=== PATIENT | female | born 1935 | race Caucasian/White ===

== ENCOUNTER 2016-08-07 13:47 | Inpatient (IN) | payer OTHER ==
[2016-08-07] MEDS ORDERED: ALBUTEROL SO4 2.5/IPRATROPIUM 0.5 INH SOL 3 ML VIAL.NEB. NEB ONE ×4 (14:02→14:58)
[2016-08-07] MEDS ORDERED: ACETAMINOPHEN 1000 MG/100 ML VIAL (NON FORMULARY) IVPB ONE (14:24)
[2016-08-07 14:32] LABS: BASOPHIL 0.3 % (0-2.0); EOSINOPHIL 0.6 % (0-4.5); MCH 33.5 pg (25.7-33.7); MCHC 34.1 g/dl (32.0-36.0); MEAN CELL VOLUME 98.3 fl (80-96); MEAN PLT VOLUME 8.3 fl (7.5-11.1); NEUTROPHILS 90.5 % (42.8-82.8); PLATELET COUNT 251 K/MM3 (134-434); RDW 16.5 % (11.6-15.6); WHITE BLOOD COUNT 10.8 K/mm3 (4.0-10.0)
[2016-08-07] MEDS: ALBUTEROL SO4 2.5/IPRATROPIUM 0.5 INH SOL 3 ML VIAL.NEB. NEB SCH ×4 (14:40→15:16)
[2016-08-07 14:41] LABS: VENOUS BLOOD GAS HCO3 25.9 meq/L (19-25); VENOUS PH 7.45 (7.32-7.42)
[2016-08-07 14:44] LABS: INR 1.06 (0.82-1.09); PROTHROMBIN TIME (PATIENT) 11.7 SEC (9.98-11.88)
[2016-08-07] MEDS ORDERED: methylPREDNISolone NA SUCC 125 MG/2 ML VIAL IVPB ONE (14:45)
[2016-08-07] MEDS ORDERED: SODIUM CHLORIDE 500 ML IV STA (14:46)
[2016-08-07 14:52] LABS: URINE APPEARANCE SLCLOUDY; URINE BILIRUBIN NEGATIVE (NEGATIVE); URINE BLOOD NEGATIVE (NEGATIVE); URINE COLOR LTYELLOW; URINE GLUCOSE (UA) NEGATIVE (NEGATIVE); URINE KETONE NEGATIVE (NEGATIVE); URINE LEUK ESTERASE NEGATIVE (NEGATIVE); URINE NITRITE NEGATIVE (NEGATIVE); URINE UROBILINOGEN NEGATIVE E.U./dl (0.2-1.0)
[2016-08-07 14:54] LABS: URINE PROTEIN 1+ (NEGATIVE)
[2016-08-07 14:57] LABS: URINE HYALINE CAST 7 /lpf; URINE MUCUS RARE; URINE RBC 8 /hpf (0-3); URINE WBC 8 /hpf (3-5); YEAST MANY
[2016-08-07 14:58] LABS: ALBUMIN 2.4 g/dl (3.4-5.0); ANION GAP 11 (8-16); BILIRUBIN,TOTAL 0.8 mg/dL (0.2-1.0); CO2 25 mmol/L (21-32); GLUCOSE,RANDOM 113 mg/dL (74-106); SGPT/ALT 19 U/L (12-78); TOT PROT 6.1 g/dl (6.4-8.2)
[2016-08-07] MEDS ORDERED: ACETAMINOPHEN INJECTION 100 ML IVPB ONE (14:58)
[2016-08-07] MEDS ORDERED: methylPREDNISolone NA SUCC 125 MG/2 ML VIAL ONE (14:58)
[2016-08-07 15:01] LABS: ALK PHOS 78 U/L (45-117); MAGNESIUM 2.2 mg/dL (1.8-2.4); SGOT/AST 47 U/L (15-37); TROPONIN I 0.26 ng/ml (0.00-0.05)
--- NOTE | 2016-08-07 15:05 | PDOC ---
History of Present Illness - General Chief Complaint: Respiratory Distress Stated Complaint: ASPIRATION PNEUMONIA Time Seen by Provider: 08/07/16 13:58 History Source: Assisted Records Exam Limitations: No Limitations - History of Present Illness Initial Comments: 08/07/16 14:05 81-year-old female sent over from longterm for evaluation of respiratory distress and questionable aspiration pneumonia which was seen on x-ray today. Patient with history of CHF, aspiration pneumonia secondary to PEG tube, failure to thrive, and anemia. Patient is currently on no antibiotics and was sent here for further evaluation. Patient unable to answer questions since she is having difficulty breathing upon arrival. Timing/Duration: reports: getting worse Severity: reports: moderate Possible Cause: Yes: occasional episodes Associated Symptoms: reports: cough, shortness of breath Past History - Past Medical History Allergies/Adverse Reactions: Allergies Allergy/AdvReac Type Severity Reaction Status Date / Time No Known Allergies Allergy Verified 07/28/16 18:15 Home Medications: Ambulatory Orders Acetaminophen [Tylenol] 320 mg GT Q6H 08/07/16 Albuterol 2.5/Ipratropium 0.5 [Duoneb -] 1 amp NEB Q6H 08/07/16 Amlodipine Besylate [Norvasc -] 2.5 mg GT DAILY 08/07/16 Amoxicillin/Potassium Clav [Amox-Clav 875-125 mg Tablet] 1 each PO BID 08/07/16 Atorvastatin Ca [Lipitor] 40 mg GT HS 08/07/16 Bacitracin - [Bacitracin Topical Ointment -] 1 applic TP DAILY 08/07/16 Dextrose 5%-0.45% Saline [Dextrose 5%-1/2NS] 50 ml IV 08/07/16 Insulin Aspart [Novolog] 0 unit SQ TID 08/07/16 Levetiracetam 500 mg GT BID 08/07/16 Levothyroxine [Synthroid -] 100 mcg GT DAILY 08/07/16 Menthol/Zinc Oxide [Calmoseptine Ointment] 71 gm TP DAILY 08/07/16 Omeprazole Magnesium [Prilosec] 20 mg GT DAILY 08/07/16 Piperacillin Sodium/Tazobactam [Zosyn 3.375 Gram Vial] 3.375 gm IV Q8H 08/07/16 Anemia: Yes Cardiac Disorders: Yes (cardiomegaly) CVA: Yes (ICH) COPD: Yes CHF: No Dementia: Yes Diabetes: Yes (IDDM) Disorders: Yes (Acute Kidney failure) HTN: Yes Hypercholesterolemia: Yes Thyroid Disease: Yes (hypo) - Immunization History Immunization Up to Date: Yes - Psycho/Social/Smoking Cessation Hx Anxiety: No Suicidal Ideation: No Smoking Status: No Smoking History: Unknown if ever smoked Have you smoked in the past 12 months: No Number of Cigarettes Smoked Daily: 0 Information on smoking cessation initiated: No Hx Alcohol Use: No Drug/Substance Use Hx: No Substance Use Type: None Hx Substance Use Treatment: No Patient Lives Alone: No Lives with/in: longterm Review of Systems - Review of Systems Able to Perform ROS?: Yes Constitutional: No: Fever Respiratory: Yes: Shortness of Breath Cardiac (ROS): No: Edema ABD/GI: No: Vomiting : No: Discharge Integumentary: No: Rash Neurological: No: Symptoms reported Hematologic/Lymphatic: Yes: Anemia *Physical Exam - Vital Signs Last Vital Signs Temp Pulse Resp BP Pulse Ox 98.3 F 79 27 H 175/58 85 L 08/07/16 14:44 08/07/16 14:05 08/07/16 14:05 08/07/16 14:05 08/07/16 14:44 - Physical Exam General Appearance: Yes: Appropriately Dressed. No: Mild Distress HEENT: positive: EOMI, ISAMAR, TMs Normal, Pharynx Normal (dry). negative: Pale Conjunctivae Neck: positive: Supple Respiratory/Chest: positive: Respiratory Distress, Accessory Muscle Use, Rapid RR, Crackles (mild inspiratory to rll). negative: Decreased Breath Sounds, Rhonchi, Stridor, Wheezing Gastrointestinal/Abdominal: positive: Soft, Other (pEG tube in place to left upper quadrant). negative: Tenderness Extremity: positive: Normal Capillary Refill. negative: Pedal Edema Integumentary: positive: Normal Color, Dry, Warm Neurologic: positive: Motor Strength 5/5 Heart Score/ECG Review - ECG Intrepretation Rhythm: Regular Rhythm (rate 81 normal sinus rhythm with no ST ELEVATION OR DEPRESSION) ED Treatment Course - LABORATORY CBC & Chemistry Diagram: 08/11/16 05:35 08/11/16 05:35 - ADDITIONAL ORDERS Additional order review: Laboratory Results 08/07/16 08/07/16 08/07/16 14:40 14:24 14:24 WBC RBC Hgb Hct MCV MCHC RDW Plt Count MPV Neutrophils % Lymphocytes % Monocytes % Eosinophils % Basophils % INR 1.06 VBG pH 7.45 H POC VBG pCO2 37.8 L POC VBG pO2 26.1 L Mixed VBG HCO3 25.9 H Urine Color Ltyellow Urine Appearance Slcloudy Urine pH 7.0 D Urine Protein 1+ H Urine Glucose (UA) Negative Urine Ketones Negative Urine Blood Negative Urine Nitrite Negative Urine Bilirubin Negative Urine Urobilinogen Negative Ur Leukocyte Esterase Negative 08/07/16 14:24 WBC 10.8 H D RBC 3.19 L Hgb 10.7 D Hct 31.3 L D MCV 98.3 H MCHC 34.1 RDW 16.5 H Plt Count 251 D MPV 8.3 Neutrophils % 90.5 H Lymphocytes % 5.0 L D Monocytes % 3.6 L Eosinophils % 0.6 Basophils % 0.3 INR VBG pH POC VBG pCO2 POC VBG pO2 Mixed VBG HCO3 Urine Color Urine Appearance Urine pH Urine Protein Urine Glucose (UA) Urine Ketones Urine Blood Urine Nitrite Urine Bilirubin Urine Urobilinogen Ur Leukocyte Esterase 08/07/16 14:24 RBC 3.19 L MCV 98.3 H MCHC 34.1 RDW 16.5 H MPV 8.3 Neutrophils % 90.5 H Lymphocytes % 5.0 L D Monocytes % 3.6 L Eosinophils % 0.6 Basophils % 0.3 - RADIOLOGY Radiology Studies Ordered: Category Date Time Status CHEST X-RAY PORTABLE* [RAD] Stat Radiology 08/07/16 14:23 Ordered - Medications Given in the ED: ED Medications Discontinued Medications Generic Name Dose Route Start Last Admin Trade Name Freq PRN Reason Stop Dose Admin Albuterol/Ipratropium 1 amp 08/07/16 14:24 08/07/16 14:25 Duoneb - NEB 08/07/16 14:25 1 amp ONCE ONE Administration Albuterol/Ipratropium 1 amp 08/07/16 14:25 08/07/16 14:35 Duoneb - NEB 08/07/16 14:26 1 amp ONCE ONE Administration Medical Decision Making - Medical Decision Making 08/07/16 14:58 Patient sent in from longterm for evaluation of possible aspiration pneumonia. Patient upon arrival was tachypneic with O2 sat of high 70s on room air. Patient with right lower lobe crackles. Patient ordered for rectal temp which was noted to be 99.4. Patient warm to touch and appears dry. Patient concerning for electrolyte imbalance versus pneumonia versus sepsis versus anemia. 08/07/16 16:28 Selected Entries 08/07/16 15:56 Pulse Rate [ 112 H Apical] Respiratory 27 H Rate O2 Sat by Pulse 94 L Oximetry (%) Laboratory Tests 08/07/16 16:15 ABG pH 7.49 H ABG pCO2 at Pt Temp 28.8 L ABG pO2 at Pt Temp 58.2 L ABG HCO3 21.8 L ABG O2 Content 12.9 L 08/07/16 16:29 Laboratory Tests 07/28/16 07/30/16 08/07/16 18:20 06:00 14:24 WBC 10.8 H D RBC 3.19 L Hgb 10.7 D Plt Count 251 D Neutrophils % 90.5 H Sodium Potassium Chloride Carbon Dioxide Anion Gap BUN Creatinine Random Glucose Calcium Creatine Kinase Troponin I 0.14 H 0.15 H Urine Nitrite Ur Leukocyte Esterase Urine WBC 08/07/16 08/07/16 14:24 14:24 WBC RBC Hgb Plt Count Neutrophils % Sodium 141 Potassium 4.2 Chloride 105 Carbon Dioxide 25 Anion Gap 11 BUN 16 D Creatinine 1.0 Random Glucose 113 H Calcium 8.0 L Creatine Kinase 204 H D Troponin I 0.26 H Urine Nitrite Negative Ur Leukocyte Esterase Negative Urine WBC 8 X-ray showed no acute findings. Patient concerning for PE. Patient ordered for CT of the chest. 08/07/16 18:17 Selected Entries 08/07/16 17:43 Pulse Rate [ 95 H Apical] Respiratory 24 Rate Blood Pressure 135/52 [Left Arm] O2 Sat by Pulse 97 Oximetry (%) Oxygen Flow 15 Rate 08/07/16 19:03 CTA resent to [facility] on-call. Dr. Gregory aware we are waiting results and will consult once CTAs reviewed and resulted. *DC/Admit/Observation/Transfer Diagnosis at time of Disposition: Respiratory failure with hypoxia, Pneumonia - Referrals
[2016-08-07 16:18] LABS: ARTERIAL BLOOD GAS BASE EXCESS -0.5 meq/l (-2-2); ARTERIAL BLOOD GAS HCO3 21.8 meq/L (22-26); ARTERIAL BLOOD GAS PO2 58.2 mmHg (68-100); ARTERIAL BLOOD GAS pH 7.49 (7.35-7.45)
[2016-08-07 16:19] LABS: ALLENS TEST POSITIVE; ART PUNCT SITE RIGHT RADIAL; LPM/O2% 100%; METHEMOGLOBIN 0.6 % (0.4-1.5); PT. ON O2? YES; TYPE OF O2 NONREBREATHER
--- NOTE | 2016-08-07 20:32 | PDOC ---
*Physical Exam - Vital Signs Last Vital Signs Temp Pulse Resp BP Pulse Ox 98.3 F 81 17 123/47 100 08/07/16 14:44 08/07/16 20:08 08/07/16 20:08 08/07/16 20:08 08/07/16 20:08 ED Treatment Course - LABORATORY CBC & Chemistry Diagram: 08/07/16 14:24 08/07/16 14:24 - ADDITIONAL ORDERS Additional order review: Laboratory Results 08/07/16 08/07/16 08/07/16 16:15 14:40 14:24 INR Puncture Site Right radial ABG pH 7.49 H ABG pCO2 at Pt Temp 28.8 L ABG pO2 at Pt Temp 58.2 L ABG HCO3 21.8 L ABG O2 Sat (Measured) 90.0 ABG O2 Content 12.9 L ABG Base Excess -0.5 Abelardo Test Positive VBG pH 7.45 H POC VBG pCO2 37.8 L POC VBG pO2 26.1 L Mixed VBG HCO3 25.9 H Carboxyhemoglobin 2.0 Methemoglobin 0.6 O2 Delivery Device Nonrebreather Oxygen Flow Rate 100% PEEP 0.0 Sodium Potassium Chloride Carbon Dioxide Anion Gap BUN Creatinine Creat Clearance w eGFR Random Glucose Lactic Acid 1.8 Calcium Magnesium Total Bilirubin AST ALT Alkaline Phosphatase Creatine Kinase CK-MB (CK-2) Troponin I Total Protein Albumin Urine Color Urine Appearance Urine pH Urine Protein Urine Glucose (UA) Urine Ketones Urine Blood Urine Nitrite Urine Bilirubin Urine Urobilinogen Ur Leukocyte Esterase Urine RBC Urine WBC Hyaline Casts Urine Mucus Urine Yeast 08/07/16 08/07/16 08/07/16 14:24 14:24 14:24 INR 1.06 Puncture Site ABG pH ABG pCO2 at Pt Temp ABG pO2 at Pt Temp ABG HCO3 ABG O2 Sat (Measured) ABG O2 Content ABG Base Excess Abelardo Test VBG pH POC VBG pCO2 POC VBG pO2 Mixed VBG HCO3 Carboxyhemoglobin Methemoglobin O2 Delivery Device Oxygen Flow Rate PEEP Sodium 141 Potassium 4.2 Chloride 105 Carbon Dioxide 25 Anion Gap 11 BUN 16 D Creatinine 1.0 Creat Clearance w eGFR 53.21 Random Glucose 113 H Lactic Acid Calcium 8.0 L Magnesium 2.2 Total Bilirubin 0.8 D AST 47 H D ALT 19 Alkaline Phosphatase 78 Creatine Kinase 204 H D CK-MB (CK-2) 5.568 H Troponin I 0.26 H Total Protein 6.1 L Albumin 2.4 L Urine Color Ltyellow Urine Appearance Slcloudy Urine pH 7.0 D Urine Protein 1+ H Urine Glucose (UA) Negative Urine Ketones Negative Urine Blood Negative Urine Nitrite Negative Urine Bilirubin Negative Urine Urobilinogen Negative Ur Leukocyte Esterase Negative Urine RBC 8 Urine WBC 8 Hyaline Casts 7 Urine Mucus Rare Urine Yeast Many 08/07/16 14:24 RBC 3.19 L MCV 98.3 H MCHC 34.1 RDW 16.5 H MPV 8.3 Neutrophils % 90.5 H Lymphocytes % 5.0 L D Monocytes % 3.6 L Eosinophils % 0.6 Basophils % 0.3 - Medications Given in the ED: ED Medications Discontinued Medications Generic Name Dose Route Start Last Admin Trade Name Freq PRN Reason Stop Dose Admin Acetaminophen 1,000 mg 08/07/16 14:24 08/07/16 15:05 Ofirmev Injection - IVPB 08/07/16 14:25 1,000 mg ONCE ONE Administration Albuterol/Ipratropium 1 amp 08/07/16 14:24 08/07/16 14:25 Duoneb - NEB 08/07/16 14:25 1 amp ONCE ONE Administration Albuterol/Ipratropium 1 amp 08/07/16 14:30 08/07/16 15:16 Duoneb - NEB 08/07/16 15:16 1 amp Q15M BONI Administration Albuterol/Ipratropium 1 amp 08/07/16 14:25 08/07/16 14:35 Duoneb - NEB 08/07/16 14:26 1 amp ONCE ONE Administration Sodium Chloride 500 mls @ 250 mls/hr 08/07/16 14:46 08/07/16 14:56 Normal Saline - IV 08/07/16 16:45 250 mls/hr ASDIR STA Administration Methylprednisolone Sodium Succinate 125 mg 08/07/16 14:45 08/07/16 15:00 Solu-Medrol - IVPB 08/07/16 14:46 125 mg ONCE ONE Administration Medical Decision Making - Medical Decision Making 08/07/16 20:30 Patient was endorsed to me by JAG River to follow the CTA and discuss with pmd for admission 0831 CT scan still not read. patient seen and evaluated vs stable O2 sat 100% on NRB 08/07/16 21:54 Patient Name: Raquel Guerin THIS IS A PRELIMINARY REPORT FROM [facility] DATE OF SERVICE: 2016-08-07 16:47:59.0 IMAGES: [id number] EXAM: CTA CHEST WITH IV CONTRAST. PULMONARY EMBOLUS PROTOCOL. REASON FOR EXAM: Chest pain Shortness of breath COMPARISON: None FINDINGS: No evidence of pulmonary embolus or aortic dissection Right lower lobe consolidation with small right pleural effusion. Significantly smaller left pleural effusion with atelectasis. There is no pneumothorax. Heart size is normal and without pericardial effusion. No endobronchial lesions are seen. No pathologic mediastinal adenopathy. Bony thoracic cage and spine are intact with mild degenerative changes and exaggerated kyphosis. Tiny 5 mm right hepatic lesion too small to characterize. Proximal celiac artery stenosis. IMPRESSION No CT evidence of pulmonary embolus or aortic dissection. Moderate size right pleural effusion with right lower lobe consolidation with significant smaller left effusion with left atelectasis THIS DOCUMENT HAS BEEN ELECTRONICALLY SIGNED Heather Cintron D.O. 08/07/2016 21:09 CLAUDIA Santamaria Please call [facility] Work[facility] [phone] ([phone]) with questions. ct noted as above will put the patient on BiPap since not doing well on NC. Will given the patient Zosyn 3.375g and Vancomycin 1 gm IV for the right lower low consolidation Dr. Gregory contacted for admission 08/07/16 22:13 D/W Dr. Gregory will admit to Dr. Drew service *DC/Admit/Observation/Transfer Diagnosis at time of Disposition: Respiratory failure with hypoxia Qualifiers: Chronicity: acute Qualified Code(s): J96.01 - Acute respiratory failure with hypoxia Pneumonia Qualifiers: Pneumonia type: due to unspecified organism Laterality: right Lung location: lower lobe of lung Qualified Code(s): J18.1 - Lobar pneumonia, unspecified organism - Discharge Dispostion Admit: Yes - Referrals Referrals: Alexander Lovell MD [Primary Care Provider] - - Patient Instructions - Post Discharge Activity
[2016-08-07] MEDS ORDERED: VANCOMYCIN 1,000 MG in DEXTROSE 5%-WATER - 250 ML IVPB ONE (21:46)
[2016-08-07] MEDS ORDERED: VANCOMYCIN 1 GRAM (PRE-DOCKED) 250 ML IVPB ONE (22:30)
[2016-08-08 02:05] VITALS: BMI 15.9
--- NOTE | 2016-08-08 09:57 | CON.CARD ---
Consult Consult Specialty:: cardio Referred by:: kristen Reason for Consultation:: elevated troponin - History of Present Illness Chief Complaint: resp distress History of Present Illness: 81 yo female here with resp distress. recently was hospitalized for > 1 week with: ICH, followed by Neurology/Neurosurgery here, no intervention planned. ULISES FTT/malnutrition--s/p PEG UTI--treated by ID stable COPD, followed by pulm here currently sent from [place] for acute sob. CT chest in ER showed RLL consolidation, LLL atx, bilat effusions (no evidence of pulmonary embolus or aortic dissection). Given abx for PNA pt currently resting in bed comfortably, eyes closed. keeps eyes closed and answers briefly to questions--no meaningful history. 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 Cardio/Vascular: Yes: HTN, Hyperlipdemia Pulmonary: Yes: COPD Renal/: Yes: Renal Inusuff ...: No Endocrine: Yes: Diabetes Mellitus, Hypothyroidism - Alcohol/Substance Use Hx Alcohol Use: No - Smoking History Smoking history: Unknown if ever smoked Have you smoked in the past 12 months: No Aproximately how many cigarettes per day: 0 Home Medications - Allergies Allergies/Adverse Reactions: Allergies Allergy/AdvReac Type Severity Reaction Status Date / Time No Known Allergies Allergy Verified 07/28/16 18:15 - Home Medications Home Medications: Ambulatory Orders Acetaminophen [Tylenol] 320 mg GT Q6H 08/07/16 Albuterol 2.5/Ipratropium 0.5 [Duoneb -] 1 amp NEB Q6H 08/07/16 Amlodipine Besylate [Norvasc -] 2.5 mg GT DAILY 08/07/16 Amoxicillin/Potassium Clav [Amox-Clav 875-125 mg Tablet] 1 each PO BID 08/07/16 Atorvastatin Ca [Lipitor] 40 mg GT HS 08/07/16 Bacitracin - [Bacitracin Topical Ointment -] 1 applic TP DAILY 08/07/16 Dextrose 5%-0.45% Saline [Dextrose 5%-1/2NS] 50 ml IV 08/07/16 Insulin Aspart [Novolog] 0 unit SQ TID 08/07/16 Levetiracetam 500 mg GT BID 08/07/16 Levothyroxine [Synthroid -] 100 mcg GT DAILY 08/07/16 Menthol/Zinc Oxide [Calmoseptine Ointment] 71 gm TP DAILY 08/07/16 Omeprazole Magnesium [Prilosec] 20 mg GT DAILY 08/07/16 Piperacillin Sodium/Tazobactam [Zosyn 3.375 Gram Vial] 3.375 gm IV Q8H 08/07/16 Family Disease History - Family Disease History Family History: Unable to Obtain Review of Systems Unable to obtain ROS, reason: dementia Vital Signs: Vital Signs Temperature 97.8 F 08/08/16 06:00 Pulse Rate 68 08/08/16 06:00 Respiratory Rate 20 08/08/16 06:00 Blood Pressure 137/63 08/08/16 06:00 O2 Sat by Pulse Oximetry (%) 95 08/08/16 02:05 Constitutional: Yes: Well Nourished, No Distress Eyes: No: Sclera Icterus HENT: No: Nasal Congestion Neck: No: Decreased ROM Respiratory: Yes: CTA Bilaterally, Diminished (bases). No: Accessory Muscle Use , Rales, Wheezes Gastrointestinal: Yes: Normal Bowel Sounds. No: Distention, Hepatomegaly, Palpable Mass, Tenderness Cardiovascular: Yes: Regular Rate and Rhythm JVD: No Carotid Bruit: No PMI: Non-Displaced Heart Sounds: Yes: S1, S2. No: Gallop Murmur: Yes: Systolic Murmur (2/6 early NAS lusb). No: Diastolic Murmur Musculoskeletal: Yes: Other (No kyphosis) Extremities: No: Cold, Cyanosis Edema: No Peripheral Pulses: 2+ Left Carotid, 2+ Right Carotid, 2+ Left Doralis Pedis, 2+ Right Dorsalis Pedis Integumentary: No: Jaundice Neurological: Yes: Lethargy. No: Seizure Psychiatric: No: Agitated - Other Data Labs, Other Data: INR, PTT INR 1.06 (0.82-1.09) 08/07/16 14:24 Laboratory Tests 08/07/16 08/07/16 08/07/16 14:24 14:24 16:15 WBC 10.8 H D Hgb 10.7 D Plt Count 251 D ABG pH 7.49 H ABG pCO2 at Pt Temp 28.8 L ABG pO2 at Pt Temp 58.2 L Oxygen Flow Rate 100% Sodium 141 Potassium 4.2 Carbon Dioxide 25 BUN 16 D Creatinine 1.0 AST 47 H D ALT 19 Troponin I 0.26 H Assessment/Plan ECG 08/07: NSR, WNL--no change vs 07/23 CTA chest: no PE; RLL consolidation, LLL atx, bilat effusions acute hypoxic resp failure: -PNA suggested on CT scan, WBCs 10, normal temp curve -pulm consult pending--abx? -? chf component --CT reviewed: moderate effusion R (? parapneumonic), small L, fluid in fissures bilaterally but no pulm edema/ground glass appreciated. -BNP 18K -check echo (murmur noted as well--r/o ) -dry mucous membranes on exam, no jvd appreciated (somewhat tds exam due to pt contracted position and poor compliance with exam) -will give test dose lasix 20mg IVP today--observe BP response and lytes/bun and creat in am--further lasix recs to follow based on above -supplemental O2 as doing elevated trop: -trop 0.2 x2 (baseline 0.1 about one week ago)--trend not c/w ACS, ecg non- ischemic -no further ischemia w/u indicated HTN: -bp controlled -cont amlodipine DM: -per pmd recent ICH: -seen by neuro/neurosurgery, no intervention was planned chronic malnutrition: -s/p PEG, gets tube feeds -albumin 2.4 -per pmd copd: -per pulm
--- NOTE | 2016-08-08 11:01 | HP ---
Admitting History and Physical - Primary Care Physician PCP: Alexander Lovell - Admission Chief Complaint: shortness of breath, fever History of Present Illness: 81 y/o female with PMHX of HTN HLD DM2 hypothyroidism, recent ICH, transferred from [facility] with c/o shortness of breath, congestion, low grade fever, low O2 sats. She was recently discharged from [facility] after insertion of PEG for failure to thrive. Patient was noted to be short of breath, congested on Monday night. PEG feedings were put on hold since then and chest x ray ordered. She continued to be short of breath with low grade fever Monday morning. Chest x ray results showed right lower lobe consolidation and possible right middle lobe as well. She was transferred here for the same. Given the timeline, it looks like more of aspiration pneumonia. Patient seen and examined. Much more awake, alert as compared to prior admission. Responding to verbal commands. 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 Cardiovascular: Yes: HTN, Hyperlipdemia Pulmonary: Yes: COPD Renal/: Yes: Renal Inusuff ...: No Heme/Onc: Yes: Anemia Endocrine: Yes: Diabetes Mellitus, Hypothyroidism - Smoking History Smoking history: Unknown if ever smoked Have you smoked in the past 12 months: No Aproximately how many cigarettes per day: 0 - Alcohol/Substance Use Hx Alcohol Use: No Home Medications - Allergies Allergies/Adverse Reactions: Allergies Allergy/AdvReac Type Severity Reaction Status Date / Time No Known Allergies Allergy Verified 07/28/16 18:15 - Home Medications Home Medications: Ambulatory Orders Acetaminophen [Tylenol] 320 mg GT Q6H 08/07/16 Albuterol 2.5/Ipratropium 0.5 [Duoneb -] 1 amp NEB Q6H 08/07/16 Amlodipine Besylate [Norvasc -] 2.5 mg GT DAILY 08/07/16 Amoxicillin/Potassium Clav [Amox-Clav 875-125 mg Tablet] 1 each PO BID 08/07/16 Atorvastatin Ca [Lipitor] 40 mg GT HS 08/07/16 Bacitracin - [Bacitracin Topical Ointment -] 1 applic TP DAILY 08/07/16 Dextrose 5%-0.45% Saline [Dextrose 5%-1/2NS] 50 ml IV 08/07/16 Insulin Aspart [Novolog] 0 unit SQ TID 08/07/16 Levetiracetam 500 mg GT BID 08/07/16 Levothyroxine [Synthroid -] 100 mcg GT DAILY 08/07/16 Menthol/Zinc Oxide [Calmoseptine Ointment] 71 gm TP DAILY 08/07/16 Omeprazole Magnesium [Prilosec] 20 mg GT DAILY 08/07/16 Piperacillin Sodium/Tazobactam [Zosyn 3.375 Gram Vial] 3.375 gm IV Q8H 08/07/16 Review of Systems Unable to obtain ROS, reason: due to ams Physical Examination Vital Signs: Vital Signs Temperature 97.8 F 08/08/16 06:00 Pulse Rate 68 08/08/16 06:00 Respiratory Rate 20 08/08/16 06:00 Blood Pressure 137/63 08/08/16 06:00 O2 Sat by Pulse Oximetry (%) 95 08/08/16 02:05 Constitutional: Yes: Mild Distress, Thin Eyes: Yes: Conjunctiva Clear, EOM Intact, PERRL HENT: Yes: Atraumatic, Normocephalic Neck: Yes: Supple, Trachea Midline Cardiovascular: Yes: Regular Rate and Rhythm Respiratory: Yes: Diminished (right lung base) Gastrointestinal: Yes: Soft Problem List - Problems (1) Aspiration pneumonia Assessment/Plan: PEG feeds on hold for the time being. Continue zosyn. Pulmonary/ID cosult appreciated. Aspiration precautions. Code(s): J69.0 - PNEUMONITIS DUE TO INHALATION OF FOOD AND VOMIT Qualifiers: Aspiration pneumonia type: due to regurgitated food Laterality: bilateral Lung location: lower lobe of lung Qualified Code(s): J69.0 - Pneumonitis due to inhalation of food and vomit (2) Respiratory failure with hypoxia Assessment/Plan: Not in respiratory distress but desats without oxygen support. Continue O2 NC. Monitor sats. Inhaled bronchodilators. Pulmonary follow up. Code(s): J96.91 - RESPIRATORY FAILURE, UNSPECIFIED WITH HYPOXIA Qualifiers: Chronicity: acute Qualified Code(s): J96.01 - Acute respiratory failure with hypoxia (3) Failure to thrive Code(s): [id number] - (4) Hypertension Assessment/Plan: High. Meds resumed. may need to increase the dose if needed. Code(s): I10 - ESSENTIAL (PRIMARY) HYPERTENSION (5) Hypothyroid Assessment/Plan: Continue current dose of levothyroxine. Code(s): E03.9 - HYPOTHYROIDISM, UNSPECIFIED (6) Intracerebral hemorrhage Assessment/Plan: Stable. Extensive work up with neurosurgery/neurology prior admit (Last week) Code(s): I61.9 - NONTRAUMATIC INTRACEREBRAL HEMORRHAGE, UNSPECIFIED Qualifiers : Cerebral hemorrhage location: cerebral hemisphere, cortical portion (7) Congestive heart failure (CHF) Assessment/Plan: BNP very high. B/L pleural effusions. Cardiology consult appreciated. Trial of lasix 20 IV today. Code(s): I50.9 - HEART FAILURE, UNSPECIFIED (8) Diabetes Assessment/Plan: Monitor BGMs/ISS Code(s): E11.9 - TYPE 2 DIABETES MELLITUS WITHOUT COMPLICATIONS Qualifiers: Diabetes mellitus type: type 2 Diabetes mellitus complication status: with unspecified complications Assessment/Plan Patient is NPO for the time being. PEG feeds on hold. Clinimix to be started but on hold for today. Discussed with cardiology - to hold IV fluids for today. Swallow evaluation pending and to discuss with family regarding goals of care.
[2016-08-08 11:14] LABS: TROPONIN I 0.22 ng/ml (0.00-0.05)
[2016-08-08] MEDS: ALBUTEROL SO4 2.5/IPRATROPIUM 0.5 INH SOL 3 ML VIAL.NEB. NEB SCH ×3 (11:29→23:11)
[2016-08-08] MEDS ORDERED: FUROSEMIDE 40 MG/4 ML INJECTABLE VIAL IVPUSH ONE (12:15)
--- NOTE | 2016-08-08 12:47 | PN ---
Progress Note (short form) - Note Progress Note: PULMONARY CONSULTATION DICTATED 08/08/16 IMP ACUTE HYPOXEMIC RESPIRATORY FAILURE RLL CONSOLIDATION LIKELY ASPIRATION PNEUMONIA BILATERAL PLEURAL EFFUSIONS ? CHF H/O ICH S/P CVA S/P PEG DM HTN HYPOTHYROID PLAN IV ANTIBIOTICS SUPPLEMENTAL O2 ASPIRATION PRECAUTIONS LASIX PER CARDIOLOGY INHALED BRONCHODILATORS ECHO F/U CHEST X-RAY DR MCCULLOUGH Problem List - Problems (1) Aspiration pneumonia Code(s): J69.0 - PNEUMONITIS DUE TO INHALATION OF FOOD AND VOMIT (2) Respiratory failure with hypoxia Code(s): J96.91 - RESPIRATORY FAILURE, UNSPECIFIED WITH HYPOXIA Qualifiers: Chronicity: acute Qualified Code(s): J96.01 - Acute respiratory failure with hypoxia (3) Diabetes Code(s): E11.9 - TYPE 2 DIABETES MELLITUS WITHOUT COMPLICATIONS Qualifiers: Diabetes mellitus type: type 2 Diabetes mellitus complication status: with unspecified complications (4) Hypertension Code(s): I10 - ESSENTIAL (PRIMARY) HYPERTENSION (5) Hypothyroid Code(s): E03.9 - HYPOTHYROIDISM, UNSPECIFIED (6) Intracerebral hemorrhage Code(s): I61.9 - NONTRAUMATIC INTRACEREBRAL HEMORRHAGE, UNSPECIFIED Qualifiers : Cerebral hemorrhage location: cerebral hemisphere, cortical portion
[2016-08-08] MEDS ORDERED: ALBUTEROL SO4 2.5/IPRATROPIUM 0.5 INH SOL 3 ML VIAL.NEB. NEB PRN (12:51)
[2016-08-08] MEDS: PIPERACILLIN/TAZOB 3.375 GM 50 ML IVPB SCH ×2 (13:33→17:18)
[2016-08-08] MEDS: ACETAMINOPHEN 325 MG TABLET (FP) PO SCH ×3 (13:34→22:28)
--- NOTE | 2016-08-08 14:21 | CONSULT ---
Consult Consult Specialty:: infectious diseases Referred by:: Reason for Consultation:: pneumonia - History of Present Illness History of Present Illness: 81 y/o female with PMHX of HTN HLD DM2 hypothyroidism, This patient is well nown to e from the last admission she was a failure to thrive patient and according to the family most of the bad things happened after she suffered the stroke patient was in the hospital and had a feeding tube placed and then was transferred to group home patient became congested sob and patient was transferred back to the hospital patients family in the room and patient is much more awake and alert than ever before and she does understand everything patient tube feeds are on hold and she does have cough which indicates that patient probably has pna and probably due to aspiration - History Source History Provided By: Patient, Family Member Limitations to Obtaining History: Clinical Condition - 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 Cardio/Vascular: Yes: HTN, Hyperlipdemia Pulmonary: Yes: COPD Renal/: Yes: Renal Inusuff ...: No Endocrine: Yes: Diabetes Mellitus, Hypothyroidism - Alcohol/Substance Use Hx Alcohol Use: No - Smoking History Smoking history: Unknown if ever smoked Have you smoked in the past 12 months: No Aproximately how many cigarettes per day: 0 Home Medications - Allergies Allergies/Adverse Reactions: Allergies Allergy/AdvReac Type Severity Reaction Status Date / Time No Known Allergies Allergy Verified 07/28/16 18:15 - Home Medications Home Medications: Ambulatory Orders Acetaminophen [Tylenol] 320 mg GT Q6H 08/07/16 Albuterol 2.5/Ipratropium 0.5 [Duoneb -] 1 amp NEB Q6H 08/07/16 Amlodipine Besylate [Norvasc -] 2.5 mg GT DAILY 08/07/16 Amoxicillin/Potassium Clav [Amox-Clav 875-125 mg Tablet] 1 each PO BID 08/07/16 Atorvastatin Ca [Lipitor] 40 mg GT HS 08/07/16 Bacitracin - [Bacitracin Topical Ointment -] 1 applic TP DAILY 08/07/16 Dextrose 5%-0.45% Saline [Dextrose 5%-1/2NS] 50 ml IV 08/07/16 Insulin Aspart [Novolog] 0 unit SQ TID 08/07/16 Levetiracetam 500 mg GT BID 08/07/16 Levothyroxine [Synthroid -] 100 mcg GT DAILY 08/07/16 Menthol/Zinc Oxide [Calmoseptine Ointment] 71 gm TP DAILY 08/07/16 Omeprazole Magnesium [Prilosec] 20 mg GT DAILY 08/07/16 Piperacillin Sodium/Tazobactam [Zosyn 3.375 Gram Vial] 3.375 gm IV Q8H 08/07/16 Review of Systems - Review of Systems Constitutional: reports: Lethargy Eyes: reports: No Symptoms HENT: reports: No Symptoms Neck: reports: No Symptoms Cardiovascular: reports: No Symptoms Respiratory: reports: Cough, SOB, Other Gastrointestinal: reports: No Symptoms Genitourinary: reports: No Symptoms Musculoskeletal: reports: No Symptoms Integumentary: reports: No Symptoms Neurological: reports: No Symptoms Endocrine: reports: No Symptoms Hematology/Lymphatic: reports: No Symptoms Psychiatric: reports: No Symptoms Physical Exam Vital Signs: Vital Signs Temperature 97.8 F 08/08/16 06:00 Pulse Rate 68 08/08/16 06:00 Respiratory Rate 20 08/08/16 06:00 Blood Pressure 137/63 08/08/16 06:00 O2 Sat by Pulse Oximetry (%) 95 08/08/16 02:05 Constitutional: Yes: Calm, Thin, Other (failure to thrive) Eyes: Yes: Conjunctiva Clear Neck: Yes: Supple, Trachea Midline Cardiovascular: Yes: S1, S2 Respiratory: Yes: Cough, On Nasal O2, Poor Air Entry, Rhonchi Gastrointestinal: Yes: Normal Bowel Sounds, Soft, Other (peg in place) Musculoskeletal: Yes: Other Extremities: Yes: WNL Neurological: Yes: Alert, Oriented Psychiatric: Yes: Alert Imaging - Results Chest X-ray: Report Reviewed, Image Reviewed Cat Scan: Report Reviewed, Image Reviewed Assessment/Plan roblem List - Problems (1) Aspiration pneumonia Code(s): J69.0 - PNEUMONITIS DUE TO INHALATION OF FOOD AND VOMIT Qualifiers: Aspiration pneumonia type: due to regurgitated food Laterality: bilateral Lung location: lower lobe of lung Qualified Code(s): J69.0 - Pneumonitis due to inhalation of food and vomit (2) Respiratory failure with hypoxia Code(s): J96.91 - RESPIRATORY FAILURE, UNSPECIFIED WITH HYPOXIA Qualifiers: Chronicity: acute Qualified Code(s): J96.01 - Acute respiratory failure with hypoxia (3) Failure to thrive Code(s): [id number] - (4) Hypertension Code(s): I10 - ESSENTIAL (PRIMARY) HYPERTENSION (5) Hypothyroid Code(s): E03.9 - HYPOTHYROIDISM, UNSPECIFIED (6) Intracerebral hemorrhage Code(s): I61.9 - NONTRAUMATIC INTRACEREBRAL HEMORRHAGE, UNSPECIFIED Qualifiers : Cerebral hemorrhage location: cerebral hemisphere, cortical portion (7) Congestive heart failure (CHF) Code(s): I50.9 - HEART FAILURE, UNSPECIFIED (8) Diabetes Code(s): E11.9 - TYPE 2 DIABETES MELLITUS WITHOUT COMPLICATIONS Qualifiers: Diabetes mellitus type: type 2 Diabetes mellitus complication status: with unspecified complications i think patient has aspiration pneumonia patients status ahs improved plan agree with holding tube feeds started on abx continue monitor await for cx reports incentive latha if possible
--- NOTE | 2016-08-08 20:38 | CONS ---
DATE OF CONSULTATION: 08/08/2016 PULMONARY CONSULTATION REFERRING PHYSICIAN: Alexander Lovell M.D. HISTORY OF PRESENT ILLNESS: History is obtained from the chart. The patient is poorly responsive. The patient is an 81-year-old white female with a past medical history of hypertension, hyperlipidemia, type 2 diabetes, hypothyroidism, recent intracerebral hemorrhage. Patient recently was hospitalized at [facility] post PEG insertion secondary to failure to thrive, residential resident transferred to [facility] secondary to shortness of breath, hypoxemia, low grade fever, therefore she was recently discharged to [facility] after insertion of PEG. Apparently, at the residential, patient noted to be short of breath and congested on Monday evening prior to this admission. The patient apparently PEG feedings were put on hold, and then patient had chest x-ray. Chest x-ray apparently showed a right lower lobe consolidation at which time she was transferred to [facility] ER. In the emergency room, she was noted to be hypoxemic with O2 saturations in the 70s. She underwent a chest CTA which revealed right lower lobe consolidation with base atelectasis and bilateral pleural effusion. She was admitted to the floor, started on supplemental O2 as well as broad spectrum antibiotics for likely aspiration pneumonia. No further history is available at this time. PAST MEDICAL HISTORY: Includes hypertension status post intracerebral hemorrhage, diabetes type 2, hypothyroidism, hyperlipidemia, and chronic kidney disease, hypothyroidism. SOCIAL HISTORY: Unable to obtain at this time. CURRENT MEDICATIONS: Include Tylenol, heparin, Keppra, Synthroid, Lipitor, Norvasc, DuoNeb, heparin, Tylenol. REVIEW OF SYSTEMS: Unable to obtain. PHYSICAL EXAMINATION: General: The patient is a thin white female, contracted lower extremities, poorly responsive, in no acute respiratory distress. Vital signs: She is currently afebrile. Blood pressure is 137/63, respiratory rate 20, O2 saturation is 95% on room air. HEENT: Head is normocephalic, atraumatic. Neck: Supple. Heart: Regular. S1, S2. Chest: Crackles are noted at the right base. Abdomen: Soft. Bowel sounds positive. Extremities: Bilateral extremity contractures. No edema noted. LABORATORY: WBC is 10.8, hemoglobin 10.7, hematocrit 31.3, platelet count 251,000, INR 1.06. Blood gas: pH 7.49, pCO2 of 28, pO2 of 58, a bicarbonate of 21, a saturation of 90, that was 100% nonrebreather. Troponin is 0.26. BNP is 18,160. BUN 16, creatinine 1.0. Chest CT as noted earlier. IMPRESSION: 1. Acute hypoxemic respiratory failure most likely secondary to right lower lobe consolidation, might be aspiration pneumonia. 2. Bilateral pleural effusions, etiology undetermined, possibly secondary to mild congestive heart failure as noted by elevated . 3. Elevated troponins. 4. Status post intracerebral hemorrhage. 5. Status post cerebrovascular accident. 6. Diabetes. 7. Chronic malnutrition status post percutaneous endoscopic gastrostomy tube. PLAN: Antibiotic therapy, supplemental O2, obtain followup chest x-rays, IV Lasix as per cardiology, check echocardiogram. ' JACK MCCULLOUGH M.D. MURALI/[id number]
[2016-08-08] MEDS ORDERED: PT OWN MED DRAWER 7, Y5N ONE (21:21)
[2016-08-08] MEDS: levETIRAcetam 500 MG/5 ML ORAL SOLUTION (UNIT-DOSE CUPS) GT SCH (22:28)
[2016-08-08] MEDS: ATORVASTATIN CA 40 MG TABLET (FP) GT SCH (22:28)
[2016-08-08] MEDS: HEPARIN NA (PORCINE) 5,000 UNITS/ML 1ML VIAL SQ SCH (22:29)
[2016-08-09] MEDS: PIPERACILLIN/TAZOB 3.375 GM 50 ML IVPB SCH ×3 (01:08→17:11)
[2016-08-09] MEDS: ACETAMINOPHEN 325 MG TABLET (FP) PO SCH ×4 (05:42→23:23)
--- NOTE | 2016-08-09 07:21 | PN ---
Progress Note (short form) - Note Progress Note: PATIENT ADMITTED FROM SNF WITH SOB . DX WITH ASPIRATION PNEUMONIA RLL / POSSIBLY CHF GIVEN TRIAL DOSE OF IV LASIX. SLIGHT ELEVATION TROPONIN LEVELS EVALUATED BY DR LOUISE CARDIOLOGY. PULMONARY & ID FOLLOWUP APPRECIATED. ON O2 RX / IV AB. AWAKE / SOMEWHAT RESPONSIVE / KNOWS NAME BUT LETHARGIC / NO OBVIOUS DISTRESS. Selected Entries 08/09/16 06:22 Temperature 98.1 F Pulse Rate 73 Respiratory 20 Rate Blood Pressure 138/64 Laboratory Tests 08/07/16 08/07/16 08/07/16 14:24 14:24 14:24 WBC 10.8 H D RBC 3.19 L Hgb 10.7 D Hct 31.3 L D Plt Count 251 D Sodium 141 Potassium 4.2 Chloride 105 Carbon Dioxide 25 Anion Gap 11 BUN 16 D Creatinine 1.0 Creat Clearance w eGFR 53.21 Random Glucose 113 H Lactic Acid 1.8 Calcium 8.0 L Magnesium 2.2 Creatine Kinase CK-MB (CK-2) Troponin I B-Natriuretic Peptide 08/08/16 10:25 WBC RBC Hgb Hct Plt Count Sodium Potassium Chloride Carbon Dioxide Anion Gap BUN Creatinine Creat Clearance w eGFR Random Glucose Lactic Acid Calcium Magnesium Creatine Kinase 162 D CK-MB (CK-2) 3.652 H Troponin I 0.22 H B-Natriuretic Peptide 85551.30 H P/E <> AWAKE / MILD RESPIRATORY DISTRESS. HEENT <> NO CAROTID BRUIT. COR <> S 1 S 2 HS DISTANT CHEST <> DECREASED BS AT RT BASE. ABD <> SOFT / PEG TUBE IN PLACE / NO REBOUND / NO GUARDING. EXT <> OA CHANGES / MULTIPLE ECCHYMOSES UPPER & LOWER EXT. IMP : ASP PNEUMONIA CHF RESP FAILURE ELEVATED TROPONIN HTN HYPOTHYROID DM ANEMIA PLAN : SUPPORTIVE CARE O2 RX IV AB NEBULIZER RX. PULMONARY FOLLOWUP CARDIOLOGY FOLLOWUP FOLLOW [facility]'S HEMATOLOGY CONSULT FOR ANEMIA.
[2016-08-09 07:24] LABS: BASOPHIL 0.2 % (0-2.0); EOSINOPHIL 2.5 % (0-4.5); MCH 33.6 pg (25.7-33.7); MCHC 34.4 g/dl (32.0-36.0); MEAN CELL VOLUME 97.9 fl (80-96); MEAN PLT VOLUME 7.8 fl (7.5-11.1); NEUTROPHILS 85.4 % (42.8-82.8); PLATELET COUNT 244 K/MM3 (134-434); RDW 16.3 % (11.6-15.6); WHITE BLOOD COUNT 9.1 K/mm3 (4.0-10.0)
[2016-08-09 07:49] LABS: ALBUMIN 2.4 g/dl (3.4-5.0); ALK PHOS 67 U/L (45-117); ANION GAP 11 (8-16); BILIRUBIN,TOTAL 0.6 mg/dL (0.2-1.0); CALCIUM 8.3 mg/dL (8.5-10.1); CO2 27 mmol/L (21-32); CREATININE 1.1 mg/dL (0.55-1.02); GLUCOSE,RANDOM 95 mg/dL (74-106); SGOT/AST 32 U/L (15-37); SGPT/ALT 18 U/L (12-78); TOT PROT 5.5 g/dl (6.4-8.2)
--- NOTE | 2016-08-09 08:38 | PN ---
Progress Note, Physician Chief Complaint: resp distress History of Present Illness: denies sob. no cp, palpit, leg swelling - Current Medication List Current Medications: Active Medications Acetaminophen (Tylenol -) 325 mg PO Q6H [facility] Last Admin: 08/09/16 05:42 Dose: 325 mg Albuterol/Ipratropium (Duoneb -) 1 amp NEB QIDR [facility] Last Admin: 08/08/16 23:11 Dose: 1 amp Albuterol/Ipratropium (Duoneb -) 1 amp NEB Q4H PRN PRN Reason: SHORTNESS OF BREATH Amlodipine Besylate (Norvasc -) 2.5 mg GT DAILY [facility] Atorvastatin Calcium (Lipitor -) 40 mg GT HS [facility] Last Admin: 08/08/16 22:28 Dose: 40 mg Heparin Sodium (Porcine) (Heparin -) 5,000 unit SQ BID [facility] Last Admin: 08/08/16 22:29 Dose: 5,000 unit Piperacillin Sod/Tazobactam Sod (Zosyn 3.375gm Ivpb (Pre-Docked)) 50 mls @ 100 mls/hr IVPB Q8H-IV [facility] PRN Reason: Protocol Last Admin: 08/09/16 01:08 Dose: 100 mls/hr Levetiracetam (Keppra Oral Solution -) 500 mg GT BID [facility] Last Admin: 08/08/16 22:28 Dose: 500 mg Levothyroxine Sodium (Synthroid -) 100 mcg GT DAILY [facility] - Objective Vital Signs: Vital Signs Temperature 98.1 F 08/09/16 06:22 Pulse Rate 73 08/09/16 06:22 Respiratory Rate 20 08/09/16 06:22 Blood Pressure 138/64 08/09/16 06:22 O2 Sat by Pulse Oximetry (%) 95 08/08/16 20:34 Constitutional: Yes: Well Nourished, No Distress, Calm, Other (dry lips) Cardiovascular: Yes: Regular Rate and Rhythm, S1, S2. No: Gallop, Murmur Respiratory: Yes: Regular, Diminished (R base). No: Accessory Muscle Use, Rales , Wheezes Extremities: No: Cold Edema: No Neurological: Yes: Alert. No: Seizure Psychiatric: No: Agitated Labs: CBC, BMP 08/09/16 06:05 08/09/16 06:05 INR, PTT INR 1.06 (0.82-1.09) 08/07/16 14:24 Assessment/Plan ECG 08/07: NSR, WNL--no change vs 07/23 CTA chest: no PE; RLL consolidation, LLL atx, bilat effusions Echo 08/22 (here): nl LV/EF; RV tds; mod AI/MR, no peric eff (no RVSP) acute hypoxic resp failure: -PNA suggested on CT scan, WBCs 10, normal temp curve -pulm treating for likely aspiration PNA -? chf component --CT reviewed: moderate effusion R (? parapneumonic), small L, fluid in fissures bilaterally but no pulm edema/ground glass appreciated. -BNP 18K -echo with normal LV fxn and no severe valvular dysfunction -dry mucous membranes on exam, no jvd appreciated (somewhat tds exam due to pt contracted position and poor compliance with exam) -08/09: bun/creat both up slightly s/p low dose lasix trial yest--she is likely intravasc depleted. would not continue lasix for asymptomatic pleural effusions (monitor resp status clinically). ok for gentle maintenance IVF if not receiving adequate PO or tube feed nutrition -supplemental O2 as doing elevated trop: -trop 0.2 x2 (baseline 0.1 about one week ago)--trend not c/w ACS, ecg non- ischemic -no further ischemia w/u indicated HTN: -bp controlled -cont amlodipine DM: -per pmd recent ICH: -seen by neuro/neurosurgery, no intervention was planned chronic malnutrition: -s/p PEG, gets tube feeds -albumin 2.4 -per pmd copd: -per pulm
[2016-08-09] MEDS ORDERED: KCL 10 MEQ IVPB 100 ML IVPB SCH (09:30)
--- NOTE | 2016-08-09 09:32 | CONSULT ---
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 Cardiovascular: Yes: HTN, Hyperlipdemia Pulmonary: Yes: COPD Renal/: Yes: Renal Inusuff ...: No Heme/Onc: Yes: Anemia Endocrine: Yes: Diabetes Mellitus, Hypothyroidism - Smoking History Smoking history: Unknown if ever smoked Have you smoked in the past 12 months: No Aproximately how many cigarettes per day: 0 - Alcohol/Substance Use Hx Alcohol Use: No History - Admission Reason For Visit: RESPIRATORY FAILURE WITH HYPOXIA, PNEUMONI - Hearing Hearing: Normal Hearing Aide: No Speech Evaluation - Communication Primary Language: TURKISH Communication: Yes: Simple Responses (able to respond to social greetings "hello " "I'm fine" "goodbye" "yes/no") - Speech Production Apraxia: No Able to Make Needs Known: Yes: Moderately Impaired Intelligibility: Yes: WNL (for simple responses) - Speech Characteristics Voice Loudness: Normal Voice Pitch: Yes: Normal Voice Phonatory-based Quality: Yes: Normal Speech Pattern: Normal Nasal Resonance: Normal Articulation: Yes: Precise Rate of Speech: Intact Voice, Other Observations: Yes: Mouth Breathing - Language/Auditory Comprehension Observation: Able to respond to yes/no queries: Yes, Yes/No Confusion: Yes, Comprehends Conversational Speech: Yes, Benefits from Slow Speech: Yes, Benefits from Repetiton: Yes, Benefits from Increased Volume of Speech: Yes - Language/Verbal Expression Able to Respond to Simple Queries: Yes: Mildly Impaired Able to Communicate Wants and Needs: Yes: Moderately Impaired Functional Communication Status: Yes: Moderately Impaired Aware of Errors: No Attempts to Correct Errors: No Written Expression: not examined. Oral Expression: limited speech sample Reading Comprehension: not examined. Calculations: not examined. Attention: Yes: Moderate Impairment - Memory/Perception alf Memory: Yes: Moderately Impaired Short Term Memory: Yes: Moderately Impaired - Swallow Evaluation/Bedside Assessment Current Nutritional Intake: NPO, G Tube Oral Secretions: Yes: Halitosis, Dryness Tracheostomy Present: No Patient on Ventilator: No Dentition: Yes: Missing Teeth Facial Comment: AMS lethargic unable to evaluation. Jaw Position: Open at Rest Against Resistance Opening: Weak Against Resistance Closing: Weak Lips, Comment: AMS lethargic unable to evaluation. Lingual Speed of Movement: Reduced Lingual Movement Strgth Against Opposition: Reduced Lingual Comment: AMS lethargic unable to evaluation. Laryngeal Elevation: Impaired Laryngeal Movement: Unable to Palpate Other Findings/Remarks: 81 yo female at bedside for speech and swallow eval to r/o dysphagia. Pt is minimally verbal (simple responses) A&Ox1, lethargic with eyes closed to auditory stimuli and gentle tactile prompts. Pt admitted to [facility] for SOB, fever and possible aspiration PNA. Pt is currently NPO with PEG. PMHX includes HTN HLD DM2 COPD and sheri insufficiency. PO trials are not advisable at this time secondary to respiratory distress. Recommendations - Speech Evaluation, Impression/Plan Impression: Pt is considered at risk for aspiration with po trials secondary to AMS, lethargic state and respiratory distress. - Dysphagia Impressions/Plan Swallowing Skills: Impaired Dysphagia Impressions: Profound Impairment, Risk of Aspiration, Refused PO Trials, Suspect Aspiration *Silent aspiration: cannot be R/O at bedside Dysphagia Evaluation Summary: Continue NPO status at this time. Observed standard aspiration precaution when PEG feeding resume. Provide medication, hydration and nutrition needs when sarah. Results given to wire charger and to pcp via chart. - Recommendations Diet Consistency: NPO Liquids: NPO, IV Hydration
[2016-08-09] MEDS ORDERED: LEVOTHYROXINE NA 100 MCG TABLET (FP) GT SCH (10:00)
[2016-08-09] MEDS ORDERED: PT OWN MED DRAWER 7, Y5N ONE ×2 (10:17→21:49)
[2016-08-09] MEDS: HEPARIN NA (PORCINE) 5,000 UNITS/ML 1ML VIAL SQ SCH ×2 (10:20→21:54)
[2016-08-09] MEDS: levETIRAcetam 500 MG/5 ML ORAL SOLUTION (UNIT-DOSE CUPS) GT SCH ×2 (10:20→21:58)
[2016-08-09] MEDS: amLODIPine BESYLATE 2.5 MG TABLET (FP) GT SCH (10:20)
--- NOTE | 2016-08-09 10:36 | PN ---
Progress Note (short form) - Note Progress Note: PULMONARY CHRONICALLY ILL IN APPEARANCE NO OVERALL CHANGE IN EXAM MEDS/LABS/NOTES/IMAGING REVIEWED IMP ACUTE HYPOXEMIC RESPIRATORY FAILURE RLL CONSOLIDATION LIKELY ASPIRATION PNEUMONIA BILATERAL PLEURAL EFFUSIONS ? CHF H/O ICH S/P CVA S/P PEG DM HTN HYPOTHYROID PLAN IV ANTIBIOTICS SUPPLEMENTAL O2 ASPIRATION PRECAUTIONS LASIX PER CARDIOLOGY INHALED BRONCHODILATORS ECHO NOTED F/U CHEST X-RAY Sasha POLANCO MD
[2016-08-09] MEDS: ALBUTEROL SO4 2.5/IPRATROPIUM 0.5 INH SOL 3 ML VIAL.NEB. NEB SCH ×3 (11:10→23:02)
--- NOTE | 2016-08-09 11:17 | CONSULT ---
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 Cardio/Vascular: Yes: HTN, Hyperlipdemia Pulmonary: Yes: COPD Renal/: Yes: Renal Inusuff ...: No Endocrine: Yes: Diabetes Mellitus, Hypothyroidism - Alcohol/Substance Use Hx Alcohol Use: No - Smoking History Smoking history: Unknown if ever smoked Have you smoked in the past 12 months: No Aproximately how many cigarettes per day: 0 Home Medications - Allergies Allergies/Adverse Reactions: Allergies Allergy/AdvReac Type Severity Reaction Status Date / Time No Known Allergies Allergy Verified 07/28/16 18:15 - Home Medications Home Medications: Ambulatory Orders Acetaminophen [Tylenol] 320 mg GT Q6H 08/07/16 Albuterol 2.5/Ipratropium 0.5 [Duoneb -] 1 amp NEB Q6H 08/07/16 Amlodipine Besylate [Norvasc -] 2.5 mg GT DAILY 08/07/16 Amoxicillin/Potassium Clav [Amox-Clav 875-125 mg Tablet] 1 each PO BID 08/07/16 Atorvastatin Ca [Lipitor] 40 mg GT HS 08/07/16 Bacitracin - [Bacitracin Topical Ointment -] 1 applic TP DAILY 08/07/16 Dextrose 5%-0.45% Saline [Dextrose 5%-1/2NS] 50 ml IV 08/07/16 Insulin Aspart [Novolog] 0 unit SQ TID 08/07/16 Levetiracetam 500 mg GT BID 08/07/16 Levothyroxine [Synthroid -] 100 mcg GT DAILY 08/07/16 Menthol/Zinc Oxide [Calmoseptine Ointment] 71 gm TP DAILY 08/07/16 Omeprazole Magnesium [Prilosec] 20 mg GT DAILY 08/07/16 Piperacillin Sodium/Tazobactam [Zosyn 3.375 Gram Vial] 3.375 gm IV Q8H 08/07/16 Physical Exam Vital Signs: Vital Signs Temperature 97.6 F 08/09/16 09:02 Pulse Rate 72 08/09/16 09:02 Respiratory Rate 20 08/09/16 09:02 Blood Pressure 139/78 08/09/16 09:02 O2 Sat by Pulse Oximetry (%) 95 08/08/16 20:34 Labs: CBC, BMP 08/09/16 06:05 08/09/16 06:05
--- NOTE | 2016-08-09 12:03 | PN ---
Progress Note, Physician History of Present Illness: patient mental status stable wbc has normalized patient calm - Current Medication List Current Medications: Active Medications Acetaminophen (Tylenol -) 325 mg PO Q6H [facility] Last Admin: 08/09/16 10:19 Dose: 325 mg Albuterol/Ipratropium (Duoneb -) 1 amp NEB QIDR [facility] Last Admin: 08/09/16 11:10 Dose: 1 amp Albuterol/Ipratropium (Duoneb -) 1 amp NEB Q4H PRN PRN Reason: SHORTNESS OF BREATH Amlodipine Besylate (Norvasc -) 2.5 mg GT DAILY [facility] Last Admin: 08/09/16 10:20 Dose: 2.5 mg Atorvastatin Calcium (Lipitor -) 40 mg GT HS [facility] Last Admin: 08/08/16 22:28 Dose: 40 mg Heparin Sodium (Porcine) (Heparin -) 5,000 unit SQ BID [facility] Last Admin: 08/09/16 10:20 Dose: 5,000 unit Piperacillin Sod/Tazobactam Sod (Zosyn 3.375gm Ivpb (Pre-Docked)) 50 mls @ 100 mls/hr IVPB Q8H-IV [facility] PRN Reason: Protocol Last Admin: 08/09/16 10:21 Dose: 100 mls/hr Amino Acids (Clinimix -) 1,000 mls @ 42 mls/hr IV Q23H [facility] Levetiracetam (Keppra Oral Solution -) 500 mg GT BID [facility] Last Admin: 08/09/16 10:20 Dose: 500 mg Levothyroxine Sodium (Synthroid -) 100 mcg GT DAILY [facility] Last Admin: 08/09/16 10:20 Dose: 100 mcg - Objective Vital Signs: Vital Signs Temperature 97.6 F 08/09/16 09:02 Pulse Rate 72 08/09/16 09:02 Respiratory Rate 20 08/09/16 10:00 Blood Pressure 139/78 08/09/16 09:02 O2 Sat by Pulse Oximetry (%) 95 08/09/16 10:00 Constitutional: Yes: Calm, Thin, Other (failure to thrive) Cardiovascular: Yes: Regular Rate and Rhythm, S1, S2 Respiratory: Yes: Cough, On Nasal O2, Rhonchi Gastrointestinal: Yes: Normal Bowel Sounds, Soft, Other (peg tube in place) Musculoskeletal: Yes: WNL Extremities: Yes: WNL Neurological: Yes: Alert Psychiatric: Yes: Alert Labs: CBC, BMP 08/09/16 06:05 08/09/16 06:05 INR, PTT INR 1.06 (0.82-1.09) 08/07/16 14:24 Assessment/Plan roblem List - Problems (1) Aspiration pneumonia Code(s): J69.0 - PNEUMONITIS DUE TO INHALATION OF FOOD AND VOMIT Qualifiers: Aspiration pneumonia type: due to regurgitated food Laterality: bilateral Lung location: lower lobe of lung Qualified Code(s): J69.0 - Pneumonitis due to inhalation of food and vomit (2) Respiratory failure with hypoxia Code(s): J96.91 - RESPIRATORY FAILURE, UNSPECIFIED WITH HYPOXIA Qualifiers: Chronicity: acute Qualified Code(s): J96.01 - Acute respiratory failure with hypoxia (3) Failure to thrive Code(s): [id number] - (4) Hypertension Code(s): I10 - ESSENTIAL (PRIMARY) HYPERTENSION (5) Hypothyroid Code(s): E03.9 - HYPOTHYROIDISM, UNSPECIFIED (6) Intracerebral hemorrhage Code(s): I61.9 - NONTRAUMATIC INTRACEREBRAL HEMORRHAGE, UNSPECIFIED Qualifiers : Cerebral hemorrhage location: cerebral hemisphere, cortical portion (7) Congestive heart failure (CHF) Code(s): I50.9 - HEART FAILURE, UNSPECIFIED (8) Diabetes Code(s): E11.9 - TYPE 2 DIABETES MELLITUS WITHOUT COMPLICATIONS Qualifiers: Diabetes mellitus type: type 2 Diabetes mellitus complication status: with unspecified complications i think patient has aspiration pneumonia patients status ahs improved plan continue holding tube feed continue monitoring incentive latha rest as per primary continue abx
[2016-08-09] MEDS: AMINO ACIDS 4.25%/D5W 1,000 ML IV SCH (12:41)
--- NOTE | 2016-08-09 13:13 | CONSULT ---
Consult Consult Specialty:: Hematology-Oncology Referred by:: Dr. Ayoub Reason for Consultation:: Anemia - History of Present Illness Chief Complaint: Presents from [place] with anemia with hydration fall in Hb from- 10.7g to 8.4 g. 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: Yes: CVA Cardio/Vascular: Yes: HTN, Hyperlipdemia Pulmonary: Yes: COPD Renal/: Yes: Renal Inusuff ...: No Endocrine: Yes: Diabetes Mellitus, Hypothyroidism - Alcohol/Substance Use Hx Alcohol Use: No - Smoking History Smoking history: Unknown if ever smoked Have you smoked in the past 12 months: No Aproximately how many cigarettes per day: 0 Home Medications - Allergies Allergies/Adverse Reactions: Allergies Allergy/AdvReac Type Severity Reaction Status Date / Time No Known Allergies Allergy Verified 07/28/16 18:15 - Home Medications Home Medications: Ambulatory Orders Acetaminophen [Tylenol] 320 mg GT Q6H 08/07/16 Albuterol 2.5/Ipratropium 0.5 [Duoneb -] 1 amp NEB Q6H 08/07/16 Amlodipine Besylate [Norvasc -] 2.5 mg GT DAILY 08/07/16 Amoxicillin/Potassium Clav [Amox-Clav 875-125 mg Tablet] 1 each PO BID 08/07/16 Atorvastatin Ca [Lipitor] 40 mg GT HS 08/07/16 Bacitracin - [Bacitracin Topical Ointment -] 1 applic TP DAILY 08/07/16 Dextrose 5%-0.45% Saline [Dextrose 5%-1/2NS] 50 ml IV 08/07/16 Insulin Aspart [Novolog] 0 unit SQ TID 08/07/16 Levetiracetam 500 mg GT BID 08/07/16 Levothyroxine [Synthroid -] 100 mcg GT DAILY 08/07/16 Menthol/Zinc Oxide [Calmoseptine Ointment] 71 gm TP DAILY 08/07/16 Omeprazole Magnesium [Prilosec] 20 mg GT DAILY 08/07/16 Piperacillin Sodium/Tazobactam [Zosyn 3.375 Gram Vial] 3.375 gm IV Q8H 08/07/16 Family Disease History - Family Disease History Other Family History: No known family history of cancer or hematologic disorders Physical Exam Vital Signs: Vital Signs Temperature 97.6 F 08/09/16 09:02 Pulse Rate 72 08/09/16 09:02 Respiratory Rate 20 08/09/16 10:00 Blood Pressure 139/78 08/09/16 09:02 O2 Sat by Pulse Oximetry (%) 95 08/09/16 10:00 Constitutional: Yes: Moderate Distress Eyes: Yes: PERRL. No: Ptosis, Sclera Icterus HENT: No: Atraumatic, Thrush Cardiovascular: Yes: Pulse Irregular, Other (tachycardia) Respiratory: Yes: Regular Gastrointestinal: Yes: Soft, Other (PEG) Renal/: No: Carpenter Present Breast(s): Yes: WNL, Left, Right Musculoskeletal: Yes: Other (contracted) Extremities: Yes: Other (contracted) Edema: No Wound/Incision: Yes: Other (multiple skin tags ?? BCE right forehead) Neurological: Yes: Other (answers simple questions with monosyllabic responses) Psychiatric: Yes: WNL Labs: CBC, BMP 08/09/16 06:05 08/09/16 06:05 Problem List - Problems (1) Anemia Assessment/Plan: Unspecified anemia. Suspect component of chronic disease, Reverse A/G ratio - to check proteins. Conservative management and work up in view of patients general clinical status. Screening tests including -hemoccult, Fe++ studies, LDH, retic, B-12, folate etc. Code(s): D64.9 - ANEMIA, UNSPECIFIED (2) Aspiration pneumonia Assessment/Plan: Currently on zosyn per I.D. for aspiration Code(s): J69.0 - PNEUMONITIS DUE TO INHALATION OF FOOD AND VOMIT Qualifiers: Aspiration pneumonia type: due to regurgitated food Laterality: bilateral Lung location: lower lobe of lung Qualified Code(s): J69.0 - Pneumonitis due to inhalation of food and vomit (3) Congestive heart failure (CHF) Assessment/Plan: Elevated BNP, Atrial fib with rapid ventricular response - Followed by cardiology. Code(s): I50.9 - HEART FAILURE, UNSPECIFIED (4) Acute renal failure (ARF) Assessment/Plan: Elevation of creatiine from prior admission . For gentle hydration. Code(s): N17.9 - ACUTE KIDNEY FAILURE, UNSPECIFIED (5) Failure to thrive Assessment/Plan: For IV Clinimix. Consider nutritional assessment for tube feedings. Code(s): [id number] - (6) Hypothyroid Assessment/Plan: Check Free T4 and TSH. Code(s): E03.9 - HYPOTHYROIDISM, UNSPECIFIED
[2016-08-09] MEDS: ATORVASTATIN CA 40 MG TABLET (FP) GT SCH (21:54)
[2016-08-10] MEDS: PIPERACILLIN/TAZOB 3.375 GM 50 ML IVPB SCH ×3 (01:38→17:22)
[2016-08-10] MEDS: ACETAMINOPHEN 325 MG TABLET (FP) PO SCH ×3 (06:22→17:23)
[2016-08-10] MEDS: ALBUTEROL SO4 2.5/IPRATROPIUM 0.5 INH SOL 3 ML VIAL.NEB. NEB SCH ×3 (06:42→19:16)
[2016-08-10 08:09] LABS: ALBUMIN 2.4 g/dl (3.4-5.0); ANION GAP 7 (8-16); BILIRUBIN,TOTAL 0.5 mg/dL (0.2-1.0); CALCIUM 7.8 mg/dL (8.5-10.1); CO2 28 mmol/L (21-32); CREATININE 1.2 mg/dL (0.55-1.02); GLUCOSE,RANDOM 109 mg/dL (74-106); LDH 378 U/L (84-246); SGOT/AST 43 U/L (15-37); SGPT/ALT 18 U/L (12-78); TOT PROT 5.5 g/dl (6.4-8.2)
[2016-08-10 08:10] LABS: ALK PHOS 67 U/L (45-117)
[2016-08-10 08:22] LABS: BASOPHIL 0.6 % (0-2.0); EOSINOPHIL 1.2 % (0-4.5); MCH 33.7 pg (25.7-33.7); MCHC 34.7 g/dl (32.0-36.0); MEAN CELL VOLUME 97.1 fl (80-96); MEAN PLT VOLUME 7.7 fl (7.5-11.1); NEUTROPHILS 82.7 % (42.8-82.8); PLATELET COUNT 226 K/MM3 (134-434); RDW 16.5 % (11.6-15.6); WHITE BLOOD COUNT 6.3 K/mm3 (4.0-10.0)
[2016-08-10 08:30] LABS: FREE T4 0.99 ng/dl (0.76-1.46)
[2016-08-10 08:36] LABS: FERRITIN 425.548 ng/ml (6.9-282.5); THYROID STIMULATING HORMONE 93.4 uIU/ml (0.358-3.74)
--- NOTE | 2016-08-10 09:39 | PN ---
Progress Note (short form) - Note Progress Note: No acute event overnight. Laying comfortably in bed. In no acute respiratory distress. Saturating well on O2 4L NC. Responds minimally to verbal commands. Afebrile. 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: Yes: CVA Cardiovascular: Yes: HTN, Hyperlipdemia Pulmonary: Yes: COPD Renal/: Yes: Renal Inusuff ...: No Heme/Onc: Yes: Anemia Endocrine: Yes: Diabetes Mellitus, Hypothyroidism - Smoking History Smoking history: Unknown if ever smoked Have you smoked in the past 12 months: No Aproximately how many cigarettes per day: 0 - Alcohol/Substance Use Hx Alcohol Use: No Home Medications - Allergies Allergies/Adverse Reactions: Allergies Allergy/AdvReac Type Severity Reaction Status Date / Time No Known Allergies Allergy Verified 07/28/16 18:15 - Home Medications Home Medications: Ambulatory Orders Acetaminophen [Tylenol] 320 mg GT Q6H 08/07/16 Albuterol 2.5/Ipratropium 0.5 [Duoneb -] 1 amp NEB Q6H 08/07/16 Amlodipine Besylate [Norvasc -] 2.5 mg GT DAILY 08/07/16 Amoxicillin/Potassium Clav [Amox-Clav 875-125 mg Tablet] 1 each PO BID 08/07/16 Atorvastatin Ca [Lipitor] 40 mg GT HS 08/07/16 Bacitracin - [Bacitracin Topical Ointment -] 1 applic TP DAILY 08/07/16 Dextrose 5%-0.45% Saline [Dextrose 5%-1/2NS] 50 ml IV 08/07/16 Insulin Aspart [Novolog] 0 unit SQ TID 08/07/16 Levetiracetam 500 mg GT BID 08/07/16 Levothyroxine [Synthroid -] 100 mcg GT DAILY 08/07/16 Menthol/Zinc Oxide [Calmoseptine Ointment] 71 gm TP DAILY 08/07/16 Omeprazole Magnesium [Prilosec] 20 mg GT DAILY 08/07/16 Piperacillin Sodium/Tazobactam [Zosyn 3.375 Gram Vial] 3.375 gm IV Q8H 08/07/16 Review of Systems Unable to obtain ROS, reason: due to ams Physical Examination Vital Signs: Vital Signs Period Temp Pulse Resp BP Sys/Stephenson Pulse Ox Last 24 Hr 98.1 F-99.5 F 60-118 20-20 120-134/46-66 95-96 Constitutional: Yes: Mild Distress, Thin Eyes: Yes: Conjunctiva Clear, EOM Intact, PERRL HENT: Yes: Atraumatic, Normocephalic Neck: Yes: Supple, Trachea Midline Cardiovascular: Yes: Regular Rate and Rhythm Respiratory: Yes: Diminished (right lung base) Gastrointestinal: Yes: Soft Problem List - Problems (1) Aspiration pneumonia Assessment/Plan: PEG feeds on hold for the time being. Continue zosyn. Pulmonary/ID follow up appreciated. Aspiration precautions. Code(s): J69.0 - PNEUMONITIS DUE TO INHALATION OF FOOD AND VOMIT Qualifiers: Aspiration pneumonia type: due to regurgitated food Laterality: bilateral Lung location: lower lobe of lung Qualified Code(s): J69.0 - Pneumonitis due to inhalation of food and vomit (2) Respiratory failure with hypoxia Assessment/Plan: Improving. Continue O2 NC. Monitor sats. Inhaled bronchodilators. Pulmonary follow up appreciated. Code(s): J96.91 - RESPIRATORY FAILURE, UNSPECIFIED WITH HYPOXIA Qualifiers: Chronicity: acute Qualified Code(s): J96.01 - Acute respiratory failure with hypoxia (3) Failure to thrive Code(s): [id number] - Started on PEG feeds. On hold now for because of ? aspiration. Discussed with Livier Corrales For MBS today and decide maybe restarting PEG feeds at lower rate with some PO intake after checking MBS. (4) Hypertension Assessment/Plan: Reasonable control. Continue current meds. Code(s): I10 - ESSENTIAL (PRIMARY) HYPERTENSION (5) Hypothyroid Assessment/Plan: TSH very high Increased levothyroxine to 125 mcg daily. Endo consulted. Code(s): E03.9 - HYPOTHYROIDISM, UNSPECIFIED (6) Intracerebral hemorrhage Assessment/Plan: Stable. Extensive work up with neurosurgery/neurology prior admit (Last week) Code(s): I61.9 - NONTRAUMATIC INTRACEREBRAL HEMORRHAGE, UNSPECIFIED Qualifiers : Cerebral hemorrhage location: cerebral hemisphere, cortical portion (7) Congestive heart failure (CHF) Assessment/Plan: BNP very high. B/L pleural effusions. Cardiology follow up appreciated. Echo report noted. Code(s): I50.9 - HEART FAILURE, UNSPECIFIED (8) Diabetes Assessment/Plan: Monitor BGMs/ISS Code(s): E11.9 - TYPE 2 DIABETES MELLITUS WITHOUT COMPLICATIONS Qualifiers: Diabetes mellitus type: type 2 Diabetes mellitus complication status: with unspecified complications Repeat Chest x ray. MBS today. Discussed with Aviva Corrales. ?? to resume PEG feed at lower rate after MBS. Problem List - Problems (1) Aspiration pneumonia Code(s): J69.0 - PNEUMONITIS DUE TO INHALATION OF FOOD AND VOMIT Qualifiers: Aspiration pneumonia type: due to regurgitated food Laterality: bilateral Lung location: lower lobe of lung Qualified Code(s): J69.0 - Pneumonitis due to inhalation of food and vomit (2) Respiratory failure with hypoxia Code(s): J96.91 - RESPIRATORY FAILURE, UNSPECIFIED WITH HYPOXIA Qualifiers: Chronicity: acute Qualified Code(s): J96.01 - Acute respiratory failure with hypoxia (3) Failure to thrive Code(s): [id number] - (4) Hypertension Code(s): I10 - ESSENTIAL (PRIMARY) HYPERTENSION (5) Hypothyroid Code(s): E03.9 - HYPOTHYROIDISM, UNSPECIFIED (6) Intracerebral hemorrhage Code(s): I61.9 - NONTRAUMATIC INTRACEREBRAL HEMORRHAGE, UNSPECIFIED Qualifiers : Cerebral hemorrhage location: cerebral hemisphere, cortical portion (7) Congestive heart failure (CHF) Code(s): I50.9 - HEART FAILURE, UNSPECIFIED (8) Diabetes Code(s): E11.9 - TYPE 2 DIABETES MELLITUS WITHOUT COMPLICATIONS Qualifiers: Diabetes mellitus type: type 2 Diabetes mellitus complication status: with unspecified complications
[2016-08-10] MEDS: POTASSIUM CHLORIDE ORAL LIQUID 20 MEQ/15 ML GT SCH (09:56)
[2016-08-10] MEDS: amLODIPine BESYLATE 2.5 MG TABLET (FP) GT SCH (09:56)
[2016-08-10] MEDS: LEVOTHYROXINE NA 125 MCG TABLET (FP) GT SCH (09:56)
[2016-08-10] MEDS: levETIRAcetam 500 MG/5 ML ORAL SOLUTION (UNIT-DOSE CUPS) GT SCH ×2 (09:56→21:45)
[2016-08-10] MEDS: HEPARIN NA (PORCINE) 5,000 UNITS/ML 1ML VIAL SQ SCH ×2 (10:20→21:44)
[2016-08-10] MEDS: AMINO ACIDS 4.25%/D5W 1,000 ML IV SCH (10:20)
--- NOTE | 2016-08-10 11:38 | PN ---
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 Verbal apraxia with impaired speech initiation. Speech is intelligible. Produces phrases, joked (?) about her "I used to be to him", knows her husbands name and 2 children. Able to name/repeat. Pt's reports onset of CVA "3 weeks ago"? but both legs fully contracted? Brisk swallow with nectar thick liquid. Delayed throat clearing. R/o silent aspiration vs functional swallow. Consider MBS. Reviewed case with Dr. Lovell.
--- NOTE | 2016-08-10 12:10 | PN ---
Progress Note (short form) - Note Progress Note: PULMONARY CHRONICALLY ILL IN APPEARANCE TEMPORAL WASTING CONTRACTED B/L LOWER EXT VSS/AFEBRILE PALE/ANICTERIC DIMINISHED BREATH SOUNDS RIGHT BASE S1S2 RSR BS+ CONTRACTED/NO EDEMA MEDS/LABS/NOTES/IMAGING/MICRO/ECHO REVIEWED IMP ACUTE HYPOXEMIC RESPIRATORY FAILURE RLL CONSOLIDATION LIKELY ASPIRATION PNEUMONIA BILATERAL PLEURAL EFFUSIONS RIGHT GREATER THAN LEFT W COMPRESSIVE ATELECTASIS ? CHF H/O ICH S/P CVA S/P PEG DM HTN HYPOTHYROID PLAN IV ANTIBIOTICS SUPPLEMENTAL O2 ASPIRATION PRECAUTIONS LASIX PER CARDIOLOGY INHALED BRONCHODILATORS ECHO NOTED F/U CHEST X-RAY Sasha POLANCO MD
--- NOTE | 2016-08-10 13:22 | CONSULT ---
Consult Consult Specialty:: Endocrinology Referred by:: Dr Lovell Reason for Consultation:: Hypothyroidism - History of Present Illness Chief Complaint: SOB History of Present Illness: This is an 81 y/o female with h/o HTN HLD, T2DM hypothyroidism, recent ICH, transferred from [facility] with c/o shortness of breath, congestion, low grade fever, low O2 sats. She was recently discharged from [facility] after insertion of PEG for failure to thrive. Pt diagnosed with Aspiration Pneumonia and treated with IV Abx. Pt found to have TSH of 93 and referred for evaluation. 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: CVA Cardio/Vascular: Yes: HTN, Hyperlipdemia Pulmonary: Yes: COPD Renal/: Yes: Renal Inusuff ...: No Endocrine: Yes: Diabetes Mellitus, Hypothyroidism - Alcohol/Substance Use Hx Alcohol Use: No - Smoking History Smoking history: Unknown if ever smoked Have you smoked in the past 12 months: No Aproximately how many cigarettes per day: 0 Home Medications - Allergies Allergies/Adverse Reactions: Allergies Allergy/AdvReac Type Severity Reaction Status Date / Time No Known Allergies Allergy Verified 07/28/16 18:15 - Home Medications Home Medications: Ambulatory Orders Acetaminophen [Tylenol] 320 mg GT Q6H 08/07/16 Albuterol 2.5/Ipratropium 0.5 [Duoneb -] 1 amp NEB Q6H 08/07/16 Amlodipine Besylate [Norvasc -] 2.5 mg GT DAILY 08/07/16 Amoxicillin/Potassium Clav [Amox-Clav 875-125 mg Tablet] 1 each PO BID 08/07/16 Atorvastatin Ca [Lipitor] 40 mg GT HS 08/07/16 Bacitracin - [Bacitracin Topical Ointment -] 1 applic TP DAILY 08/07/16 Dextrose 5%-0.45% Saline [Dextrose 5%-1/2NS] 50 ml IV 08/07/16 Insulin Aspart [Novolog] 0 unit SQ TID 08/07/16 Levetiracetam 500 mg GT BID 08/07/16 Levothyroxine [Synthroid -] 100 mcg GT DAILY 08/07/16 Menthol/Zinc Oxide [Calmoseptine Ointment] 71 gm TP DAILY 08/07/16 Omeprazole Magnesium [Prilosec] 20 mg GT DAILY 08/07/16 Piperacillin Sodium/Tazobactam [Zosyn 3.375 Gram Vial] 3.375 gm IV Q8H 08/07/16 Family Disease History - Family Disease History Other Family History: No known family history of cancer or hematologic disorders Review of Systems Unable to obtain ROS, reason: pt unable to give history Physical Exam Vital Signs: Vital Signs Temperature 98.1 F 08/10/16 05:55 Pulse Rate 73 08/10/16 05:55 Respiratory Rate 20 08/10/16 08:46 Blood Pressure 120/66 08/10/16 05:55 O2 Sat by Pulse Oximetry (%) 96 08/10/16 08:46 Constitutional: Yes: No Distress, Calm Eyes: Yes: Conjunctiva Clear HENT: Yes: Atraumatic, Normocephalic Neck: Yes: Supple, Trachea Midline Cardiovascular: Yes: Regular Rate and Rhythm Respiratory: Yes: Regular, CTA Bilaterally Gastrointestinal: Yes: Normal Bowel Sounds, Soft Extremities: Yes: Other (contracted limbs) Neurological: Yes: Alert Labs: CBC, BMP 08/10/16 06:10 08/10/16 06:10 Assessment/Plan AP: Hypothyroidism: Pt was on LT4 75 in admission in 2012 and then was on 88, 100 and 125 in different admissions Couldn't find corresponding TFT's in the system Very high TSH at this point likely secondary to malabsorption of LT4 while on tube feeding Continue LT4 125mcg daily for now Repeat TSH in a week and increase dose if no improvement in TSH level When PEG feeding is restarted, it would be best to give LT4 2 hours after stopping the feeding if pt is on intermittent feeding. If she is continued on 24 hr feeding, will have to keep on increasing the dose untill the TSH normalizes. HTN T2DM Anemia Respiratory Failure
--- NOTE | 2016-08-10 16:08 | PN ---
Progress Note, Physician History of Present Illness: calm no new issues patient still has cough more drowsy today - Current Medication List Current Medications: Active Medications Acetaminophen (Tylenol -) 325 mg PO Q6H [facility] Last Admin: 08/10/16 06:22 Dose: 325 mg Albuterol/Ipratropium (Duoneb -) 1 amp NEB QIDR [facility] Last Admin: 08/10/16 06:42 Dose: 1 amp Albuterol/Ipratropium (Duoneb -) 1 amp NEB Q4H PRN PRN Reason: SHORTNESS OF BREATH Amlodipine Besylate (Norvasc -) 2.5 mg GT DAILY [facility] Last Admin: 08/10/16 09:56 Dose: 2.5 mg Atorvastatin Calcium (Lipitor -) 40 mg GT HS [facility] Last Admin: 08/09/16 21:54 Dose: 40 mg Heparin Sodium (Porcine) (Heparin -) 5,000 unit SQ BID [facility] Last Admin: 08/10/16 10:20 Dose: 5,000 unit Piperacillin Sod/Tazobactam Sod (Zosyn 3.375gm Ivpb (Pre-Docked)) 50 mls @ 100 mls/hr IVPB Q8H-IV [facility] PRN Reason: Protocol Last Admin: 08/10/16 09:56 Dose: 100 mls/hr Amino Acids (Clinimix -) 1,000 mls @ 42 mls/hr IV Q23H [facility] Last Admin: 08/10/16 10:20 Dose: Not Given Levetiracetam (Keppra Oral Solution -) 500 mg GT BID [facility] Last Admin: 08/10/16 09:56 Dose: 500 mg Levothyroxine Sodium (Synthroid -) 125 mcg GT DAILY [facility] Last Admin: 08/10/16 09:56 Dose: 125 mcg Potassium Chloride (Potassium Chloride Oral Liquid) 20 meq GT DAILY [facility] Last Admin: 08/10/16 09:56 Dose: 20 meq - Objective Vital Signs: Vital Signs Temperature 98.0 F 08/10/16 14:13 Pulse Rate 75 08/10/16 14:13 Respiratory Rate 20 08/10/16 08:46 Blood Pressure 130/70 08/10/16 14:13 O2 Sat by Pulse Oximetry (%) 96 08/10/16 08:46 Constitutional: Yes: Calm, Mild Distress Cardiovascular: Yes: S1, S2 Respiratory: Yes: Regular, Rhonchi Gastrointestinal: Yes: Normal Bowel Sounds, Soft Musculoskeletal: Yes: Other Extremities: Yes: Other Neurological: Yes: Alert, Other Labs: CBC, BMP 08/10/16 06:10 08/10/16 06:10 INR, PTT INR 1.06 (0.82-1.09) 08/07/16 14:24 Assessment/Plan roblem List - Problems (1) Aspiration pneumonia Code(s): J69.0 - PNEUMONITIS DUE TO INHALATION OF FOOD AND VOMIT Qualifiers: Aspiration pneumonia type: due to regurgitated food Laterality: bilateral Lung location: lower lobe of lung Qualified Code(s): J69.0 - Pneumonitis due to inhalation of food and vomit (2) Respiratory failure with hypoxia Code(s): J96.91 - RESPIRATORY FAILURE, UNSPECIFIED WITH HYPOXIA Qualifiers: Chronicity: acute Qualified Code(s): J96.01 - Acute respiratory failure with hypoxia (3) Failure to thrive Code(s): [id number] - (4) Hypertension Code(s): I10 - ESSENTIAL (PRIMARY) HYPERTENSION (5) Hypothyroid Code(s): E03.9 - HYPOTHYROIDISM, UNSPECIFIED (6) Intracerebral hemorrhage Code(s): I61.9 - NONTRAUMATIC INTRACEREBRAL HEMORRHAGE, UNSPECIFIED Qualifiers : Cerebral hemorrhage location: cerebral hemisphere, cortical portion (7) Congestive heart failure (CHF) Code(s): I50.9 - HEART FAILURE, UNSPECIFIED (8) Diabetes Code(s): E11.9 - TYPE 2 DIABETES MELLITUS WITHOUT COMPLICATIONS Qualifiers: Diabetes mellitus type: type 2 Diabetes mellitus complication status: with unspecified complications plan i think we should start her on intermittent tube feeds after we see the modified ba swallow results she is going to need nutrition also we will continue abx for few more days as she is still having finding in the lungs
[2016-08-10] MEDS ORDERED: PT OWN MED DRAWER 7, Y5N ONE (21:38)
[2016-08-10] MEDS: ATORVASTATIN CA 40 MG TABLET (FP) GT SCH (21:44)
[2016-08-11] MEDS: ALBUTEROL SO4 2.5/IPRATROPIUM 0.5 INH SOL 3 ML VIAL.NEB. NEB SCH ×5 (00:50→23:55)
[2016-08-11] MEDS: ACETAMINOPHEN 325 MG TABLET (FP) PO SCH ×5 (01:15→23:27)
[2016-08-11] MEDS: PIPERACILLIN/TAZOB 3.375 GM 50 ML IVPB SCH ×2 (02:42→09:51)
[2016-08-11 06:06] LABS: HAPTOGLOBIN 80 mg/dL (34-200); SERUM IRON 74 ug/dL (27-139); TOTAL IRON BINDING CAPACITY 190 ug/dL (250-450); UIBC 116 ug/dL (118-369)
[2016-08-11 07:25] LABS: BASOPHIL 0.5 % (0-2.0); EOSINOPHIL 2.5 % (0-4.5); MCH 33.4 pg (25.7-33.7); MCHC 34.5 g/dl (32.0-36.0); MEAN CELL VOLUME 96.7 fl (80-96); MEAN PLT VOLUME 7.6 fl (7.5-11.1); PLATELET COUNT 236 K/MM3 (134-434); RDW 16.1 % (11.6-15.6); WHITE BLOOD COUNT 5.9 K/mm3 (4.0-10.0)
[2016-08-11 08:11] LABS: ALBUMIN 2.3 g/dl (3.4-5.0); ANION GAP 9 (8-16); CALCIUM 7.9 mg/dL (8.5-10.1); CO2 26 mmol/L (21-32); CREATININE 1.1 mg/dL (0.55-1.02); GLUCOSE,RANDOM 118 mg/dL (74-106); SGOT/AST 41 U/L (15-37); SGPT/ALT 18 U/L (12-78)
[2016-08-11 08:15] LABS: ALK PHOS 69 U/L (45-117); BILIRUBIN,TOTAL 0.4 mg/dL (0.2-1.0); TOT PROT 5.6 g/dl (6.4-8.2)
--- NOTE | 2016-08-11 09:13 | PN ---
Progress Note (short form) - Note Progress Note: Condition unchanged Vital Signs Period Temp Pulse Resp BP Sys/Stephenson Pulse Ox Last 24 Hr 97.4 F-98.1 F 70-76 20-22 128-135/56-72 96 Neck: Supple, No JVD Lungs: CTA CVS: S1S2 Abd: benign EXt: no edema CMP Sodium 139 mmol/L (136-145) 08/11/16 05:35 Potassium 3.5 mmol/L (3.5-5.1) 08/11/16 05:35 Chloride 104 mmol/L (98-107) 08/11/16 05:35 Carbon Dioxide 26 mmol/L (21-32) 08/11/16 05:35 Anion Gap 9 (8-16) 08/11/16 05:35 BUN 22 mg/dL (7-18) H 08/11/16 05:35 Creatinine 1.1 mg/dL (0.55-1.02) H 08/11/16 05:35 Creat Clearance w eGFR 47.67 (>60) 08/11/16 05:35 POC Glucometer 180 UNITS (()) 08/10/16 22:47 Random Glucose 118 mg/dL (74-106) H 08/11/16 05:35 Lactic Acid 1.8 mmol/L (0.4-2.0) 08/07/16 14:24 Calcium 7.9 mg/dL (8.5-10.1) L 08/11/16 05:35 Magnesium 2.2 mg/dL (1.8-2.4) 08/07/16 14:24 Iron 74 ug/dL (27-139) 08/10/16 06:10 TIBC 190 ug/dL (250-450) L 08/10/16 06:10 Iron Saturation 39 % (15-55) 08/10/16 06:10 Ferritin 425.548 ng/ml (6.9-282.5) H 08/10/16 06:10 Total Bilirubin 0.4 mg/dL (0.2-1.0) 08/11/16 05:35 AST 41 U/L (15-37) H 08/11/16 05:35 ALT 18 U/L (12-78) 08/11/16 05:35 Alkaline Phosphatase 69 U/L (45-117) 08/11/16 05:35 LD Total 378 U/L (84-246) H 08/10/16 06:10 Creatine Kinase 162 IU/L (26-192) D 08/08/16 10:25 CK-MB (CK-2) 3.652 ng/ml (0.5-3.6) H 08/08/16 10:25 Troponin I 0.22 ng/ml (0.00-0.05) H 08/08/16 10:25 B-Natriuretic Peptide 63508.30 pg/ml (5-450) H 08/08/16 10:25 Total Protein 5.6 g/dl (6.4-8.2) L 08/11/16 05:35 Albumin 2.3 g/dl (3.4-5.0) L 08/11/16 05:35 Globulin Cancelled 08/10/16 06:10 Albumin/Globulin Ratio Cancelled 08/10/16 06:10 TSH 93.40 uIU/ml (0.358-3.74) H 08/10/16 06:10 Free T4 0.99 ng/dl (0.76-1.46) 08/10/16 06:10 Current Medications Generic Name Dose Route Start Last Admin Trade Name Freq PRN Reason Stop Dose Admin Acetaminophen 325 mg 08/08/16 11:15 08/11/16 06:24 Tylenol - PO 325 mg Q6H [facility] Administration Albuterol/Ipratropium 1 amp 08/08/16 12:00 08/11/16 06:16 Duoneb - NEB 1 amp QIDR [facility] Administration Albuterol/Ipratropium 1 amp 08/08/16 12:51 Duoneb - NEB Q4H PRN SHORTNESS OF BREATH Amlodipine Besylate 2.5 mg 08/09/16 10:00 08/10/16 09:56 Norvasc - GT 2.5 mg DAILY [facility] Administration Atorvastatin Calcium 40 mg 08/08/16 22:00 08/10/16 21:44 Lipitor - GT 40 mg HS [facility] Administration Heparin Sodium (Porcine) 5,000 unit 08/08/16 22:00 08/10/16 21:44 Heparin - SQ 5,000 unit BID [facility] Administration Piperacillin Sod/Tazobactam Sod 50 mls @ 100 mls/hr 08/08/16 13:00 08/11/16 02: 42 Zosyn 3.375gm Ivpb (Pre-Docked) IVPB 100 mls/hr Q8H-IV [facility] Administration Protocol Amino Acids 1,000 mls @ 42 mls/hr 08/09/16 10:30 08/10/16 10:20 Clinimix - IV Not Given Q23H [facility] Levetiracetam 500 mg 08/08/16 22:00 08/10/16 21:45 Keppra Oral Solution - GT 500 mg BID [facility] Administration Levothyroxine Sodium 125 mcg 08/10/16 09:21 08/10/16 09:56 Synthroid - GT 125 mcg DAILY [facility] Administration Potassium Chloride 20 meq 08/10/16 10:00 08/10/16 09:56 Potassium Chloride Oral Liquid GT 20 meq DAILY [facility] Administration AP: Hypothyroidism: Pt was on LT4 75 in admission in 2012 and then was on 88, 100 and 125 in different admissions Couldn't find corresponding TFT's in the system Was on LT4 100mcg daily in ID Very high TSH at this point likely secondary to malabsorption of LT4 while on tube feeding Continue LT4 125mcg daily for now Repeat TSH in a week and increase dose if no improvement in TSH level When PEG feeding is restarted, it would be best to give LT4 2 hours after stopping the feeding if pt is on intermittent feeding. If she is continued on 24 hr feeding, will have to keep on increasing the dose untill the TSH normalizes. HTN T2DM Anemia Respiratory Failure
[2016-08-11] MEDS: POTASSIUM CHLORIDE ORAL LIQUID 20 MEQ/15 ML GT SCH (09:41)
[2016-08-11] MEDS: amLODIPine BESYLATE 2.5 MG TABLET (FP) GT SCH (09:41)
[2016-08-11] MEDS: LEVOTHYROXINE NA 125 MCG TABLET (FP) GT SCH (09:41)
[2016-08-11] MEDS: levETIRAcetam 500 MG/5 ML ORAL SOLUTION (UNIT-DOSE CUPS) GT SCH ×2 (09:43→21:34)
[2016-08-11] MEDS: HEPARIN NA (PORCINE) 5,000 UNITS/ML 1ML VIAL SQ SCH ×2 (09:43→21:34)
--- NOTE | 2016-08-11 11:16 | PN ---
Progress Note (short form) - Note Progress Note: PULMONARY Denies shortness of breath or chest pain. Denies cough. No fevers recorded. Last Vital Signs Temp Pulse Resp BP Pulse Ox 98.1 F 76 20 128/72 96 08/11/16 06:24 08/11/16 06:24 08/11/16 06:24 08/11/16 06:24 08/10/16 21:00 Gen: NAD at rest Heart: RRR Lung: decreased breath sounds at the bases Abd: soft, nontender Ext: no edema, contracted CBC, BMP 08/11/16 05:35 08/11/16 05:35 Active Medications Acetaminophen (Tylenol -) 325 mg PO Q6H [facility] Last Admin: 08/11/16 06:24 Dose: 325 mg Albuterol/Ipratropium (Duoneb -) 1 amp NEB QIDR [facility] Last Admin: 08/11/16 11:05 Dose: 1 amp Albuterol/Ipratropium (Duoneb -) 1 amp NEB Q4H PRN PRN Reason: SHORTNESS OF BREATH Amlodipine Besylate (Norvasc -) 2.5 mg GT DAILY [facility] Last Admin: 08/11/16 09:41 Dose: 2.5 mg Atorvastatin Calcium (Lipitor -) 40 mg GT HS [facility] Last Admin: 08/10/16 21:44 Dose: 40 mg Heparin Sodium (Porcine) (Heparin -) 5,000 unit SQ BID [facility] Last Admin: 08/11/16 09:43 Dose: 5,000 unit Piperacillin Sod/Tazobactam Sod (Zosyn 3.375gm Ivpb (Pre-Docked)) 50 mls @ 100 mls/hr IVPB Q8H-IV [facility] PRN Reason: Protocol Last Admin: 08/11/16 09:51 Dose: 100 mls/hr Amino Acids (Clinimix -) 1,000 mls @ 42 mls/hr IV Q23H [facility] Last Admin: 08/10/16 10:20 Dose: Not Given Levetiracetam (Keppra Oral Solution -) 500 mg GT BID [facility] Last Admin: 08/11/16 09:43 Dose: 500 mg Levothyroxine Sodium (Synthroid -) 125 mcg GT DAILY [facility] Last Admin: 08/11/16 09:41 Dose: 125 mcg Potassium Chloride (Potassium Chloride Oral Liquid) 20 meq GT DAILY [facility] Last Admin: 08/11/16 09:41 Dose: 20 meq A/P Pneumonia likely Aspiration Pleural Effusions h/o Intracranial Hemorrhage s/p PEG HTN DM - continue antibiotics - aspiration precautions - O2 to keep SpO2 >90% - inhaled bronchodilators - DVT prophylaxis
--- NOTE | 2016-08-11 11:20 | PN ---
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 MBS reviewed with staff. Oral/verbal apraxia. Educated RN,RD,MACHINE PACKER on intiating meal with nectar thick liquid, specifically Ensure Compact with is more nutritionally dense. Pt accepting it well via medicine cup, and then straw, with no overt symptoms of aspiration. Pt was rarely verbal today but accepted entire ensure compact within 10 minutes. Plan is for puree mixed with liquid at least initially, to drink nutrition. Once she begins and accepts/swallows well, she can likely then accept on tsp as well.Maintain HOB elevated during and after meals. Nocturnal supplemental TF as indicated.
[2016-08-11] MEDS: AMINO ACIDS 4.25%/D5W 1,000 ML IV SCH (11:50)
--- NOTE | 2016-08-11 16:39 | PN ---
Progress Note, Physician History of Present Illness: patient stable looks better more sleepy - Current Medication List Current Medications: Active Medications Acetaminophen (Tylenol -) 325 mg PO Q6H [facility] Last Admin: 08/11/16 11:50 Dose: 325 mg Albuterol/Ipratropium (Duoneb -) 1 amp NEB QIDR [facility] Last Admin: 08/11/16 11:05 Dose: 1 amp Albuterol/Ipratropium (Duoneb -) 1 amp NEB Q4H PRN PRN Reason: SHORTNESS OF BREATH Amlodipine Besylate (Norvasc -) 2.5 mg GT DAILY [facility] Last Admin: 08/11/16 09:41 Dose: 2.5 mg Atorvastatin Calcium (Lipitor -) 40 mg GT HS [facility] Last Admin: 08/10/16 21:44 Dose: 40 mg Heparin Sodium (Porcine) (Heparin -) 5,000 unit SQ BID [facility] Last Admin: 08/11/16 09:43 Dose: 5,000 unit Piperacillin Sod/Tazobactam Sod (Zosyn 3.375gm Ivpb (Pre-Docked)) 50 mls @ 100 mls/hr IVPB Q8H-IV [facility] PRN Reason: Protocol Last Admin: 08/11/16 09:51 Dose: 100 mls/hr Amino Acids (Clinimix -) 1,000 mls @ 42 mls/hr IV Q23H [facility] Last Admin: 08/11/16 11:50 Dose: 42 mls/hr Levetiracetam (Keppra Oral Solution -) 500 mg GT BID [facility] Last Admin: 08/11/16 09:43 Dose: 500 mg Levothyroxine Sodium (Synthroid -) 125 mcg GT DAILY [facility] Last Admin: 08/11/16 09:41 Dose: 125 mcg Potassium Chloride (Potassium Chloride Oral Liquid) 20 meq GT DAILY [facility] Last Admin: 08/11/16 09:41 Dose: 20 meq - Objective Vital Signs: Vital Signs Temperature 97.6 F 08/11/16 13:39 Pulse Rate 78 08/11/16 13:39 Respiratory Rate 20 08/11/16 10:00 Blood Pressure 154/56 08/11/16 13:39 O2 Sat by Pulse Oximetry (%) 96 08/10/16 21:00 Constitutional: Yes: No Distress, Calm, Thin, Other (failure to thrive) Cardiovascular: Yes: S1, S2 Respiratory: Yes: Regular, On Nasal O2, Poor Air Entry Gastrointestinal: Yes: Normal Bowel Sounds, Soft, Other (peg in place) Musculoskeletal: Yes: Other Extremities: Yes: Other Neurological: Yes: Alert, Other Labs: CBC, BMP 08/11/16 05:35 08/11/16 05:35 INR, PTT INR 1.06 (0.82-1.09) 08/07/16 14:24 Assessment/Plan roblem List - Problems (1) Aspiration pneumonia Code(s): J69.0 - PNEUMONITIS DUE TO INHALATION OF FOOD AND VOMIT Qualifiers: Aspiration pneumonia type: due to regurgitated food Laterality: bilateral Lung location: lower lobe of lung Qualified Code(s): J69.0 - Pneumonitis due to inhalation of food and vomit (2) Respiratory failure with hypoxia Code(s): J96.91 - RESPIRATORY FAILURE, UNSPECIFIED WITH HYPOXIA Qualifiers: Chronicity: acute Qualified Code(s): J96.01 - Acute respiratory failure with hypoxia (3) Failure to thrive Code(s): [id number] - (4) Hypertension Code(s): I10 - ESSENTIAL (PRIMARY) HYPERTENSION (5) Hypothyroid Code(s): E03.9 - HYPOTHYROIDISM, UNSPECIFIED (6) Intracerebral hemorrhage Code(s): I61.9 - NONTRAUMATIC INTRACEREBRAL HEMORRHAGE, UNSPECIFIED Qualifiers : Cerebral hemorrhage location: cerebral hemisphere, cortical portion (7) Congestive heart failure (CHF) Code(s): I50.9 - HEART FAILURE, UNSPECIFIED (8) Diabetes Code(s): E11.9 - TYPE 2 DIABETES MELLITUS WITHOUT COMPLICATIONS Qualifiers: Diabetes mellitus type: type 2 Diabetes mellitus complication status: with unspecified complications plan all notes noted patient stable will switch to oral augmentin 500 mg vial peg tube for another 5 days will see how patient is tomorrow off of iv abx
[2016-08-11] MEDS: AMOX TR/POT CLAV 500MG/125MG TABLETS (FP) PO SCH (17:31)
--- NOTE | 2016-08-11 18:50 | PN ---
Progress Note (short form) - Note Progress Note: No acute event overnight. Responds minimally to verbal commands. Afebrile. 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: Yes: CVA Cardiovascular: Yes: HTN, Hyperlipdemia Pulmonary: Yes: COPD Renal/: Yes: Renal Inusuff ...: No Heme/Onc: Yes: Anemia Endocrine: Yes: Diabetes Mellitus, Hypothyroidism - Smoking History Smoking history: Unknown if ever smoked Have you smoked in the past 12 months: No Aproximately how many cigarettes per day: 0 - Alcohol/Substance Use Hx Alcohol Use: No Home Medications - Allergies Allergies/Adverse Reactions: Allergies Allergy/AdvReac Type Severity Reaction Status Date / Time No Known Allergies Allergy Verified 07/28/16 18:15 - Home Medications Home Medications: Ambulatory Orders Acetaminophen [Tylenol] 320 mg GT Q6H 08/07/16 Albuterol 2.5/Ipratropium 0.5 [Duoneb -] 1 amp NEB Q6H 08/07/16 Amlodipine Besylate [Norvasc -] 2.5 mg GT DAILY 08/07/16 Amoxicillin/Potassium Clav [Amox-Clav 875-125 mg Tablet] 1 each PO BID 08/07/16 Atorvastatin Ca [Lipitor] 40 mg GT HS 08/07/16 Bacitracin - [Bacitracin Topical Ointment -] 1 applic TP DAILY 08/07/16 Dextrose 5%-0.45% Saline [Dextrose 5%-1/2NS] 50 ml IV 08/07/16 Insulin Aspart [Novolog] 0 unit SQ TID 08/07/16 Levetiracetam 500 mg GT BID 08/07/16 Levothyroxine [Synthroid -] 100 mcg GT DAILY 08/07/16 Menthol/Zinc Oxide [Calmoseptine Ointment] 71 gm TP DAILY 08/07/16 Omeprazole Magnesium [Prilosec] 20 mg GT DAILY 08/07/16 Piperacillin Sodium/Tazobactam [Zosyn 3.375 Gram Vial] 3.375 gm IV Q8H 08/07/16 Review of Systems Unable to obtain ROS, reason: due to ams Physical Examination Vital Signs: Vital Signs Period Temp Pulse Resp BP Sys/Stephenson Pulse Ox Last 24 Hr 97.4 F-98.1 F 64-78 20-22 128-154/56-72 96 Constitutional: Yes: Mild Distress, Thin Eyes: Yes: Conjunctiva Clear, EOM Intact, PERRL HENT: Yes: Atraumatic, Normocephalic Neck: Yes: Supple, Trachea Midline Cardiovascular: Yes: Regular Rate and Rhythm Respiratory: Yes: Diminished (right lung base) Gastrointestinal: Yes: Soft CBC, BMP 08/11/16 05:35 08/11/16 05:35 Problem List - Problems (1) Aspiration pneumonia Assessment/Plan: ID follow up noted. On augmentin PO x 5 days. Monitor. If stable by tomorrow then will dc back to [facility]. Aspiration precautions. Code(s): J69.0 - PNEUMONITIS DUE TO INHALATION OF FOOD AND VOMIT Qualifiers: Aspiration pneumonia type: due to regurgitated food Laterality: bilateral Lung location: lower lobe of lung Qualified Code(s): J69.0 - Pneumonitis due to inhalation of food and vomit (2) Respiratory failure with hypoxia Assessment/Plan: Improving. Continue O2 NC. Monitor sats. Inhaled bronchodilators. Pulmonary follow up appreciated. Code(s): J96.91 - RESPIRATORY FAILURE, UNSPECIFIED WITH HYPOXIA Qualifiers: Chronicity: acute Qualified Code(s): J96.01 - Acute respiratory failure with hypoxia (3) Failure to thrive Code(s): [id number] - Discussed with Aviva Corrales. Dysphagia diet plus PEG feeds to resume starting 7 PM to 7 AM at lower rate. Will monitor. If she odes well then plan for dc am. (4) Hypertension Assessment/Plan: Reasonable control. Continue current meds. Code(s): I10 - ESSENTIAL (PRIMARY) HYPERTENSION (5) Hypothyroid Assessment/Plan: TSH very high Increased levothyroxine to 125 mcg daily. Endo consulted. Code(s): E03.9 - HYPOTHYROIDISM, UNSPECIFIED (6) Intracerebral hemorrhage Assessment/Plan: Stable. Extensive work up with neurosurgery/neurology prior admit (Last week) Code(s): I61.9 - NONTRAUMATIC INTRACEREBRAL HEMORRHAGE, UNSPECIFIED Qualifiers : Cerebral hemorrhage location: cerebral hemisphere, cortical portion (7) Congestive heart failure (CHF) Assessment/Plan: BNP very high. B/L pleural effusions. Cardiology follow up appreciated. Echo report noted. Code(s): I50.9 - HEART FAILURE, UNSPECIFIED (8) Diabetes Assessment/Plan: Monitor BGMs/ISS Code(s): E11.9 - TYPE 2 DIABETES MELLITUS WITHOUT COMPLICATIONS Qualifiers: Diabetes mellitus type: type 2 Diabetes mellitus complication status: with unspecified complications ON PO abx now. Dysphagia diet plus PEG feeds resumed today. if she tolerates well overnight then will dc to sprain tomorrow. Problem List - Problems (1) Aspiration pneumonia Code(s): J69.0 - PNEUMONITIS DUE TO INHALATION OF FOOD AND VOMIT Qualifiers: Aspiration pneumonia type: due to regurgitated food Laterality: bilateral Lung location: lower lobe of lung Qualified Code(s): J69.0 - Pneumonitis due to inhalation of food and vomit (2) Respiratory failure with hypoxia Code(s): J96.91 - RESPIRATORY FAILURE, UNSPECIFIED WITH HYPOXIA Qualifiers: Chronicity: acute Qualified Code(s): J96.01 - Acute respiratory failure with hypoxia (3) Failure to thrive Code(s): [id number] - (4) Hypertension Code(s): I10 - ESSENTIAL (PRIMARY) HYPERTENSION (5) Hypothyroid Code(s): E03.9 - HYPOTHYROIDISM, UNSPECIFIED (6) Intracerebral hemorrhage Code(s): I61.9 - NONTRAUMATIC INTRACEREBRAL HEMORRHAGE, UNSPECIFIED Qualifiers : Cerebral hemorrhage location: cerebral hemisphere, cortical portion (7) Congestive heart failure (CHF) Code(s): I50.9 - HEART FAILURE, UNSPECIFIED (8) Diabetes Code(s): E11.9 - TYPE 2 DIABETES MELLITUS WITHOUT COMPLICATIONS Qualifiers: Diabetes mellitus type: type 2 Diabetes mellitus complication status: with unspecified complications
--- NOTE | 2016-08-11 19:13 | PN ---
Progress Note (short form) - Note Progress Note: PAtient seen and examined no complaints Last Vital Signs Temp Pulse Resp BP Pulse Ox 97.6 F 78 20 154/56 96 08/11/16 13:39 08/11/16 13:39 08/11/16 10:00 08/11/16 13:39 08/10/16 21:00 skin cancer over forehead Cor: RSR, No murmurs, No gallops Lungs: Clear to P&A Abd: Soft, Normal bowel sounds, No organomegaly Ext:No significant edema Abnormal Lab Results 08/10/16 08/11/16 08/11/16 06:10 05:35 05:35 RBC 2.54 L Hgb 8.5 L Hct 24.5 L MCV 96.7 H RDW 16.1 H BUN 22 H Creatinine 1.1 H Random Glucose 118 H Calcium 7.9 L TIBC 190 L AST 41 H Total Protein 5.6 L Albumin 2.3 L Home Medication List Medication Instructions Recorded Confirmed Type Acetaminophen [Tylenol] 320 mg GT Q6H 08/07/16 08/07/16 History Albuterol 2.5/Ipratropium 0.5 1 amp NEB Q6H 08/07/16 08/07/16 History [Duoneb -] Amlodipine Besylate [Norvasc -] 2.5 mg GT DAILY 08/07/16 08/07/16 History Amoxicillin/Potassium Clav 1 each PO BID 08/07/16 08/07/16 History [Amox-Clav 875-125 mg Tablet] Atorvastatin Ca [Lipitor] 40 mg GT HS 08/07/16 08/07/16 History Bacitracin - [Bacitracin Topical 1 applic TP DAILY 08/07/16 08/07/16 History Ointment -] Dextrose 5%-0.45% Saline [Dextrose 50 ml IV 08/07/16 History 5%-1/2NS] Insulin Aspart [Novolog] 0 unit SQ TID 08/07/16 08/07/16 History Levetiracetam 500 mg GT BID 08/07/16 08/07/16 History Levothyroxine [Synthroid -] 100 mcg GT DAILY 08/07/16 08/07/16 History Menthol/Zinc Oxide [Calmoseptine 71 gm TP DAILY 08/07/16 08/07/16 History Ointment] Omeprazole Magnesium [Prilosec] 20 mg GT DAILY 08/07/16 08/07/16 History Piperacillin Sodium/Tazobactam 3.375 gm IV Q8H 08/07/16 08/07/16 History [Zosyn 3.375 Gram Vial] Active Medications Generic Name Dose Route Start Last Admin Trade Name Freq PRN Reason Stop Dose Admin Acetaminophen 325 mg 08/08/16 11:15 08/11/16 17:31 Tylenol - PO 325 mg Q6H [facility]ONI Administration Albuterol/Ipratropium 1 amp 08/08/16 12:00 08/11/16 17:58 Duoneb - NEB 1 amp QIDR [facility]I Administration Albuterol/Ipratropium 1 amp 08/08/16 12:51 Duoneb - NEB Q4H PRN SHORTNESS OF BREATH Amlodipine Besylate 2.5 mg 08/09/16 10:00 08/11/16 09:41 Norvasc - GT 2.5 mg DAILY [facility] Administration Amoxicillin/Clavulanate Potassium 1 tab 08/11/16 17:30 08/11/16 17:31 Augmentin - 500mg Tablet PO 1 tab BID@0800,1730 [facility] Administration Atorvastatin Calcium 40 mg 08/08/16 22:00 08/10/16 21:44 Lipitor - GT 40 mg HS [facility] Administration Heparin Sodium (Porcine) 5,000 unit 08/08/16 22:00 08/11/16 09:43 Heparin - SQ 5,000 unit BID [facility] Administration Amino Acids 1,000 mls @ 42 mls/hr 08/09/16 10:30 08/11/16 11:50 Clinimix - IV 42 mls/hr Q23H [facility] Administration Levetiracetam 500 mg 08/08/16 22:00 08/11/16 09:43 Keppra Oral Solution - GT 500 mg BID [facility] Administration Levothyroxine Sodium 125 mcg 08/10/16 09:21 08/11/16 09:41 Synthroid - GT 125 mcg DAILY [facility] Administration Potassium Chloride 20 meq 08/10/16 10:00 08/11/16 09:41 Potassium Chloride Oral Liquid GT 20 meq DAILY [facility] Administration A/P (1) Anemia Assessment/Plan: Unspecified anemia. Suspect component of chronic disease, Reverse A/G ratio - to check proteins. Conservative management and work up in view of patients general clinical status. Screening tests including -hemoccult, Fe++ studies, LDH, retic, B-12, folate etc. Code(s): D64.9 - ANEMIA, UNSPECIFIED (2) Aspiration pneumonia Assessment/Plan: Currently on zosyn per I.D. for aspiration Code(s): J69.0 - PNEUMONITIS DUE TO INHALATION OF FOOD AND VOMIT Qualifiers: Aspiration pneumonia type: due to regurgitated food Laterality: bilateral Lung location: lower lobe of lung Qualified Code(s): J69.0 - Pneumonitis due to inhalation of food and vomit (3) Congestive heart failure (CHF) Assessment/Plan: Elevated BNP, Atrial fib with rapid ventricular response - Followed by cardiology. Code(s): I50.9 - HEART FAILURE, UNSPECIFIED (4) Acute renal failure (ARF) Assessment/Plan: Elevation of creatiine from prior admission . For gentle hydration. Code(s): N17.9 - ACUTE KIDNEY FAILURE, UNSPECIFIED (5) Failure to thrive Assessment/Plan: For IV Clinimix. Consider nutritional assessment for tube feedings. Code(s): [id number] - (6) Hypothyroid Assessment/Plan: uncontrolled per primary team 7) ? basal cell carcinoma--fore head derm consult
[2016-08-11] MEDS ORDERED: PT OWN MED DRAWER 7, Y5N ONE (21:31)
[2016-08-11] MEDS: ATORVASTATIN CA 40 MG TABLET (FP) GT SCH (21:34)
[2016-08-12 00:19] LABS: A/G RATIO 1.1 (0.7-1.7); ALBUMIN 2.8 g/dL (2.9-4.4); ALPHA-1-GLOBULIN 0.3 g/dL (0.0-0.4); BETA GLOBULIN 0.8 g/dL (0.7-1.3); GLOBULIN, TOTAL 2.7 g/dL (2.2-3.9); M-SPIKE Not Observed g/dL (Not Observed); TOTAL PROTEIN 5.5 g/dL (6.0-8.5)
[2016-08-12] MEDS: ACETAMINOPHEN 325 MG TABLET (FP) PO SCH ×4 (06:01→22:39)
[2016-08-12] MEDS: ALBUTEROL SO4 2.5/IPRATROPIUM 0.5 INH SOL 3 ML VIAL.NEB. NEB SCH ×4 (06:35→23:15)
[2016-08-12 07:32] LABS: MCH 33.6 pg (25.7-33.7); MCHC 34.3 g/dl (32.0-36.0); MEAN CELL VOLUME 98.1 fl (80-96); MEAN PLT VOLUME 8.3 fl (7.5-11.1); PLATELET COUNT 256 K/MM3 (134-434); RDW 16.2 % (11.6-15.6)
[2016-08-12 08:07] LABS: ALBUMIN 2.4 g/dl (3.4-5.0); ANION GAP 10 (8-16); CALCIUM 8.3 mg/dL (8.5-10.1); CO2 27 mmol/L (21-32); CREATININE 1.1 mg/dL (0.55-1.02); GLUCOSE,RANDOM 132 mg/dL (74-106); SGOT/AST 40 U/L (15-37); SGPT/ALT 22 U/L (12-78)
[2016-08-12 08:09] LABS: ALK PHOS 82 U/L (45-117); BILIRUBIN,TOTAL 0.4 mg/dL (0.2-1.0); TOT PROT 5.9 g/dl (6.4-8.2)
[2016-08-12] MEDS: AMINO ACIDS 4.25%/D5W 1,000 ML IV SCH ×2 (09:15→20:28)
[2016-08-12] MEDS: LEVOTHYROXINE NA 125 MCG TABLET (FP) GT SCH (09:29)
[2016-08-12] MEDS: POTASSIUM CHLORIDE ORAL LIQUID 20 MEQ/15 ML GT SCH (10:39)
[2016-08-12] MEDS: AMOX TR/POT CLAV 500MG/125MG TABLETS (FP) PO SCH ×2 (10:40→17:08)
[2016-08-12] MEDS: amLODIPine BESYLATE 2.5 MG TABLET (FP) GT SCH (10:40)
[2016-08-12] MEDS: HEPARIN NA (PORCINE) 5,000 UNITS/ML 1ML VIAL SQ SCH ×2 (10:40→21:41)
[2016-08-12] MEDS: levETIRAcetam 500 MG/5 ML ORAL SOLUTION (UNIT-DOSE CUPS) GT SCH ×2 (10:41→21:41)
[2016-08-12] MEDS ORDERED: PT OWN MED DRAWER 7, Y5N ONE ×2 (10:41→21:33)
[2016-08-12 11:05] LABS: PLATELET ESTIMATE ADEQUATE (NORMAL)
--- NOTE | 2016-08-12 11:30 | PN ---
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 MBS reviewed with staff. Oral/verbal apraxia. Educated new staff on initiating meal with nectar thick liquid, specifically Ensure Compact with is more nutritionally dense. Pt accepting it well via medicine cup, and then straw, with no overt symptoms of aspiration. Again accepted entire ensure compact within 10 minutes. Plan is for puree mixed with liquid at least initially, to drink nutrition. Once she begins and accepts/swallows well, she can likely then accept on tsp as well.Maintain HOB elevated during and after meals. Monitor for sufficient po acceptance, using compensatory strategies. Nocturnal supplemental Glucerna TF initiated.
--- NOTE | 2016-08-12 11:34 | PN ---
Progress Note (short form) - Note Progress Note: No acute event overnight. Off abx since yesterday. Doing well. No fever. On dysphagia diet. Tolerating well but intake remains poor. PEG feeds resumed at a lower rate since yesterday. Tolerated well. No cough, congestion, shortness of breath noted. Clinimix discontinued yesterday. No fever with chills, shortness of breath noted. 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 Cardiovascular: Yes: HTN, Hyperlipdemia Pulmonary: Yes: COPD Renal/: Yes: Renal Insuff ...: No Heme/Onc: Yes: Anemia Endocrine: Yes: Diabetes Mellitus, Hypothyroidism - Smoking History Smoking history: Unknown if ever smoked Have you smoked in the past 12 months: No Aproximately how many cigarettes per day: 0 - Alcohol/Substance Use Hx Alcohol Use: No Home Medications - Allergies Allergies/Adverse Reactions: Allergies Allergy/AdvReac Type Severity Reaction Status Date / Time No Known Allergies Allergy Verified 07/28/16 18:15 - Home Medications Home Medications: Ambulatory Orders Acetaminophen [Tylenol] 320 mg GT Q6H 08/07/16 Albuterol 2.5/Ipratropium 0.5 [Duoneb -] 1 amp NEB Q6H 08/07/16 Amlodipine Besylate [Norvasc -] 2.5 mg GT DAILY 08/07/16 Amoxicillin/Potassium Clav [Amox-Clav 875-125 mg Tablet] 1 each PO BID 08/07/16 Atorvastatin Ca [Lipitor] 40 mg GT HS 08/07/16 Bacitracin - [Bacitracin Topical Ointment -] 1 applic TP DAILY 08/07/16 Dextrose 5%-0.45% Saline [Dextrose 5%-1/2NS] 50 ml IV 08/07/16 Insulin Aspart [Novolog] 0 unit SQ TID 08/07/16 Levetiracetam 500 mg GT BID 08/07/16 Levothyroxine [Synthroid -] 100 mcg GT DAILY 08/07/16 Menthol/Zinc Oxide [Calmoseptine Ointment] 71 gm TP DAILY 08/07/16 Omeprazole Magnesium [Prilosec] 20 mg GT DAILY 08/07/16 Piperacillin Sodium/Tazobactam [Zosyn 3.375 Gram Vial] 3.375 gm IV Q8H 08/07/16 Review of Systems Unable to obtain ROS, reason: due to ams Physical Examination Vital Signs: Vital Signs Period Temp Pulse Resp BP Sys/Stephenson Pulse Ox Last 24 Hr 97.6 F-98.0 F 52-81 18-22 133-154/53-65 98-99 Constitutional: Yes: Mild Distress, Thin Eyes: Yes: Conjunctiva Clear, EOM Intact, PERRL HENT: Yes: Atraumatic, Normocephalic Neck: Yes: Supple, Trachea Midline Cardiovascular: Yes: Regular Rate and Rhythm Respiratory: Yes: Diminished (right lung base) Gastrointestinal: Yes: Soft CBC, BMP 08/12/16 05:33 08/12/16 05:33 Problem List - Problems (1) Aspiration pneumonia Assessment/Plan: ID follow up noted. Continue augmentin PO x 5 days. Monitor. Aspiration precautions. Code(s): J69.0 - PNEUMONITIS DUE TO INHALATION OF FOOD AND VOMIT Qualifiers: Aspiration pneumonia type: due to regurgitated food Laterality: bilateral Lung location: lower lobe of lung Qualified Code(s): J69.0 - Pneumonitis due to inhalation of food and vomit (2) Respiratory failure with hypoxia Assessment/Plan: Improving. Continue O2 NC. Monitor sats. Inhaled bronchodilators. Pulmonary follow up appreciated. Code(s): J96.91 - RESPIRATORY FAILURE, UNSPECIFIED WITH HYPOXIA Qualifiers: Chronicity: acute Qualified Code(s): J96.01 - Acute respiratory failure with hypoxia (3) Failure to thrive Code(s): [id number] - Discussed with Aviva Corrales. Airplane Navigator follow up appreciated. Dysphagia diet plus PEG feeds resumed yesterday. Glucerna 30 ml/hr from 7 PM to 7 AM. She tolerated well. Will monitor over the weekend. If no complications then will DC back to [facility] on Monday. (4) Hypertension Assessment/Plan: Reasonable control. Continue current meds. Code(s): I10 - ESSENTIAL (PRIMARY) HYPERTENSION (5) Hypothyroid Assessment/Plan: TSH very high Levothyroxine increased to 125 mcg daily. Endo follow up noted. Code(s): E03.9 - HYPOTHYROIDISM, UNSPECIFIED (6) Intracerebral hemorrhage Assessment/Plan: Stable. Extensive work up with neurosurgery/neurology prior admit (Last week) Code(s): I61.9 - NONTRAUMATIC INTRACEREBRAL HEMORRHAGE, UNSPECIFIED Qualifiers : Cerebral hemorrhage location: cerebral hemisphere, cortical portion (7) Congestive heart failure (CHF) Assessment/Plan: BNP very high. B/L pleural effusions. Cardiology follow up appreciated. Echo report noted. Code(s): I50.9 - HEART FAILURE, UNSPECIFIED (8) Diabetes Assessment/Plan: Monitor BGMs/ISS Code(s): E11.9 - TYPE 2 DIABETES MELLITUS WITHOUT COMPLICATIONS Qualifiers: Diabetes mellitus type: type 2 Diabetes mellitus complication status: with unspecified complications 9) Anemia H/H improving. Business Objects Analyst follow up appreciated. 10)Stool for occult blood positive - GI consulted. PEG feeds resumed yesterday. Tolerating well. If no complications/aspiration then will discharge her back to [facility]. Problem List - Problems (1) Aspiration pneumonia Code(s): J69.0 - PNEUMONITIS DUE TO INHALATION OF FOOD AND VOMIT Qualifiers: Aspiration pneumonia type: due to regurgitated food Laterality: bilateral Lung location: lower lobe of lung Qualified Code(s): J69.0 - Pneumonitis due to inhalation of food and vomit (2) Respiratory failure with hypoxia Code(s): J96.91 - RESPIRATORY FAILURE, UNSPECIFIED WITH HYPOXIA Qualifiers: Chronicity: acute Qualified Code(s): J96.01 - Acute respiratory failure with hypoxia (3) Failure to thrive Code(s): [id number] - (4) Hypertension Code(s): I10 - ESSENTIAL (PRIMARY) HYPERTENSION (5) Hypothyroid Code(s): E03.9 - HYPOTHYROIDISM, UNSPECIFIED (6) Intracerebral hemorrhage Code(s): I61.9 - NONTRAUMATIC INTRACEREBRAL HEMORRHAGE, UNSPECIFIED Qualifiers : Cerebral hemorrhage location: cerebral hemisphere, cortical portion (7) Congestive heart failure (CHF) Code(s): I50.9 - HEART FAILURE, UNSPECIFIED (8) Diabetes Code(s): E11.9 - TYPE 2 DIABETES MELLITUS WITHOUT COMPLICATIONS Qualifiers: Diabetes mellitus type: type 2 Diabetes mellitus complication status: with unspecified complications
--- NOTE | 2016-08-12 12:08 | PN ---
Progress Note (short form) - Note Progress Note: called to evaluate patient. PEG just recently placed by Dr. Quiroz 08/04/16. Spoke wth Dr. Lovell. He will change consult to Dr. Quiroz
--- NOTE | 2016-08-12 12:46 | PN ---
Progress Note (short form) - Note Progress Note: PULMONARY CHRONICALLY ILL IN APPEARANCE TEMPORAL WASTING CONTRACTED B/L LOWER EXT VSS/AFEBRILE PALE/ANICTERIC DIMINISHED BREATH SOUNDS RIGHT BASE S1S2 RSR BS+ CONTRACTED/NO EDEMA MEDS/LABS/NOTES/IMAGING/MICRO/ECHO REVIEWED IMP ACUTE HYPOXEMIC RESPIRATORY FAILURE RLL CONSOLIDATION LIKELY ASPIRATION PNEUMONIA BILATERAL PLEURAL EFFUSIONS RIGHT GREATER THAN LEFT W COMPRESSIVE ATELECTASIS H/O ICH S/P CVA S/P PEG DM HTN HYPOTHYROID PLAN IV ANTIBIOTICS SUPPLEMENTAL O2 ASPIRATION PRECAUTIONS LASIX PER CARDIOLOGY INHALED BRONCHODILATORS ECHO NOTED GOALS OF CARE Sasha POLANCO MD
--- NOTE | 2016-08-12 14:54 | PN ---
Progress Note, Physician History of Present Illness: patient stable more drowsy - Current Medication List Current Medications: Active Medications Acetaminophen (Tylenol -) 325 mg PO Q6H [facility] Last Admin: 08/12/16 10:46 Dose: 325 mg Albuterol/Ipratropium (Duoneb -) 1 amp NEB QIDR [facility] Last Admin: 08/12/16 10:50 Dose: 1 amp Albuterol/Ipratropium (Duoneb -) 1 amp NEB Q4H PRN PRN Reason: SHORTNESS OF BREATH Amlodipine Besylate (Norvasc -) 2.5 mg GT DAILY [facility] Last Admin: 08/12/16 10:40 Dose: 2.5 mg Amoxicillin/Clavulanate Potassium (Augmentin - 500mg Tablet) 1 tab PO BID@0800, 1730 [facility] Last Admin: 08/12/16 10:40 Dose: 1 tab Atorvastatin Calcium (Lipitor -) 40 mg GT HS [facility] Last Admin: 08/11/16 21:34 Dose: 40 mg Heparin Sodium (Porcine) (Heparin -) 5,000 unit SQ BID [facility] Last Admin: 08/12/16 10:40 Dose: 5,000 unit Levetiracetam (Keppra Oral Solution -) 500 mg GT BID [facility] Last Admin: 08/12/16 10:41 Dose: 500 mg Levothyroxine Sodium (Synthroid -) 125 mcg GT DAILY [facility] Last Admin: 08/12/16 09:29 Dose: 125 mcg Potassium Chloride (Potassium Chloride Oral Liquid) 20 meq GT DAILY [facility] Last Admin: 08/12/16 10:39 Dose: 20 meq - Objective Vital Signs: Vital Signs Temperature 97.9 F 08/12/16 08:51 Pulse Rate 81 08/12/16 10:12 Respiratory Rate 18 08/12/16 08:51 Blood Pressure 151/61 08/12/16 08:51 O2 Sat by Pulse Oximetry (%) 99 08/12/16 10:12 Constitutional: Yes: Other Cardiovascular: Yes: Regular Rate and Rhythm Respiratory: Yes: Regular, Rhonchi Gastrointestinal: Yes: Normal Bowel Sounds, Soft, Other (peg in place) Musculoskeletal: Yes: Other Extremities: Yes: Other Neurological: Yes: Other Labs: CBC, BMP 08/12/16 05:33 08/12/16 05:33 INR, PTT INR 1.06 (0.82-1.09) 08/07/16 14:24 Assessment/Plan roblem List - Problems (1) Aspiration pneumonia Code(s): J69.0 - PNEUMONITIS DUE TO INHALATION OF FOOD AND VOMIT Qualifiers: Aspiration pneumonia type: due to regurgitated food Laterality: bilateral Lung location: lower lobe of lung Qualified Code(s): J69.0 - Pneumonitis due to inhalation of food and vomit (2) Respiratory failure with hypoxia Code(s): J96.91 - RESPIRATORY FAILURE, UNSPECIFIED WITH HYPOXIA Qualifiers: Chronicity: acute Qualified Code(s): J96.01 - Acute respiratory failure with hypoxia (3) Failure to thrive Code(s): [id number] - (4) Hypertension Code(s): I10 - ESSENTIAL (PRIMARY) HYPERTENSION (5) Hypothyroid Code(s): E03.9 - HYPOTHYROIDISM, UNSPECIFIED (6) Intracerebral hemorrhage Code(s): I61.9 - NONTRAUMATIC INTRACEREBRAL HEMORRHAGE, UNSPECIFIED Qualifiers : Cerebral hemorrhage location: cerebral hemisphere, cortical portion (7) Congestive heart failure (CHF) Code(s): I50.9 - HEART FAILURE, UNSPECIFIED (8) Diabetes Code(s): E11.9 - TYPE 2 DIABETES MELLITUS WITHOUT COMPLICATIONS Qualifiers: Diabetes mellitus type: type 2 Diabetes mellitus complication status: with unspecified complications plan all notes noted patient stable continue current mgmt rest as per primary
--- NOTE | 2016-08-12 17:22 | PN ---
Chief Complaint: follow-up for anemia. History of Present Illness: Patient seen and examined, Unchanged status appears a bit sleepy than before. ROS unobtainable - Medications/Allergies Allergies/Adverse Reactions: Allergies Allergy/AdvReac Type Severity Reaction Status Date / Time No Known Allergies Allergy Verified 07/28/16 18:15 Medications: Current Medications Acetaminophen (Tylenol -) 325 mg PO Q6H [facility] Last Admin: 08/12/16 17:07 Dose: 325 mg Albuterol/Ipratropium (Duoneb -) 1 amp NEB QIDR [facility] Last Admin: 08/12/16 10:50 Dose: 1 amp Albuterol/Ipratropium (Duoneb -) 1 amp NEB Q4H PRN PRN Reason: SHORTNESS OF BREATH Amlodipine Besylate (Norvasc -) 2.5 mg GT DAILY [facility] Last Admin: 08/12/16 10:40 Dose: 2.5 mg Amoxicillin/Clavulanate Potassium (Augmentin - 500mg Tablet) 1 tab PO BID@0800, 1730 [facility] Last Admin: 08/12/16 17:08 Dose: 1 tab Atorvastatin Calcium (Lipitor -) 40 mg GT HS [facility] Last Admin: 08/11/16 21:34 Dose: 40 mg Heparin Sodium (Porcine) (Heparin -) 5,000 unit SQ BID [facility] Last Admin: 08/12/16 10:40 Dose: 5,000 unit Levetiracetam (Keppra Oral Solution -) 500 mg GT BID [facility] Last Admin: 08/12/16 10:41 Dose: 500 mg Levothyroxine Sodium (Synthroid -) 125 mcg GT DAILY [facility] Last Admin: 08/12/16 09:29 Dose: 125 mcg Potassium Chloride (Potassium Chloride Oral Liquid) 20 meq GT DAILY [facility] Last Admin: 08/12/16 10:39 Dose: 20 meq - Objective Vital Signs: Vital Signs Temperature 97.9 F 08/12/16 08:51 Pulse Rate 81 08/12/16 10:12 Respiratory Rate 18 08/12/16 08:51 Blood Pressure 151/61 08/12/16 08:51 O2 Sat by Pulse Oximetry (%) 99 08/12/16 10:12 Eyes: Yes: Sclera Icterus (Thin cachectic woman in no distress) HENT: Yes: Other (?BCC present) Cardiovascular: Yes: WNL Respiratory: Yes: CTA Bilaterally Extremities: Yes: Other (contracted extremities.) Labs: CBC, BMP 08/12/16 05:33 08/12/16 05:33 Problem List - Problems (1) Anemia Assessment/Plan: Unspecified anemia. Now improving Suspect component of chronic disease, TSH was very high, may likely be contributing to the anemia JASMEET pending Conservative management and work up in view of patients general clinical status. Code(s): D64.9 - ANEMIA, UNSPECIFIED (2) Aspiration pneumonia Assessment/Plan: Now on Augmentin per I.D. for aspiration Code(s): J69.0 - PNEUMONITIS DUE TO INHALATION OF FOOD AND VOMIT Qualifiers: Aspiration pneumonia type: due to regurgitated food Laterality: bilateral Lung location: lower lobe of lung Qualified Code(s): J69.0 - Pneumonitis due to inhalation of food and vomit (3) Congestive heart failure (CHF) Code(s): I50.9 - HEART FAILURE, UNSPECIFIED (4) Acute renal failure (ARF) Assessment/Plan: Normalized now, 1.1 today Code(s): N17.9 - ACUTE KIDNEY FAILURE, UNSPECIFIED (5) Failure to thrive Code(s): [id number] - (6) Hypothyroid Assessment/Plan: High TSH,levothyroixine dose adjusted Code(s): E03.9 - HYPOTHYROIDISM, UNSPECIFIED
[2016-08-12] MEDS ORDERED: AMINO ACIDS 4.25%/D5W 1,000 ML IV SCH (20:15)
[2016-08-12] MEDS: ATORVASTATIN CA 40 MG TABLET (FP) GT SCH (21:41)
[2016-08-13] MEDS: ACETAMINOPHEN 325 MG TABLET (FP) PO SCH ×4 (05:14→23:45)
[2016-08-13] MEDS: ALBUTEROL SO4 2.5/IPRATROPIUM 0.5 INH SOL 3 ML VIAL.NEB. NEB SCH ×3 (05:45→17:08)
--- NOTE | 2016-08-13 07:40 | PN ---
Progress Note (short form) - Note Progress Note: PATIENT NONVERBAL TODAY . DIFFICULT TO EXAMINE / CONTRACTED & RESISTANT TO POSITIONING TO ALLOW FOR P/E. ADMITTED WITH ASPIRATION PNEUMONIA RLL. NOW ON ORAL ANTIBIOTICS. PATIENT NONCOMPLIANT WITH ORAL FEEDINGS PER NURSING STAFF . FEEDINGS WERE HELD YESTERDAY BECAUSE NURSING STAFF FELT SHE WAS CONGESTED & CONCERN FOR ASPIRATION. Selected Entries Laboratory Tests Selected Entries 08/13/16 07:04 Temperature 98.8 F Pulse Rate 71 Respiratory 20 Rate Blood Pressure 139/64 Laboratory Tests 08/12/16 08/12/16 08/13/16 05:33 05:33 05:41 WBC 7.0 RBC 2.78 L Hgb 9.3 L Hct 27.3 L Plt Count 256 Sodium 139 Potassium 4.2 Chloride 102 Carbon Dioxide 27 Anion Gap 10 BUN 27 H D Creatinine 1.1 H POC Glucometer 129 Calcium 8.3 L P/E <> AWAKE / BUT NON VERBAL HEENT <> NO CAROTID BRUIT. COR <> S 1 S 2 HS DISTANT CHEST <> DECREASED BS AT BOTH LUNG BASES. ABD <> SOFT / NO REBOUND / NO GUARDING. EXT <> GENERALIZED OA CHANGES / SKIN ECCHYMOSES UPPER & LOWER EXT. LEFT LEG DRESSING IN PLACE. IMP : ASP PNEUMONIA RESP FAILURE ELEVATED TROPONIN HTN HYPOTHYROID DM ANEMIA PLAN :CONTINUE WITH SUPPORTIVE CARE IV CLINIMIX RESUMED. RECONSULT EMILIE CHOUDHURY FOR ASPIRATION. CONTINUE AB SPOKE WITH NURSING STAFF / MEDS THROUGH PEG TUBE . HOLD PO FEEDINGS UNTIL EVALUATED BY EMILIE CHOUDHURY. MONITOR CBC WITH ANEMIA.
[2016-08-13 07:53] LABS: MCHC 34.4 g/dl (32.0-36.0); MEAN CELL VOLUME 98.8 fl (80-96); MEAN PLT VOLUME 8.4 fl (7.5-11.1); PLATELET COUNT 273 K/MM3 (134-434); RDW 16.7 % (11.6-15.6); WHITE BLOOD COUNT 6.8 K/mm3 (4.0-10.0)
[2016-08-13 08:30] LABS: ALBUMIN 2.5 g/dl (3.4-5.0); ANION GAP 10 (8-16); CALCIUM 8.4 mg/dL (8.5-10.1); CO2 27 mmol/L (21-32); GLUCOSE,RANDOM 113 mg/dL (74-106); SGOT/AST 43 U/L (15-37); SGPT/ALT 23 U/L (12-78)
[2016-08-13 08:33] LABS: ALK PHOS 78 U/L (45-117); BILIRUBIN,TOTAL 0.4 mg/dL (0.2-1.0); CREATININE 0.9 mg/dL (0.55-1.02); TOT PROT 6.2 g/dl (6.4-8.2)
[2016-08-13] MEDS ORDERED: PT OWN MED DRAWER 7, Y5N ONE ×2 (09:24→21:00)
[2016-08-13] MEDS: HEPARIN NA (PORCINE) 5,000 UNITS/ML 1ML VIAL SQ SCH ×2 (09:34→21:01)
[2016-08-13] MEDS: AMOX TR/POT CLAV 500MG/125MG TABLETS (FP) PO SCH (09:34)
[2016-08-13] MEDS: POTASSIUM CHLORIDE ORAL LIQUID 20 MEQ/15 ML GT SCH (09:34)
[2016-08-13] MEDS: LEVOTHYROXINE NA 125 MCG TABLET (FP) GT SCH (09:34)
[2016-08-13] MEDS: amLODIPine BESYLATE 2.5 MG TABLET (FP) GT SCH (09:34)
[2016-08-13] MEDS: levETIRAcetam 500 MG/5 ML ORAL SOLUTION (UNIT-DOSE CUPS) GT SCH ×2 (09:34→21:01)
--- NOTE | 2016-08-13 11:32 | PN ---
Progress Note (short form) - Note Progress Note: PULMONARY Pt not answering questions today. No fevers recorded. Last Vital Signs Temp Pulse Resp BP Pulse Ox 98.3 F 108 H 20 148/86 95 08/13/16 08:47 08/13/16 08:47 08/13/16 08:47 08/13/16 08:47 08/13/16 09:00 Gen: NAD at rest Heart: RRR Lung: decreased breath sounds at the bases Abd: soft, nontender Ext: no edema, contracted CBC, BMP 08/13/16 05:40 08/13/16 05:40 Active Medications Acetaminophen (Tylenol -) 325 mg PO Q6H [facility] Last Admin: 08/13/16 05:14 Dose: 325 mg Albuterol/Ipratropium (Duoneb -) 1 amp NEB QIDR [facility] Last Admin: 08/13/16 11:24 Dose: 1 amp Amlodipine Besylate (Norvasc -) 2.5 mg GT DAILY [facility] Last Admin: 08/13/16 09:34 Dose: 2.5 mg Amoxicillin/Clavulanate Potassium (Augmentin - 500mg Tablet) 1 tab PO BID@0800, 1730 [facility] Last Admin: 08/13/16 09:34 Dose: 1 tab Atorvastatin Calcium (Lipitor -) 40 mg GT HS [facility] Last Admin: 08/12/16 21:41 Dose: 40 mg Heparin Sodium (Porcine) (Heparin -) 5,000 unit SQ BID [facility] Last Admin: 08/13/16 09:34 Dose: 5,000 unit Amino Acids (Clinimix -) 1,000 mls @ 42 mls/hr IV Q24H [facility] Last Admin: 08/12/16 20:28 Dose: 42 mls/hr Levetiracetam (Keppra Oral Solution -) 500 mg GT BID [facility] Last Admin: 08/13/16 09:34 Dose: 500 mg Levothyroxine Sodium (Synthroid -) 125 mcg GT DAILY [facility] Last Admin: 08/13/16 09:34 Dose: 125 mcg Potassium Chloride (Potassium Chloride Oral Liquid) 20 meq GT DAILY [facility] Last Admin: 08/13/16 09:34 Dose: 20 meq A/P Pneumonia likely Aspiration Pleural Effusions h/o Intracranial Hemorrhage s/p PEG HTN DM - continue antibiotics - aspiration precautions - O2 to keep SpO2 >90% - inhaled bronchodilators - DVT prophylaxis
--- NOTE | 2016-08-13 12:26 | PN ---
Progress Note, Physician History of Present Illness: patient more awake today family in room feeding on hold coughing - Current Medication List Current Medications: Active Medications Acetaminophen (Tylenol -) 325 mg PO Q6H [facility] Last Admin: 08/13/16 11:38 Dose: Not Given Albuterol/Ipratropium (Duoneb -) 1 amp NEB QIDR [facility] Last Admin: 08/13/16 11:24 Dose: 1 amp Amlodipine Besylate (Norvasc -) 2.5 mg GT DAILY [facility] Last Admin: 08/13/16 09:34 Dose: 2.5 mg Amoxicillin/Clavulanate Potassium (Augmentin 250 Mg/5 Ml Oral Suspension -) 500 mg GT BID@0800,1730 [facility] Atorvastatin Calcium (Lipitor -) 40 mg GT HS [facility] Last Admin: 08/12/16 21:41 Dose: 40 mg Heparin Sodium (Porcine) (Heparin -) 5,000 unit SQ BID [facility] Last Admin: 08/13/16 09:34 Dose: 5,000 unit Amino Acids (Clinimix -) 1,000 mls @ 42 mls/hr IV Q24H [facility] Last Admin: 08/12/16 20:28 Dose: 42 mls/hr Levetiracetam (Keppra Oral Solution -) 500 mg GT BID [facility] Last Admin: 08/13/16 09:34 Dose: 500 mg Levothyroxine Sodium (Synthroid -) 125 mcg GT DAILY [facility] Last Admin: 08/13/16 09:34 Dose: 125 mcg Potassium Chloride (Potassium Chloride Oral Liquid) 20 meq GT DAILY [facility] Last Admin: 08/13/16 09:34 Dose: 20 meq - Objective Vital Signs: Vital Signs Temperature 98.3 F 08/13/16 08:47 Pulse Rate 108 H 08/13/16 08:47 Respiratory Rate 20 08/13/16 08:47 Blood Pressure 148/86 08/13/16 08:47 O2 Sat by Pulse Oximetry (%) 95 08/13/16 09:00 Constitutional: Yes: No Distress, Calm Cardiovascular: Yes: S1, S2 Respiratory: Yes: On Nasal O2, Poor Air Entry, Rhonchi Gastrointestinal: Yes: Normal Bowel Sounds, Soft, Other (peg in place) Musculoskeletal: Yes: WNL Extremities: Yes: Other Neurological: Yes: Alert Psychiatric: Yes: Alert Labs: CBC, BMP 08/13/16 05:40 08/13/16 05:40 INR, PTT INR 1.06 (0.82-1.09) 08/07/16 14:24 Assessment/Plan shahram Romo - Problems (1) Aspiration pneumonia Code(s): J69.0 - PNEUMONITIS DUE TO INHALATION OF FOOD AND VOMIT Qualifiers: Aspiration pneumonia type: due to regurgitated food Laterality: bilateral Lung location: lower lobe of lung Qualified Code(s): J69.0 - Pneumonitis due to inhalation of food and vomit (2) Respiratory failure with hypoxia Code(s): J96.91 - RESPIRATORY FAILURE, UNSPECIFIED WITH HYPOXIA Qualifiers: Chronicity: acute Qualified Code(s): J96.01 - Acute respiratory failure with hypoxia (3) Failure to thrive Code(s): [id number] - (4) Hypertension Code(s): I10 - ESSENTIAL (PRIMARY) HYPERTENSION (5) Hypothyroid Code(s): E03.9 - HYPOTHYROIDISM, UNSPECIFIED (6) Intracerebral hemorrhage Code(s): I61.9 - NONTRAUMATIC INTRACEREBRAL HEMORRHAGE, UNSPECIFIED Qualifiers : Cerebral hemorrhage location: cerebral hemisphere, cortical portion (7) Congestive heart failure (CHF) Code(s): I50.9 - HEART FAILURE, UNSPECIFIED (8) Diabetes Code(s): E11.9 - TYPE 2 DIABETES MELLITUS WITHOUT COMPLICATIONS Qualifiers: Diabetes mellitus type: type 2 Diabetes mellitus complication status: with unspecified complications plan all notes noted patient stable continue current mgmt rest as per primary now on clinimax feeding on hold
[2016-08-13 13:25] LABS: METAMYELOCYTE 1 % (0-2); PLATELET ESTIMATE ADEQUATE (NORMAL)
[2016-08-13] MEDS: AMOX TR/POTASSIUM CLAVULANATE 250 MG/5 ML BOTTLE GT SCH (17:09)
--- NOTE | 2016-08-13 18:25 | CON.GI ---
Consult Consult Specialty:: gastroenterology Referred by:: Dr Lovell Reason for Consultation:: anemia, guaiac postive stool - History of Present Illness History of Present Illness: 81 y/o female s/p PEG for failure to thrive, cachectic, contracted was asked to be seen because of guaiac positive stool. PEG tube feeds on hold because of chest congestion and aspiration - Past Medical History [employer] WORKER: Yes: CVA Cardio/Vascular: Yes: HTN, Hyperlipdemia Pulmonary: Yes: COPD Renal/: Yes: Renal Inusuff ...: No Endocrine: Yes: Diabetes Mellitus, Hypothyroidism - Alcohol/Substance Use Hx Alcohol Use: No - Smoking History Smoking history: Unknown if ever smoked Have you smoked in the past 12 months: No Aproximately how many cigarettes per day: 0 Home Medications - Allergies Allergies/Adverse Reactions: Allergies Allergy/AdvReac Type Severity Reaction Status Date / Time No Known Allergies Allergy Verified 07/28/16 18:15 - Home Medications Home Medications: Ambulatory Orders Acetaminophen [Tylenol] 320 mg GT Q6H 08/07/16 Albuterol 2.5/Ipratropium 0.5 [Duoneb -] 1 amp NEB Q6H 08/07/16 Amlodipine Besylate [Norvasc -] 2.5 mg GT DAILY 08/07/16 Amoxicillin/Potassium Clav [Amox-Clav 875-125 mg Tablet] 1 each PO BID 08/07/16 Atorvastatin Ca [Lipitor] 40 mg GT HS 08/07/16 Bacitracin - [Bacitracin Topical Ointment -] 1 applic TP DAILY 08/07/16 Dextrose 5%-0.45% Saline [Dextrose 5%-1/2NS] 50 ml IV 08/07/16 Insulin Aspart [Novolog] 0 unit SQ TID 08/07/16 Levetiracetam 500 mg GT BID 08/07/16 Levothyroxine [Synthroid -] 100 mcg GT DAILY 08/07/16 Menthol/Zinc Oxide [Calmoseptine Ointment] 71 gm TP DAILY 08/07/16 Omeprazole Magnesium [Prilosec] 20 mg GT DAILY 08/07/16 Piperacillin Sodium/Tazobactam [Zosyn 3.375 Gram Vial] 3.375 gm IV Q8H 08/07/16 Family Disease History - Family Disease History Other Family History: No known family history of cancer or hematologic disorders Physical Exam-GI Vital Signs: Vital Signs Temperature 97.5 F L 08/13/16 14:02 Pulse Rate 70 08/13/16 14:02 Respiratory Rate 20 08/13/16 08:47 Blood Pressure 144/55 08/13/16 14:02 O2 Sat by Pulse Oximetry (%) 95 08/13/16 09:00 Constitutional: Yes: Cachectic, Other (--unresponsive) Eyes: Yes: Conjunctiva Clear HENT: Yes: Atraumatic Neck: Yes: Supple Cardiovascular: Yes: Regular Rate and Rhythm Respiratory: Yes: CTA Bilaterally ...Palpate: Yes: Soft. No: Firm/Rigid, Guarding, Hepatomegaly, Mass, Pulsatile Mass, Splenomegaly, Tenderness Labs: CBC, BMP 08/13/16 05:40 08/13/16 05:40 INR, PTT INR 1.06 (0.82-1.09) 08/07/16 14:24 Problem List - Problems (1) Occult GI bleeding Assessment/Plan: continue supportive care. The patient is not a good candidate for any GI procedures Code(s): R19.5 - OTHER FECAL ABNORMALITIES (2) Aspiration into airway Assessment/Plan: R> check residuals every 4hours if greater than 60cc hold tube feeds Reglan 10mg every 8 hours for 6 doses then 5mg via -tube tid for 4 weeks only consider to restart feeding in am Code(s): T17.908A - UNSP FB IN RESP TRACT, PART UNSP CAUSING OTH INJURY, INIT
[2016-08-13] MEDS: AMINO ACIDS 4.25%/D5W 1,000 ML IV SCH (20:56)
[2016-08-13] MEDS: ATORVASTATIN CA 40 MG TABLET (FP) GT SCH (21:01)
[2016-08-14] MEDS: ACETAMINOPHEN 325 MG TABLET (FP) PO SCH ×5 (05:53→22:15)
[2016-08-14] MEDS: ALBUTEROL SO4 2.5/IPRATROPIUM 0.5 INH SOL 3 ML VIAL.NEB. NEB SCH ×5 (05:56→23:00)
--- NOTE | 2016-08-14 07:55 | PN ---
Progress Note (short form) - Note Progress Note: PATIENT REMAINS NONVERBAL. IN BED IN POSITION / SEVERLY CONTRACTED / DIFFICULT TO PERFORM PHYSICAL EXAM. ADMITTED WITH RLL ASPIRATION PNEUMONIA. ORAL FEEDINGS ON HOLD WITH CONCERN OVER ASPIRATION. REMAINS ON I.V. CLINIMIX. Selected Entries Laboratory Tests Selected Entries Laboratory Tests Selected Entries 08/14/16 06:23 Temperature 98.1 F Pulse Rate 69 Respiratory 20 Rate Blood Pressure 140/61 Laboratory Tests 08/13/16 08/13/16 05:40 05:40 WBC 6.8 RBC 2.93 L Hgb 10.0 L Hct 29.0 L Plt Count 273 Sodium 142 Potassium 4.4 Chloride 105 Carbon Dioxide 27 Anion Gap 10 BUN 25 H Creatinine 0.9 Creat Clearance w eGFR > 60 Random Glucose 113 H Calcium 8.4 L Total Bilirubin 0.4 AST 43 H ALT 23 Alkaline Phosphatase 78 P/E <> AROUSABLE / NON VERBAL HEENT <>NECK NONSUPPLE RELATED TO PROBABLE CERVICAL ARTHRITIS COR <> S 1 S 2 NO M NO G. CHEST <> DECREASED BS AT BOTH LUNG BASES / FEW SCATTERED RHONCHI ABD <> SOFT / NO REBOUND / NO GUARDING. EXT <> OA CHANGES WITH CONTRACTURES / ECCHYMOSES UPPER & LOWER EXT. B/L LEG DRESSING IN PLACE. IMP : ASP PNEUMONIA RESP FAILURE ELEVATED TROPONIN HTN HYPOTHYROID DM ANEMIA PLAN : MAINTAIN NPO UNTIL REEVALUATED BY SWALLOW THERAPY. CONTINUE IV CLINIMIX. ALL MEDS THROUGH PEG TUBE . CONTINUE ANTIBIOTICS. LABS REVIEWED / STABLE.
[2016-08-14] MEDS: AMOX TR/POTASSIUM CLAVULANATE 250 MG/5 ML BOTTLE GT SCH ×2 (08:10→18:27)
[2016-08-14] MEDS: HEPARIN NA (PORCINE) 5,000 UNITS/ML 1ML VIAL SQ SCH ×2 (10:09→22:14)
[2016-08-14] MEDS: POTASSIUM CHLORIDE ORAL LIQUID 20 MEQ/15 ML GT SCH (10:09)
[2016-08-14] MEDS: LEVOTHYROXINE NA 125 MCG TABLET (FP) GT SCH (10:09)
[2016-08-14] MEDS: amLODIPine BESYLATE 2.5 MG TABLET (FP) GT SCH (10:09)
[2016-08-14] MEDS: levETIRAcetam 500 MG/5 ML ORAL SOLUTION (UNIT-DOSE CUPS) GT SCH ×2 (10:10→22:15)
--- NOTE | 2016-08-14 10:46 | PN ---
Progress Note (short form) - Note Progress Note: PULMONARY More awake and alert today. Denies shortness of breath or coughing. No fevers recorded. Last Vital Signs Temp Pulse Resp BP Pulse Ox 98.0 F 72 20 145/52 95 08/14/16 09:24 08/14/16 09:24 08/14/16 09:24 08/14/16 09:24 08/13/16 09:00 Gen: mildly tachypneic at rest Heart: RRR Lung: decreased breath sounds at the bases Abd: soft, nontender Ext: no edema, contracted CBC, BMP 08/13/16 05:40 08/13/16 05:40 Active Medications Acetaminophen (Tylenol -) 325 mg PO Q6H [facility] Last Admin: 08/14/16 05:53 Dose: 325 mg Albuterol/Ipratropium (Duoneb -) 1 amp NEB QIDR [facility] Last Admin: 08/14/16 05:56 Dose: 1 amp Amlodipine Besylate (Norvasc -) 2.5 mg GT DAILY [facility] Last Admin: 08/14/16 10:09 Dose: 2.5 mg Amoxicillin/Clavulanate Potassium (Augmentin 250 Mg/5 Ml Oral Suspension -) 500 mg GT BID@0800,1730 [facility] Last Admin: 08/14/16 08:10 Dose: 500 mg Atorvastatin Calcium (Lipitor -) 40 mg GT HS [facility] Last Admin: 08/13/16 21:01 Dose: 40 mg Heparin Sodium (Porcine) (Heparin -) 5,000 unit SQ BID [facility] Last Admin: 08/14/16 10:09 Dose: 5,000 unit Amino Acids (Clinimix -) 1,000 mls @ 42 mls/hr IV Q24H [facility] Last Admin: 08/13/16 20:56 Dose: 42 mls/hr Levetiracetam (Keppra Oral Solution -) 500 mg GT BID [facility] Last Admin: 08/14/16 10:10 Dose: 500 mg Levothyroxine Sodium (Synthroid -) 125 mcg GT DAILY [facility] Last Admin: 08/14/16 10:09 Dose: 125 mcg Potassium Chloride (Potassium Chloride Oral Liquid) 20 meq GT DAILY [facility] Last Admin: 08/14/16 10:09 Dose: 20 meq A/P Pneumonia likely Aspiration Pleural Effusions h/o Intracranial Hemorrhage s/p PEG HTN DM - complete antibiotics - aspiration precautions - O2 to keep SpO2 >90% - inhaled bronchodilators - DVT prophylaxis
--- NOTE | 2016-08-14 12:04 | PN ---
GI Progress Note Subjective: peg tube site dry, congestion resolved, patient family present during visit and explained dietary plan - Objective Vital Signs: Vital Signs Temperature 98.0 F 08/14/16 09:24 Pulse Rate 72 08/14/16 09:24 Respiratory Rate 20 08/14/16 09:24 Blood Pressure 145/52 08/14/16 09:24 O2 Sat by Pulse Oximetry (%) 95 08/13/16 09:00 Constitutional: Well Nourished Eyes: Yes: Conjunctiva Clear HENT: Yes: Atraumatic Neck: Yes: Supple Cardiovascular: Yes: Regular Rate and Rhythm Respiratory: Yes: CTA Bilaterally Gastrointestinal Inspection: Yes: Other (peg site dry) ...Palpate: Yes: Soft. No: Firm/Rigid, Guarding, Hepatomegaly, Mass, Pulsatile Mass, Splenomegaly, Tenderness Labs: CBC, BMP 08/13/16 05:40 08/13/16 05:40 INR, PTT INR 1.06 (0.82-1.09) 08/07/16 14:24 Problem List - Problems (1) Occult GI bleeding Assessment/Plan: stable Code(s): R19.5 - OTHER FECAL ABNORMALITIES (2) Aspiration into airway Assessment/Plan: --restart tube fees patietn most likely has silent aspiration' keep NPO for now Reglan for 9 doses then switch to reglan 5mg tid for 4 weeks only Code(s): T17.908A - UNSP FB IN RESP TRACT, PART UNSP CAUSING OTH INJURY, INIT
[2016-08-14] MEDS: METOCLOPRAMIDE HCL INJECTION 10 MG/2 ML VIAL IVPB SCH ×2 (12:34→17:46)
--- NOTE | 2016-08-14 13:38 | PN ---
Progress Note, Physician History of Present Illness: family in room patient more drowsy - Current Medication List Current Medications: Active Medications Acetaminophen (Tylenol -) 325 mg PO Q6H [facility] Last Admin: 08/14/16 12:37 Dose: 325 mg Albuterol/Ipratropium (Duoneb -) 1 amp NEB QIDR [facility] Last Admin: 08/14/16 11:12 Dose: 1 amp Amlodipine Besylate (Norvasc -) 2.5 mg GT DAILY [facility] Last Admin: 08/14/16 10:09 Dose: 2.5 mg Amoxicillin/Clavulanate Potassium (Augmentin 250 Mg/5 Ml Oral Suspension -) 500 mg GT BID@0800,1730 [facility] Last Admin: 08/14/16 08:10 Dose: 500 mg Atorvastatin Calcium (Lipitor -) 40 mg GT HS [facility] Last Admin: 08/13/16 21:01 Dose: 40 mg Heparin Sodium (Porcine) (Heparin -) 5,000 unit SQ BID [facility] Last Admin: 08/14/16 10:09 Dose: 5,000 unit Amino Acids (Clinimix -) 1,000 mls @ 42 mls/hr IV Q24H [facility] Last Admin: 08/13/16 20:56 Dose: 42 mls/hr Levetiracetam (Keppra Oral Solution -) 500 mg GT BID [facility] Last Admin: 08/14/16 10:10 Dose: 500 mg Levothyroxine Sodium (Synthroid -) 125 mcg GT DAILY [facility] Last Admin: 08/14/16 10:09 Dose: 125 mcg Metoclopramide HCl (Reglan Injection -) 10 mg IVPB Q8H-IV [facility] Last Admin: 08/14/16 12:34 Dose: 10 mg Potassium Chloride (Potassium Chloride Oral Liquid) 20 meq GT DAILY [facility] Last Admin: 08/14/16 10:09 Dose: 20 meq - Objective Vital Signs: Vital Signs Temperature 98.0 F 08/14/16 09:24 Pulse Rate 72 08/14/16 09:24 Respiratory Rate 20 08/14/16 09:24 Blood Pressure 145/52 08/14/16 09:24 O2 Sat by Pulse Oximetry (%) 95 08/13/16 09:00 Constitutional: Yes: No Distress, Calm Cardiovascular: Yes: S1, S2 Respiratory: Yes: Regular, Rhonchi Gastrointestinal: Yes: Normal Bowel Sounds, Soft, Other (peg in place) Musculoskeletal: Yes: Other Extremities: Yes: Other Neurological: Yes: Alert, Other Psychiatric: Yes: Alert Labs: CBC, BMP 08/13/16 05:40 08/13/16 05:40 INR, PTT INR 1.06 (0.82-1.09) 08/07/16 14:24 Assessment/Plan roblem List - Problems (1) Aspiration pneumonia Code(s): J69.0 - PNEUMONITIS DUE TO INHALATION OF FOOD AND VOMIT Qualifiers: Aspiration pneumonia type: due to regurgitated food Laterality: bilateral Lung location: lower lobe of lung Qualified Code(s): J69.0 - Pneumonitis due to inhalation of food and vomit (2) Respiratory failure with hypoxia Code(s): J96.91 - RESPIRATORY FAILURE, UNSPECIFIED WITH HYPOXIA Qualifiers: Chronicity: acute Qualified Code(s): J96.01 - Acute respiratory failure with hypoxia (3) Failure to thrive Code(s): [id number] - (4) Hypertension Code(s): I10 - ESSENTIAL (PRIMARY) HYPERTENSION (5) Hypothyroid Code(s): E03.9 - HYPOTHYROIDISM, UNSPECIFIED (6) Intracerebral hemorrhage Code(s): I61.9 - NONTRAUMATIC INTRACEREBRAL HEMORRHAGE, UNSPECIFIED Qualifiers : Cerebral hemorrhage location: cerebral hemisphere, cortical portion (7) Congestive heart failure (CHF) Code(s): I50.9 - HEART FAILURE, UNSPECIFIED (8) Diabetes Code(s): E11.9 - TYPE 2 DIABETES MELLITUS WITHOUT COMPLICATIONS Qualifiers: Diabetes mellitus type: type 2 Diabetes mellitus complication status: with unspecified complications plan patient started on tube feeds continue to monitor upright position while tube feeds rest as per primary
[2016-08-14] MEDS ORDERED: PT OWN MED DRAWER 7, Y5N ONE ×2 (17:36→22:10)
[2016-08-14] MEDS: AMINO ACIDS 4.25%/D5W 1,000 ML IV SCH (22:14)
[2016-08-14] MEDS: ATORVASTATIN CA 40 MG TABLET (FP) GT SCH (22:15)
[2016-08-15] MEDS: METOCLOPRAMIDE HCL INJECTION 10 MG/2 ML VIAL IVPB SCH ×3 (01:32→17:30)
[2016-08-15] MEDS: ACETAMINOPHEN 325 MG TABLET (FP) PO SCH ×4 (05:45→23:17)
[2016-08-15] MEDS: ALBUTEROL SO4 2.5/IPRATROPIUM 0.5 INH SOL 3 ML VIAL.NEB. NEB SCH ×4 (06:30→23:46)
[2016-08-15] MEDS ORDERED: PT OWN MED DRAWER 7, Y5N ONE ×3 (08:26→21:34)
[2016-08-15] MEDS: AMOX TR/POTASSIUM CLAVULANATE 250 MG/5 ML BOTTLE GT SCH ×2 (08:31→18:03)
[2016-08-15 10:08] LABS: BASOPHIL 0.4 % (0-2.0); EOSINOPHIL 1.8 % (0-4.5); MCH 33.7 pg (25.7-33.7); MCHC 34.2 g/dl (32.0-36.0); MEAN CELL VOLUME 98.5 fl (80-96); MEAN PLT VOLUME 7.6 fl (7.5-11.1); NEUTROPHILS 86.9 % (42.8-82.8); PLATELET COUNT 287 K/MM3 (134-434); RDW 16.6 % (11.6-15.6); WHITE BLOOD COUNT 9.5 K/mm3 (4.0-10.0)
--- NOTE | 2016-08-15 10:35 | PN ---
Progress Note (short form) - Note Progress Note: Events over the weekend noted. PO feeds held on Monday because of increased coughing, congestion - aspiration. Continues to receive PEG feeds at 20 ml/hr without complications. GI follow up appreciated. Afebrile. Awake but minimal response to verbal commands. 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: Yes: CVA Cardiovascular: Yes: HTN, Hyperlipdemia Pulmonary: Yes: COPD Renal/: Yes: Renal Insuff ...: No Heme/Onc: Yes: Anemia Endocrine: Yes: Diabetes Mellitus, Hypothyroidism - Smoking History Smoking history: Unknown if ever smoked Have you smoked in the past 12 months: No Aproximately how many cigarettes per day: 0 - Alcohol/Substance Use Hx Alcohol Use: No Home Medications - Allergies Allergies/Adverse Reactions: Allergies Allergy/AdvReac Type Severity Reaction Status Date / Time No Known Allergies Allergy Verified 07/28/16 18:15 - Home Medications Home Medications: Ambulatory Orders Acetaminophen [Tylenol] 320 mg GT Q6H 08/07/16 Albuterol 2.5/Ipratropium 0.5 [Duoneb -] 1 amp NEB Q6H 08/07/16 Amlodipine Besylate [Norvasc -] 2.5 mg GT DAILY 08/07/16 Amoxicillin/Potassium Clav [Amox-Clav 875-125 mg Tablet] 1 each PO BID 08/07/16 Atorvastatin Ca [Lipitor] 40 mg GT HS 08/07/16 Bacitracin - [Bacitracin Topical Ointment -] 1 applic TP DAILY 08/07/16 Dextrose 5%-0.45% Saline [Dextrose 5%-1/2NS] 50 ml IV 08/07/16 Insulin Aspart [Novolog] 0 unit SQ TID 08/07/16 Levetiracetam 500 mg GT BID 08/07/16 Levothyroxine [Synthroid -] 100 mcg GT DAILY 08/07/16 Menthol/Zinc Oxide [Calmoseptine Ointment] 71 gm TP DAILY 08/07/16 Omeprazole Magnesium [Prilosec] 20 mg GT DAILY 08/07/16 Piperacillin Sodium/Tazobactam [Zosyn 3.375 Gram Vial] 3.375 gm IV Q8H 08/07/16 Review of Systems Unable to obtain ROS, reason: due to ams Physical Examination Vital Signs: Vital Signs Period Temp Pulse Resp BP Sys/Stephenson Pulse Ox Last 24 Hr 97.2 F-97.8 F 64-75 20-20 128-143/57-70 93-94 Constitutional: Yes: Mild Distress, Thin Eyes: Yes: Conjunctiva Clear, EOM Intact, PERRL HENT: Yes: Atraumatic, Normocephalic Neck: Yes: Supple, Trachea Midline Cardiovascular: Yes: Regular Rate and Rhythm Respiratory: Yes: Diminished (right lung base) Gastrointestinal: Yes: Soft CBC, BMP 08/15/16 09:45 BMP pending Problem List - Problems (1) Aspiration pneumonia Assessment/Plan: ID follow up noted. Continue Augmentin PO BID for a total of 5 days. Monitor. Aspiration precautions. Code(s): J69.0 - PNEUMONITIS DUE TO INHALATION OF FOOD AND VOMIT Qualifiers: Aspiration pneumonia type: due to regurgitated food Laterality: bilateral Lung location: lower lobe of lung Qualified Code(s): J69.0 - Pneumonitis due to inhalation of food and vomit (2) Respiratory failure with hypoxia Assessment/Plan: Improving. Continue O2 NC. Monitor sats. Inhaled bronchodilators. Pulmonary follow up appreciated. Code(s): J96.91 - RESPIRATORY FAILURE, UNSPECIFIED WITH HYPOXIA Qualifiers: Chronicity: acute Qualified Code(s): J96.01 - Acute respiratory failure with hypoxia (3) Failure to thrive Code(s): [id number] - PO feeds held because of aspiration. Continues to receive PEG feeds at 20 ml/hr. Will advance to 30 ml/hr and monitor. Livier Corrales to see the patient. (4) Hypertension Assessment/Plan: Reasonable control. Continue current meds. Code(s): I10 - ESSENTIAL (PRIMARY) HYPERTENSION (5) Hypothyroid Assessment/Plan: TSH very high Levothyroxine increased to 125 mcg daily. Endo follow up noted. Code(s): E03.9 - HYPOTHYROIDISM, UNSPECIFIED (6) Intracerebral hemorrhage Assessment/Plan: Stable. Extensive work up with neurosurgery/neurology prior admit (Last week) Code(s): I61.9 - NONTRAUMATIC INTRACEREBRAL HEMORRHAGE, UNSPECIFIED Qualifiers : Cerebral hemorrhage location: cerebral hemisphere, cortical portion (7) Congestive heart failure (CHF) Assessment/Plan: BNP very high. B/L pleural effusions. Cardiology follow up appreciated. Echo report noted. Code(s): I50.9 - HEART FAILURE, UNSPECIFIED (8) Diabetes Assessment/Plan: Monitor BGMs/ISS Code(s): E11.9 - TYPE 2 DIABETES MELLITUS WITHOUT COMPLICATIONS Qualifiers: Diabetes mellitus type: type 2 Diabetes mellitus complication status: with unspecified complications 9) Anemia H/H improving. Microbiology Lab Assistant follow up appreciated. 10)Stool for occult blood positive - GI consulted. No intervention as this time. H/H improving. No bleeding per ectum reported. Increase PEG feeds to 30 ml/hr and monitor. Livier Corrales to see the patient. Problem List - Problems (1) Aspiration pneumonia Code(s): J69.0 - PNEUMONITIS DUE TO INHALATION OF FOOD AND VOMIT Qualifiers: Aspiration pneumonia type: due to regurgitated food Laterality: bilateral Lung location: lower lobe of lung Qualified Code(s): J69.0 - Pneumonitis due to inhalation of food and vomit (2) Respiratory failure with hypoxia Code(s): J96.91 - RESPIRATORY FAILURE, UNSPECIFIED WITH HYPOXIA Qualifiers: Chronicity: acute Qualified Code(s): J96.01 - Acute respiratory failure with hypoxia (3) Failure to thrive Code(s): [id number] - (4) Hypertension Code(s): I10 - ESSENTIAL (PRIMARY) HYPERTENSION (5) Hypothyroid Code(s): E03.9 - HYPOTHYROIDISM, UNSPECIFIED (6) Intracerebral hemorrhage Code(s): I61.9 - NONTRAUMATIC INTRACEREBRAL HEMORRHAGE, UNSPECIFIED Qualifiers : Cerebral hemorrhage location: cerebral hemisphere, cortical portion (7) Congestive heart failure (CHF) Code(s): I50.9 - HEART FAILURE, UNSPECIFIED (8) Diabetes Code(s): E11.9 - TYPE 2 DIABETES MELLITUS WITHOUT COMPLICATIONS Qualifiers: Diabetes mellitus type: type 2 Diabetes mellitus complication status: with unspecified complications
[2016-08-15 10:47] LABS: ALBUMIN 2.6 g/dl (3.4-5.0); ANION GAP 6 (8-16); BILIRUBIN,TOTAL 0.3 mg/dL (0.2-1.0); CALCIUM 8.6 mg/dL (8.5-10.1); CO2 27 mmol/L (21-32); GLUCOSE,RANDOM 121 mg/dL (74-106); SGOT/AST 40 U/L (15-37); SGPT/ALT 26 U/L (12-78); TOT PROT 6.4 g/dl (6.4-8.2)
[2016-08-15 10:48] LABS: ALK PHOS 92 U/L (45-117)
--- NOTE | 2016-08-15 11:20 | PN ---
Progress Note, REPORTER - Note Progress Note: Pt made NPO over the weekend with reported increase cough/congestion. Selected Entries 08/11/16 08/11/16 08/11/16 00:05 06:24 13:39 Breakfast Lunch 25% Supper Temperature 97.4 F L 98.1 F 97.6 F 08/11/16 08/12/16 08/12/16 21:56 06:00 08:51 Breakfast Lunch Supper 25% Temperature 98.0 F 98.0 F 97.9 F 08/12/16 08/12/16 08/12/16 10:35 14:10 17:35 Breakfast 0 25% Lunch 0 Supper Temperature 97.8 F 08/12/16 08/13/16 08/13/16 18:00 07:04 08:47 Breakfast Lunch Supper 0 Temperature 98.8 F 98.3 F 08/13/16 08/13/16 08/14/16 14:02 22:23 06:23 Breakfast Lunch Supper Temperature 97.5 F L 98.0 F 98.1 F 08/14/16 08/14/16 08/14/16 09:24 13:47 19:57 Breakfast Lunch Supper NPO Temperature 98.0 F 97.8 F 97.2 F L 08/15/16 06:00 Breakfast Lunch Supper Temperature 97.7 F Laboratory Tests 08/13/16 08/15/16 05:40 09:45 WBC 6.8 9.5 D No fever spikes reported. MBS was (-) for any aspiration. However, pt may be at risk if not sufficiently alert, cooperative, or with continuous drinking,etc. Attempted to reassess pt today, but insufficiently arousable for PO trials. IMP: (-) aspiration on MBS, however, risk of aspiration with impaired HARPREET,etc. Increase PEG feedings, carefully, per RD/GI recommendations. Maintain HOB at all times. Do not recline for patient care, as possible. Mouth care. If pleasure feedings are given,feed only when alert. HOB elevated, chin in neutral, not extended position. Mix puree with liquid to drink nutrition. Cold Ensure compact.Only one small sip at a time. No continuous drinking. Monitor for swallow reflex before next trial provided.Monitor for congestion, fever,WBC.
[2016-08-15] MEDS: amLODIPine BESYLATE 2.5 MG TABLET (FP) GT SCH (11:29)
[2016-08-15] MEDS: HEPARIN NA (PORCINE) 5,000 UNITS/ML 1ML VIAL SQ SCH ×2 (11:30→21:41)
[2016-08-15] MEDS: levETIRAcetam 500 MG/5 ML ORAL SOLUTION (UNIT-DOSE CUPS) GT SCH ×2 (11:30→21:41)
[2016-08-15] MEDS: LEVOTHYROXINE NA 125 MCG TABLET (FP) GT SCH (11:30)
--- NOTE | 2016-08-15 12:01 | PN ---
Progress Note, Physician Chief Complaint: resp distress History of Present Illness: less communicative than last evaluation--not responding meaningfully to questioning. + alert - Current Medication List Current Medications: Active Medications Acetaminophen (Tylenol -) 325 mg PO Q6H [facility] Last Admin: 08/15/16 11:30 Dose: 325 mg Albuterol/Ipratropium (Duoneb -) 1 amp NEB QIDR [facility] Last Admin: 08/15/16 11:06 Dose: 1 amp Amlodipine Besylate (Norvasc -) 2.5 mg GT DAILY [facility] Last Admin: 08/15/16 11:29 Dose: 2.5 mg Amoxicillin/Clavulanate Potassium (Augmentin 250 Mg/5 Ml Oral Suspension -) 500 mg GT BID@0800,1730 [facility] Last Admin: 08/15/16 08:31 Dose: 500 mg Atorvastatin Calcium (Lipitor -) 40 mg GT HS [facility] Last Admin: 08/14/16 22:15 Dose: 40 mg Heparin Sodium (Porcine) (Heparin -) 5,000 unit SQ BID [facility] Last Admin: 08/15/16 11:30 Dose: 5,000 unit Amino Acids (Clinimix -) 1,000 mls @ 42 mls/hr IV Q24H [facility] Last Admin: 08/14/16 22:14 Dose: 42 mls/hr Levetiracetam (Keppra Oral Solution -) 500 mg GT BID [facility] Last Admin: 08/15/16 11:30 Dose: 500 mg Levothyroxine Sodium (Synthroid -) 125 mcg GT DAILY [facility] Last Admin: 08/15/16 11:30 Dose: 125 mcg Metoclopramide HCl (Reglan Injection -) 10 mg IVPB Q8H-IV [facility] Last Admin: 08/15/16 11:30 Dose: 10 mg Potassium Chloride (Potassium Chloride Oral Liquid) 20 meq GT DAILY [facility] Last Admin: 08/14/16 10:09 Dose: 20 meq - Objective Vital Signs: Vital Signs Temperature 97.7 F 08/15/16 06:00 Pulse Rate 69 08/15/16 10:20 Respiratory Rate 20 08/15/16 06:00 Blood Pressure 143/57 08/15/16 06:00 O2 Sat by Pulse Oximetry (%) 93 L 08/15/16 10:20 Constitutional: Yes: No Distress, Calm Cardiovascular: Yes: Regular Rate and Rhythm, S1, S2. No: Gallop, Murmur Respiratory: Yes: Regular, Diminished (bases). No: CTA Bilaterally, Accessory Muscle Use Extremities: No: Cold Edema: No Neurological: Yes: Alert. No: Seizure Psychiatric: No: Agitated Labs: CBC, BMP 08/15/16 09:45 08/15/16 09:45 INR, PTT INR 1.06 (0.82-1.09) 08/07/16 14:24 Assessment/Plan ECG 08/07: NSR, WNL--no change vs 07/23 CTA chest: no PE; RLL consolidation, LLL atx, bilat effusions Echo 08/22 (here): nl LV/EF; RV tds; mod AI/MR, no peric eff (no RVSP) acute hypoxic resp failure, PNA: -pulm and ID treating for likely aspiration PNA -? chf component --CT reviewed: moderate effusion R (? parapneumonic), small L, fluid in fissures bilaterally but no pulm edema/ground glass appreciated. -BNP 18K -echo with normal LV fxn and no severe valvular dysfunction -likely no volume overload with intravasc depletion with prior lasix trial-- exam stable, no diuresis elevated trop: -trop 0.2 x2 (baseline 0.1 about one week ago)--trend not c/w ACS, ecg non- ischemic -no further ischemia w/u indicated HTN: -bp controlled -cont amlodipine DM: -per pmd recent ICH: -seen by neuro/neurosurgery, no intervention was planned chronic malnutrition: -s/p PEG, gets tube feeds -albumin 2.4 -per pmd copd: -per pulm
[2016-08-15] MEDS: POTASSIUM CHLORIDE ORAL LIQUID 20 MEQ/15 ML GT SCH (12:32)
--- NOTE | 2016-08-15 13:43 | PN ---
Progress Note, Physician History of Present Illness: pulmonary no change ,awake,non -verbal,+ cough,nad - Current Medication List Current Medications: Active Medications Acetaminophen (Tylenol -) 325 mg PO Q6H [facility] Last Admin: 08/15/16 11:30 Dose: 325 mg Albuterol/Ipratropium (Duoneb -) 1 amp NEB QIDR [facility] Last Admin: 08/15/16 11:06 Dose: 1 amp Amlodipine Besylate (Norvasc -) 2.5 mg GT DAILY [facility] Last Admin: 08/15/16 11:29 Dose: 2.5 mg Amoxicillin/Clavulanate Potassium (Augmentin 250 Mg/5 Ml Oral Suspension -) 500 mg GT BID@0800,1730 [facility] Last Admin: 08/15/16 08:31 Dose: 500 mg Atorvastatin Calcium (Lipitor -) 40 mg GT HS [facility] Last Admin: 08/14/16 22:15 Dose: 40 mg Heparin Sodium (Porcine) (Heparin -) 5,000 unit SQ BID [facility] Last Admin: 08/15/16 11:30 Dose: 5,000 unit Amino Acids (Clinimix -) 1,000 mls @ 42 mls/hr IV Q24H [facility] Last Admin: 08/14/16 22:14 Dose: 42 mls/hr Levetiracetam (Keppra Oral Solution -) 500 mg GT BID [facility] Last Admin: 08/15/16 11:30 Dose: 500 mg Levothyroxine Sodium (Synthroid -) 125 mcg GT DAILY [facility] Last Admin: 08/15/16 11:30 Dose: 125 mcg Metoclopramide HCl (Reglan Injection -) 10 mg IVPB Q8H-IV [facility] Last Admin: 08/15/16 11:30 Dose: 10 mg Potassium Chloride (Potassium Chloride Oral Liquid) 20 meq GT DAILY [facility] Last Admin: 08/15/16 12:32 Dose: 20 meq - Objective Vital Signs: Vital Signs Temperature 98.7 F 08/15/16 13:34 Pulse Rate 73 08/15/16 13:34 Respiratory Rate 18 08/15/16 13:34 Blood Pressure 134/57 08/15/16 13:34 O2 Sat by Pulse Oximetry (%) 93 L 08/15/16 10:20 Constitutional: Yes: Calm, Thin Eyes: Yes: WNL HENT: Yes: WNL Neck: Yes: WNL Cardiovascular: Yes: Regular Rate and Rhythm, S1, S2 Respiratory: Yes: Rhonchi (scattered rhonchi) Gastrointestinal: Yes: Normal Bowel Sounds, Soft Extremities: Yes: Other (contracted) Labs: CBC, BMP 08/15/16 09:45 08/15/16 09:45 INR, PTT INR 1.06 (0.82-1.09) 08/07/16 14:24 Problem List - Problems (1) Aspiration pneumonia Code(s): J69.0 - PNEUMONITIS DUE TO INHALATION OF FOOD AND VOMIT Qualifiers: Aspiration pneumonia type: due to regurgitated food Laterality: bilateral Lung location: lower lobe of lung Qualified Code(s): J69.0 - Pneumonitis due to inhalation of food and vomit (2) Respiratory failure with hypoxia Code(s): J96.91 - RESPIRATORY FAILURE, UNSPECIFIED WITH HYPOXIA Qualifiers: Chronicity: acute Qualified Code(s): J96.01 - Acute respiratory failure with hypoxia (3) Diabetes Code(s): E11.9 - TYPE 2 DIABETES MELLITUS WITHOUT COMPLICATIONS Qualifiers: Diabetes mellitus type: type 2 Diabetes mellitus complication status: with unspecified complications (4) Hypertension Code(s): I10 - ESSENTIAL (PRIMARY) HYPERTENSION (5) Hypothyroid Code(s): E03.9 - HYPOTHYROIDISM, UNSPECIFIED (6) Intracerebral hemorrhage Code(s): I61.9 - NONTRAUMATIC INTRACEREBRAL HEMORRHAGE, UNSPECIFIED Qualifiers : Cerebral hemorrhage location: cerebral hemisphere, cortical portion Assessment/Plan A/P Pneumonia likely Aspiration Pleural Effusions h/o Intracranial Hemorrhage s/p PEG HTN DM - complete antibiotics - aspiration precautions - O2 to keep SpO2 >90% - inhaled bronchodilators - chest x-ray - DVT prophylaxis DR MCCULLOUGH
--- NOTE | 2016-08-15 18:09 | PN ---
Progress Note, Physician History of Present Illness: patient more sleepy tube feeds started small liquids given orally patient not responding otherwise no changes stable - Current Medication List Current Medications: Active Medications Acetaminophen (Tylenol -) 325 mg PO Q6H [facility] Last Admin: 08/15/16 17:21 Dose: Not Given Albuterol/Ipratropium (Duoneb -) 1 amp NEB QIDR [facility] Last Admin: 08/15/16 17:10 Dose: 1 amp Amlodipine Besylate (Norvasc -) 2.5 mg GT DAILY [facility] Last Admin: 08/15/16 11:29 Dose: 2.5 mg Amoxicillin/Clavulanate Potassium (Augmentin 250 Mg/5 Ml Oral Suspension -) 500 mg GT BID@0800,1730 [facility] Last Admin: 08/15/16 18:03 Dose: 500 mg Atorvastatin Calcium (Lipitor -) 40 mg GT HS [facility] Last Admin: 08/14/16 22:15 Dose: 40 mg Heparin Sodium (Porcine) (Heparin -) 5,000 unit SQ BID [facility] Last Admin: 08/15/16 11:30 Dose: 5,000 unit Amino Acids (Clinimix -) 1,000 mls @ 42 mls/hr IV Q24H [facility] Last Admin: 08/14/16 22:14 Dose: 42 mls/hr Levetiracetam (Keppra Oral Solution -) 500 mg GT BID [facility] Last Admin: 08/15/16 11:30 Dose: 500 mg Levothyroxine Sodium (Synthroid -) 125 mcg GT DAILY [facility] Last Admin: 08/15/16 11:30 Dose: 125 mcg Metoclopramide HCl (Reglan Injection -) 10 mg IVPB Q8H-IV [facility] Last Admin: 08/15/16 17:30 Dose: 10 mg Potassium Chloride (Potassium Chloride Oral Liquid) 20 meq GT DAILY [facility] Last Admin: 08/15/16 12:32 Dose: 20 meq - Objective Vital Signs: Vital Signs Temperature 99.1 F 08/15/16 17:41 Pulse Rate 77 08/15/16 17:41 Respiratory Rate 21 08/15/16 17:41 Blood Pressure 129/61 08/15/16 17:41 O2 Sat by Pulse Oximetry (%) 93 L 08/15/16 10:20 Constitutional: Yes: No Distress, Calm Cardiovascular: Yes: Regular Rate and Rhythm Respiratory: Yes: Poor Air Entry, Rhonchi Gastrointestinal: Yes: Normal Bowel Sounds, Soft, Other (peg in place) Musculoskeletal: Yes: Other Extremities: Yes: Other Neurological: Yes: Other (drowsy) Labs: CBC, BMP 08/15/16 09:45 08/15/16 09:45 INR, PTT INR 1.06 (0.82-1.09) 08/07/16 14:24 Assessment/Plan roblem List - Problems (1) Aspiration pneumonia Code(s): J69.0 - PNEUMONITIS DUE TO INHALATION OF FOOD AND VOMIT Qualifiers: Aspiration pneumonia type: due to regurgitated food Laterality: bilateral Lung location: lower lobe of lung Qualified Code(s): J69.0 - Pneumonitis due to inhalation of food and vomit (2) Respiratory failure with hypoxia Code(s): J96.91 - RESPIRATORY FAILURE, UNSPECIFIED WITH HYPOXIA Qualifiers: Chronicity: acute Qualified Code(s): J96.01 - Acute respiratory failure with hypoxia (3) Failure to thrive Code(s): [id number] - (4) Hypertension Code(s): I10 - ESSENTIAL (PRIMARY) HYPERTENSION (5) Hypothyroid Code(s): E03.9 - HYPOTHYROIDISM, UNSPECIFIED (6) Intracerebral hemorrhage Code(s): I61.9 - NONTRAUMATIC INTRACEREBRAL HEMORRHAGE, UNSPECIFIED Qualifiers : Cerebral hemorrhage location: cerebral hemisphere, cortical portion (7) Congestive heart failure (CHF) Code(s): I50.9 - HEART FAILURE, UNSPECIFIED (8) Diabetes Code(s): E11.9 - TYPE 2 DIABETES MELLITUS WITHOUT COMPLICATIONS Qualifiers: Diabetes mellitus type: type 2 Diabetes mellitus complication status: with unspecified complications plan patient started on tube feeds continue to monitor upright position while tube feeds rest as per primary once the course of abx is done we will stop and see
[2016-08-15] MEDS: ATORVASTATIN CA 40 MG TABLET (FP) GT SCH (21:41)
[2016-08-15] MEDS: AMINO ACIDS 4.25%/D5W 1,000 ML IV SCH (23:17)
[2016-08-16] MEDS: METOCLOPRAMIDE HCL INJECTION 10 MG/2 ML VIAL IVPB SCH ×3 (02:07→17:50)
[2016-08-16] MEDS: ACETAMINOPHEN 325 MG TABLET (FP) PO SCH ×4 (06:29→23:35)
[2016-08-16] MEDS: ALBUTEROL SO4 2.5/IPRATROPIUM 0.5 INH SOL 3 ML VIAL.NEB. NEB SCH ×3 (06:40→18:38)
[2016-08-16 08:03] LABS: MCH 33.7 pg (25.7-33.7); MCHC 34.1 g/dl (32.0-36.0); MEAN CELL VOLUME 98.9 fl (80-96); MEAN PLT VOLUME 8.1 fl (7.5-11.1); PLATELET COUNT 216 K/MM3 (134-434); RDW 16.7 % (11.6-15.6); WHITE BLOOD COUNT 9.7 K/mm3 (4.0-10.0)
[2016-08-16 08:26] LABS: ALBUMIN 2.2 g/dl (3.4-5.0); ANION GAP 9 (8-16); CALCIUM 8.3 mg/dL (8.5-10.1); CO2 24 mmol/L (21-32); GLUCOSE,RANDOM 132 mg/dL (74-106); SGPT/ALT 20 U/L (12-78); TOT PROT 5.4 g/dl (6.4-8.2)
[2016-08-16 08:34] LABS: ALK PHOS 85 U/L (45-117); BILIRUBIN,TOTAL 0.3 mg/dL (0.2-1.0); SGOT/AST 31 U/L (15-37)
[2016-08-16] MEDS ORDERED: PT OWN MED DRAWER 7, Y5N ONE ×3 (09:34→23:04)
[2016-08-16] MEDS: amLODIPine BESYLATE 2.5 MG TABLET (FP) GT SCH (09:45)
[2016-08-16] MEDS: levETIRAcetam 500 MG/5 ML ORAL SOLUTION (UNIT-DOSE CUPS) GT SCH ×2 (09:45→22:35)
[2016-08-16] MEDS: POTASSIUM CHLORIDE ORAL LIQUID 20 MEQ/15 ML GT SCH (09:45)
[2016-08-16] MEDS: AMOX TR/POTASSIUM CLAVULANATE 250 MG/5 ML BOTTLE GT SCH ×2 (09:45→17:50)
[2016-08-16] MEDS: LEVOTHYROXINE NA 125 MCG TABLET (FP) GT SCH (09:45)
--- NOTE | 2016-08-16 12:18 | PN ---
Progress Note (short form) - Note Progress Note: Patient seen and examined. Non responsive lethargic. Tube feed increased to 30 ml/hr yesterday. Tolerated well. Patient is nil by mouth. No SOB. No cough, congestion. Afebrile. present by the bedside. 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: Yes: CVA Cardiovascular: Yes: HTN, Hyperlipdemia Pulmonary: Yes: COPD Renal/: Yes: Renal Insuff ...: No Heme/Onc: Yes: Anemia Endocrine: Yes: Diabetes Mellitus, Hypothyroidism - Smoking History Smoking history: Unknown if ever smoked Have you smoked in the past 12 months: No Aproximately how many cigarettes per day: 0 - Alcohol/Substance Use Hx Alcohol Use: No Home Medications - Allergies Allergies/Adverse Reactions: Allergies Allergy/AdvReac Type Severity Reaction Status Date / Time No Known Allergies Allergy Verified 07/28/16 18:15 - Home Medications Home Medications: Ambulatory Orders Acetaminophen [Tylenol] 320 mg GT Q6H 08/07/16 Albuterol 2.5/Ipratropium 0.5 [Duoneb -] 1 amp NEB Q6H 08/07/16 Amlodipine Besylate [Norvasc -] 2.5 mg GT DAILY 08/07/16 Amoxicillin/Potassium Clav [Amox-Clav 875-125 mg Tablet] 1 each PO BID 08/07/16 Atorvastatin Ca [Lipitor] 40 mg GT HS 08/07/16 Bacitracin - [Bacitracin Topical Ointment -] 1 applic TP DAILY 08/07/16 Dextrose 5%-0.45% Saline [Dextrose 5%-1/2NS] 50 ml IV 08/07/16 Insulin Aspart [Novolog] 0 unit SQ TID 08/07/16 Levetiracetam 500 mg GT BID 08/07/16 Levothyroxine [Synthroid -] 100 mcg GT DAILY 08/07/16 Menthol/Zinc Oxide [Calmoseptine Ointment] 71 gm TP DAILY 08/07/16 Omeprazole Magnesium [Prilosec] 20 mg GT DAILY 08/07/16 Piperacillin Sodium/Tazobactam [Zosyn 3.375 Gram Vial] 3.375 gm IV Q8H 08/07/16 Review of Systems Unable to obtain ROS, reason: due to ams Physical Examination Vital Signs: Vital Signs Period Temp Pulse Resp BP Sys/Stephenson Pulse Ox Last 24 Hr 97.7 F-99.1 F 61-77 18-21 129-151/56-67 94-98 Constitutional: Yes: Mild Distress, Thin Eyes: Yes: Conjunctiva Clear, EOM Intact, PERRL HENT: Yes: Atraumatic, Normocephalic Neck: Yes: Supple, Trachea Midline Cardiovascular: Yes: Regular Rate and Rhythm Respiratory: Yes: Diminished (right lung base) Gastrointestinal: Yes: Soft CBC, BMP 08/16/16 07:20 08/16/16 07:20 BMP pending Problem List - Problems (1) Aspiration pneumonia Assessment/Plan: Continue Augmentin PO BID for a total of 5 days. Monitor. Aspiration precautions. Code(s): J69.0 - PNEUMONITIS DUE TO INHALATION OF FOOD AND VOMIT Qualifiers: Aspiration pneumonia type: due to regurgitated food Laterality: bilateral Lung location: lower lobe of lung Qualified Code(s): J69.0 - Pneumonitis due to inhalation of food and vomit (2) Respiratory failure with hypoxia Assessment/Plan: Improving. Continue O2 NC. Monitor sats. Inhaled bronchodilators. Pulmonary follow up appreciated. Code(s): J96.91 - RESPIRATORY FAILURE, UNSPECIFIED WITH HYPOXIA Qualifiers: Chronicity: acute Qualified Code(s): J96.01 - Acute respiratory failure with hypoxia (3) Failure to thrive Code(s): [id number] - Nil by mouth because patient is aspirating. Tolerated 30 ml/hr since yesterday. Increase to 40 ml/hr as of now and if no complications then to increase 50 ml/ hr after 6 hrs. Aspiration precautions. Livier Corrales to see the patient. (4) Hypertension Assessment/Plan: Reasonable control. Continue current meds. Code(s): I10 - ESSENTIAL (PRIMARY) HYPERTENSION (5) Hypothyroid Assessment/Plan: TSH very high Levothyroxine increased to 125 mcg daily. Endo follow up noted. Code(s): E03.9 - HYPOTHYROIDISM, UNSPECIFIED (6) Intracerebral hemorrhage Assessment/Plan: Stable. Extensive work up with neurosurgery/neurology prior admit (Last week) Code(s): I61.9 - NONTRAUMATIC INTRACEREBRAL HEMORRHAGE, UNSPECIFIED Qualifiers : Cerebral hemorrhage location: cerebral hemisphere, cortical portion (7) Congestive heart failure (CHF) Assessment/Plan: BNP very high. B/L pleural effusions. Cardiology follow up appreciated. Echo report noted. Code(s): I50.9 - HEART FAILURE, UNSPECIFIED (8) Diabetes Assessment/Plan: Monitor BGMs/ISS Code(s): E11.9 - TYPE 2 DIABETES MELLITUS WITHOUT COMPLICATIONS Qualifiers: Diabetes mellitus type: type 2 Diabetes mellitus complication status: with unspecified complications 9) Anemia H/H improving. It Architect follow up appreciated. 10)Stool for occult blood positive - GI consulted. No intervention as this time. H/H improving. No bleeding per ectum reported. Increase PEG feeds to 40 ml/hr and if tolerates well then increase to 50 ml/hr after 6 hrs. Discussed in detail with the . She will be nil by mouth because of aspiration. Hope she tolerated tube feeds without aspiration. verbalizes understanding of the situation. Problem List - Problems (1) Aspiration pneumonia Code(s): J69.0 - PNEUMONITIS DUE TO INHALATION OF FOOD AND VOMIT Qualifiers: Aspiration pneumonia type: due to regurgitated food Laterality: bilateral Lung location: lower lobe of lung Qualified Code(s): J69.0 - Pneumonitis due to inhalation of food and vomit (2) Respiratory failure with hypoxia Code(s): J96.91 - RESPIRATORY FAILURE, UNSPECIFIED WITH HYPOXIA Qualifiers: Chronicity: acute Qualified Code(s): J96.01 - Acute respiratory failure with hypoxia (3) Failure to thrive Code(s): [id number] - (4) Hypertension Code(s): I10 - ESSENTIAL (PRIMARY) HYPERTENSION (5) Hypothyroid Code(s): E03.9 - HYPOTHYROIDISM, UNSPECIFIED (6) Intracerebral hemorrhage Code(s): I61.9 - NONTRAUMATIC INTRACEREBRAL HEMORRHAGE, UNSPECIFIED Qualifiers : Cerebral hemorrhage location: cerebral hemisphere, cortical portion (7) Congestive heart failure (CHF) Code(s): I50.9 - HEART FAILURE, UNSPECIFIED (8) Diabetes Code(s): E11.9 - TYPE 2 DIABETES MELLITUS WITHOUT COMPLICATIONS Qualifiers: Diabetes mellitus type: type 2 Diabetes mellitus complication status: with unspecified complications
[2016-08-16 13:05] LABS: METAMYELOCYTE 1 % (0-2)
[2016-08-16 13:06] LABS: PLATELET ESTIMATE ADEQUATE (NORMAL)
--- NOTE | 2016-08-16 13:11 | PN ---
Progress Note, BEHAVIORAL PEDIATRICIAN - Note Progress Note: Selected Entries 08/15/16 08/15/16 08/15/16 06:00 13:34 17:41 Supper Temperature 97.7 F 98.7 F 99.1 F 08/15/16 08/16/16 08/16/16 21:07 06:05 09:48 Supper NPO Temperature 98.8 F 97.7 F Laboratory Tests 08/15/16 08/16/16 09:45 07:20 WBC 9.5 D 9.7 TF increasing in rate. Not arousable sufficiently for PO intake. Monitor tolerance
--- NOTE | 2016-08-16 14:17 | PN ---
Progress Note (short form) - Note Progress Note: Condition unchanged No arousable On tube feeding 24 hrs Vital Signs Period Temp Pulse Resp BP Sys/Stephenson Pulse Ox Last 24 Hr 97.7 F-99.4 F 61-77 18-21 129-151/56-67 94-98 Neck: Supple, No JVD Lungs: CTA CVS: S1S2 Abd: benign EXt: no edema CMP Sodium 139 mmol/L (136-145) 08/16/16 07:20 Potassium 4.3 mmol/L (3.5-5.1) 08/16/16 07:20 Chloride 106 mmol/L (98-107) 08/16/16 07:20 Carbon Dioxide 24 mmol/L (21-32) 08/16/16 07:20 Anion Gap 9 (8-16) 08/16/16 07:20 BUN 31 mg/dL (7-18) H 08/16/16 07:20 Creatinine 1.0 mg/dL (0.55-1.02) 08/16/16 07:20 Creat Clearance w eGFR 53.21 (>60) 08/16/16 07:20 POC Glucometer 155 UNITS (()) 08/16/16 05:51 Random Glucose 132 mg/dL (74-106) H 08/16/16 07:20 Lactic Acid 1.8 mmol/L (0.4-2.0) 08/07/16 14:24 Calcium 8.3 mg/dL (8.5-10.1) L 08/16/16 07:20 Magnesium 2.2 mg/dL (1.8-2.4) 08/07/16 14:24 Iron 74 ug/dL (27-139) 08/10/16 06:10 TIBC 190 ug/dL (250-450) L 08/10/16 06:10 Iron Saturation 39 % (15-55) 08/10/16 06:10 Ferritin 425.548 ng/ml (6.9-282.5) H 08/10/16 06:10 Total Bilirubin 0.3 mg/dL (0.2-1.0) 08/16/16 07:20 AST 31 U/L (15-37) D 08/16/16 07:20 ALT 20 U/L (12-78) D 08/16/16 07:20 Alkaline Phosphatase 85 U/L (45-117) 08/16/16 07:20 LD Total 378 U/L (84-246) H 08/10/16 06:10 Creatine Kinase 162 IU/L (26-192) D 08/08/16 10:25 CK-MB (CK-2) 3.652 ng/ml (0.5-3.6) H 08/08/16 10:25 Troponin I 0.22 ng/ml (0.00-0.05) H 08/08/16 10:25 B-Natriuretic Peptide 09643.30 pg/ml (5-450) H 08/08/16 10:25 Serum Total Protein 5.5 g/dL (6.0-8.5) L 08/10/16 06:10 Total Protein 5.4 g/dl (6.4-8.2) L 08/16/16 07:20 Albumin 2.2 g/dl (3.4-5.0) L 08/16/16 07:20 Globulin 2.7 g/dL (2.2-3.9) 08/10/16 06:10 Albumin/Globulin Ratio 1.1 (0.7-1.7) 08/10/16 06:10 Xadtq-4-Qcrigdcnj 0.3 g/dL (0.0-0.4) 08/10/16 06:10 Xpvey-2-Inhevafmc 0.7 g/dL (0.4-1.0) 08/10/16 06:10 Beta Globulins 0.8 g/dL (0.7-1.3) 08/10/16 06:10 Gamma Globulins 1.0 g/dL (0.4-1.8) 08/10/16 06:10 TSH 93.40 uIU/ml (0.358-3.74) H 08/10/16 06:10 Free T4 0.99 ng/dl (0.76-1.46) 08/10/16 06:10 Current Medications Generic Name Dose Route Start Last Admin Trade Name Liuq PRN Reason Stop Dose Admin Acetaminophen 325 mg 08/08/16 11:15 08/16/16 11:59 Tylenol - PO 325 mg Q6H BONI Administration Albuterol/Ipratropium 1 amp 08/08/16 12:00 08/16/16 11:23 Duoneb - NEB 1 amp QIDR BONI Administration Amlodipine Besylate 2.5 mg 08/09/16 10:00 08/16/16 09:45 Norvasc - GT 2.5 mg DAILY BONI Administration Amoxicillin/Clavulanate Potassium 500 mg 08/13/16 17:30 08/16/16 09:45 Augmentin 250 Mg/5 Ml Oral Suspension - GT 500 mg BID@0800,1730 BONI Administration Atorvastatin Calcium 40 mg 08/08/16 22:00 08/15/16 21:41 Lipitor - GT 40 mg HS BONI Administration Amino Acids 1,000 mls @ 42 mls/hr 08/12/16 20:15 08/15/16 23:17 Clinimix - IV 42 mls/hr Q24H BONI Administration Levetiracetam 500 mg 08/08/16 22:00 08/16/16 09:45 Keppra Oral Solution - GT 500 mg BID BONI Administration Levothyroxine Sodium 125 mcg 08/10/16 09:21 08/16/16 09:45 Synthroid - GT 125 mcg DAILY BONI Administration Metoclopramide HCl 10 mg 08/14/16 12:00 08/16/16 09:45 Reglan Injection - IVPB 10 mg Q8H-IV BONI Administration Potassium Chloride 20 meq 08/10/16 10:00 08/16/16 09:45 Potassium Chloride Oral Liquid GT 20 meq DAILY BONI Administration AP: Hypothyroidism: Pt was on LT4 75 in admission in 2012 and then was on 88, 100 and 125 in different admissions Couldn't find corresponding TFT's in the system Was on LT4 100mcg daily in [place] Very high TSH at this point likely secondary to malabsorption of LT4 while on tube feeding Continue LT4 125mcg daily for now Repeat TSH now and increase dose if no improvement in TSH level and may need to hold tube feeding for about 2 hours and give LT4 an hour after holding the feeding HTN T2DM Anemia Respiratory Failure
--- NOTE | 2016-08-16 15:05 | PN ---
Progress Note, Physician History of Present Illness: patient continues to be drowsy on tube feeds now - Current Medication List Current Medications: Active Medications Acetaminophen (Tylenol -) 325 mg PO Q6H [facility] Last Admin: 08/16/16 11:59 Dose: 325 mg Albuterol/Ipratropium (Duoneb -) 1 amp NEB QIDR [facility] Last Admin: 08/16/16 11:23 Dose: 1 amp Amlodipine Besylate (Norvasc -) 2.5 mg GT DAILY [facility] Last Admin: 08/16/16 09:45 Dose: 2.5 mg Amoxicillin/Clavulanate Potassium (Augmentin 250 Mg/5 Ml Oral Suspension -) 500 mg GT BID@0800,1730 [facility] Last Admin: 08/16/16 09:45 Dose: 500 mg Atorvastatin Calcium (Lipitor -) 40 mg GT HS [facility] Last Admin: 08/15/16 21:41 Dose: 40 mg Amino Acids (Clinimix -) 1,000 mls @ 42 mls/hr IV Q24H BONI Last Admin: 08/15/16 23:17 Dose: 42 mls/hr Levetiracetam (Keppra Oral Solution -) 500 mg GT BID [facility] Last Admin: 08/16/16 09:45 Dose: 500 mg Levothyroxine Sodium (Synthroid -) 125 mcg GT DAILY [facility] Last Admin: 08/16/16 09:45 Dose: 125 mcg Metoclopramide HCl (Reglan Injection -) 10 mg IVPB Q8H-IV [facility]ONI Last Admin: 08/16/16 09:45 Dose: 10 mg Potassium Chloride (Potassium Chloride Oral Liquid) 20 meq GT DAILY [facility] Last Admin: 08/16/16 09:45 Dose: 20 meq - Objective Vital Signs: Vital Signs Temperature 99.4 F 08/16/16 13:48 Pulse Rate 75 08/16/16 13:48 Respiratory Rate 20 08/16/16 13:48 Blood Pressure 151/56 08/16/16 09:48 O2 Sat by Pulse Oximetry (%) 98 08/16/16 09:55 Constitutional: Yes: Other Cardiovascular: Yes: S1, S2 Respiratory: Yes: Regular, CTA Bilaterally Gastrointestinal: Yes: Normal Bowel Sounds, Soft Musculoskeletal: Yes: Other Extremities: Yes: Other Neurological: Yes: Other Psychiatric: Yes: Other Labs: CBC, BMP 08/16/16 07:20 08/16/16 07:20 INR, PTT INR 1.06 (0.82-1.09) 08/07/16 14:24 Assessment/Plan roblem List - Problems (1) Aspiration pneumonia Code(s): J69.0 - PNEUMONITIS DUE TO INHALATION OF FOOD AND VOMIT Qualifiers: Aspiration pneumonia type: due to regurgitated food Laterality: bilateral Lung location: lower lobe of lung Qualified Code(s): J69.0 - Pneumonitis due to inhalation of food and vomit (2) Respiratory failure with hypoxia Code(s): J96.91 - RESPIRATORY FAILURE, UNSPECIFIED WITH HYPOXIA Qualifiers: Chronicity: acute Qualified Code(s): J96.01 - Acute respiratory failure with hypoxia (3) Failure to thrive Code(s): [id number] - (4) Hypertension Code(s): I10 - ESSENTIAL (PRIMARY) HYPERTENSION (5) Hypothyroid Code(s): E03.9 - HYPOTHYROIDISM, UNSPECIFIED (6) Intracerebral hemorrhage Code(s): I61.9 - NONTRAUMATIC INTRACEREBRAL HEMORRHAGE, UNSPECIFIED Qualifiers : Cerebral hemorrhage location: cerebral hemisphere, cortical portion (7) Congestive heart failure (CHF) Code(s): I50.9 - HEART FAILURE, UNSPECIFIED (8) Diabetes Code(s): E11.9 - TYPE 2 DIABETES MELLITUS WITHOUT COMPLICATIONS Qualifiers: Diabetes mellitus type: type 2 Diabetes mellitus complication status: with unspecified complications plan continue tube feeds continue nutrition continue to monitor finish abx course
--- NOTE | 2016-08-16 16:08 | PN ---
Progress Note (short form) - Note Progress Note: No significant change in overall condition. Non-verbal. Afebrile. CXR : No significant change in RLL infiltrates Constitutional: Yes: NAD, Thin Eyes: Yes: WNL HENT: Yes: WNL Neck: Yes: WNL Cardiovascular: Yes: Regular Rate and Rhythm, S1, S2 Respiratory: Yes: few basilar Rhonchi Gastrointestinal: Yes: Normal Bowel Sounds, Soft Extremities: Yes: Other (contracted) Labs: Laboratory Results - last 24 hr 08/15/16 08/15/16 08/16/16 16:30 21:10 05:51 WBC RBC Hgb Hct MCV MCH MCHC RDW Plt Count MPV Neutrophils % Lymphocytes % Monocytes % Eosinophils % Basophils % Band Neutrophils Metamyelocytes Myelocytes Differential Comment Platelet Estimate Sodium Potassium Chloride Carbon Dioxide Anion Gap BUN Creatinine Creat Clearance w eGFR POC Glucometer 157 171 155 Random Glucose Calcium Total Bilirubin AST ALT Alkaline Phosphatase Total Protein Albumin 08/16/16 08/16/16 08/16/16 07:20 07:20 12:02 WBC 9.7 RBC 2.75 L Hgb 9.3 L Hct 27.2 L MCV 98.9 H MCH 33.7 MCHC 34.1 RDW 16.7 H Plt Count 216 D MPV 8.1 Neutrophils % 84.0 H Lymphocytes % 6.0 L Monocytes % 6.0 Eosinophils % 2.0 Basophils % 0.0 Band Neutrophils 0.0 Metamyelocytes 1 Myelocytes 1 Differential Comment Manual diff done Platelet Estimate Adequate Sodium 139 Potassium 4.3 Chloride 106 Carbon Dioxide 24 Anion Gap 9 BUN 31 H Creatinine 1.0 Creat Clearance w eGFR 53.21 POC Glucometer 140 Random Glucose 132 H Calcium 8.3 L Total Bilirubin 0.3 AST 31 D ALT 20 D Alkaline Phosphatase 85 Total Protein 5.4 L Albumin 2.2 L Problem List - Problems (1) Aspiration pneumonia Code(s): J69.0 - PNEUMONITIS DUE TO INHALATION OF FOOD AND VOMIT Qualifiers: Aspiration pneumonia type: due to regurgitated food Laterality: bilateral Lung location: lower lobe of lung Qualified Code(s): J69.0 - Pneumonitis due to inhalation of food and vomit (2) Respiratory failure with hypoxia Code(s): J96.91 - RESPIRATORY FAILURE, UNSPECIFIED WITH HYPOXIA Qualifiers: Chronicity: acute Qualified Code(s): J96.01 - Acute respiratory failure with hypoxia (3) Diabetes Code(s): E11.9 - TYPE 2 DIABETES MELLITUS WITHOUT COMPLICATIONS Qualifiers: Diabetes mellitus type: type 2 Diabetes mellitus complication status: with unspecified complications (4) Hypertension Code(s): I10 - ESSENTIAL (PRIMARY) HYPERTENSION (5) Hypothyroid Code(s): E03.9 - HYPOTHYROIDISM, UNSPECIFIED (6) Intracerebral hemorrhage Code(s): I61.9 - NONTRAUMATIC INTRACEREBRAL HEMORRHAGE, UNSPECIFIED Qualifiers : Cerebral hemorrhage location: cerebral hemisphere, cortical portion Assessment/Plan A/P Pneumonia likely Aspiration Pleural Effusions h/o Intracranial Hemorrhage s/p PEG HTN DM - Augmentin - aspiration precautions - O2 to keep SpO2 >90% - inhaled bronchodilators - DVT prophylaxis - D/C planning Dr Jarvis
[2016-08-16] MEDS: ATORVASTATIN CA 40 MG TABLET (FP) GT SCH (22:35)
[2016-08-16] MEDS: AMINO ACIDS 4.25%/D5W 1,000 ML IV SCH (23:34)
[2016-08-17] MEDS: ALBUTEROL SO4 2.5/IPRATROPIUM 0.5 INH SOL 3 ML VIAL.NEB. NEB SCH ×4 (00:07→18:40)
[2016-08-17] MEDS: METOCLOPRAMIDE HCL INJECTION 10 MG/2 ML VIAL IVPB SCH (01:37)
[2016-08-17] MEDS: ACETAMINOPHEN 325 MG TABLET (FP) PO SCH ×4 (05:19→22:16)
[2016-08-17] MEDS ORDERED: PT OWN MED DRAWER 7, Y5N ONE ×3 (07:55→22:15)
[2016-08-17] MEDS: AMOX TR/POTASSIUM CLAVULANATE 250 MG/5 ML BOTTLE GT SCH ×2 (08:25→16:47)
--- NOTE | 2016-08-17 08:46 | PN ---
Progress Note (short form) - Note Progress Note: Condition unchanged Not arousable On tube feeding, on hold to give LT4 Vital Signs Period Temp Pulse Resp BP Sys/Stephenson Pulse Ox Last 24 Hr 97.7 F-99.5 F 61-76 18-21 119-151/45-61 97-98 Neck: Supple, No JVD Lungs: CTA CVS: S1S2 Abd: benign EXt: no edema CMP Sodium 139 mmol/L (136-145) 08/16/16 07:20 Potassium 4.3 mmol/L (3.5-5.1) 08/16/16 07:20 Chloride 106 mmol/L (98-107) 08/16/16 07:20 Carbon Dioxide 24 mmol/L (21-32) 08/16/16 07:20 Anion Gap 9 (8-16) 08/16/16 07:20 BUN 31 mg/dL (7-18) H 08/16/16 07:20 Creatinine 1.0 mg/dL (0.55-1.02) 08/16/16 07:20 Creat Clearance w eGFR 53.21 (>60) 08/16/16 07:20 POC Glucometer 140 UNITS (()) 08/16/16 12:02 Random Glucose 132 mg/dL (74-106) H 08/16/16 07:20 Lactic Acid 1.8 mmol/L (0.4-2.0) 08/07/16 14:24 Calcium 8.3 mg/dL (8.5-10.1) L 08/16/16 07:20 Magnesium 2.2 mg/dL (1.8-2.4) 08/07/16 14:24 Iron 74 ug/dL (27-139) 08/10/16 06:10 TIBC 190 ug/dL (250-450) L 08/10/16 06:10 Iron Saturation 39 % (15-55) 08/10/16 06:10 Ferritin 425.548 ng/ml (6.9-282.5) H 08/10/16 06:10 Total Bilirubin 0.3 mg/dL (0.2-1.0) 08/16/16 07:20 AST 31 U/L (15-37) D 08/16/16 07:20 ALT 20 U/L (12-78) D 08/16/16 07:20 Alkaline Phosphatase 85 U/L (45-117) 08/16/16 07:20 LD Total 378 U/L (84-246) H 08/10/16 06:10 Creatine Kinase 162 IU/L (26-192) D 08/08/16 10:25 CK-MB (CK-2) 3.652 ng/ml (0.5-3.6) H 08/08/16 10:25 Troponin I 0.22 ng/ml (0.00-0.05) H 08/08/16 10:25 B-Natriuretic Peptide 26553.30 pg/ml (5-450) H 08/08/16 10:25 Serum Total Protein 5.5 g/dL (6.0-8.5) L 08/10/16 06:10 Total Protein 5.4 g/dl (6.4-8.2) L 08/16/16 07:20 Albumin 2.2 g/dl (3.4-5.0) L 08/16/16 07:20 Globulin 2.7 g/dL (2.2-3.9) 08/10/16 06:10 Albumin/Globulin Ratio 1.1 (0.7-1.7) 08/10/16 06:10 Gujsy-4-Ayqtqksbp 0.3 g/dL (0.0-0.4) 08/10/16 06:10 Itbao-8-Sourrpush 0.7 g/dL (0.4-1.0) 08/10/16 06:10 Beta Globulins 0.8 g/dL (0.7-1.3) 08/10/16 06:10 Gamma Globulins 1.0 g/dL (0.4-1.8) 08/10/16 06:10 TSH 93.40 uIU/ml (0.358-3.74) H 08/10/16 06:10 Free T4 0.99 ng/dl (0.76-1.46) 08/10/16 06:10 Current Medications Generic Name Dose Route Start Last Admin Trade Name Freq PRN Reason Stop Dose Admin Acetaminophen 325 mg 08/08/16 11:15 08/17/16 05:19 Tylenol - PO 325 mg Q6H BONI Administration Albuterol/Ipratropium 1 amp 08/08/16 12:00 08/17/16 06:08 Duoneb - NEB 1 amp QIDR BONI Administration Amlodipine Besylate 2.5 mg 08/09/16 10:00 08/16/16 09:45 Norvasc - GT 2.5 mg DAILY BONI Administration Amoxicillin/Clavulanate Potassium 500 mg 08/13/16 17:30 08/17/16 08:25 Augmentin 250 Mg/5 Ml Oral Suspension - GT 500 mg BID@0800,1730 BONI Administration Atorvastatin Calcium 40 mg 08/08/16 22:00 08/16/16 22:35 Lipitor - GT 40 mg HS BONI Administration Levetiracetam 500 mg 08/08/16 22:00 08/16/16 22:35 Keppra Oral Solution - GT 500 mg BID BONI Administration Levothyroxine Sodium 125 mcg 08/10/16 09:21 08/16/16 09:45 Synthroid - GT 125 mcg DAILY BONI Administration Metoclopramide HCl 10 mg 08/14/16 12:00 08/17/16 01:37 Reglan Injection - IVPB 10 mg Q8H-IV BONI Administration Potassium Chloride 20 meq 08/10/16 10:00 08/16/16 09:45 Potassium Chloride Oral Liquid GT 20 meq DAILY BONI Administration AP: Hypothyroidism: Pt was on LT4 75 in admission in 2012 and then was on 88, 100 and 125 in different admissions Couldn't find corresponding TFT's in the system Was on LT4 100mcg daily in [place] Very high TSH at this point likely secondary to malabsorption of LT4 while on tube feeding Continue LT4 125mcg daily for now Repeat TSH Pending. Will increase dose if no improvement in TSH level. Tube feeding on hold to give LT4 HTN T2DM Anemia Respiratory Failure
[2016-08-17 08:55] LABS: BASOPHIL 0.7 % (0-2.0); EOSINOPHIL 1.2 % (0-4.5); MCH 33.2 pg (25.7-33.7); MCHC 33.3 g/dl (32.0-36.0); MEAN CELL VOLUME 99.6 fl (80-96); MEAN PLT VOLUME 8.3 fl (7.5-11.1); NEUTROPHILS 87.4 % (42.8-82.8); PLATELET COUNT 210 K/MM3 (134-434); RDW 16.7 % (11.6-15.6); WHITE BLOOD COUNT 10.8 K/mm3 (4.0-10.0)
--- NOTE | 2016-08-17 09:01 | PN ---
Progress Note (short form) - Note Progress Note: Patient seen and examined. Non responsive. Tube feed increased to 50 ml/hr yesterday. Tolerated well. Patient is nil by mouth. No SOB. No cough, congestion. Afebrile. 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: Yes: CVA Cardiovascular: Yes: HTN, Hyperlipdemia Pulmonary: Yes: COPD Renal/: Yes: Renal Insuff ...: No Heme/Onc: Yes: Anemia Endocrine: Yes: Diabetes Mellitus, Hypothyroidism - Smoking History Smoking history: Unknown if ever smoked Have you smoked in the past 12 months: No Aproximately how many cigarettes per day: 0 - Alcohol/Substance Use Hx Alcohol Use: No Home Medications - Allergies Allergies/Adverse Reactions: Allergies Allergy/AdvReac Type Severity Reaction Status Date / Time No Known Allergies Allergy Verified 07/28/16 18:15 - Home Medications Home Medications: Ambulatory Orders Acetaminophen [Tylenol] 320 mg GT Q6H 08/07/16 Albuterol 2.5/Ipratropium 0.5 [Duoneb -] 1 amp NEB Q6H 08/07/16 Amlodipine Besylate [Norvasc -] 2.5 mg GT DAILY 08/07/16 Amoxicillin/Potassium Clav [Amox-Clav 875-125 mg Tablet] 1 each PO BID 08/07/16 Atorvastatin Ca [Lipitor] 40 mg GT HS 08/07/16 Bacitracin - [Bacitracin Topical Ointment -] 1 applic TP DAILY 08/07/16 Dextrose 5%-0.45% Saline [Dextrose 5%-1/2NS] 50 ml IV 08/07/16 Insulin Aspart [Novolog] 0 unit SQ TID 08/07/16 Levetiracetam 500 mg GT BID 08/07/16 Levothyroxine [Synthroid -] 100 mcg GT DAILY 08/07/16 Menthol/Zinc Oxide [Calmoseptine Ointment] 71 gm TP DAILY 08/07/16 Omeprazole Magnesium [Prilosec] 20 mg GT DAILY 08/07/16 Piperacillin Sodium/Tazobactam [Zosyn 3.375 Gram Vial] 3.375 gm IV Q8H 08/07/16 Review of Systems Unable to obtain ROS, reason: due to ams Physical Examination Vital Signs: Vital Signs Period Temp Pulse Resp BP Sys/Stephenson Pulse Ox Last 24 Hr 97.9 F-99.5 F 68-85 17-21 119-142/45-61 97-98 Constitutional: Yes: Mild Distress, Thin Eyes: Yes: Conjunctiva Clear, EOM Intact, PERRL HENT: Yes: Atraumatic, Normocephalic Neck: Yes: Supple, Trachea Midline Cardiovascular: Yes: Regular Rate and Rhythm Respiratory: Yes: Diminished (right lung base) Gastrointestinal: Yes: Soft CBC, BMP 08/17/16 08:15 08/17/16 08:15 BMP pending Problem List - Problems (1) Aspiration pneumonia Assessment/Plan: Continue Augmentin PO BID for a total of 5 days. Monitor. Aspiration precautions. Code(s): J69.0 - PNEUMONITIS DUE TO INHALATION OF FOOD AND VOMIT Qualifiers: Aspiration pneumonia type: due to regurgitated food Laterality: bilateral Lung location: lower lobe of lung Qualified Code(s): J69.0 - Pneumonitis due to inhalation of food and vomit (2) Respiratory failure with hypoxia Assessment/Plan: Improving. Continue O2 NC. Monitor sats. Inhaled bronchodilators. Pulmonary follow up appreciated. Code(s): J96.91 - RESPIRATORY FAILURE, UNSPECIFIED WITH HYPOXIA Qualifiers: Chronicity: acute Qualified Code(s): J96.01 - Acute respiratory failure with hypoxia (3) Failure to thrive Code(s): [id number] - Nil by mouth because patient is aspirating. Tolerated 50 ml/hr since yesterday. No cough, no congestion. Aspiration precautions. (4) Hypertension Assessment/Plan: Reasonable control. Continue current meds. Code(s): I10 - ESSENTIAL (PRIMARY) HYPERTENSION (5) Hypothyroid Assessment/Plan: TSH improved. Consumed Levothyroxine 125 mcg daily. Endo follow up noted. Code(s): E03.9 - HYPOTHYROIDISM, UNSPECIFIED (6) Intracerebral hemorrhage Assessment/Plan: Stable. Extensive work up with neurosurgery/neurology prior admit (Last week) Code(s): I61.9 - NONTRAUMATIC INTRACEREBRAL HEMORRHAGE, UNSPECIFIED Qualifiers : Cerebral hemorrhage location: cerebral hemisphere, cortical portion (7) Congestive heart failure (CHF) Assessment/Plan: BNP very high. B/L pleural effusions. Cardiology follow up appreciated. Echo report noted. Code(s): I50.9 - HEART FAILURE, UNSPECIFIED (8) Diabetes Assessment/Plan: Monitor BGMs/ISS Code(s): E11.9 - TYPE 2 DIABETES MELLITUS WITHOUT COMPLICATIONS Qualifiers: Diabetes mellitus type: type 2 Diabetes mellitus complication status: with unspecified complications 9) Anemia H/H improving. 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 10)Stool for occult blood positive - GI consulted. No intervention as this time. H/H improving. No bleeding per ectum reported. Tolerated feeds at 50 ml/hr. No Cough, congestion. Patient is ready to be transferred back to [place]. Problem List - Problems (1) Aspiration pneumonia Code(s): J69.0 - PNEUMONITIS DUE TO INHALATION OF FOOD AND VOMIT Qualifiers: Aspiration pneumonia type: due to regurgitated food Laterality: bilateral Lung location: lower lobe of lung Qualified Code(s): J69.0 - Pneumonitis due to inhalation of food and vomit (2) Respiratory failure with hypoxia Code(s): J96.91 - RESPIRATORY FAILURE, UNSPECIFIED WITH HYPOXIA Qualifiers: Chronicity: acute Qualified Code(s): J96.01 - Acute respiratory failure with hypoxia (3) Failure to thrive Code(s): [id number] - (4) Hypertension Code(s): I10 - ESSENTIAL (PRIMARY) HYPERTENSION (5) Hypothyroid Code(s): E03.9 - HYPOTHYROIDISM, UNSPECIFIED (6) Intracerebral hemorrhage Code(s): I61.9 - NONTRAUMATIC INTRACEREBRAL HEMORRHAGE, UNSPECIFIED Qualifiers : Cerebral hemorrhage location: cerebral hemisphere, cortical portion (7) Congestive heart failure (CHF) Code(s): I50.9 - HEART FAILURE, UNSPECIFIED (8) Diabetes Code(s): E11.9 - TYPE 2 DIABETES MELLITUS WITHOUT COMPLICATIONS Qualifiers: Diabetes mellitus type: type 2 Diabetes mellitus complication status: with unspecified complications
--- NOTE | 2016-08-17 09:02 | DS ---
Physical Examination Vital Signs: Vital Signs Temperature 99.5 F 08/17/16 06:14 Pulse Rate 74 08/17/16 06:14 Respiratory Rate 19 08/17/16 06:14 Blood Pressure 140/61 08/17/16 06:14 O2 Sat by Pulse Oximetry (%) 97 08/16/16 21:00 Constitutional: Yes: Cachectic Eyes: Yes: Conjunctiva Clear, EOM Intact Neck: Yes: Supple, Trachea Midline Respiratory: Yes: Regular Gastrointestinal: Yes: Normal Bowel Sounds, Soft Labs: CBC, BMP 08/17/16 08:15 Discharge Summary Reason For Visit: RESPIRATORY FAILURE WITH HYPOXIA, PNEUMONI Current Active Problems Anemia (Acute) Aspiration into airway (Acute) Aspiration pneumonia (Acute) Congestive heart failure (CHF) (Acute) Occult GI bleeding (Acute) Pneumonia (Acute) Respiratory failure with hypoxia (Acute) Hospital Course: (1) Aspiration pneumonia Assessment/Plan: Continue Augmentin PO BID for a total of 5 days. Monitor. Aspiration precautions. Code(s): J69.0 - PNEUMONITIS DUE TO INHALATION OF FOOD AND VOMIT Qualifiers: Aspiration pneumonia type: due to regurgitated food Laterality: bilateral Lung location: lower lobe of lung Qualified Code(s): J69.0 - Pneumonitis due to inhalation of food and vomit (2) Respiratory failure with hypoxia Assessment/Plan: Improving. Continue O2 NC. Monitor sats. Inhaled bronchodilators. Pulmonary follow up appreciated. Code(s): J96.91 - RESPIRATORY FAILURE, UNSPECIFIED WITH HYPOXIA Qualifiers: Chronicity: acute Qualified Code(s): J96.01 - Acute respiratory failure with hypoxia (3) Failure to thrive Code(s): [id number] - Nil by mouth because patient is aspirating. Tolerated 50 ml/hr since yesterday. No cough, no congestion. Aspiration precautions. (4) Hypertension Assessment/Plan: Reasonable control. Continue current meds. Code(s): I10 - ESSENTIAL (PRIMARY) HYPERTENSION (5) Hypothyroid Assessment/Plan: TSH improved. Consumed Levothyroxine 125 mcg daily. Endo follow up noted. Code(s): E03.9 - HYPOTHYROIDISM, UNSPECIFIED (6) Intracerebral hemorrhage Assessment/Plan: Stable. Extensive work up with neurosurgery/neurology prior admit (Last week) Code(s): I61.9 - NONTRAUMATIC INTRACEREBRAL HEMORRHAGE, UNSPECIFIED Qualifiers : Cerebral hemorrhage location: cerebral hemisphere, cortical portion (7) Congestive heart failure (CHF) Assessment/Plan: BNP very high. B/L pleural effusions. Cardiology follow up appreciated. Echo report noted. Code(s): I50.9 - HEART FAILURE, UNSPECIFIED (8) Diabetes Assessment/Plan: Monitor BGMs/ISS Code(s): E11.9 - TYPE 2 DIABETES MELLITUS WITHOUT COMPLICATIONS Qualifiers: Diabetes mellitus type: type 2 Diabetes mellitus complication status: with unspecified complications 9) Anemia H/H improving. 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 10)Stool for occult blood positive - GI consulted. No intervention as this time. H/H improving. No bleeding per ectum reported. Tolerated feeds at 50 ml/hr. No Cough, congestion. Patient is ready to be transferred back to [place]. Condition: Guarded - Instructions Referrals: Alexander Lovell MD [Primary Care Provider] - - Home Medications Comprehensive Discharge Medication List: Ambulatory Orders Acetaminophen [Tylenol] 320 mg GT Q6H 08/07/16 Albuterol 2.5/Ipratropium 0.5 [Duoneb -] 1 amp NEB Q6H 08/07/16 Amlodipine Besylate [Norvasc -] 2.5 mg GT DAILY 08/07/16 Amoxicillin/Potassium Clav [Amox-Clav 875-125 mg Tablet] 1 each PO BID 08/07/16 Atorvastatin Ca [Lipitor] 40 mg GT HS 08/07/16 Bacitracin - [Bacitracin Topical Ointment -] 1 applic TP DAILY 08/07/16 Dextrose 5%-0.45% Saline [Dextrose 5%-1/2NS] 50 ml IV 08/07/16 Insulin Aspart [Novolog] 0 unit SQ TID 08/07/16 Levetiracetam 500 mg GT BID 08/07/16 Levothyroxine [Synthroid -] 100 mcg GT DAILY 08/07/16 Menthol/Zinc Oxide [Calmoseptine Ointment] 71 gm TP DAILY 08/07/16 Omeprazole Magnesium [Prilosec] 20 mg GT DAILY 08/07/16 Piperacillin Sodium/Tazobactam [Zosyn 3.375 Gram Vial] 3.375 gm IV Q8H 08/07/16
[2016-08-17 09:26] LABS: ALBUMIN 2.1 g/dl (3.4-5.0); ALK PHOS 87 U/L (45-117); ANION GAP 9 (8-16); BILIRUBIN,TOTAL 0.3 mg/dL (0.2-1.0); CALCIUM 8.2 mg/dL (8.5-10.1); CO2 25 mmol/L (21-32); CREATININE 0.8 mg/dL (0.55-1.02); GLUCOSE,RANDOM 103 mg/dL (74-106); SGOT/AST 41 U/L (15-37); SGPT/ALT 27 U/L (12-78); TOT PROT 5.5 g/dl (6.4-8.2)
[2016-08-17] MEDS: POTASSIUM CHLORIDE ORAL LIQUID 20 MEQ/15 ML GT SCH (09:28)
[2016-08-17] MEDS: LEVOTHYROXINE NA 125 MCG TABLET (FP) GT SCH (09:28)
[2016-08-17] MEDS: levETIRAcetam 500 MG/5 ML ORAL SOLUTION (UNIT-DOSE CUPS) GT SCH ×2 (09:29→22:16)
[2016-08-17] MEDS: amLODIPine BESYLATE 2.5 MG TABLET (FP) GT SCH (09:29)
[2016-08-17] MEDS: METOCLOPRAMIDE HCL 10 MG TABLET (FP) PO SCH ×2 (11:39→16:46)
--- NOTE | 2016-08-17 13:03 | PN ---
Progress Note, Physician History of Present Illness: condition unchanged on tf does not respond - Current Medication List Current Medications: Active Medications Acetaminophen (Tylenol -) 325 mg PO Q6H [facility] Last Admin: 08/17/16 11:39 Dose: 325 mg Albuterol/Ipratropium (Duoneb -) 1 amp NEB QIDR [facility] Last Admin: 08/17/16 11:25 Dose: 1 amp Amlodipine Besylate (Norvasc -) 2.5 mg GT DAILY [facility] Last Admin: 08/17/16 09:29 Dose: 2.5 mg Amoxicillin/Clavulanate Potassium (Augmentin 250 Mg/5 Ml Oral Suspension -) 500 mg GT BID@0800,1730 [facility] Last Admin: 08/17/16 08:25 Dose: 500 mg Atorvastatin Calcium (Lipitor -) 40 mg GT HS [facility] Last Admin: 08/16/16 22:35 Dose: 40 mg Levetiracetam (Keppra Oral Solution -) 500 mg GT BID [facility] Last Admin: 08/17/16 09:29 Dose: 500 mg Levothyroxine Sodium (Synthroid -) 125 mcg GT DAILY [facility] Last Admin: 08/17/16 09:28 Dose: 125 mcg Metoclopramide HCl (Reglan -) 5 mg PO TIDAC [facility] Last Admin: 08/17/16 11:39 Dose: 5 mg Potassium Chloride (Potassium Chloride Oral Liquid) 20 meq GT DAILY [facility] Last Admin: 08/17/16 09:28 Dose: 20 meq - Objective Vital Signs: Vital Signs Temperature 99.1 F 08/17/16 09:32 Pulse Rate 72 08/17/16 09:32 Respiratory Rate 20 08/17/16 09:32 Blood Pressure 142/58 08/17/16 09:32 O2 Sat by Pulse Oximetry (%) 98 08/17/16 09:30 Constitutional: Yes: Thin, Other (failure to thrive) Cardiovascular: Yes: S1, S2 Respiratory: Yes: On Nasal O2, Poor Air Entry Gastrointestinal: Yes: Normal Bowel Sounds, Soft, Other (peg in place) Extremities: Yes: Other Neurological: Yes: Other Psychiatric: Yes: Other Labs: CBC, BMP 08/17/16 08:15 08/17/16 08:15 INR, PTT INR 1.06 (0.82-1.09) 08/07/16 14:24 Assessment/Plan roblem List - Problems (1) Aspiration pneumonia Code(s): J69.0 - PNEUMONITIS DUE TO INHALATION OF FOOD AND VOMIT Qualifiers: Aspiration pneumonia type: due to regurgitated food Laterality: bilateral Lung location: lower lobe of lung Qualified Code(s): J69.0 - Pneumonitis due to inhalation of food and vomit (2) Respiratory failure with hypoxia Code(s): J96.91 - RESPIRATORY FAILURE, UNSPECIFIED WITH HYPOXIA Qualifiers: Chronicity: acute Qualified Code(s): J96.01 - Acute respiratory failure with hypoxia (3) Failure to thrive Code(s): [id number] - (4) Hypertension Code(s): I10 - ESSENTIAL (PRIMARY) HYPERTENSION (5) Hypothyroid Code(s): E03.9 - HYPOTHYROIDISM, UNSPECIFIED (6) Intracerebral hemorrhage Code(s): I61.9 - NONTRAUMATIC INTRACEREBRAL HEMORRHAGE, UNSPECIFIED Qualifiers : Cerebral hemorrhage location: cerebral hemisphere, cortical portion (7) Congestive heart failure (CHF) Code(s): I50.9 - HEART FAILURE, UNSPECIFIED (8) Diabetes Code(s): E11.9 - TYPE 2 DIABETES MELLITUS WITHOUT COMPLICATIONS Qualifiers: Diabetes mellitus type: type 2 Diabetes mellitus complication status: with unspecified complications plan continue tube feeds continue nutrition rest as per primary team
--- NOTE | 2016-08-17 13:16 | PN ---
Progress Note, Physician History of Present Illness: pulmonary no distress - Current Medication List Current Medications: Active Medications Acetaminophen (Tylenol -) 325 mg PO Q6H [facility] Last Admin: 08/17/16 11:39 Dose: 325 mg Albuterol/Ipratropium (Duoneb -) 1 amp NEB QIDR [facility] Last Admin: 08/17/16 11:25 Dose: 1 amp Amlodipine Besylate (Norvasc -) 2.5 mg GT DAILY [facility] Last Admin: 08/17/16 09:29 Dose: 2.5 mg Amoxicillin/Clavulanate Potassium (Augmentin 250 Mg/5 Ml Oral Suspension -) 500 mg GT BID@0800,1730 [facility] Last Admin: 08/17/16 08:25 Dose: 500 mg Atorvastatin Calcium (Lipitor -) 40 mg GT HS [facility] Last Admin: 08/16/16 22:35 Dose: 40 mg Levetiracetam (Keppra Oral Solution -) 500 mg GT BID [facility] Last Admin: 08/17/16 09:29 Dose: 500 mg Levothyroxine Sodium (Synthroid -) 125 mcg GT DAILY [facility] Last Admin: 08/17/16 09:28 Dose: 125 mcg Metoclopramide HCl (Reglan -) 5 mg PO TIDAC [facility] Last Admin: 08/17/16 11:39 Dose: 5 mg Potassium Chloride (Potassium Chloride Oral Liquid) 20 meq GT DAILY [facility] Last Admin: 08/17/16 09:28 Dose: 20 meq - Objective Vital Signs: Vital Signs Temperature 99.1 F 08/17/16 09:32 Pulse Rate 72 08/17/16 09:32 Respiratory Rate 20 08/17/16 09:32 Blood Pressure 142/58 08/17/16 09:32 O2 Sat by Pulse Oximetry (%) 98 08/17/16 09:30 Constitutional: Yes: Calm, Thin Eyes: Yes: WNL HENT: Yes: WNL Neck: Yes: WNL Cardiovascular: Yes: Regular Rate and Rhythm, S1, S2 Respiratory: Yes: Diminished (poor inspiratory effort) Gastrointestinal: Yes: Normal Bowel Sounds, Soft Extremities: Yes: WNL Edema: No Labs: CBC, BMP 08/17/16 08:15 08/17/16 08:15 INR, PTT INR 1.06 (0.82-1.09) 08/07/16 14:24 Problem List - Problems (1) Aspiration pneumonia Code(s): J69.0 - PNEUMONITIS DUE TO INHALATION OF FOOD AND VOMIT Qualifiers: Aspiration pneumonia type: due to regurgitated food Laterality: bilateral Lung location: lower lobe of lung Qualified Code(s): J69.0 - Pneumonitis due to inhalation of food and vomit (2) Respiratory failure with hypoxia Code(s): J96.91 - RESPIRATORY FAILURE, UNSPECIFIED WITH HYPOXIA Qualifiers: Chronicity: acute Qualified Code(s): J96.01 - Acute respiratory failure with hypoxia (3) Diabetes Code(s): E11.9 - TYPE 2 DIABETES MELLITUS WITHOUT COMPLICATIONS Qualifiers: Diabetes mellitus type: type 2 Diabetes mellitus complication status: with unspecified complications (4) Hypertension Code(s): I10 - ESSENTIAL (PRIMARY) HYPERTENSION (5) Hypothyroid Code(s): E03.9 - HYPOTHYROIDISM, UNSPECIFIED (6) Intracerebral hemorrhage Code(s): I61.9 - NONTRAUMATIC INTRACEREBRAL HEMORRHAGE, UNSPECIFIED Qualifiers : Cerebral hemorrhage location: cerebral hemisphere, cortical portion Assessment/Plan A/P Pneumonia likely Aspiration improved Pleural Effusions h/o Intracranial Hemorrhage s/p PEG HTN DM - complete antibiotics as per id - aspiration precautions - O2 to keep SpO2 >90% - inhaled bronchodilators - DVT prophylaxis DR MCCULLOUGH
[2016-08-17] MEDS: ATORVASTATIN CA 40 MG TABLET (FP) GT SCH (22:16)
[2016-08-18] MEDS: ALBUTEROL SO4 2.5/IPRATROPIUM 0.5 INH SOL 3 ML VIAL.NEB. NEB SCH ×2 (00:31→06:55)
[2016-08-18] MEDS: ACETAMINOPHEN 325 MG TABLET (FP) PO SCH ×4 (06:12→23:30)
[2016-08-18] MEDS: METOCLOPRAMIDE HCL 10 MG TABLET (FP) PO SCH ×3 (06:12→17:31)
--- NOTE | 2016-08-18 08:57 | PN ---
Progress Note (short form) - Note Progress Note: Condition unchanged Not arousable On tube feeding, Improving thyroid function Vital Signs Period Temp Pulse Resp BP Sys/Stephenson Pulse Ox Last 24 Hr 97.8 F-99.5 F 68-85 17-20 127-148/48-68 98-98 Neck: Supple, No JVD Lungs: CTA CVS: S1S2 Abd: benign EXt: no edema CMP Sodium 138 mmol/L (136-145) 08/17/16 08:15 Potassium 4.6 mmol/L (3.5-5.1) 08/17/16 08:15 Chloride 104 mmol/L (98-107) 08/17/16 08:15 Carbon Dioxide 25 mmol/L (21-32) 08/17/16 08:15 Anion Gap 9 (8-16) 08/17/16 08:15 BUN 38 mg/dL (7-18) H D 08/17/16 08:15 Creatinine 0.8 mg/dL (0.55-1.02) 08/17/16 08:15 Creat Clearance w eGFR > 60 (>60) 08/17/16 08:15 POC Glucometer 189 UNITS (()) 08/18/16 06:30 Random Glucose 103 mg/dL (74-106) D 08/17/16 08:15 Lactic Acid 1.8 mmol/L (0.4-2.0) 08/07/16 14:24 Calcium 8.2 mg/dL (8.5-10.1) L 08/17/16 08:15 Magnesium 2.2 mg/dL (1.8-2.4) 08/07/16 14:24 Iron 74 ug/dL (27-139) 08/10/16 06:10 TIBC 190 ug/dL (250-450) L 08/10/16 06:10 Iron Saturation 39 % (15-55) 08/10/16 06:10 Ferritin 425.548 ng/ml (6.9-282.5) H 08/10/16 06:10 Total Bilirubin 0.3 mg/dL (0.2-1.0) 08/17/16 08:15 AST 41 U/L (15-37) H D 08/17/16 08:15 ALT 27 U/L (12-78) D 08/17/16 08:15 Alkaline Phosphatase 87 U/L (45-117) 08/17/16 08:15 LD Total 378 U/L (84-246) H 08/10/16 06:10 Creatine Kinase 162 IU/L (26-192) D 08/08/16 10:25 CK-MB (CK-2) 3.652 ng/ml (0.5-3.6) H 08/08/16 10:25 Troponin I 0.22 ng/ml (0.00-0.05) H 08/08/16 10:25 B-Natriuretic Peptide 45207.30 pg/ml (5-450) H 08/08/16 10:25 Serum Total Protein 5.5 g/dL (6.0-8.5) L 08/10/16 06:10 Total Protein 5.5 g/dl (6.4-8.2) L 08/17/16 08:15 Albumin 2.1 g/dl (3.4-5.0) L 08/17/16 08:15 Globulin 2.7 g/dL (2.2-3.9) 08/10/16 06:10 Albumin/Globulin Ratio 1.1 (0.7-1.7) 08/10/16 06:10 Hanrz-2-Xdvmkozma 0.3 g/dL (0.0-0.4) 08/10/16 06:10 Ldvlg-2-Ccbozknxo 0.7 g/dL (0.4-1.0) 08/10/16 06:10 Beta Globulins 0.8 g/dL (0.7-1.3) 08/10/16 06:10 Gamma Globulins 1.0 g/dL (0.4-1.8) 08/10/16 06:10 TSH 38.20 uIU/ml (0.358-3.74) H D 08/17/16 08:15 Free T4 0.99 ng/dl (0.76-1.46) 08/10/16 06:10 Current Medications Generic Name Dose Route Start Last Admin Trade Name Freq PRN Reason Stop Dose Admin Acetaminophen 325 mg 08/08/16 11:15 08/18/16 06:12 Tylenol - PO 325 mg Q6H [facility] Administration Albuterol/Ipratropium 1 amp 08/08/16 12:00 08/18/16 06:55 Duoneb - NEB 1 amp QIDR [facility] Administration Amlodipine Besylate 2.5 mg 08/09/16 10:00 08/17/16 09:29 Norvasc - GT 2.5 mg DAILY [facility] Administration Amoxicillin/Clavulanate Potassium 500 mg 08/13/16 17:30 08/17/16 16:47 Augmentin 250 Mg/5 Ml Oral Suspension - GT 500 mg BID@0800,1730 [facility] Administration Atorvastatin Calcium 40 mg 08/08/16 22:00 08/17/16 22:16 Lipitor - GT 40 mg HS [facility] Administration Levetiracetam 500 mg 08/08/16 22:00 08/17/16 22:16 Keppra Oral Solution - GT 500 mg BID [facility] Administration Levothyroxine Sodium 125 mcg 08/10/16 09:21 08/17/16 09:28 Synthroid - GT 125 mcg DAILY [facility] Administration Metoclopramide HCl 5 mg 08/17/16 11:00 08/18/16 06:12 Reglan - PO 5 mg TIDAC [facility] Administration Potassium Chloride 20 meq 08/10/16 10:00 08/17/16 09:28 Potassium Chloride Oral Liquid GT 20 meq DAILY [facility] Administration AP: Hypothyroidism: Pt was on LT4 75 in admission in 2012 and then was on 88, 100 and 125 in different admissions Couldn't find corresponding TFT's in the system Was on LT4 100mcg daily in CT TSH 38 now. Continue LT4 125mcg daily. Repeat TFT in 1 to 2 weeks and adjust as necessary HTN T2DM Anemia Respiratory Failure
[2016-08-18] MEDS: amLODIPine BESYLATE 2.5 MG TABLET (FP) GT SCH (09:07)
[2016-08-18] MEDS: AMOX TR/POTASSIUM CLAVULANATE 250 MG/5 ML BOTTLE GT SCH ×2 (09:07→17:32)
[2016-08-18] MEDS: POTASSIUM CHLORIDE ORAL LIQUID 20 MEQ/15 ML GT SCH (09:07)
[2016-08-18] MEDS: LEVOTHYROXINE NA 125 MCG TABLET (FP) GT SCH (09:07)
--- NOTE | 2016-08-18 10:55 | PN ---
Progress Note (short form) - Note Progress Note: No acute event overnight. No cough, congestion noted. Tolerating tube feeds well. Minimal residual. No fever. Minimally responsive. 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[employer]ATURE: Yes: CVA Cardiovascular: Yes: HTN, Hyperlipdemia Pulmonary: Yes: COPD Renal/: Yes: Renal Insuff ...: No Heme/Onc: Yes: Anemia Endocrine: Yes: Diabetes Mellitus, Hypothyroidism - Smoking History Smoking history: Unknown if ever smoked Have you smoked in the past 12 months: No Aproximately how many cigarettes per day: 0 - Alcohol/Substance Use Hx Alcohol Use: No Home Medications - Allergies Allergies/Adverse Reactions: Allergies Allergy/AdvReac Type Severity Reaction Status Date / Time No Known Allergies Allergy Verified 07/28/16 18:15 - Home Medications Home Medications: Ambulatory Orders Acetaminophen [Tylenol] 320 mg GT Q6H 08/07/16 Albuterol 2.5/Ipratropium 0.5 [Duoneb -] 1 amp NEB Q6H 08/07/16 Amlodipine Besylate [Norvasc -] 2.5 mg GT DAILY 08/07/16 Amoxicillin/Potassium Clav [Amox-Clav 875-125 mg Tablet] 1 each PO BID 08/07/16 Atorvastatin Ca [Lipitor] 40 mg GT HS 08/07/16 Bacitracin - [Bacitracin Topical Ointment -] 1 applic TP DAILY 08/07/16 Dextrose 5%-0.45% Saline [Dextrose 5%-1/2NS] 50 ml IV 08/07/16 Insulin Aspart [Novolog] 0 unit SQ TID 08/07/16 Levetiracetam 500 mg GT BID 08/07/16 Levothyroxine [Synthroid -] 100 mcg GT DAILY 08/07/16 Menthol/Zinc Oxide [Calmoseptine Ointment] 71 gm TP DAILY 08/07/16 Omeprazole Magnesium [Prilosec] 20 mg GT DAILY 08/07/16 Piperacillin Sodium/Tazobactam [Zosyn 3.375 Gram Vial] 3.375 gm IV Q8H 08/07/16 Review of Systems Unable to obtain ROS, reason: due to ams Physical Examination Vital Signs: Vital Signs Period Temp Pulse Resp BP Sys/Stephenson Pulse Ox Last 24 Hr 97.8 F-99.5 F 69-85 17-20 127-148/48-68 98 Constitutional: Yes: Mild Distress, Thin Eyes: Yes: Conjunctiva Clear, EOM Intact, PERRL HENT: Yes: Atraumatic, Normocephalic Neck: Yes: Supple, Trachea Midline Cardiovascular: Yes: Regular Rate and Rhythm Respiratory: Yes: Diminished (right lung base) Gastrointestinal: Yes: Soft CBC, BMP 08/17/16 08:15 08/17/16 08:15 BMP pending Problem List - Problems (1) Aspiration pneumonia Assessment/Plan: Continue Augmentin PO BID for a total of 5 days. Monitor. Aspiration precautions. Code(s): J69.0 - PNEUMONITIS DUE TO INHALATION OF FOOD AND VOMIT Qualifiers: Aspiration pneumonia type: due to regurgitated food Laterality: bilateral Lung location: lower lobe of lung Qualified Code(s): J69.0 - Pneumonitis due to inhalation of food and vomit (2) Respiratory failure with hypoxia Assessment/Plan: Improving. Continue O2 NC. Monitor sats. Inhaled bronchodilators. Pulmonary follow up appreciated. Code(s): J96.91 - RESPIRATORY FAILURE, UNSPECIFIED WITH HYPOXIA Qualifiers: Chronicity: acute Qualified Code(s): J96.01 - Acute respiratory failure with hypoxia (3) Failure to thrive Code(s): [id number] - Nil by mouth because patient is aspirating. Tolerated 50 ml/hr since yesterday. No cough, no congestion. Aspiration precautions. (4) Hypertension Assessment/Plan: Reasonable control. Continue current meds. Code(s): I10 - ESSENTIAL (PRIMARY) HYPERTENSION (5) Hypothyroid Assessment/Plan: TSH improved. Consumed Levothyroxine 125 mcg daily. Endo follow up noted. Code(s): E03.9 - HYPOTHYROIDISM, UNSPECIFIED (6) Intracerebral hemorrhage Assessment/Plan: Stable. Extensive work up with neurosurgery/neurology prior admit (Last week) Code(s): I61.9 - NONTRAUMATIC INTRACEREBRAL HEMORRHAGE, UNSPECIFIED Qualifiers : Cerebral hemorrhage location: cerebral hemisphere, cortical portion (7) Congestive heart failure (CHF) Assessment/Plan: BNP very high. B/L pleural effusions. Cardiology follow up appreciated. Echo report noted. Code(s): I50.9 - HEART FAILURE, UNSPECIFIED (8) Diabetes Assessment/Plan: Monitor BGMs/ISS Code(s): E11.9 - TYPE 2 DIABETES MELLITUS WITHOUT COMPLICATIONS Qualifiers: Diabetes mellitus type: type 2 Diabetes mellitus complication status: with unspecified complications 9) Anemia H/H improving. 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 10)Stool for occult blood positive - GI consulted. No intervention as this time. H/H improving. No bleeding per ectum reported. Tolerated feeds at 50 ml/hr. No Cough, congestion. Patient is ready to be transferred back to [place]. Problem List - Problems (1) Aspiration pneumonia Code(s): J69.0 - PNEUMONITIS DUE TO INHALATION OF FOOD AND VOMIT Qualifiers: Aspiration pneumonia type: due to regurgitated food Laterality: bilateral Lung location: lower lobe of lung Qualified Code(s): J69.0 - Pneumonitis due to inhalation of food and vomit (2) Respiratory failure with hypoxia Code(s): J96.91 - RESPIRATORY FAILURE, UNSPECIFIED WITH HYPOXIA Qualifiers: Chronicity: acute Qualified Code(s): J96.01 - Acute respiratory failure with hypoxia (3) Failure to thrive Code(s): [id number] - (4) Hypertension Code(s): I10 - ESSENTIAL (PRIMARY) HYPERTENSION (5) Hypothyroid Code(s): E03.9 - HYPOTHYROIDISM, UNSPECIFIED (6) Intracerebral hemorrhage Code(s): I61.9 - NONTRAUMATIC INTRACEREBRAL HEMORRHAGE, UNSPECIFIED Qualifiers : Cerebral hemorrhage location: cerebral hemisphere, cortical portion (7) Congestive heart failure (CHF) Code(s): I50.9 - HEART FAILURE, UNSPECIFIED (8) Diabetes Code(s): E11.9 - TYPE 2 DIABETES MELLITUS WITHOUT COMPLICATIONS Qualifiers: Diabetes mellitus type: type 2 Diabetes mellitus complication status: with unspecified complications
[2016-08-18] MEDS: levETIRAcetam 500 MG/5 ML ORAL SOLUTION (UNIT-DOSE CUPS) GT SCH ×2 (12:03→21:49)
--- NOTE | 2016-08-18 12:53 | PN ---
Progress Note (short form) - Note Progress Note: No significant change in overall condition. Non-verbal. Afebrile. No documented acute events overnight. Intake & Output 08/15/16 08/16/16 08/17/16 08/18/16 23:59 23:59 23:59 23:59 Intake Total 2288 1948 1890 840 Output Total 0 Balance 8 1948 1890 840 Last Vital Signs Temp Pulse Resp BP Pulse Ox 98.6 F 72 20 122/40 98 08/18/16 02:10 08/18/16 10:00 08/18/16 10:00 08/18/16 10:00 08/17/16 21:00 Active Medications Acetaminophen (Tylenol -) 325 mg PO Q6H [facility] Last Admin: 08/18/16 12:04 Dose: 325 mg Amlodipine Besylate (Norvasc -) 2.5 mg GT DAILY [facility] Last Admin: 08/18/16 09:07 Dose: 2.5 mg Amoxicillin/Clavulanate Potassium (Augmentin 250 Mg/5 Ml Oral Suspension -) 500 mg GT BID@0800,1730 [facility] Last Admin: 08/18/16 09:07 Dose: 500 mg Atorvastatin Calcium (Lipitor -) 40 mg GT HS [facility] Last Admin: 08/17/16 22:16 Dose: 40 mg Levetiracetam (Keppra Oral Solution -) 500 mg GT BID [facility] Last Admin: 08/18/16 12:03 Dose: 500 mg Levothyroxine Sodium (Synthroid -) 125 mcg GT DAILY [facility] Last Admin: 08/18/16 09:07 Dose: 125 mcg Metoclopramide HCl (Reglan -) 5 mg PO TIDAC [facility] Last Admin: 08/18/16 12:03 Dose: 5 mg Potassium Chloride (Potassium Chloride Oral Liquid) 20 meq GT DAILY [facility] Last Admin: 08/18/16 09:07 Dose: 20 meq Constitutional: Yes: NAD, Thin Eyes: Yes: WNL HENT: Yes: WNL Neck: Yes: WNL Cardiovascular: Yes: Regular Rate and Rhythm, S1, S2 Respiratory: Yes: few basilar Rhonchi Gastrointestinal: Yes: Normal Bowel Sounds, Soft Extremities: Yes: Other (contracted) Labs: Laboratory Results - last 24 hr 08/17/16 08/18/16 17:07 06:30 POC Glucometer 138 189 Problem List - Problems (1) Aspiration pneumonia Code(s): J69.0 - PNEUMONITIS DUE TO INHALATION OF FOOD AND VOMIT Qualifiers: Aspiration pneumonia type: due to regurgitated food Laterality: bilateral Lung location: lower lobe of lung Qualified Code(s): J69.0 - Pneumonitis due to inhalation of food and vomit (2) Respiratory failure with hypoxia Code(s): J96.91 - RESPIRATORY FAILURE, UNSPECIFIED WITH HYPOXIA Qualifiers: Chronicity: acute Qualified Code(s): J96.01 - Acute respiratory failure with hypoxia (3) Diabetes Code(s): E11.9 - TYPE 2 DIABETES MELLITUS WITHOUT COMPLICATIONS Qualifiers: Diabetes mellitus type: type 2 Diabetes mellitus complication status: with unspecified complications (4) Hypertension Code(s): I10 - ESSENTIAL (PRIMARY) HYPERTENSION (5) Hypothyroid Code(s): E03.9 - HYPOTHYROIDISM, UNSPECIFIED (6) Intracerebral hemorrhage Code(s): I61.9 - NONTRAUMATIC INTRACEREBRAL HEMORRHAGE, UNSPECIFIED Qualifiers : Cerebral hemorrhage location: cerebral hemisphere, cortical portion Assessment/Plan A/P Pneumonia likely Aspiration Pleural Effusions h/o Intracranial Hemorrhage s/p PEG HTN DM - Augmentin - aspiration precautions - O2 to keep SpO2 >90% - inhaled bronchodilators - DVT prophylaxis - D/C planning Dr Jarvis
--- NOTE | 2016-08-18 14:16 | PN ---
Progress Note, Physician History of Present Illness: no documented events overnight non verbal no new issues - Current Medication List Current Medications: Active Medications Acetaminophen (Tylenol -) 325 mg PO Q6H [facility] Last Admin: 08/18/16 12:04 Dose: 325 mg Amlodipine Besylate (Norvasc -) 2.5 mg GT DAILY [facility] Last Admin: 08/18/16 09:07 Dose: 2.5 mg Amoxicillin/Clavulanate Potassium (Augmentin 250 Mg/5 Ml Oral Suspension -) 500 mg GT BID@0800,1730 [facility] Last Admin: 08/18/16 09:07 Dose: 500 mg Atorvastatin Calcium (Lipitor -) 40 mg GT HS [facility] Last Admin: 08/17/16 22:16 Dose: 40 mg Levetiracetam (Keppra Oral Solution -) 500 mg GT BID [facility] Last Admin: 08/18/16 12:03 Dose: 500 mg Levothyroxine Sodium (Synthroid -) 125 mcg GT DAILY [facility] Last Admin: 08/18/16 09:07 Dose: 125 mcg Metoclopramide HCl (Reglan -) 5 mg PO TIDAC [facility] Last Admin: 08/18/16 12:03 Dose: 5 mg Potassium Chloride (Potassium Chloride Oral Liquid) 20 meq GT DAILY [facility] Last Admin: 08/18/16 09:07 Dose: 20 meq - Objective Vital Signs: Vital Signs Temperature 98.6 F 08/18/16 02:10 Pulse Rate 72 08/18/16 10:00 Respiratory Rate 20 08/18/16 10:00 Blood Pressure 122/40 08/18/16 10:00 O2 Sat by Pulse Oximetry (%) 98 08/17/16 21:00 Constitutional: Yes: Calm Cardiovascular: Yes: Regular Rate and Rhythm Respiratory: Yes: Poor Air Entry Gastrointestinal: Yes: Normal Bowel Sounds, Soft, Other (peg in place) Musculoskeletal: Yes: Other Extremities: Yes: Other Neurological: Yes: Alert Psychiatric: Yes: Alert Labs: CBC, BMP 08/17/16 08:15 08/17/16 08:15 INR, PTT INR 1.06 (0.82-1.09) 08/07/16 14:24 Assessment/Plan roblem List - Problems (1) Aspiration pneumonia Code(s): J69.0 - PNEUMONITIS DUE TO INHALATION OF FOOD AND VOMIT Qualifiers: Aspiration pneumonia type: due to regurgitated food Laterality: bilateral Lung location: lower lobe of lung Qualified Code(s): J69.0 - Pneumonitis due to inhalation of food and vomit (2) Respiratory failure with hypoxia Code(s): J96.91 - RESPIRATORY FAILURE, UNSPECIFIED WITH HYPOXIA Qualifiers: Chronicity: acute Qualified Code(s): J96.01 - Acute respiratory failure with hypoxia (3) Failure to thrive Code(s): [id number] - (4) Hypertension Code(s): I10 - ESSENTIAL (PRIMARY) HYPERTENSION (5) Hypothyroid Code(s): E03.9 - HYPOTHYROIDISM, UNSPECIFIED (6) Intracerebral hemorrhage Code(s): I61.9 - NONTRAUMATIC INTRACEREBRAL HEMORRHAGE, UNSPECIFIED Qualifiers : Cerebral hemorrhage location: cerebral hemisphere, cortical portion (7) Congestive heart failure (CHF) Code(s): I50.9 - HEART FAILURE, UNSPECIFIED (8) Diabetes Code(s): E11.9 - TYPE 2 DIABETES MELLITUS WITHOUT COMPLICATIONS Qualifiers: Diabetes mellitus type: type 2 Diabetes mellitus complication status: with unspecified complications plan continue tube feeds continue nutrition rest as per primary team
--- NOTE | 2016-08-18 15:44 | EKG ---
Test Reason : Blood Pressure : / mmHG Vent. Rate : 081 BPM Atrial Rate : 081 BPM P-R Int : 120 ms QRS Dur : 080 ms QT Int : 408 ms P-R-T Axes : 084 036 019 degrees QTc Int : 473 ms POOR DATA QUALITY, INTERPRETATION MAY BE ADVERSELY AFFECTED NORMAL SINUS RHYTHM NONSPECIFIC ST ABNORMALITY ABNORMAL ECG WHEN COMPARED WITH ECG OF 28-JUL-2016 17:54, NO SIGNIFICANT CHANGE WAS FOUND Confirmed by IRENA FLEMING, MAR ([id number]) on 08/18/2016 3:44:33 PM Referred By: Confirmed By:MAR OSBORN MD
[2016-08-18] MEDS: ATORVASTATIN CA 40 MG TABLET (FP) GT SCH (21:49)
[2016-08-19] MEDS: METOCLOPRAMIDE HCL 10 MG TABLET (FP) PO SCH ×3 (06:03→16:56)
[2016-08-19] MEDS: ACETAMINOPHEN 325 MG TABLET (FP) PO SCH ×4 (06:03→23:00)
[2016-08-19 08:00] LABS: BASOPHIL 0.5 % (0-2.0); EOSINOPHIL 1.6 % (0-4.5); MCHC 34.2 g/dl (32.0-36.0); MEAN CELL VOLUME 99.4 fl (80-96); MEAN PLT VOLUME 8.6 fl (7.5-11.1); NEUTROPHILS 85.6 % (42.8-82.8); PLATELET COUNT 211 K/MM3 (134-434); WHITE BLOOD COUNT 10.5 K/mm3 (4.0-10.0)
[2016-08-19 08:35] LABS: ALBUMIN 2.2 g/dl (3.4-5.0); ALK PHOS 96 U/L (45-117); ANION GAP 6 (8-16); BILIRUBIN,TOTAL 0.5 mg/dL (0.2-1.0); CALCIUM 8.4 mg/dL (8.5-10.1); CO2 29 mmol/L (21-32); CREATININE 0.9 mg/dL (0.55-1.02); GLUCOSE,RANDOM 119 mg/dL (74-106); SGOT/AST 97 U/L (15-37); SGPT/ALT 100 U/L (12-78); TOT PROT 5.6 g/dl (6.4-8.2)
[2016-08-19] MEDS: AMOX TR/POTASSIUM CLAVULANATE 250 MG/5 ML BOTTLE GT SCH (08:44)
[2016-08-19] MEDS: POTASSIUM CHLORIDE ORAL LIQUID 20 MEQ/15 ML GT SCH (09:19)
[2016-08-19] MEDS: amLODIPine BESYLATE 2.5 MG TABLET (FP) GT SCH (09:19)
[2016-08-19] MEDS: LEVOTHYROXINE NA 125 MCG TABLET (FP) GT SCH (09:20)
[2016-08-19] MEDS: levETIRAcetam 500 MG/5 ML ORAL SOLUTION (UNIT-DOSE CUPS) GT SCH ×2 (09:20→21:27)
--- NOTE | 2016-08-19 12:23 | PN ---
Progress Note, Physician History of Present Illness: pulmonary no change,non-verbal,-resp distress - Current Medication List Current Medications: Active Medications Acetaminophen (Tylenol -) 325 mg PO Q6H [facility] Last Admin: 08/19/16 12:08 Dose: 325 mg Amlodipine Besylate (Norvasc -) 2.5 mg GT DAILY [facility] Last Admin: 08/19/16 09:19 Dose: 2.5 mg Levetiracetam (Keppra Oral Solution -) 500 mg GT BID [facility] Last Admin: 08/19/16 09:20 Dose: 500 mg Levothyroxine Sodium (Synthroid -) 125 mcg GT DAILY [facility] Last Admin: 08/19/16 09:20 Dose: 125 mcg Metoclopramide HCl (Reglan -) 5 mg PO TIDAC [facility] Last Admin: 08/19/16 11:55 Dose: 5 mg Potassium Chloride (Potassium Chloride Oral Liquid) 20 meq GT DAILY [facility] Last Admin: 08/19/16 09:19 Dose: 20 meq - Objective Vital Signs: Vital Signs Temperature 97.8 F 08/19/16 10:00 Pulse Rate 67 08/19/16 10:00 Respiratory Rate 20 08/19/16 10:00 Blood Pressure 129/50 08/19/16 10:00 O2 Sat by Pulse Oximetry (%) 98 08/17/16 21:00 Constitutional: Yes: Calm, Thin Eyes: Yes: WNL HENT: Yes: WNL Neck: Yes: WNL Cardiovascular: Yes: Regular Rate and Rhythm, S1, S2 Respiratory: Yes: Diminished Gastrointestinal: Yes: Normal Bowel Sounds, Soft Extremities: Yes: WNL Edema: No Labs: CBC, BMP 08/19/16 06:38 08/19/16 06:38 INR, PTT INR 1.06 (0.82-1.09) 08/07/16 14:24 Problem List - Problems (1) Aspiration pneumonia Code(s): J69.0 - PNEUMONITIS DUE TO INHALATION OF FOOD AND VOMIT Qualifiers: Aspiration pneumonia type: due to regurgitated food Laterality: bilateral Lung location: lower lobe of lung Qualified Code(s): J69.0 - Pneumonitis due to inhalation of food and vomit (2) Respiratory failure with hypoxia Code(s): J96.91 - RESPIRATORY FAILURE, UNSPECIFIED WITH HYPOXIA Qualifiers: Chronicity: acute Qualified Code(s): J96.01 - Acute respiratory failure with hypoxia (3) Diabetes Code(s): E11.9 - TYPE 2 DIABETES MELLITUS WITHOUT COMPLICATIONS Qualifiers: Diabetes mellitus type: type 2 Diabetes mellitus complication status: with unspecified complications (4) Hypertension Code(s): I10 - ESSENTIAL (PRIMARY) HYPERTENSION (5) Hypothyroid Code(s): E03.9 - HYPOTHYROIDISM, UNSPECIFIED (6) Intracerebral hemorrhage Code(s): I61.9 - NONTRAUMATIC INTRACEREBRAL HEMORRHAGE, UNSPECIFIED Qualifiers : Cerebral hemorrhage location: cerebral hemisphere, cortical portion Assessment/Plan A/P Pneumonia likely Aspiration improved Pleural Effusions h/o Intracranial Hemorrhage s/p PEG HTN DM - complete antibiotics as per id - aspiration precautions - O2 to keep SpO2 >90% - inhaled bronchodilators - DVT prophylaxis DR MCCULLOUGH
--- NOTE | 2016-08-19 13:20 | PN ---
Progress Note (short form) - Note Progress Note: Patient seen and examined. No cough, congestion noted since yesterday. Tolerating tube feeds well. Minimal residual. Minimally responsive. Patient needs total care and assistance with all activities of daily living. History Source: Medical Record Limitations to Obtaining History: Clinical Condition - Past Medical History PHONE TECHNICIAN: Yes: CVA Cardiovascular: Yes: HTN, Hyperlipdemia Pulmonary: Yes: COPD Renal/: Yes: Renal Insuff ...: No Heme/Onc: Yes: Anemia Endocrine: Yes: Diabetes Mellitus, Hypothyroidism - Smoking History Smoking history: Unknown if ever smoked Have you smoked in the past 12 months: No Aproximately how many cigarettes per day: 0 - Alcohol/Substance Use Hx Alcohol Use: No Home Medications - Allergies Allergies/Adverse Reactions: Allergies Allergy/AdvReac Type Severity Reaction Status Date / Time No Known Allergies Allergy Verified 07/28/16 18:15 - Home Medications Home Medications: Ambulatory Orders Acetaminophen [Tylenol] 320 mg GT Q6H 08/07/16 Albuterol 2.5/Ipratropium 0.5 [Duoneb -] 1 amp NEB Q6H 08/07/16 Amlodipine Besylate [Norvasc -] 2.5 mg GT DAILY 08/07/16 Amoxicillin/Potassium Clav [Amox-Clav 875-125 mg Tablet] 1 each PO BID 08/07/16 Atorvastatin Ca [Lipitor] 40 mg GT HS 08/07/16 Bacitracin - [Bacitracin Topical Ointment -] 1 applic TP DAILY 08/07/16 Dextrose 5%-0.45% Saline [Dextrose 5%-1/2NS] 50 ml IV 08/07/16 Insulin Aspart [Novolog] 0 unit SQ TID 08/07/16 Levetiracetam 500 mg GT BID 08/07/16 Levothyroxine [Synthroid -] 100 mcg GT DAILY 08/07/16 Menthol/Zinc Oxide [Calmoseptine Ointment] 71 gm TP DAILY 08/07/16 Omeprazole Magnesium [Prilosec] 20 mg GT DAILY 08/07/16 Piperacillin Sodium/Tazobactam [Zosyn 3.375 Gram Vial] 3.375 gm IV Q8H 08/07/16 Review of Systems Unable to obtain ROS, reason: due to ams Physical Examination Vital Signs: Vital Signs Period Temp Pulse Resp BP Sys/Stephenson Pulse Ox Last 24 Hr 97.8 F-100.0 F 67-72 19-26 129-150/46-59 Constitutional: Yes: Mild Distress, Thin Eyes: Yes: Conjunctiva Clear, EOM Intact, PERRL HENT: Yes: Atraumatic, Normocephalic Neck: Yes: Supple, Trachea Midline Cardiovascular: Yes: Regular Rate and Rhythm Respiratory: Yes: Diminished (right lung base) Gastrointestinal: Yes: Soft CBC, BMP 08/19/16 06:38 08/19/16 06:38 Current Medications Acetaminophen (Tylenol -) 325 mg PO Q6H [facility] Last Admin: 08/19/16 12:08 Dose: 325 mg Amlodipine Besylate (Norvasc -) 2.5 mg GT DAILY [facility] Last Admin: 08/19/16 09:19 Dose: 2.5 mg Levetiracetam (Keppra Oral Solution -) 500 mg GT BID [facility] Last Admin: 08/19/16 09:20 Dose: 500 mg Levothyroxine Sodium (Synthroid -) 125 mcg GT DAILY [facility] Last Admin: 08/19/16 09:20 Dose: 125 mcg Metoclopramide HCl (Reglan -) 5 mg PO TIDAC [facility] Last Admin: 08/19/16 11:55 Dose: 5 mg Potassium Chloride (Potassium Chloride Oral Liquid) 20 meq GT DAILY [facility] Last Admin: 08/19/16 09:19 Dose: 20 meq Problem List - Problems (1) Aspiration pneumonia Assessment/Plan: Finished Augmentin PO BID for a total of 5 days. Monitor off abx. Aspiration precautions. Code(s): J69.0 - PNEUMONITIS DUE TO INHALATION OF FOOD AND VOMIT Qualifiers: Aspiration pneumonia type: due to regurgitated food Laterality: bilateral Lung location: lower lobe of lung Qualified Code(s): J69.0 - Pneumonitis due to inhalation of food and vomit (2) Respiratory failure with hypoxia Assessment/Plan: Improving. Continue O2 NC. Maintaining O2 sats. Inhaled bronchodilators. Pulmonary follow up appreciated. Code(s): J96.91 - RESPIRATORY FAILURE, UNSPECIFIED WITH HYPOXIA Qualifiers: Chronicity: acute Qualified Code(s): J96.01 - Acute respiratory failure with hypoxia (3) Failure to thrive Code(s): [id number] - Nil by mouth because patient is aspirating. Tolerated 50 ml/hr since yesterday. No cough, no congestion. Aspiration precautions. (4) Hypertension Assessment/Plan: Reasonable control. Continue current meds. Code(s): I10 - ESSENTIAL (PRIMARY) HYPERTENSION (5) Hypothyroid Assessment/Plan: TSH improved. Consumed Levothyroxine 125 mcg daily. Endo follow up noted. Code(s): E03.9 - HYPOTHYROIDISM, UNSPECIFIED (6) Intracerebral hemorrhage Assessment/Plan: Stable. Extensive work up with neurosurgery/neurology prior admit (Last week) Code(s): I61.9 - NONTRAUMATIC INTRACEREBRAL HEMORRHAGE, UNSPECIFIED Qualifiers : Cerebral hemorrhage location: cerebral hemisphere, cortical portion (7) Congestive heart failure (CHF) Assessment/Plan: BNP very high. B/L pleural effusions. Cardiology follow up appreciated. Echo report noted. Code(s): I50.9 - HEART FAILURE, UNSPECIFIED (8) Diabetes Assessment/Plan: Monitor BGMs/ISS Code(s): E11.9 - TYPE 2 DIABETES MELLITUS WITHOUT COMPLICATIONS Qualifiers: Diabetes mellitus type: type 2 Diabetes mellitus complication status: with unspecified complications 9) Anemia H/H improving. Aircraft [employer] follow up appreciated. 10) GI Bleed: Stool for occult blood positive - GI consulted. No intervention as this time. H/H improving. No bleeding per rectum reported. 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 Patient needs total care and assistance with all activities of daily living. Tolerated feeds at 50 ml/hr. No Cough, congestion. Patient is ready to be transferred back to [place]. Problem List - Problems (1) Aspiration pneumonia Code(s): J69.0 - PNEUMONITIS DUE TO INHALATION OF FOOD AND VOMIT Qualifiers: Aspiration pneumonia type: due to regurgitated food Laterality: bilateral Lung location: lower lobe of lung Qualified Code(s): J69.0 - Pneumonitis due to inhalation of food and vomit (2) Respiratory failure with hypoxia Code(s): J96.91 - RESPIRATORY FAILURE, UNSPECIFIED WITH HYPOXIA Qualifiers: Chronicity: acute Qualified Code(s): J96.01 - Acute respiratory failure with hypoxia (3) Failure to thrive Code(s): [id number] - (4) Hypertension Code(s): I10 - ESSENTIAL (PRIMARY) HYPERTENSION (5) Hypothyroid Code(s): E03.9 - HYPOTHYROIDISM, UNSPECIFIED (6) Intracerebral hemorrhage Code(s): I61.9 - NONTRAUMATIC INTRACEREBRAL HEMORRHAGE, UNSPECIFIED Qualifiers : Cerebral hemorrhage location: cerebral hemisphere, cortical portion (7) Congestive heart failure (CHF) Code(s): I50.9 - HEART FAILURE, UNSPECIFIED (8) Diabetes Code(s): E11.9 - TYPE 2 DIABETES MELLITUS WITHOUT COMPLICATIONS Qualifiers: Diabetes mellitus type: type 2 Diabetes mellitus complication status: with unspecified complications
--- NOTE | 2016-08-19 14:05 | PN ---
Progress Note, Physician History of Present Illness: no documented events overnight non verbal no new issues tolerating tube feeds - Current Medication List Current Medications: Active Medications Acetaminophen (Tylenol -) 325 mg PO Q6H [facility] Last Admin: 08/19/16 12:08 Dose: 325 mg Amlodipine Besylate (Norvasc -) 2.5 mg GT DAILY [facility] Last Admin: 08/19/16 09:19 Dose: 2.5 mg Levetiracetam (Keppra Oral Solution -) 500 mg GT BID [facility] Last Admin: 08/19/16 09:20 Dose: 500 mg Levothyroxine Sodium (Synthroid -) 125 mcg GT DAILY [facility] Last Admin: 08/19/16 09:20 Dose: 125 mcg Metoclopramide HCl (Reglan -) 5 mg PO TIDAC [facility] Last Admin: 08/19/16 11:55 Dose: 5 mg Potassium Chloride (Potassium Chloride Oral Liquid) 20 meq GT DAILY [facility] Last Admin: 08/19/16 09:19 Dose: 20 meq - Objective Vital Signs: Vital Signs Temperature 97.8 F 08/19/16 10:00 Pulse Rate 67 08/19/16 10:00 Respiratory Rate 20 08/19/16 10:00 Blood Pressure 129/50 08/19/16 10:00 O2 Sat by Pulse Oximetry (%) 98 08/17/16 21:00 Constitutional: Yes: No Distress, Calm Cardiovascular: Yes: S1, S2 Respiratory: Yes: Poor Air Entry Gastrointestinal: Yes: Normal Bowel Sounds, Soft, Other (peg in place) Musculoskeletal: Yes: Other Extremities: Yes: Other Neurological: Yes: Other Labs: CBC, BMP 08/19/16 06:38 08/19/16 06:38 INR, PTT INR 1.06 (0.82-1.09) 08/07/16 14:24 Assessment/Plan roblem List - Problems (1) Aspiration pneumonia Code(s): J69.0 - PNEUMONITIS DUE TO INHALATION OF FOOD AND VOMIT Qualifiers: Aspiration pneumonia type: due to regurgitated food Laterality: bilateral Lung location: lower lobe of lung Qualified Code(s): J69.0 - Pneumonitis due to inhalation of food and vomit (2) Respiratory failure with hypoxia Code(s): J96.91 - RESPIRATORY FAILURE, UNSPECIFIED WITH HYPOXIA Qualifiers: Chronicity: acute Qualified Code(s): J96.01 - Acute respiratory failure with hypoxia (3) Failure to thrive Code(s): [id number] - (4) Hypertension Code(s): I10 - ESSENTIAL (PRIMARY) HYPERTENSION (5) Hypothyroid Code(s): E03.9 - HYPOTHYROIDISM, UNSPECIFIED (6) Intracerebral hemorrhage Code(s): I61.9 - NONTRAUMATIC INTRACEREBRAL HEMORRHAGE, UNSPECIFIED Qualifiers : Cerebral hemorrhage location: cerebral hemisphere, cortical portion (7) Congestive heart failure (CHF) Code(s): I50.9 - HEART FAILURE, UNSPECIFIED (8) Diabetes Code(s): E11.9 - TYPE 2 DIABETES MELLITUS WITHOUT COMPLICATIONS Qualifiers: Diabetes mellitus type: type 2 Diabetes mellitus complication status: with unspecified complications plan continue tube feeds continue nutrition rest as per primary team wbc same
[2016-08-19] MEDS ORDERED: PT OWN MED DRAWER 7, Y5N ONE ×2 (21:17→21:52)
[2016-08-20] MEDS: METOCLOPRAMIDE HCL 10 MG TABLET (FP) PO SCH (06:19)
[2016-08-20] MEDS: ACETAMINOPHEN 325 MG TABLET (FP) PO SCH (06:19)
[2016-08-20 09:24] VITALS: BP 150/50; PULSE 70; TEMP 98
[2016-08-20] MEDS: POTASSIUM CHLORIDE ORAL LIQUID 20 MEQ/15 ML GT SCH (10:30)
[2016-08-20] MEDS: levETIRAcetam 500 MG/5 ML ORAL SOLUTION (UNIT-DOSE CUPS) GT SCH (10:30)
[2016-08-20] MEDS: LEVOTHYROXINE NA 125 MCG TABLET (FP) GT SCH (10:30)
[2016-08-20] MEDS: amLODIPine BESYLATE 2.5 MG TABLET (FP) GT SCH (10:31)
== END 2016-08-20 11:20 | DRG 177 ==
LOC: JER 13:47 → JERBED 22:30 → J6S 08-08 01:34
PROVIDERS: ADMIT Internal Medicine; ATTEND Internal Medicine
PROC: 3E0G76Z Introduction of Nutritional Substance into Upper GI, Via Natural or Artificial Opening (ICD-10-PCS; principal; 2016-08-11)
DX: J69.0 Pneumonitis due to inhalation of food and vomit (principal); J96.01 Acute respiratory failure with hypoxia; R53.2 Functional quadriplegia; E46 Unspecified protein-calorie malnutrition; I13.0 Hypertensive heart and chronic kidney disease with heart failure and stage 1 through stage 4 chronic kidney disease, or unspecified chronic kidney disease; N17.9 Acute kidney failure, unspecified; R64 Cachexia; Z68.1 Body mass index [BMI] 19.9 or less, adult; Z93.1 Gastrostomy status; D64.9 Anemia, unspecified; Z79.4 Long term (current) use of insulin; R62.7 Adult failure to thrive; E03.9 Hypothyroidism, unspecified; J44.9 Chronic obstructive pulmonary disease, unspecified; E78.5 Hyperlipidemia, unspecified; E11.22 Type 2 diabetes mellitus with diabetic chronic kidney disease; N18.9 Chronic kidney disease, unspecified; I50.9 Heart failure, unspecified; R19.5 Other fecal abnormalities; Z66 Do not resuscitate
CPT/HCPCS: 36415; 36600; 71010-TC; 71275-TC; 74230-TC; 80053; 81003; 81015; 82272; 82375; 82550; 82553; 82728; 82784; 82803; 83010; 83050; 83540; 83550; 83605; 83615; 83735; 83880; 84155; 84165; 84439; 84443; 84484; 85025; 85044; 85610; 85651; 86334; 87040; 87086; 92611-GN; 93005; 93010; 93306-TC; 94640; 99285-25; J1644

== ENCOUNTER 2016-08-25 16:38 | Inpatient (IN) | payer OTHER ==
[2016-08-25 16:50] VITALS: BMI 18.6
--- NOTE | 2016-08-25 16:56 | PDOC ---
Attending Attestation - Resident Resident Name: Brandt Barfield - HPI HPI: 08/25/16 17:35 Pt presents to the ED after sent in from [place] for hypoxia and altered mental status. Patient is DNR/DNI. Case discussed with , who will come to the hospital, but wants the patient to continue to be DNI. 08/25/16 17:36 - Physicial Exam PE: 08/25/16 17:36 Patient is minimally responsive to sternal rub, with diffuse rhonchi on exam. 08/25/16 17:40 - Medical Decision Making 08/25/16 17:41 Pt presents to the ED with hypoxia and altered mental status from [place]. DNI status confirmed with , who understands that she is dying. Will check labs and start broad spectrum antibiotics. Will continue o2. normogylcemic. Will check labs.
--- NOTE | 2016-08-25 16:56 | PDOC ---
History of Present Illness - History of Present Illness Initial Comments: 08/25/16 17:07 Ms. Guerin is an 81 year old female with a significant past medical history of Aspiration pneumonia, respiratory failure with hypoxia, HTN, Intracerebral hemorrhage, CHF and diabetes who presents to the emergency department with severe shortness of breath and satting in the mid 80's. The patient is unresponsive. Unable to asses chest pain, shortness of breath, headache and dizziness. No report of fever, chills, nausea, vomit, diarrhea and constipation, dysuria, frequency, urgency and hematuria. Allergies: NKDA Social history: No smoking / drinking PMD - Dr. Lovell 08/25/16 18:09 08/25/16 18:14 08/25/16 18:24 (1) Aspiration pneumonia (2) Respiratory failure with hypoxia (3) Failure to thrive (4) Hypertension (5) Hypothyroid (6) Intracerebral hemorrhage (7) Congestive heart failure (CHF) (8) Diabetes <Brandt Barfield - Last Filed: 08/25/16 18:58> <Santy Dukes - Last Filed: 08/25/16 19:40> - General Chief Complaint: Shortness of Breath Stated Complaint: DIFFICULTY BREATHING Time Seen by Provider: 08/25/16 16:42 Past History - Past Medical History Anemia: Yes Cardiac Disorders: Yes (cardiomegaly) CVA: Yes (ICH) COPD: Yes CHF: No Dementia: Yes Diabetes: Yes (IDDM) Disorders: Yes (Acute Kidney failure) HTN: Yes Hypercholesterolemia: Yes Thyroid Disease: Yes (hypo) - Immunization History Immunization Up to Date: Yes - Psycho/Social/Smoking Cessation Hx Anxiety: No Suicidal Ideation: No Smoking Status: No Smoking History: Unknown if ever smoked Have you smoked in the past 12 months: No Number of Cigarettes Smoked Daily: 0 Hx Alcohol Use: No Drug/Substance Use Hx: No Substance Use Type: None Hx Substance Use Treatment: No <Brandt Barfield - Last Filed: 08/25/16 18:58> <Santy Dukes - Last Filed: 08/25/16 19:40> - Past Medical History Allergies/Adverse Reactions: Allergies Allergy/AdvReac Type Severity Reaction Status Date / Time No Known Allergies Allergy Verified 07/28/16 18:15 Home Medications: Ambulatory Orders Acetaminophen [Tylenol] 320 mg GT Q6H 08/07/16 Albuterol 2.5/Ipratropium 0.5 [Duoneb -] 1 amp NEB Q6H 08/07/16 Amlodipine Besylate [Norvasc -] 2.5 mg GT DAILY 08/07/16 Atorvastatin Ca [Lipitor] 40 mg GT HS 08/07/16 Insulin Aspart [Novolog Flexpen] 0 unit SQ TID 08/07/16 Levetiracetam 500 mg GT BID 08/07/16 Amox-Tr/K Cl [Augmentin Suspension -] 500 mg GT BID@0800,1730 #3 ml 08/17/16 Heparin - 5,000 unit SQ BID vial 08/17/16 Levothyroxine [Synthroid -] 125 mcg GT DAILY #60 tablet 08/17/16 Metoclopramide HCl [Reglan -] 5 mg PO TIDAC #90 tablet 08/17/16 Potassium Chloride [Potassium Chloride Oral Liquid] 20 meq GT DAILY #30 ml 08/17 Review of Systems - Review of Systems Comments:: 08/25/16 17:07 Unable to assess. <Brandt Barfield - Last Filed: 08/25/16 18:58> *Physical Exam - Physical Exam Comments: 08/25/16 17:07 GENERAL: Patient not responsive, acutely SOB and satting in mid 80's on non- rebreather. HEAD: No signs of trauma, normocephalic, atraumatic EYES: PERRLA, EOMI, sclera anicteric, conjunctiva clear ENT: Auricles normal inspection, hearing grossly normal, nares patent, oropharynx clear without exudates. Moist mucosa NECK: Normal ROM, supple, no lymphadenopathy, JVD, or masses LUNGS: Lungs rough sounding - difficult to assess further. HEART: Regular rate and rhythm, normal S1 and S2, no murmurs, rubs or gallops, peripheral pulses normal and equal bilaterally. ABDOMEN: Soft, nontender, normoactive bowel sounds. No guarding, no rebound. No masses EXTREMITIES: Normal inspection, Normal range of motion, no edema. No clubbing or cyanosis. NEUROLOGICAL: Unable to assess. SKIN: Warm, Dry, normal turgor, no rashes or lesions noted. 08/25/16 18:31 08/25/16 18:46 <Brandt Barfield - Last Filed: 08/25/16 18:58> - Vital Signs Last Vital Signs Temp Pulse Resp BP Pulse Ox 102 F H 79 41 H 108/45 85 L 08/25/16 16:48 08/25/16 19:00 08/25/16 19:00 08/25/16 19:00 08/25/16 19:00 <Santy Dukes - Last Filed: 08/25/16 19:40> ED Treatment Course - LABORATORY CBC & Chemistry Diagram: 08/25/16 17:17 08/25/16 17:17 <Brandt Barfield - Last Filed: 08/25/16 18:58> - LABORATORY CBC & Chemistry Diagram: 08/25/16 17:17 08/25/16 17:17 - ADDITIONAL ORDERS Additional order review: Laboratory Results 08/25/16 08/25/16 08/25/16 17:20 17:17 17:12 Sodium 148 H Potassium 5.0 Chloride 112 H Carbon Dioxide 29 Anion Gap 7 L BUN 54 H D Creatinine 1.2 H D Creat Clearance w eGFR 43.12 POC Glucometer Random Glucose 87 D Lactic Acid 2.1 H* Calcium 9.0 Total Bilirubin 0.3 D AST 40 H D ALT 63 D Alkaline Phosphatase 100 Total Protein 6.8 D Albumin 2.3 L Urine Color Dkyellow Urine Appearance Cloudy Urine pH 7.0 Urine Protein 2+ H Urine Glucose (UA) Negative Urine Ketones Negative Urine Blood 1+ H Urine Nitrite Negative Urine Bilirubin Negative Urine Urobilinogen Negative Ur Leukocyte Esterase 2+ H 08/25/16 16:45 Sodium Potassium Chloride Carbon Dioxide Anion Gap BUN Creatinine Creat Clearance w eGFR POC Glucometer 131.01973 Random Glucose Lactic Acid Calcium Total Bilirubin AST ALT Alkaline Phosphatase Total Protein Albumin Urine Color Urine Appearance Urine pH Urine Protein Urine Glucose (UA) Urine Ketones Urine Blood Urine Nitrite Urine Bilirubin Urine Urobilinogen Ur Leukocyte Esterase 08/25/16 08/25/16 17:17 16:45 RBC 3.16 L D MCV 103.0 H MCHC 32.1 RDW 16.7 H MPV 9.2 POC Glucometer 131.13125 - Medications Given in the ED: ED Medications Discontinued Medications Generic Name Dose Route Start Last Admin Trade Name Freq PRN Reason Stop Dose Admin Acetaminophen 1,000 mg 08/25/16 16:58 08/25/16 17:31 Ofirmev Injection - IVPB 08/25/16 16:59 1,000 mg ONCE ONE Administration Vancomycin HCl 500 mg/ 250 mls @ 250 mls/hr 08/25/16 17:03 08/25/16 17:55 Dextrose IVPB 08/25/16 18:02 250 mls/hr ONCE ONE Administration Protocol Piperacillin Sod/Tazobactam 100 mls @ 200 mls/hr 08/25/16 17:05 08/25/16 17:53 Sod 4.5 gm/ Dextrose IVPB 08/25/16 17:34 200 mls/hr ONCE ONE Administration Protocol Vancomycin HCl 500 mg/ 100 mls @ 100 mls/hr 08/25/16 18:00 08/25/16 18:13 Dextrose IVPB 08/25/16 18:59 Not Given ONCE ONE Protocol Vancomycin HCl 250 mg/ 250 mls @ 250 mls/hr 08/25/16 18:12 08/25/16 18:15 Dextrose IVPB 08/25/16 19:11 250 mls/hr ONCE ONE Administration Protocol <Santy Dukes - Last Filed: 08/25/16 19:40> Medical Decision Making - Medical Decision Making 08/25/16 18:58 Ms. Guerin presented in acute respiratory distress. Was put on non-rebreather max and continues to sat in the mid 80's. Suspect aspiration pneumonia per halfway history and chart checking. Given Vanc/Zosyn. Handing off pt to Dr. Brent Slaughter for further care / admission. <Brandt Barfield - Last Filed: 08/25/16 18:58> *DC/Admit/Observation/Transfer - Attestations Physician Attestion: 08/25/16 18:48 I, Dr. Brandt Barfield, attest that this document has been prepared under my direction and personally reviewed by me in its entirety. I further attest, that it accurately reflects all work, treatment, procedures and medical decision -making performed by me. <Brandt Barfield - Last Filed: 08/25/16 18:58> <Santy Dukes - Last Filed: 08/25/16 19:40> Diagnosis at time of Disposition: Aspiration pneumonia Qualifiers: Aspiration pneumonia type: unspecified Laterality: unspecified laterality Lung location: unspecified part of lung Qualified Code(s): J69.0 - Pneumonitis due to inhalation of food and vomit - Referrals Referrals: Alexander Lovell MD [Primary Care Provider] -
[2016-08-25] MEDS ORDERED: ACETAMINOPHEN 1000 MG/100 ML VIAL (NON FORMULARY) IVPB ONE (16:58)
[2016-08-25] MEDS ORDERED: VANCOMYCIN 500 MG in DEXTROSE 5%-WATER - 250 ML IVPB ONE (17:03)
[2016-08-25] MEDS ORDERED: PIPERACILLIN/TAZOB 4.5 GM 4.5 GM in DEXTROSE 5%-WATER - 100 ML IVPB ONE (17:05)
[2016-08-25] MEDS ORDERED: ACETAMINOPHEN INJECTION 100 ML IVPB ONE (17:14)
[2016-08-25] MEDS ORDERED: PIPERACILLIN/TAZOB 4.5 GM 100 ML IVPB ONE (17:45)
[2016-08-25] MEDS ORDERED: VANCOMYCIN 1 GRAM (PRE-DOCKED) 250 ML IVPB ONE (17:54)
[2016-08-25] MEDS: VANCOMYCIN 500 MG in DEXTROSE 5%-WATER 100 ML IVPB ONE ×2 (18:09→18:13)
[2016-08-25] MEDS ORDERED: VANCOMYCIN 250 MG in DEXTROSE 5%-WATER - 250 ML IVPB ONE (18:12)
[2016-08-25 18:36] LABS: URINE APPEARANCE CLOUDY; URINE BILIRUBIN NEGATIVE (NEGATIVE); URINE BLOOD 1+ (NEGATIVE); URINE COLOR DKYELLOW; URINE GLUCOSE (UA) NEGATIVE (NEGATIVE); URINE KETONE NEGATIVE (NEGATIVE); URINE NITRITE NEGATIVE (NEGATIVE); URINE UROBILINOGEN NEGATIVE mg/dL (0.2-1.0)
[2016-08-25 18:44] LABS: MCH 33.1 pg (25.7-33.7); MCHC 32.1 g/dl (32.0-36.0); MEAN PLT VOLUME 9.2 fl (7.5-11.1); PLATELET COUNT 289 K/MM3 (134-434); RDW 16.7 % (11.6-15.6); WHITE BLOOD COUNT 15.1 K/mm3 (4.0-10.0)
[2016-08-25 19:09] LABS: URINE LEUK ESTERASE 2+ (NEGATIVE); URINE PROTEIN 2+ (NEGATIVE)
[2016-08-25 19:10] LABS: ALBUMIN 2.3 g/dl (3.4-5.0); ALK PHOS 100 U/L (45-117); ANION GAP 7 (8-16); BILIRUBIN,TOTAL 0.3 mg/dL (0.2-1.0); CO2 29 mmol/L (21-32); CREATININE 1.2 mg/dL (0.55-1.02); GLUCOSE,RANDOM 87 mg/dL (74-106); SGOT/AST 40 U/L (15-37); SGPT/ALT 63 U/L (12-78); TOT PROT 6.8 g/dl (6.4-8.2)
--- NOTE | 2016-08-25 19:25 | PDOC ---
*Physical Exam - Vital Signs Last Vital Signs Temp Pulse Resp BP Pulse Ox 102 F H 79 41 H 108/45 85 L 08/25/16 16:48 08/25/16 19:00 08/25/16 19:00 08/25/16 19:00 08/25/16 19:00 - Physical Exam General Appearance: Yes: Cachetic HEENT: positive: EOMI, ISAMAR Respiratory/Chest: positive: Lungs Clear, Respiratory Distress, Accessory Muscle Use, Other (tachypnic with prolonged expiration) Cardiovascular: positive: Regular Rhythm, Regular Rate. negative: JVD Extremity: positive: Normal Capillary Refill. negative: Coldness, Cyanosis, Pedal Edema Neurologic: positive: Other (Responsd to name). negative: Alert ED Treatment Course - LABORATORY CBC & Chemistry Diagram: 08/28/16 05:50 08/28/16 05:50 - ADDITIONAL ORDERS Additional order review: Laboratory Results 08/25/16 08/25/16 08/25/16 17:17 17:12 16:45 Sodium 148 H Potassium 5.0 Chloride 112 H Carbon Dioxide 29 Anion Gap 7 L BUN 54 H D Creatinine 1.2 H D Creat Clearance w eGFR 43.12 POC Glucometer 131.75476 Random Glucose 87 D Calcium 9.0 Total Bilirubin 0.3 D AST 40 H D ALT 63 D Alkaline Phosphatase 100 Total Protein 6.8 D Albumin 2.3 L Urine Color Dkyellow Urine Appearance Cloudy Urine pH 7.0 Urine Protein 2+ H Urine Glucose (UA) Negative Urine Ketones Negative Urine Blood 1+ H Urine Nitrite Negative Urine Bilirubin Negative Urine Urobilinogen Negative Ur Leukocyte Esterase 2+ H 08/25/16 08/25/16 17:17 16:45 RBC 3.16 L D MCV 103.0 H MCHC 32.1 RDW 16.7 H MPV 9.2 POC Glucometer 131.57100 - RADIOLOGY Chest X-Ray Result: Other (Suboptimal, Patient rotated, mildly enlarged cardiac silhouette) - Medications Given in the ED: ED Medications Discontinued Medications Generic Name Dose Route Start Last Admin Trade Name Liuq PRN Reason Stop Dose Admin Acetaminophen 1,000 mg 08/25/16 16:58 08/25/16 17:31 Ofirmev Injection - IVPB 08/25/16 16:59 1,000 mg ONCE ONE Administration Vancomycin HCl 500 mg/ 250 mls @ 250 mls/hr 08/25/16 17:03 08/25/16 17:55 Dextrose IVPB 08/25/16 18:02 250 mls/hr ONCE ONE Administration Protocol Piperacillin Sod/Tazobactam 100 mls @ 200 mls/hr 08/25/16 17:05 08/25/16 17:53 Sod 4.5 gm/ Dextrose IVPB 08/25/16 17:34 200 mls/hr ONCE ONE Administration Protocol Vancomycin HCl 500 mg/ 100 mls @ 100 mls/hr 08/25/16 18:00 08/25/16 18:13 Dextrose IVPB 08/25/16 18:59 Not Given ONCE ONE Protocol Vancomycin HCl 250 mg/ 250 mls @ 250 mls/hr 08/25/16 18:12 08/25/16 18:15 Dextrose IVPB 08/25/16 19:11 250 mls/hr ONCE ONE Administration Protocol Progress Note - Progress Note Progress Note: Patient is a unstable 81 year old female who was signed out to me by Dr. Barfield. Patient is DNR/DNI with respiratory distress 2/2 suspected aspiration, tachypnic with O2sat mid to upper 80's on 100% rebreather with max O2 flow Patient has a reported history of aspiration pneumonia (s/p hospitalized 5 days ago), respiratory failure with hypoxia, HTN, intracerebral hemorrhage, CHF and diabetes. Vanc/Zosyn given, labs pending Ddx: Aspiration, PNA, CHF, Sepsis Review labs and admit to Dr. Bee (for [facility]) Medical Decision Making - Medical Decision Making 81 year old with history of aspiration pna presenting with respiratory failure and hypoxia and minimally responsive to o2 08/25/16 19:40 T 102, P 75, BP 117/47, RR 40, O2Sat 87% on 10L rebreather WBC 15.1 BUN/CR 54/1.2 (elevated above baseline), Na 148 Lactate 2.1 Urine contains 2+LE and 139 WBC Patient has a fever, leukocytosis and a RR of 40 with evidence of a UTI in the setting of AMS, ULISES and lactic acidosis meeting the criteria for severe sepsis. Put call into Dr. Bee for admission 08/25/16 20:[address] Burns (covering for Dr. Bee) who agreed to admit. Patient does not seem grossly fluid overloaded (no jvd, no edema, mild cardiomegaly on cxr) Started patient on 75 ml NS after discussing with Dr. Dukes. Ordered repeat lactate 08/25/16 22:40 Had a long conversation with the family. They were concerned about the level of monitoring the patient will get on the floor. Discussed with them how monitoring works on the floor, the proper treatment and course of management for respiratory distress, the risks and benefits of intubation in elderly patients. RN informed the family the patient was going to be moved to [facility]. The family states they feel comfortable with the treatment plan at this time. T. 96.7, P 74, BP 119/47, RR 40, 92% on 10 L O2 08/25/16 23:36 Patient unchanged, Resting P 75, BP 124/59, RR 28, 91% on 10 L O2 08/26/16 00:00 Patient left to the floor *DC/Admit/Observation/Transfer Diagnosis at time of Disposition: Aspiration pneumonia Qualifiers: Aspiration pneumonia type: unspecified Laterality: unspecified laterality Lung location: unspecified part of lung Qualified Code(s): J69.0 - Pneumonitis due to inhalation of food and vomit - Discharge Dispostion Admit: Yes - Referrals - Patient Instructions - Post Discharge Activity - Attestations Physician Attestion: 08/25/16 20:20 I, Dr. Brent Slaughter, attest that this document has been prepared under my direction and personally reviewed by me in its entirety. I further attest, that it accurately reflects all work, treatment, procedures and medical decision -making performed by me.
--- NOTE | 2016-08-25 19:45 | PDOC ---
*Physical Exam - Vital Signs Last Vital Signs Temp Pulse Resp BP Pulse Ox 102 F H 79 41 H 108/45 85 L 08/25/16 16:48 08/25/16 19:00 08/25/16 19:00 08/25/16 19:00 08/25/16 19:00 <Santy Dukes - Last Filed: 08/25/16 19:43> - Vital Signs Last Vital Signs Temp Pulse Resp BP Pulse Ox 102 F H 79 41 H 108/45 85 L 08/25/16 16:48 08/25/16 19:00 08/25/16 19:00 08/25/16 19:00 08/25/16 19:00 <Esmer Short - Last Filed: 08/25/16 20:00> Heart Score/ECG Review #1 NSR @ 96 bpm. Normal ECG. <HanEsmer - Last Filed: 08/25/16 20:00> ED Treatment Course - LABORATORY CBC & Chemistry Diagram: 08/25/16 17:17 08/25/16 17:17 - ADDITIONAL ORDERS Additional order review: Laboratory Results 08/25/16 08/25/16 08/25/16 17:20 17:17 17:12 Sodium 148 H Potassium 5.0 Chloride 112 H Carbon Dioxide 29 Anion Gap 7 L BUN 54 H D Creatinine 1.2 H D Creat Clearance w eGFR 43.12 POC Glucometer Random Glucose 87 D Lactic Acid 2.1 H* Calcium 9.0 Total Bilirubin 0.3 D AST 40 H D ALT 63 D Alkaline Phosphatase 100 Total Protein 6.8 D Albumin 2.3 L Urine Color Dkyellow Urine Appearance Cloudy Urine pH 7.0 Urine Protein 2+ H Urine Glucose (UA) Negative Urine Ketones Negative Urine Blood 1+ H Urine Nitrite Negative Urine Bilirubin Negative Urine Urobilinogen Negative Ur Leukocyte Esterase 2+ H 08/25/16 16:45 Sodium Potassium Chloride Carbon Dioxide Anion Gap BUN Creatinine Creat Clearance w eGFR POC Glucometer 131.14004 Random Glucose Lactic Acid Calcium Total Bilirubin AST ALT Alkaline Phosphatase Total Protein Albumin Urine Color Urine Appearance Urine pH Urine Protein Urine Glucose (UA) Urine Ketones Urine Blood Urine Nitrite Urine Bilirubin Urine Urobilinogen Ur Leukocyte Esterase 08/25/16 08/25/16 17:17 16:45 RBC 3.16 L D MCV 103.0 H MCHC 32.1 RDW 16.7 H MPV 9.2 POC Glucometer 131.39376 - Medications Given in the ED: ED Medications Discontinued Medications Generic Name Dose Route Start Last Admin Trade Name Shahbaz PRN Reason Stop Dose Admin Acetaminophen 1,000 mg 08/25/16 16:58 08/25/16 17:31 Ofirmev Injection - IVPB 08/25/16 16:59 1,000 mg ONCE ONE Administration Vancomycin HCl 500 mg/ 250 mls @ 250 mls/hr 08/25/16 17:03 08/25/16 17:55 Dextrose IVPB 08/25/16 18:02 250 mls/hr ONCE ONE Administration Protocol Piperacillin Sod/Tazobactam 100 mls @ 200 mls/hr 08/25/16 17:05 08/25/16 17:53 Sod 4.5 gm/ Dextrose IVPB 08/25/16 17:34 200 mls/hr ONCE ONE Administration Protocol Vancomycin HCl 500 mg/ 100 mls @ 100 mls/hr 08/25/16 18:00 08/25/16 18:13 Dextrose IVPB 08/25/16 18:59 Not Given ONCE ONE Protocol Vancomycin HCl 250 mg/ 250 mls @ 250 mls/hr 08/25/16 18:12 08/25/16 18:15 Dextrose IVPB 08/25/16 19:11 250 mls/hr ONCE ONE Administration Protocol <Santy Dukes - Last Filed: 08/25/16 19:43> - LABORATORY CBC & Chemistry Diagram: 08/25/16 17:17 08/25/16 17:17 - ADDITIONAL ORDERS Additional order review: Laboratory Results 08/25/16 08/25/16 08/25/16 17:20 17:17 17:12 Sodium 148 H Potassium 5.0 Chloride 112 H Carbon Dioxide 29 Anion Gap 7 L BUN 54 H D Creatinine 1.2 H D Creat Clearance w eGFR 43.12 POC Glucometer Random Glucose 87 D Lactic Acid 2.1 H* Calcium 9.0 Total Bilirubin 0.3 D AST 40 H D ALT 63 D Alkaline Phosphatase 100 Total Protein 6.8 D Albumin 2.3 L Urine Color Dkyellow Urine Appearance Cloudy Urine pH 7.0 Urine Protein 2+ H Urine Glucose (UA) Negative Urine Ketones Negative Urine Blood 1+ H Urine Nitrite Negative Urine Bilirubin Negative Urine Urobilinogen Negative Ur Leukocyte Esterase 2+ H 08/25/16 16:45 Sodium Potassium Chloride Carbon Dioxide Anion Gap BUN Creatinine Creat Clearance w eGFR POC Glucometer 131.97143 Random Glucose Lactic Acid Calcium Total Bilirubin AST ALT Alkaline Phosphatase Total Protein Albumin Urine Color Urine Appearance Urine pH Urine Protein Urine Glucose (UA) Urine Ketones Urine Blood Urine Nitrite Urine Bilirubin Urine Urobilinogen Ur Leukocyte Esterase 08/25/16 08/25/16 17:17 16:45 RBC 3.16 L D MCV 103.0 H MCHC 32.1 RDW 16.7 H MPV 9.2 POC Glucometer 131.89469 - Medications Given in the ED: ED Medications Discontinued Medications Generic Name Dose Route Start Last Admin Trade Name Freq PRN Reason Stop Dose Admin Acetaminophen 1,000 mg 08/25/16 16:58 08/25/16 17:31 Ofirmev Injection - IVPB 08/25/16 16:59 1,000 mg ONCE ONE Administration Vancomycin HCl 500 mg/ 250 mls @ 250 mls/hr 08/25/16 17:03 08/25/16 17:55 Dextrose IVPB 08/25/16 18:02 250 mls/hr ONCE ONE Administration Protocol Piperacillin Sod/Tazobactam 100 mls @ 200 mls/hr 08/25/16 17:05 08/25/16 17:53 Sod 4.5 gm/ Dextrose IVPB 08/25/16 17:34 200 mls/hr ONCE ONE Administration Protocol Vancomycin HCl 500 mg/ 100 mls @ 100 mls/hr 08/25/16 18:00 08/25/16 18:13 Dextrose IVPB 08/25/16 18:59 Not Given ONCE ONE Protocol Vancomycin HCl 250 mg/ 250 mls @ 250 mls/hr 08/25/16 18:12 08/25/16 18:15 Dextrose IVPB 08/25/16 19:11 250 mls/hr ONCE ONE Administration Protocol <Esmer Short - Last Filed: 08/25/16 20:00> Medical Decision Making - Medical Decision Making 08/25/16 19:43 Dr. Shah called for ID consultation. Aware that pt will be admitted to hospital <Santy Dukes - Last Filed: 08/25/16 19:43> - Medical Decision Making Microblogged Dr. Bee @ 19:40. Awaiting call back. Paged Dr. Gregory who's covering for Dr. Bee @ 20:00. Awaiting call back. <Esmer Short - Last Filed: 08/25/16 20:00> *DC/Admit/Observation/Transfer <Santy Dukes - Last Filed: 08/25/16 19:43> <Esmer Short - Last Filed: 08/25/16 20:00> Diagnosis at time of Disposition: Aspiration pneumonia Qualifiers: Aspiration pneumonia type: unspecified Laterality: unspecified laterality Lung location: unspecified part of lung Qualified Code(s): J69.0 - Pneumonitis due to inhalation of food and vomit - Referrals Referrals: Alexander Lovell MD [Primary Care Provider] - - Patient Instructions - Post Discharge Activity
[2016-08-25] MEDS ORDERED: SODIUM CHLORIDE 1,000 ML IV SCH (21:30)
[2016-08-25 22:59] LABS: URINE HYALINE CAST 16 /lpf; URINE MUCUS RARE; URINE RBC 51 /hpf (0-3); URINE WBC 139 /hpf (3-5); YEAST MANY
[2016-08-26] MEDS ORDERED: ACETAMINOPHEN 650 MG/20.3 ML ORAL SOLUTION (CUPS) PO PRN (01:40)
[2016-08-26] MEDS: SODIUM CHLORIDE 1,000 ML IV SCH (03:07)
[2016-08-26] MEDS: PIPERACILLIN/TAZOB 3.375 GM 50 ML IVPB SCH ×3 (03:13→18:54)
[2016-08-26] MEDS: INSULIN SLIDING SCALE (NOVOLOG) 1 VIAL SQ SCH ×3 (06:22→16:50)
[2016-08-26] MEDS: LEVOTHYROXINE NA 125 MCG TABLET (FP) GT SCH (06:22)
[2016-08-26] MEDS: METOCLOPRAMIDE HCL 5 MG/5 ML UNIT DOSE CUP PEG SCH ×3 (06:23→22:17)
[2016-08-26 08:32] LABS: BASOPHIL 0.2 % (0-2.0); MCH 33.5 pg (25.7-33.7); MCHC 32.6 g/dl (32.0-36.0); MEAN CELL VOLUME 102.5 fl (80-96); MEAN PLT VOLUME 8.6 fl (7.5-11.1); NEUTROPHILS 92.8 % (42.8-82.8); PLATELET COUNT 256 K/MM3 (134-434); RDW 16.6 % (11.6-15.6); WHITE BLOOD COUNT 15.5 K/mm3 (4.0-10.0)
[2016-08-26 09:06] LABS: ALK PHOS 82 U/L (45-117); ANION GAP 9 (8-16); BILIRUBIN,TOTAL 0.9 mg/dL (0.2-1.0); CALCIUM 8.3 mg/dL (8.5-10.1); CO2 28 mmol/L (21-32); CREATININE 1.6 mg/dL (0.55-1.02); GLUCOSE,RANDOM 154 mg/dL (74-106); SGOT/AST 32 U/L (15-37); SGPT/ALT 46 U/L (12-78); TOT PROT 6.1 g/dl (6.4-8.2)
--- NOTE | 2016-08-26 09:08 | HP ---
Admitting History and Physical - Primary Care Physician PCP: Alexander Lovell - Admission Chief Complaint: Shortness of breath History of Present Illness: 81 year old female with a significant past medical history of intracranial hemorrhage, Aspiration pneumonia, respiratory failure with hypoxia, HTN, CHF and diabetes who was transferred from [facility] with c/o severe shortness of breath and satting in the mid 80's. Patient is unresponsive and hence history cannot be obtained. History Source: Medical Record, Transfer Record Limitations to Obtaining History: Clinical Condition - Past Medical History COMPLIANCE PROGRAM MANAGER: Yes: CVA Cardiovascular: Yes: HTN, Hyperlipdemia Pulmonary: Yes: COPD Renal/: Yes: Renal Inusuff Heme/Onc: Yes: Anemia Endocrine: Yes: Diabetes Mellitus, Hypothyroidism - Smoking History Smoking history: Unknown if ever smoked Have you smoked in the past 12 months: No Aproximately how many cigarettes per day: 0 - Alcohol/Substance Use Hx Alcohol Use: No Home Medications - Allergies Allergies/Adverse Reactions: Allergies Allergy/AdvReac Type Severity Reaction Status Date / Time No Known Allergies Allergy Verified 07/28/16 18:15 - Home Medications Home Medications: Ambulatory Orders Acetaminophen [Tylenol] 320 mg GT Q6H 08/07/16 Albuterol 2.5/Ipratropium 0.5 [Duoneb -] 1 amp NEB Q6H 08/07/16 Amlodipine Besylate [Norvasc -] 2.5 mg GT DAILY 08/07/16 Insulin Aspart [Novolog Flexpen] 0 unit SQ TID 08/07/16 Levetiracetam 500 mg GT BID 08/07/16 Heparin - 5,000 unit SQ BID vial 08/17/16 Levothyroxine [Synthroid -] 125 mcg GT DAILY #60 tablet 08/17/16 Metoclopramide HCl [Reglan -] 5 mg PO TIDAC #90 tablet 08/17/16 Potassium Chloride [Potassium Chloride Oral Liquid] 20 meq GT DAILY #30 ml 08/17 Atorvastatin Ca [Lipitor] 40 mg GT HS 08/25/16 Multivitamins [Tab-A-Vit -] 1 tab GT DAILY 08/25/16 Review of Systems Unable to obtain ROS, reason: Because patient is unresp Physical Examination Vital Signs: Vital Signs Temperature 98.0 F 08/26/16 01:00 Pulse Rate 74 08/26/16 01:00 Respiratory Rate 17 08/26/17 01:00 Blood Pressure 103/61 08/26/16 01:00 O2 Sat by Pulse Oximetry (%) 90 L 08/26/16 01:00 Constitutional: Yes: Cachectic, Moderate Distress Eyes: Yes: Conjunctiva Clear, EOM Intact, PERRL HENT: Yes: Atraumatic, Normocephalic Neck: Yes: Supple Cardiovascular: Yes: Regular Rate and Rhythm Respiratory: Yes: Diminished (B/L lung base) Gastrointestinal: Yes: Soft ...Rectal Exam: Yes: Deferred Peripheral Pulses WNL: Yes Neurological: Yes: Unresponsive Labs: CBC, BMP 08/26/16 08:18 08/26/16 08:18 Imaging - Results Chest X-ray: Report Reviewed Problem List - Problems (1) Aspiration pneumonitis Assessment/Plan: Most likely. Conitnue IV abx. Pulmonary and ID consulted. Code(s): J69.0 - PNEUMONITIS DUE TO INHALATION OF FOOD AND VOMIT (2) Acute renal failure (ARF) Assessment/Plan: Continue IV fluids. Renal consulted. Code(s): N17.9 - ACUTE KIDNEY FAILURE, UNSPECIFIED (3) Respiratory failure with hypoxia Assessment/Plan: Monitor O2 sats. Continue inhaled bronchodilators. Pulmonary consulted. Code(s): J96.91 - RESPIRATORY FAILURE, UNSPECIFIED WITH HYPOXIA Qualifiers: Chronicity: acute Qualified Code(s): J96.01 - Acute respiratory failure with hypoxia (4) Diabetes Assessment/Plan: ISS Code(s): E11.9 - TYPE 2 DIABETES MELLITUS WITHOUT COMPLICATIONS Qualifiers: Diabetes mellitus type: type 2 Diabetes mellitus complication status: with unspecified complications (5) Hypothyroid Assessment/Plan: Continue synthroid. Code(s): E03.9 - HYPOTHYROIDISM, UNSPECIFIED (6) Hypertension Assessment/Plan: Monitor BP. Code(s): I10 - ESSENTIAL (PRIMARY) HYPERTENSION (7) Intracerebral hemorrhage Assessment/Plan: Minimally responsive. Code(s): I61.9 - NONTRAUMATIC INTRACEREBRAL HEMORRHAGE, UNSPECIFIED Qualifiers : Cerebral hemorrhage location: cerebral hemisphere, cortical portion
--- NOTE | 2016-08-26 10:03 | CON.CARD ---
Cardiology Consult (text) - Consultation Consultation Note: Chief Complaint: resp distress History of Present Illness: hx from charts, pt with dementia, not communicating 81 yo female here with resp distress. recently was hospitalized for: ICH, followed by Neurology/Neurosurgery here, no intervention planned. 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: CVA Cardio/Vascular: Yes: HTN, Hyperlipdemia Pulmonary: Yes: COPD Renal/: Yes: Renal Inusuff ...: No Endocrine: Yes: Diabetes Mellitus, Hypothyroidism - Alcohol/Substance Use Hx Alcohol Use: No - Smoking History Smoking history: Unknown if ever smoked Have you smoked in the past 12 months: No Aproximately how many cigarettes per day: 0 Home Medications - Allergies Allergies/Adverse Reactions: Allergies Allergy/AdvReac Type Severity Reaction Status Date / Time No Known Allergies Allergy Verified 07/28/16 18:15 - Home Medications Home Medications Medication Instructions Recorded Acetaminophen [Tylenol] 320 mg GT Q6H 08/07/16 Albuterol 2.5/Ipratropium 0.5 1 amp NEB Q6H 08/07/16 [Duoneb -] Amlodipine Besylate [Norvasc -] 2.5 mg GT DAILY 08/07/16 Insulin Aspart [Novolog Flexpen] 0 unit SQ TID 08/07/16 Levetiracetam 500 mg GT BID 08/07/16 Heparin - 5,000 unit SQ BID vial 08/17/16 Levothyroxine [Synthroid -] 125 mcg GT DAILY #60 tablet 08/17/16 Metoclopramide HCl [Reglan -] 5 mg PO TIDAC #90 tablet 08/17/16 Potassium Chloride [Potassium 20 meq GT DAILY #30 ml 08/17/16 Chloride Oral Liquid] Atorvastatin Ca [Lipitor] 40 mg GT HS 08/25/16 Multivitamins [Tab-A-Vit -] 1 tab GT DAILY 08/25/16 Family Disease History Vital Signs Period Temp Pulse Resp BP Sys/Stephenson Pulse Ox Last 24 Hr 97.3 F-102 F 74-91 17-45 103-137/41-61 80-90 Constitutional: Yes: Well Nourished, No Distress Eyes: No: Sclera Icterus HENT: No: Nasal Congestion Respiratory: Yes: CTA Bilaterally, Diminished (bases). No: Accessory Muscle Use , Rales, Wheezes Gastrointestinal: Yes: Normal Bowel Sounds. No: Distention, Hepatomegaly, Palpable Mass, Tenderness Cardiovascular: Yes: Regular Rate and Rhythm JVD: No Carotid Bruit: No PMI: Non-Displaced Heart Sounds: Yes: S1, S2. No: Gallop Murmur: Yes: Systolic Murmur (2/6 early NAS lusb). No: Diastolic Murmur Extremities: No: Cold, Cyanosis Edema: No Peripheral Pulses: 2+ Left Carotid, 2+ Right Carotid, 2+ Left Doralis Pedis, 2+ Right Dorsalis Pedis Integumentary: No: Jaundice Neurological: Yes: Lethargy. No: Seizure Psychiatric: No: Agitated - Other Data Labs, Other Data: Laboratory Last Values WBC 15.5 K/mm3 (4.0-10.0) H 08/26/16 08:18 RBC 2.75 M/mm3 (3.60-5.2) L 08/26/16 08:18 Hgb 9.2 GM/dL (10.7-15.3) L D 08/26/16 08:18 Hct 28.2 % (32.4-45.2) L 08/26/16 08:18 MCV 102.5 fl (80-96) H 08/26/16 08:18 MCH 33.5 pg (25.7-33.7) 08/26/16 08:18 MCHC 32.6 g/dl (32.0-36.0) 08/26/16 08:18 RDW 16.6 % (11.6-15.6) H 08/26/16 08:18 Plt Count 256 K/MM3 (134-434) 08/26/16 08:18 MPV 8.6 fl (7.5-11.1) 08/26/16 08:18 Neutrophils % 92.8 % (42.8-82.8) H 08/26/16 08:18 Lymphocytes % 2.1 % (8-40) L D 08/26/16 08:18 Monocytes % 4.9 % (3.8-10.2) 08/26/16 08:18 Eosinophils % 0.0 % (0-4.5) D 08/26/16 08:18 Basophils % 0.2 % (0-2.0) 08/26/16 08:18 Sodium 148 mmol/L (136-145) H 08/26/16 08:18 Potassium 4.9 mmol/L (3.5-5.1) 08/26/16 08:18 Chloride 111 mmol/L (98-107) H 08/26/16 08:18 Carbon Dioxide 28 mmol/L (21-32) 08/26/16 08:18 Anion Gap 9 (8-16) 08/26/16 08:18 BUN 70 mg/dL (7-18) H D 08/26/16 08:18 Creatinine 1.6 mg/dL (0.55-1.02) H D 08/26/16 08:18 Creat Clearance w eGFR 30.94 (>60) 08/26/16 08:18 POC Glucometer 155 UNITS (()) 08/26/16 06:06 Random Glucose 154 mg/dL (74-106) H D 08/26/16 08:18 Lactic Acid 3.0 mmol/L (0.4-2.0) H* 08/25/16 23:40 Calcium 8.3 mg/dL (8.5-10.1) L 08/26/16 08:18 Total Bilirubin 0.9 mg/dL (0.2-1.0) D 08/26/16 08:18 AST 32 U/L (15-37) 08/26/16 08:18 ALT 46 U/L (12-78) D 08/26/16 08:18 Alkaline Phosphatase 82 U/L (45-117) 08/26/16 08:18 Total Protein 6.1 g/dl (6.4-8.2) L 08/26/16 08:18 Albumin 2.0 g/dl (3.4-5.0) L 08/26/16 08:18 Urine Color Dkyellow 08/25/16 17:12 Urine Appearance Cloudy 08/25/16 17:12 Urine pH 7.0 (5.0-8.0) 08/25/16 17:12 Ur Specific [place] 1.020 (1.005-1.025) 08/25/16 17:12 Urine Protein 2+ (NEGATIVE) H 08/25/16 17:12 Urine Glucose (UA) Negative (NEGATIVE) 08/25/16 17:12 Urine Ketones Negative (NEGATIVE) 08/25/16 17:12 Urine Blood 1+ (NEGATIVE) H 08/25/16 17:12 Urine Nitrite Negative (NEGATIVE) 08/25/16 17:12 Urine Bilirubin Negative (NEGATIVE) 08/25/16 17:12 Urine Urobilinogen Negative mg/dL (0.2-1.0) 08/25/16 17:12 Ur Leukocyte Esterase 2+ (NEGATIVE) H 08/25/16 17:12 Urine RBC 51 /hpf (0-3) 08/25/16 17:12 Urine WBC 139 /hpf (3-5) 08/25/16 17:12 Hyaline Casts 16 /lpf 08/25/16 17:12 Urine Mucus Rare 08/25/16 17:12 Urine Yeast Many 08/25/16 17:12 tele: sr, atrial run ECG 08/25/16: sr, nl intervals, no ischemic changes Echo 08/22 (here): nl LV/EF; RV tds; mod AI/MR, no peric eff (no RVSP) cxr: no chf, tds a/p: acute hypoxic resp failure, PNA: -abx per ID/pmd -no signs chf or acs -recet echo with normal LV fxn and no severe valvular dysfunction -likely no volume overload with intravasc depletion HTN: -bp controlled -cont amlodipine DM: -per pmd recent ICH: -seen by neuro/neurosurgery, no intervention was planned chronic malnutrition: -s/p PEG, gets tube feeds copd: -per pulm hld: -on statin
--- NOTE | 2016-08-26 10:18 | EKG ---
Test Reason : Blood Pressure : / mmHG Vent. Rate : 096 BPM Atrial Rate : 096 BPM P-R Int : 116 ms QRS Dur : 076 ms QT Int : 362 ms P-R-T Axes : 079 053 064 degrees QTc Int : 457 ms NORMAL SINUS RHYTHM NORMAL ECG WHEN COMPARED WITH ECG OF 07-AUG-2016 14:22, NO SIGNIFICANT CHANGE WAS FOUND Confirmed by MD JENNIFER, DEEDEE ([id number]) on 08/26/2016 10:18:21 AM Referred By: Confirmed By:DEEDEE RODRIGUEZ MD
--- NOTE | 2016-08-26 11:05 | CON.NEP ---
Consult Consult Specialty:: Nephrology (Dennis/Tom) Referred by:: Dr. Lovell Reason for Consultation:: ULISES - History of Present Illness Chief Complaint: SOB History of Present Illness: This is a 81 year old woman with PMhx of recent large ICU manged conservatively , recent PNA, Hypertension, CHF (diastolic dysfunction?, recent echo shows normal LV function) who presented with SOB at home and hypoxia. Pt s/p recent discharge s/p Tx for aspiration PNA. Pt is lethargic and minimally verbal and not able to provide history. CXR on presentation was poor study but did not show volume overload. + Fever on presentation and Leukocytosis. - History Source History Provided By: Medical Record Limitations to Obtaining History: Clinical Condition - Past Medical History LAYER OFF: Yes: CVA Cardio/Vascular: Yes: HTN, Hyperlipdemia Pulmonary: Yes: COPD Renal/: Yes: Renal Inusuff Endocrine: Yes: Diabetes Mellitus, Hypothyroidism - Alcohol/Substance Use Hx Alcohol Use: No - Smoking History Smoking history: Unknown if ever smoked Have you smoked in the past 12 months: No Aproximately how many cigarettes per day: 0 Home Medications - Allergies Allergies/Adverse Reactions: Allergies Allergy/AdvReac Type Severity Reaction Status Date / Time No Known Allergies Allergy Verified 07/28/16 18:15 - Home Medications Home Medications: Ambulatory Orders Acetaminophen [Tylenol] 320 mg GT Q6H 08/07/16 Albuterol 2.5/Ipratropium 0.5 [Duoneb -] 1 amp NEB Q6H 08/07/16 Amlodipine Besylate [Norvasc -] 2.5 mg GT DAILY 08/07/16 Insulin Aspart [Novolog Flexpen] 0 unit SQ TID 08/07/16 Levetiracetam 500 mg GT BID 08/07/16 Heparin - 5,000 unit SQ BID vial 08/17/16 Levothyroxine [Synthroid -] 125 mcg GT DAILY #60 tablet 08/17/16 Metoclopramide HCl [Reglan -] 5 mg PO TIDAC #90 tablet 08/17/16 Potassium Chloride [Potassium Chloride Oral Liquid] 20 meq GT DAILY #30 ml 08/17 Atorvastatin Ca [Lipitor] 40 mg GT HS 08/25/16 Multivitamins [Tab-A-Vit -] 1 tab GT DAILY 08/25/16 Family Disease History - Family Disease History Family History: Unable to Obtain Review of Systems Unable to obtain ROS, reason: because of clinical statu Nephrology Consult - Height Height: 5 ft 6 in - Weight Weight: 115 lb - BMI Body Mass Index (BMI): 18.6 - Lab Results CBC,BMP: CBC, BMP 08/26/16 08:18 08/26/16 08:18 Anion Gap: Anion Gap Anion Gap 9 (8-16) 08/26/16 08:18 - Imaging Chest X-ray: Report Reviewed - Physical Examination Vital Signs: Vital Signs Temperature 97 F L 08/26/16 10:19 Pulse Rate 76 08/26/16 10:19 Respiratory Rate 22 08/26/16 10:19 Blood Pressure 117/42 08/26/16 10:19 O2 Sat by Pulse Oximetry (%) 90 L 08/26/16 01:00 Constitutional: Yes: No Distress, Calm, Cachectic, Thin HENT: Yes: Atraumatic Neck: Yes: Supple Cardiovascular: Yes: Regular Rate and Rhythm, S1, S2. No: Murmur, Rub Respiratory: Yes: Regular, CTA Bilaterally Gastrointestinal: Yes: Normal Bowel Sounds, Soft. No: Tenderness Renal/: No: Bladder Distention, CVA Tenderness - Left, CVA Tenderness - Right Extremities: No: Cold, Cool, Cyanosis Edema: No Neurological: Yes: Lethargy Problem List - Problems (1) Acute renal failure (ARF) Code(s): N17.9 - ACUTE KIDNEY FAILURE, UNSPECIFIED (2) Dehydration Code(s): E86.0 - DEHYDRATION (3) Pneumonia Code(s): J18.9 - PNEUMONIA, UNSPECIFIED ORGANISM Qualifiers: Pneumonia type: due to unspecified organism Laterality: right Lung location: lower lobe of lung Qualified Code(s): J18.1 - Lobar pneumonia, unspecified organism (4) Hypoxia Code(s): R09.02 - HYPOXEMIA (5) Volume depletion Code(s): E86.9 - VOLUME DEPLETION, UNSPECIFIED (6) Hypernatremia Code(s): E87.0 - HYPEROSMOLALITY AND HYPERNATREMIA (7) Anemia Code(s): D64.9 - ANEMIA, UNSPECIFIED (8) Leukocytosis Code(s): D72.829 - ELEVATED WHITE BLOOD CELL COUNT, UNSPECIFIED Assessment/Plan 81 year old woman with PMhx of recent large ICU managed conservatively, recent PNA, Hypertension, CHF (diastolic dysfunction?, recent echo shows normal LV function) who presented with SOB at home and hypoxia. #Acute Renal failure likely secondary to volume depletion in setting of PNA with hypernatremia pt with high BUN/Cr ratio, and clinically appears dry Check UA, UPCR, FeNA, FeUrea Continue isotonic saline at 83cc per hour monitor respiratory status closely No indication for renal US at this time unless pt does not show clinical improvement with IVF hydration keep MAP > 65 no NSAIDs, IV Contrast at this time Trend BUN/Cr and electrolytes #PNA/Leukocytosis/Fever on Zosyn supplementary O2 UA showed + LE and multiple WBC, no cx sent #Hx of ICH supportive care Thank you Will follow Rikki Santos DO
[2016-08-26] MEDS: amLODIPine BESYLATE 2.5 MG TABLET (FP) GT SCH (11:36)
[2016-08-26] MEDS: HEPARIN NA (PORCINE) 5,000 UNITS/ML 1ML VIAL SQ SCH ×2 (11:36→22:17)
[2016-08-26] MEDS: BACITRACIN 15 GM TUBE TOPICAL OINTMENT TP SCH ×2 (11:36→22:19)
[2016-08-26] MEDS: POTASSIUM CHLORIDE ORAL LIQUID 20 MEQ/15 ML GT SCH (11:36)
--- NOTE | 2016-08-26 11:55 | PN ---
Progress Note (short form) - Note Progress Note: PULMONARY CONSULTATION DICTATED 08/26/16 IMP ACUTE HYPOXEMIC RESPIRATORY FAILURE LIKELY ASPIRATION S/P ICH ACUTE ON CHRONIC RENAL FAILURE COPD DEMENTIA S/P PEG ELEVATED LACTATE LEVEL PLAN IV ANTIBIOTICS PER ID IVF O2 TO MAINTAIN O2 SAT 90% F/U CHEST X-RAY TREND LACTATE MONITOR LYTES,RENAL FUNCTION DR MCCULLOUGH Problem List - Problems (1) Aspiration pneumonia Code(s): J69.0 - PNEUMONITIS DUE TO INHALATION OF FOOD AND VOMIT Qualifiers: Aspiration pneumonia type: unspecified Laterality: unspecified laterality Lung location: unspecified part of lung Qualified Code(s) : J69.0 - Pneumonitis due to inhalation of food and vomit (2) Hypoxia Code(s): R09.02 - HYPOXEMIA (3) Leukocytosis Code(s): D72.829 - ELEVATED WHITE BLOOD CELL COUNT, UNSPECIFIED (4) Anemia Code(s): D64.9 - ANEMIA, UNSPECIFIED (5) Aspiration into airway Code(s): T17.908A - UNSP FB IN RESP TRACT, PART UNSP CAUSING OTH INJURY, INIT (6) COPD (chronic obstructive pulmonary disease) Code(s): J44.9 - CHRONIC OBSTRUCTIVE PULMONARY DISEASE, UNSPECIFIED (7) Diabetes Code(s): E11.9 - TYPE 2 DIABETES MELLITUS WITHOUT COMPLICATIONS Qualifiers: Diabetes mellitus type: type 2 Diabetes mellitus complication status: with unspecified complications (8) Failure to thrive Code(s): VUV5169 - (9) Intracerebral hemorrhage Code(s): I61.9 - NONTRAUMATIC INTRACEREBRAL HEMORRHAGE, UNSPECIFIED Qualifiers : Cerebral hemorrhage location: cerebral hemisphere, cortical portion (10) Respiratory failure with hypoxia Code(s): J96.91 - RESPIRATORY FAILURE, UNSPECIFIED WITH HYPOXIA Qualifiers: Chronicity: acute Qualified Code(s): J96.01 - Acute respiratory failure with hypoxia (11) Lactate blood increased Code(s): R79.89 - OTHER SPECIFIED ABNORMAL FINDINGS OF BLOOD CHEMISTRY
[2016-08-26] MEDS: levETIRAcetam 500 MG/5 ML ORAL SOLUTION (UNIT-DOSE CUPS) GT SCH ×2 (16:38→22:17)
[2016-08-26] MEDS: MULTIVIT-MINERALS 236 ML ML GT SCH (16:38)
--- NOTE | 2016-08-26 16:47 | CONSULT ---
Consult Consult Specialty:: infectious diseases Referred by:: Reason for Consultation:: sepsis,hypotension,pneumonia - History of Present Illness Chief Complaint: failure to thrive History of Present Illness: 81 year old female with a significant past medical history of Aspiration pneumonia, respiratory failure with hypoxia, HTN, Intracerebral hemorrhage, CHF and diabetes who is admitted with resp failure,hypotension sepsis patient in the er was hydrated and patient started responding and patient was stabilized and was transferred to the floor patient is failure to thrive currently patient is not able to respond appropriately but the patient does respond when her name is called patient is on rebreather - History Source History Provided By: Medical Record Limitations to Obtaining History: Clinical Condition - Past Medical History 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: 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: CVA Cardio/Vascular: Yes: HTN, Hyperlipdemia Pulmonary: Yes: COPD Renal/: Yes: Renal Inusuff Endocrine: Yes: Diabetes Mellitus, Hypothyroidism - Alcohol/Substance Use Hx Alcohol Use: No - Smoking History Smoking history: Unknown if ever smoked Have you smoked in the past 12 months: No Aproximately how many cigarettes per day: 0 Home Medications - Allergies Allergies/Adverse Reactions: Allergies Allergy/AdvReac Type Severity Reaction Status Date / Time No Known Allergies Allergy Verified 07/28/16 18:15 - Home Medications Home Medications: Ambulatory Orders Acetaminophen [Tylenol] 320 mg GT Q6H 08/07/16 Albuterol 2.5/Ipratropium 0.5 [Duoneb -] 1 amp NEB Q6H 08/07/16 Amlodipine Besylate [Norvasc -] 2.5 mg GT DAILY 08/07/16 Insulin Aspart [Novolog Flexpen] 0 unit SQ TID 08/07/16 Levetiracetam 500 mg GT BID 08/07/16 Heparin - 5,000 unit SQ BID vial 08/17/16 Levothyroxine [Synthroid -] 125 mcg GT DAILY #60 tablet 08/17/16 Metoclopramide HCl [Reglan -] 5 mg PO TIDAC #90 tablet 08/17/16 Potassium Chloride [Potassium Chloride Oral Liquid] 20 meq GT DAILY #30 ml 08/17 Atorvastatin Ca [Lipitor] 40 mg GT HS 08/25/16 Multivitamins [Tab-A-Vit -] 1 tab GT DAILY 08/25/16 Review of Systems Unable to obtain ROS, reason: unable to obtain Physical Exam Vital Signs: Vital Signs Temperature 98.4 F 08/26/16 14:00 Pulse Rate 72 08/26/16 14:00 Respiratory Rate 20 08/26/16 14:00 Blood Pressure 116/47 08/26/16 14:00 O2 Sat by Pulse Oximetry (%) 97 08/26/16 09:00 Constitutional: Yes: Thin (failure to thrive), Other (non verbal) HENT: Yes: Other Neck: Yes: Supple Cardiovascular: Yes: S1, S2 Respiratory: Yes: Poor Air Entry, Rhonchi, Other (on non breather) Gastrointestinal: Yes: Normal Bowel Sounds, Soft, Other (peg in place) Musculoskeletal: Yes: Other Extremities: Yes: Other Neurological: Yes: Other (opens eyes) Labs: CBC, BMP 08/26/16 08:18 08/26/16 08:18 Imaging - Results Chest X-ray: Report Reviewed, Image Reviewed Assessment/Plan Problem List - Problems (1) Aspiration pneumonia Code(s): J69.0 - PNEUMONITIS DUE TO INHALATION OF FOOD AND VOMIT Qualifiers: Aspiration pneumonia type: unspecified Laterality: unspecified laterality Lung location: unspecified part of lung Qualified Code(s) : J69.0 - Pneumonitis due to inhalation of food and vomit (2) Hypoxia Code(s): R09.02 - HYPOXEMIA (3) Leukocytosis Code(s): D72.829 - ELEVATED WHITE BLOOD CELL COUNT, UNSPECIFIED (4) Anemia Code(s): D64.9 - ANEMIA, UNSPECIFIED (5) Aspiration into airway Code(s): T17.908A - UNSP FB IN RESP TRACT, PART UNSP CAUSING OTH INJURY, INIT (6) COPD (chronic obstructive pulmonary disease) Code(s): J44.9 - CHRONIC OBSTRUCTIVE PULMONARY DISEASE, UNSPECIFIED (7) Diabetes Code(s): E11.9 - TYPE 2 DIABETES MELLITUS WITHOUT COMPLICATIONS Qualifiers: Diabetes mellitus type: type 2 Diabetes mellitus complication status: with unspecified complications (8) Failure to thrive Code(s): [id number] - (9) Intracerebral hemorrhage Code(s): I61.9 - NONTRAUMATIC INTRACEREBRAL HEMORRHAGE, UNSPECIFIED Qualifiers : Cerebral hemorrhage location: cerebral hemisphere, cortical portion (10) Respiratory failure with hypoxia Code(s): J96.91 - RESPIRATORY FAILURE, UNSPECIFIED WITH HYPOXIA Qualifiers: Chronicity: acute Qualified Code(s): J96.01 - Acute respiratory failure with hypoxia (11) Lactate blood increased Code(s): R79.89 - OTHER SPECIFIED ABNORMAL FINDINGS OF BLOOD CHEMISTRY this patient well known to me failure to thrive admitted with sepsis and hypoxia very high chances of aspiration patient xray not impressive but could not get proper imaging because of her condition and posture plan hydration started on zosyn will continue to monitor closely resp support rest as per primary
--- NOTE | 2016-08-26 17:30 | CONS ---
PULMONARY CONSULTATION DATE OF CONSULTATION: 08/26/2016 REFERRING PHYSICIAN: Alexander Lovell MD History is obtained from chart. Patient is poorly responsive. HISTORY OF PRESENT ILLNESS: The patient is an 81-year-old white female recently discharged from [facility] secondary to aspiration pneumonia; history of intracerebral bleed, treated conservatively; congestive heart failure; diabetes; aspiration pneumonia; transferred to [facility] secondary to hypoxemia. Apparently, the patient was noted to be hypoxic at the halfway and was transferred to [facility] ER. In the ER, she was felt to have possible pneumonia. She was taken to the telemetry unit for further monitoring. She was evaluated by Dr. Franklin for cardiology consultation, as well as Dr. Santos for renal consultation. Of note, the patient was recently hospitalized for pneumonia. She underwent an echo which revealed normal LV function and no evidence of significant valvular dysfunction. No further history is available at this time. PAST MEDICAL HISTORY: As above, this includes an intracerebral bleed followed by Neurology and Neurosurgery with no intervention, acute kidney injury, malnutrition status post PEG, UTI, pneumonia; dementia, COPD, hyperlipidemia and hypertension. CURRENT MEDICATIONS: Tylenol, Zosyn, bacitracin, heparin, Keppra, DuoNeb, Norvasc, normal saline, Lipitor, Reglan and Synthroid. REVIEW OF SYSTEMS: Unable to obtain. PHYSICAL EXAMINATION: General: The patient is an elderly white female, thin, cachectic, contracted, dyspneic, mildly tachypneic on 100% rebreather, and poorly responsive. HEENT: Exam is normocephalic, atraumatic. Neck: Supple. Heart: Irregular, regular with normal S1, S2. Chest: She has a few scattered rhonchi. Abdomen: Soft. Bowel sounds are positive. Extremities: Bilateral lower extremity contractures. LABORATORY DATA: WBC is 15.5, hemoglobin 9.2, hematocrit 28.2 with a platelet count of 256,000. BUN is 70, creatinine 1.6. Lactate level is 3.0. Chest x-ray is suboptimal and no definitive infiltrates appreciated. IMPRESSION: 1. Acute hypoxemic respiratory failure, possible sepsis, pneumonia. 2. Status post intracerebral hemorrhage. 3. Dementia. 4. Chronic obstructive pulmonary disease. 5. Recurrent aspirations. PLAN: IV antibiotics, supplemental O2, inhaled bronchodilators, and also consider conservative management. JACK MCCULLOUGH M.D. MURALI/[id number]
[2016-08-26 21:31] LABS: URINE CREATININE 49.2 mg/dL (20-320)
[2016-08-26] MEDS: ATORVASTATIN CA 40 MG TABLET (FP) GT SCH (22:16)
[2016-08-27] MEDS: PIPERACILLIN/TAZOB 3.375 GM 50 ML IVPB SCH ×2 (01:37→10:23)
[2016-08-27] MEDS ORDERED: METOPROLOL TARTRATE 5 MG/5 ML VIAL ONE (04:17)
[2016-08-27] MEDS: METOPROLOL TARTRATE 5 MG/5 ML VIAL IVPUSH SCH ×2 (04:20→04:25)
[2016-08-27] MEDS: SODIUM CHLORIDE 1,000 ML IV SCH (04:23)
[2016-08-27] MEDS: LEVOTHYROXINE NA 125 MCG TABLET (FP) GT SCH (06:19)
[2016-08-27] MEDS: INSULIN SLIDING SCALE (NOVOLOG) 1 VIAL SQ SCH ×3 (06:19→18:18)
[2016-08-27] MEDS: METOCLOPRAMIDE HCL 5 MG/5 ML UNIT DOSE CUP PEG SCH ×3 (06:19→22:44)
[2016-08-27 07:39] LABS: MCH 33.3 pg (25.7-33.7); MCHC 32.3 g/dl (32.0-36.0); MEAN CELL VOLUME 102.9 fl (80-96); MEAN PLT VOLUME 9.2 fl (7.5-11.1); PLATELET COUNT 255 K/MM3 (134-434); RDW 16.3 % (11.6-15.6); WHITE BLOOD COUNT 15.6 K/mm3 (4.0-10.0)
[2016-08-27 07:56] LABS: ALBUMIN 1.7 g/dl (3.4-5.0); ALK PHOS 123 U/L (45-117); ANION GAP 8 (8-16); BILIRUBIN,TOTAL 0.3 mg/dL (0.2-1.0); CALCIUM 8.4 mg/dL (8.5-10.1); CO2 27 mmol/L (21-32); CREATININE 1.4 mg/dL (0.55-1.02); GLUCOSE,RANDOM 162 mg/dL (74-106); PHOSPHOROUS 3.3 mg/dL (2.5-4.9); SGOT/AST 46 U/L (15-37); SGPT/ALT 52 U/L (12-78); TOT PROT 5.4 g/dl (6.4-8.2)
[2016-08-27 09:24] LABS: ANISOCYTOSIS 1+
[2016-08-27 09:25] LABS: PLATELET ESTIMATE ADEQUATE (NORMAL)
[2016-08-27] MEDS ORDERED: PT OWN MED DRAWER 7, Y5N ONE ×3 (09:27→22:32)
[2016-08-27] MEDS ORDERED: METOPROLOL TARTRATE 5 MG/5 ML VIAL IVPUSH ONE (09:30)
[2016-08-27] MEDS ORDERED: METOPROLOL TARTRATE 25 MG TABLET (FP) GT ONE (09:30)
[2016-08-27] MEDS: amLODIPine BESYLATE 2.5 MG TABLET (FP) GT SCH (09:45)
[2016-08-27] MEDS: HEPARIN NA (PORCINE) 5,000 UNITS/ML 1ML VIAL SQ SCH ×2 (09:50→22:44)
[2016-08-27] MEDS: MULTIVIT-MINERALS 236 ML ML GT SCH (09:51)
[2016-08-27] MEDS: levETIRAcetam 500 MG/5 ML ORAL SOLUTION (UNIT-DOSE CUPS) GT SCH ×2 (09:51→22:44)
[2016-08-27] MEDS: POTASSIUM CHLORIDE ORAL LIQUID 20 MEQ/15 ML GT SCH (09:52)
[2016-08-27] MEDS: BACITRACIN 15 GM TUBE TOPICAL OINTMENT TP SCH ×2 (10:12→22:44)
--- NOTE | 2016-08-27 10:34 | PN ---
Progress Note, Physician History of Present Illness: EVents overnight noted Afib with RVR to 140ss. Given IV Metoprolol x 2 (+) coughing - Current Medication List Current Medications: Active Medications Acetaminophen (Tylenol Oral Solution -) 325 mg PO Q4H PRN PRN Reason: FEVER OR PAIN Albuterol/Ipratropium (Duoneb -) 1 amp NEB Q6H PRN Amlodipine Besylate (Norvasc -) 2.5 mg GT DAILY [facility] Last Admin: 08/27/16 09:45 Dose: 2.5 mg Atorvastatin Calcium (Lipitor -) 40 mg GT HS [facility] Last Admin: 08/26/16 22:16 Dose: 40 mg Bacitracin (Bacitracin -) 1 applic TP BID [facility] Last Admin: 08/27/16 10:12 Dose: 1 applic Heparin Sodium (Porcine) (Heparin -) 5,000 unit SQ BID [facility] Last Admin: 08/27/16 09:50 Dose: 5,000 unit Piperacillin Sod/Tazobactam Sod (Zosyn 3.375gm Ivpb (Pre-Docked)) 50 mls @ 100 mls/hr IVPB Q8H-IV BONI PRN Reason: Protocol Last Admin: 08/27/16 10:23 Dose: 100 mls/hr Sodium Chloride (Normal Saline -) 1,000 mls @ 75 mls/hr IV ASDIR [facility] Last Admin: 08/27/16 04:23 Dose: 75 mls/hr Insulin Aspart (Novolog Vial Sliding Scale -) 1 vial SQ TIDAC [facility] PRN Reason: Protocol Last Admin: 08/27/16 06:19 Dose: 2 units Levetiracetam (Keppra Oral Solution -) 500 mg GT BID [facility] Last Admin: 08/27/16 09:51 Dose: 500 mg Levothyroxine Sodium (Synthroid -) 125 mcg GT DAILY@0700 [facility] Last Admin: 08/27/16 06:19 Dose: 125 mcg Metoclopramide HCl (Reglan Oral Solution -) 5 mg PEG TID [facility] Last Admin: 08/27/16 06:19 Dose: 5 mg Potassium Chloride (Potassium Chloride Oral Liquid) 20 meq GT DAILY [facility] Last Admin: 08/27/16 09:52 Dose: 20 meq - Objective Vital Signs: Vital Signs Temperature 99.5 F 08/27/16 09:50 Pulse Rate 131 H 08/27/16 09:50 Respiratory Rate 16 08/27/16 09:50 Blood Pressure 107/61 08/27/16 09:50 O2 Sat by Pulse Oximetry (%) 97 08/26/16 21:00 Constitutional: Yes: Mild Distress (on FM (+) coughing), Other ( at bedside) HENT: Yes: Atraumatic, Normocephalic Neck: Yes: WNL Cardiovascular: Yes: Tachycardia, Pulse Irregular Respiratory: Yes: Other (No wheeze, coarse breath sounds) Extremities: Yes: WNL Edema: No Labs: CBC, BMP 08/27/16 05:20 08/27/16 05:20 Assessment/Plan a/p: acute hypoxic resp failure, PNA: -abx per ID/pmd -no signs chf or acs -recet echo with normal LV fxn and no severe valvular dysfunction -likely no volume overload with intravasc depletion Afib -With RVR likely related to ongoing pneumonia -Would no AC this patient with recent ICH -Asa 81mg daily -Will start metoprolol 25mg PO q8 (monitor for worsening COPD) HTN: -bp low -Hold amlodipine DM: -per pmd recent ICH: -seen by neuro/neurosurgery, no intervention was planned chronic malnutrition: -s/p PEG, gets tube feeds copd: -per pulm hld: -on statin
[2016-08-27] MEDS: ALBUTEROL SO4 2.5/IPRATROPIUM 0.5 INH SOL 3 ML VIAL.NEB. NEB PRN (11:27)
--- NOTE | 2016-08-27 11:28 | PN ---
Progress Note, Physician Chief Complaint: The patient seen in her bed. visiting. Respiratory distress and cough present. - Current Medication List Current Medications: Active Medications Acetaminophen (Tylenol Oral Solution -) 325 mg PO Q4H PRN PRN Reason: FEVER OR PAIN Albuterol/Ipratropium (Duoneb -) 1 amp NEB Q6H PRN Atorvastatin Calcium (Lipitor -) 40 mg GT HS [facility] Last Admin: 08/26/16 22:16 Dose: 40 mg Bacitracin (Bacitracin -) 1 applic TP BID [facility] Last Admin: 08/27/16 10:12 Dose: 1 applic Heparin Sodium (Porcine) (Heparin -) 5,000 unit SQ BID [facility] Last Admin: 08/27/16 09:50 Dose: 5,000 unit Piperacillin Sod/Tazobactam Sod (Zosyn 3.375gm Ivpb (Pre-Docked)) 50 mls @ 100 mls/hr IVPB Q8H-IV BONI PRN Reason: Protocol Last Admin: 08/27/16 10:23 Dose: 100 mls/hr Sodium Chloride (Normal Saline -) 1,000 mls @ 75 mls/hr IV ASDIR [facility] Last Admin: 08/27/16 04:23 Dose: 75 mls/hr Insulin Aspart (Novolog Vial Sliding Scale -) 1 vial SQ TIDAC [facility] PRN Reason: Protocol Last Admin: 08/27/16 06:19 Dose: 2 units Levetiracetam (Keppra Oral Solution -) 500 mg GT BID [facility] Last Admin: 08/27/16 09:51 Dose: 500 mg Levothyroxine Sodium (Synthroid -) 125 mcg GT DAILY@0700 [facility] Last Admin: 08/27/16 06:19 Dose: 125 mcg Metoclopramide HCl (Reglan Oral Solution -) 5 mg PEG TID [facility] Last Admin: 08/27/16 06:19 Dose: 5 mg Metoprolol Tartrate (Lopressor -) 25 mg PO BID [facility] Potassium Chloride (Potassium Chloride Oral Liquid) 20 meq GT DAILY [facility] Last Admin: 08/27/16 09:52 Dose: 20 meq - Objective Vital Signs: Vital Signs Temperature 99.5 F 08/27/16 09:50 Pulse Rate 131 H 08/27/16 09:50 Respiratory Rate 16 08/27/16 09:50 Blood Pressure 107/61 08/27/16 09:50 O2 Sat by Pulse Oximetry (%) 97 08/26/16 21:00 Constitutional: Yes: Moderate Distress, Pallor Eyes: Yes: Conjunctiva Clear HENT: Yes: Atraumatic Neck: Yes: Trachea Midline Cardiovascular: Yes: S1, S2 Respiratory: Yes: Cough, Diminished, Rales, Rhonchi Gastrointestinal: Yes: Normal Bowel Sounds, Soft Genitourinary: No: CVA Tenderness - Left, CVA Tenderness - Right Peripheral Pulses WNL: No Labs: CBC, BMP 08/27/16 05:20 08/27/16 05:20 Problem List - Problems (1) Aspiration pneumonia Code(s): J69.0 - PNEUMONITIS DUE TO INHALATION OF FOOD AND VOMIT Qualifiers: Aspiration pneumonia type: unspecified Laterality: unspecified laterality Lung location: unspecified part of lung Qualified Code(s) : J69.0 - Pneumonitis due to inhalation of food and vomit (2) Hypernatremia Code(s): E87.0 - HYPEROSMOLALITY AND HYPERNATREMIA (3) Leukocytosis Code(s): D72.829 - ELEVATED WHITE BLOOD CELL COUNT, UNSPECIFIED (4) Acute renal failure (ARF) Code(s): N17.9 - ACUTE KIDNEY FAILURE, UNSPECIFIED (5) Anemia Code(s): D64.9 - ANEMIA, UNSPECIFIED (6) Hypertension Code(s): I10 - ESSENTIAL (PRIMARY) HYPERTENSION (7) Intracerebral hemorrhage Code(s): I61.9 - NONTRAUMATIC INTRACEREBRAL HEMORRHAGE, UNSPECIFIED Qualifiers : Cerebral hemorrhage location: cerebral hemisphere, cortical portion (8) UTI (urinary tract infection) Code(s): N39.0 - URINARY TRACT INFECTION, SITE NOT SPECIFIED Qualifiers: Urinary tract infection type: site unspecified Hematuria presence: without hematuria Qualified Code(s): N39.0 - Urinary tract infection, site not specified Assessment/Plan 81 year old woman with Pneumonia , Hypertension, CHF (diastolic dysfunction?, recent echo shows normal LV function) who presented with SOB at home and hypoxia. #Acute Renal failure likely secondary to volume depletion in setting of PNA with hypernatremia Renal functions stable. Will maintain the IV fluids. #PNA/Leukocytosis/Fever on Zosyn supplementary O2 Will monitor the renal functions with you. Over all prognosis Poor
--- NOTE | 2016-08-27 12:13 | PN ---
Progress Note, Physician Chief Complaint: Congested and not able to speak today. History of Present Illness: Patient very congested with coughing without much sputum and poorly responsive. CXR shows no infiltrate but possibly Acute Exacerbation of COPD and longterm smoker. New onset A. Fib seen by Cardiology but not a candidate for anticoagulation due to old cerebral hemorrhage. DNR/DNI and I spoke to and daughter regarding her status. I may decide to stop the Tube feedings till Monday: ??silent aspiration. Renal function worse and I called pharmacy for advice Re: dose of Zosyn. - Current Medication List Current Medications: Active Medications Acetaminophen (Tylenol Oral Solution -) 325 mg PO Q4H PRN PRN Reason: FEVER OR PAIN Albuterol/Ipratropium (Duoneb -) 1 amp NEB Q6H PRN Last Admin: 08/27/16 11:27 Dose: 1 amp Atorvastatin Calcium (Lipitor -) 40 mg GT HS [facility] Last Admin: 08/26/16 22:16 Dose: 40 mg Bacitracin (Bacitracin -) 1 applic TP BID [facility] Last Admin: 08/27/16 10:12 Dose: 1 applic Heparin Sodium (Porcine) (Heparin -) 5,000 unit SQ BID [facility] Last Admin: 08/27/16 09:50 Dose: 5,000 unit Sodium Chloride (Normal Saline -) 1,000 mls @ 75 mls/hr IV ASDIR [facility] Last Admin: 08/27/16 04:23 Dose: 75 mls/hr Piperacillin Sod/Tazobactam (Sod 2.25 gm/ Dextrose) 50 mls @ 100 mls/hr IVPB Q6H-IV [facility] PRN Reason: Protocol Insulin Aspart (Novolog Vial Sliding Scale -) 1 vial SQ TIDAC [facility] PRN Reason: Protocol Last Admin: 08/27/16 06:19 Dose: 2 units Levetiracetam (Keppra Oral Solution -) 500 mg GT BID [facility] Last Admin: 08/27/16 09:51 Dose: 500 mg Levothyroxine Sodium (Synthroid -) 125 mcg GT DAILY@0700 [facility] Last Admin: 08/27/16 06:19 Dose: 125 mcg Metoclopramide HCl (Reglan Oral Solution -) 5 mg PEG TID [facility] Last Admin: 08/27/16 06:19 Dose: 5 mg Metoprolol Tartrate (Lopressor -) 25 mg PO BID [facility] Potassium Chloride (Potassium Chloride Oral Liquid) 20 meq GT DAILY [facility] Last Admin: 08/27/16 09:52 Dose: 20 meq - Objective Vital Signs: Vital Signs Temperature 99.5 F 08/27/16 09:50 Pulse Rate 131 H 08/27/16 09:50 Respiratory Rate 16 08/27/16 09:50 Blood Pressure 107/61 08/27/16 09:50 O2 Sat by Pulse Oximetry (%) 97 08/26/16 21:00 Constitutional: Yes: Mild Distress Cardiovascular: Yes: Tachycardia, Pulse Irregular Respiratory: Yes: On Venti-Mask, Rales, Rhonchi (both bases) Gastrointestinal: Yes: Soft, Other (PEG tube) Edema: No Neurological: Yes: Lethargy Labs: CBC, BMP 08/27/16 05:20 08/27/16 05:20 - ....Imaging Chest X-ray: Report Reviewed Problem List - Problems (1) Atrial fibrillation Code(s): I48.91 - UNSPECIFIED ATRIAL FIBRILLATION (2) Hypernatremia Assessment/Plan: Will change IV to D%W 1/2NS and followup lab ordered. Code(s): E87.0 - HYPEROSMOLALITY AND HYPERNATREMIA (3) Lactate blood increased Assessment/Plan: Sepsis and renal failure. Seen by renal MD On Antibiotics Code(s): R79.89 - OTHER SPECIFIED ABNORMAL FINDINGS OF BLOOD CHEMISTRY (4) Leukocytosis Assessment/Plan: Due to ongoing problems Code(s): D72.829 - ELEVATED WHITE BLOOD CELL COUNT, UNSPECIFIED (5) Acute renal failure (ARF) Assessment/Plan: Worsened especially BUN; To follow and adjust IV RX Code(s): N17.9 - ACUTE KIDNEY FAILURE, UNSPECIFIED (6) COPD (chronic obstructive pulmonary disease) with acute bronchitis Assessment/Plan: ON 100% rebreather mask On Antibiotics ? silent aspiration from tube feedings. Code(s): J44.0 - CHRONIC OBSTRUCTIVE PULMON DISEASE W ACUTE LOWER RESP INFCT
--- NOTE | 2016-08-27 12:40 | PN ---
Progress Note (short form) - Note Progress Note: Patient seen and examined in the Telemetry unit. Lethargic and tachypneic on 100% NRBM. No clinical improvement noted. Intake & Output 08/24/16 08/25/16 08/26/16 08/27/16 23:59 23:59 23:59 23:59 Intake Total 1570 1850 Balance 1570 1850 Weight 115 lb 115 lb Last Vital Signs Temp Pulse Resp BP Pulse Ox 99.5 F 131 H 16 107/61 98 08/27/16 09:50 08/27/16 09:50 08/27/16 09:50 08/27/16 09:50 08/27/16 09:50 Laboratory Results - last 24 hr 08/26/16 08/26/16 08/26/16 14:30 15:33 18:00 WBC RBC Hgb Hct MCV MCH MCHC RDW Plt Count MPV Neutrophils % Lymphocytes % Monocytes % Band Neutrophils Platelet Estimate Anisocytosis Macrocytosis Sodium Potassium Chloride Carbon Dioxide Anion Gap BUN Creatinine Creat Clearance w eGFR POC Glucometer 272 Random Glucose Lactic Acid 2.0 Calcium Phosphorus Magnesium Total Bilirubin AST ALT Alkaline Phosphatase Total Protein Albumin U Random Total Protein Ur Random Sodium 6 Ur Random Urea Nitrogn Urine Creatinine 49.2 08/26/16 08/26/16 08/27/16 18:00 18:00 05:20 WBC 15.6 H RBC 2.65 L Hgb 8.8 L Hct 27.3 L MCV 102.9 H MCH 33.3 MCHC 32.3 RDW 16.3 H Plt Count 255 MPV 9.2 Neutrophils % 96.0 H Lymphocytes % 1.0 L D Monocytes % 1.0 L Band Neutrophils 2.0 D Platelet Estimate Adequate Anisocytosis 1+ Macrocytosis 1+ Sodium Potassium Chloride Carbon Dioxide Anion Gap BUN Creatinine Creat Clearance w eGFR POC Glucometer Random Glucose Lactic Acid Calcium Phosphorus Magnesium Total Bilirubin AST ALT Alkaline Phosphatase Total Protein Albumin U Random Total Protein 129 H Ur Random Sodium Ur Random Urea Nitrogn 1168 Urine Creatinine 08/27/16 08/27/16 08/27/16 05:20 05:20 06:06 WBC RBC Hgb Hct MCV MCH MCHC RDW Plt Count MPV Neutrophils % Lymphocytes % Monocytes % Band Neutrophils Platelet Estimate Anisocytosis Macrocytosis Sodium 150 H Potassium 4.5 Chloride 115 H Carbon Dioxide 27 Anion Gap 8 BUN 76 H Creatinine 1.4 H Creat Clearance w eGFR 36.09 POC Glucometer 175 Random Glucose 162 H Lactic Acid 2.2 H* Calcium 8.4 L Phosphorus 3.3 D Magnesium 3.0 H D Total Bilirubin 0.3 D AST 46 H D ALT 52 Alkaline Phosphatase 123 H D Total Protein 5.4 L Albumin 1.7 L U Random Total Protein Ur Random Sodium Ur Random Urea Nitrogn Urine Creatinine 08/27/16 12:25 WBC RBC Hgb Hct MCV MCH MCHC RDW Plt Count MPV Neutrophils % Lymphocytes % Monocytes % Band Neutrophils Platelet Estimate Anisocytosis Macrocytosis Sodium Potassium Chloride Carbon Dioxide Anion Gap BUN Creatinine Creat Clearance w eGFR POC Glucometer 199 Random Glucose Lactic Acid Calcium Phosphorus Magnesium Total Bilirubin AST ALT Alkaline Phosphatase Total Protein Albumin U Random Total Protein Ur Random Sodium Ur Random Urea Nitrogn Urine Creatinine Constitutional: Yes: Lethargic, Tachypneic Cardiovascular: Yes: Tachycardia, Pulse Irregular Respiratory: Yes: 100% NRBM, bilateral Rales/Rhonchi Gastrointestinal: Yes: Soft, (+) PEG tube, (+) BS Edema: No Neurological: Yes: Lethargy Labs: Laboratory Results - last 24 hr 08/26/16 08/26/16 08/26/16 14:30 15:33 18:00 WBC RBC Hgb Hct MCV MCH MCHC RDW Plt Count MPV Neutrophils % Lymphocytes % Monocytes % Band Neutrophils Platelet Estimate Anisocytosis Macrocytosis Sodium Potassium Chloride Carbon Dioxide Anion Gap BUN Creatinine Creat Clearance w eGFR POC Glucometer 272 Random Glucose Lactic Acid 2.0 Calcium Phosphorus Magnesium Total Bilirubin AST ALT Alkaline Phosphatase Total Protein Albumin U Random Total Protein Ur Random Sodium 6 Ur Random Urea Nitrogn Urine Creatinine 49.2 08/26/16 08/26/16 08/27/16 18:00 18:00 05:20 WBC 15.6 H RBC 2.65 L Hgb 8.8 L Hct 27.3 L MCV 102.9 H MCH 33.3 MCHC 32.3 RDW 16.3 H Plt Count 255 MPV 9.2 Neutrophils % 96.0 H Lymphocytes % 1.0 L D Monocytes % 1.0 L Band Neutrophils 2.0 D Platelet Estimate Adequate Anisocytosis 1+ Macrocytosis 1+ Sodium Potassium Chloride Carbon Dioxide Anion Gap BUN Creatinine Creat Clearance w eGFR POC Glucometer Random Glucose Lactic Acid Calcium Phosphorus Magnesium Total Bilirubin AST ALT Alkaline Phosphatase Total Protein Albumin U Random Total Protein 129 H Ur Random Sodium Ur Random Urea Nitrogn 1168 Urine Creatinine 08/27/16 08/27/16 08/27/16 05:20 05:20 06:06 WBC RBC Hgb Hct MCV MCH MCHC RDW Plt Count MPV Neutrophils % Lymphocytes % Monocytes % Band Neutrophils Platelet Estimate Anisocytosis Macrocytosis Sodium 150 H Potassium 4.5 Chloride 115 H Carbon Dioxide 27 Anion Gap 8 BUN 76 H Creatinine 1.4 H Creat Clearance w eGFR 36.09 POC Glucometer 175 Random Glucose 162 H Lactic Acid 2.2 H* Calcium 8.4 L Phosphorus 3.3 D Magnesium 3.0 H D Total Bilirubin 0.3 D AST 46 H D ALT 52 Alkaline Phosphatase 123 H D Total Protein 5.4 L Albumin 1.7 L U Random Total Protein Ur Random Sodium Ur Random Urea Nitrogn Urine Creatinine 08/27/16 12:25 WBC RBC Hgb Hct MCV MCH MCHC RDW Plt Count MPV Neutrophils % Lymphocytes % Monocytes % Band Neutrophils Platelet Estimate Anisocytosis Macrocytosis Sodium Potassium Chloride Carbon Dioxide Anion Gap BUN Creatinine Creat Clearance w eGFR POC Glucometer 199 Random Glucose Lactic Acid Calcium Phosphorus Magnesium Total Bilirubin AST ALT Alkaline Phosphatase Total Protein Albumin U Random Total Protein Ur Random Sodium Ur Random Urea Nitrogn Urine Creatinine Problem List - Problems (1) Aspiration pneumonia Code(s): J69.0 - PNEUMONITIS DUE TO INHALATION OF FOOD AND VOMIT Qualifiers: Aspiration pneumonia type: unspecified Laterality: unspecified laterality Lung location: unspecified part of lung Qualified Code(s) : J69.0 - Pneumonitis due to inhalation of food and vomit (2) Hypoxia Code(s): R09.02 - HYPOXEMIA (3) Leukocytosis Code(s): D72.829 - ELEVATED WHITE BLOOD CELL COUNT, UNSPECIFIED (4) Anemia Code(s): D64.9 - ANEMIA, UNSPECIFIED (5) Aspiration into airway Code(s): T17.908A - UNSP FB IN RESP TRACT, PART UNSP CAUSING OTH INJURY, INIT (6) COPD (chronic obstructive pulmonary disease) Code(s): J44.9 - CHRONIC OBSTRUCTIVE PULMONARY DISEASE, UNSPECIFIED (7) Diabetes Code(s): E11.9 - TYPE 2 DIABETES MELLITUS WITHOUT COMPLICATIONS Qualifiers: Diabetes mellitus type: type 2 Diabetes mellitus complication status: with unspecified complications (8) Failure to thrive Code(s): MSX6381 - (9) Intracerebral hemorrhage Code(s): I61.9 - NONTRAUMATIC INTRACEREBRAL HEMORRHAGE, UNSPECIFIED Qualifiers : Cerebral hemorrhage location: cerebral hemisphere, cortical portion (10) Respiratory failure with hypoxia Code(s): J96.91 - RESPIRATORY FAILURE, UNSPECIFIED WITH HYPOXIA Qualifiers: Chronicity: acute Qualified Code(s): J96.01 - Acute respiratory failure with hypoxia (11) Lactate blood increased Code(s): R79.89 - OTHER SPECIFIED ABNORMAL FINDINGS OF BLOOD CHEMISTRY IMP ACUTE HYPOXEMIC RESPIRATORY FAILURE LIKELY ASPIRATION S/P ICH ACUTE ON CHRONIC RENAL FAILURE COPD DEMENTIA S/P PEG ELEVATED LACTATE LEVEL PLAN IV ANTIBIOTICS PER ID O2 TO MAINTAIN O2 SAT 90% TREND LACTATE MONITOR LYTES,RENAL FUNCTION DUE TO AMS WOULD NOT PLACE ON NIPPV THIS WILL GREATLY INCREASE HER ASPIRATION RISK DNR/DNI DR FERNANDO
[2016-08-27] MEDS: DEXTROSE 5%-0.45% SALINE 1,000 ML IV SCH (12:45)
--- NOTE | 2016-08-27 15:39 | PN ---
Progress Note, Physician History of Present Illness: Pt chart reviewed/examined Noted to have cough Currently afebrile, weak - Current Medication List Current Medications: Active Medications Acetaminophen (Tylenol Oral Solution -) 325 mg PO Q4H PRN PRN Reason: FEVER OR PAIN Albuterol/Ipratropium (Duoneb -) 1 amp NEB Q6H PRN Last Admin: 08/27/16 11:27 Dose: 1 amp Atorvastatin Calcium (Lipitor -) 40 mg GT HS [facility] Last Admin: 08/26/16 22:16 Dose: 40 mg Bacitracin (Bacitracin -) 1 applic TP BID [facility] Last Admin: 08/27/16 10:12 Dose: 1 applic Heparin Sodium (Porcine) (Heparin -) 5,000 unit SQ BID [facility] Last Admin: 08/27/16 09:50 Dose: 5,000 unit Piperacillin Sod/Tazobactam Sod (Zosyn 2.25gm Ivpb (Pre-Docked)) 50 mls @ 100 mls/hr IVPB Q6H-IV [facility] PRN Reason: Protocol Dextrose/Sodium Chloride (D5-1/2ns -) 1,000 mls @ 75 mls/hr IV ASDIR [facility] Last Admin: 08/27/16 12:45 Dose: 75 mls/hr Insulin Aspart (Novolog Vial Sliding Scale -) 1 vial SQ TIDAC [facility] PRN Reason: Protocol Last Admin: 08/27/16 12:33 Dose: 2 units Levetiracetam (Keppra Oral Solution -) 500 mg GT BID [facility] Last Admin: 08/27/16 09:51 Dose: 500 mg Levothyroxine Sodium (Synthroid -) 125 mcg GT DAILY@0700 [facility] Last Admin: 08/27/16 06:19 Dose: 125 mcg Metoclopramide HCl (Reglan Oral Solution -) 5 mg PEG TID [facility] Last Admin: 08/27/16 14:29 Dose: 5 mg Metoprolol Tartrate (Lopressor -) 25 mg PO BID [facility] Potassium Chloride (Potassium Chloride Oral Liquid) 20 meq GT DAILY [facility] Last Admin: 08/27/16 09:52 Dose: 20 meq - Objective Vital Signs: Vital Signs Temperature 97.5 F L 08/27/16 15:00 Pulse Rate 66 08/27/16 15:00 Respiratory Rate 18 08/27/16 15:00 Blood Pressure 96/52 08/27/16 15:00 O2 Sat by Pulse Oximetry (%) 98 08/27/16 09:50 Constitutional: Yes: Cachectic, Mild Distress Respiratory: Yes: Cough, Rhonchi Gastrointestinal: Yes: WNL, Soft Labs: CBC, BMP 08/27/16 05:20 08/27/16 05:20 Microbiology 08/25/16 17:12 Urine - Urine Carpenter Urine Culture - Final NO GROWTH OBTAINED 08/25/16 17:39 Blood - Peripheral Venous Blood Culture - Preliminary NO GROWTH OBTAINED AFTER 24 HOURS, INCUBATION TO CONTINUE FOR 4 DAYS. - ....Imaging Chest X-ray: Report Reviewed Problem List - Problems (1) Aspiration pneumonia Code(s): J69.0 - PNEUMONITIS DUE TO INHALATION OF FOOD AND VOMIT Qualifiers: Aspiration pneumonia type: unspecified Laterality: unspecified laterality Lung location: unspecified part of lung Qualified Code(s) : J69.0 - Pneumonitis due to inhalation of food and vomit (2) COPD (chronic obstructive pulmonary disease) with acute bronchitis Code(s): J44.0 - CHRONIC OBSTRUCTIVE PULMON DISEASE W ACUTE LOWER RESP INFCT (3) Hypoxia Code(s): R09.02 - HYPOXEMIA (4) Lactate blood increased Code(s): R79.89 - OTHER SPECIFIED ABNORMAL FINDINGS OF BLOOD CHEMISTRY (5) Leukocytosis Code(s): D72.829 - ELEVATED WHITE BLOOD CELL COUNT, UNSPECIFIED (6) Acute renal failure (ARF) Code(s): N17.9 - ACUTE KIDNEY FAILURE, UNSPECIFIED (7) Aspiration into airway Code(s): T17.908A - UNSP FB IN RESP TRACT, PART UNSP CAUSING OTH INJURY, INIT (8) Congestive heart failure (CHF) Code(s): I50.9 - HEART FAILURE, UNSPECIFIED (9) Failure to thrive Code(s): NEQ9756 - (10) Intracerebral hemorrhage Code(s): I61.9 - NONTRAUMATIC INTRACEREBRAL HEMORRHAGE, UNSPECIFIED Qualifiers : Cerebral hemorrhage location: cerebral hemisphere, cortical portion (11) Aspiration pneumonitis Code(s): J69.0 - PNEUMONITIS DUE TO INHALATION OF FOOD AND VOMIT Assessment/Plan Continue Zosyn for now repeat cbc/bmp/lactate - monitor wbc trend, temperatures continue supportive measures monitor closely
[2016-08-27] MEDS: PIPERACILLIN/TAZOB 2.25 GM 50 ML IVPB SCH ×2 (16:04→22:44)
[2016-08-27] MEDS: METOPROLOL TARTRATE 25 MG TABLET (FP) PO SCH (22:44)
[2016-08-27] MEDS: ATORVASTATIN CA 40 MG TABLET (FP) GT SCH (22:44)
[2016-08-28] MEDS: PIPERACILLIN/TAZOB 2.25 GM 50 ML IVPB SCH ×4 (03:27→22:44)
[2016-08-28] MEDS ORDERED: PT OWN MED DRAWER 7, Y5N ONE ×2 (05:09→22:04)
[2016-08-28] MEDS: METOCLOPRAMIDE HCL 5 MG/5 ML UNIT DOSE CUP PEG SCH ×3 (05:25→22:46)
[2016-08-28] MEDS: LEVOTHYROXINE NA 125 MCG TABLET (FP) GT SCH (06:10)
[2016-08-28] MEDS: INSULIN SLIDING SCALE (NOVOLOG) 1 VIAL SQ SCH ×3 (06:10→17:18)
[2016-08-28 08:08] LABS: MCHC 32.3 g/dl (32.0-36.0); MEAN CELL VOLUME 102.1 fl (80-96); MEAN PLT VOLUME 9.2 fl (7.5-11.1); PLATELET COUNT 247 K/MM3 (134-434); RDW 16.4 % (11.6-15.6); WHITE BLOOD COUNT 13.5 K/mm3 (4.0-10.0)
[2016-08-28 08:37] LABS: ALBUMIN 1.6 g/dl (3.4-5.0); ANION GAP 5 (8-16); CALCIUM 8.6 mg/dL (8.5-10.1); CO2 29 mmol/L (21-32); GLUCOSE,RANDOM 126 mg/dL (74-106)
[2016-08-28 08:41] LABS: ALK PHOS 89 U/L (45-117); BILIRUBIN,TOTAL 0.3 mg/dL (0.2-1.0); CREATININE 1.2 mg/dL (0.55-1.02); SGOT/AST 51 U/L (15-37); SGPT/ALT 56 U/L (12-78); TOT PROT 5.2 g/dl (6.4-8.2)
[2016-08-28] MEDS: METOPROLOL TARTRATE 25 MG TABLET (FP) PO SCH (09:13)
[2016-08-28] MEDS: levETIRAcetam 500 MG/5 ML ORAL SOLUTION (UNIT-DOSE CUPS) GT SCH ×2 (09:14→22:45)
[2016-08-28] MEDS: MULTIVIT-MINERALS 236 ML ML GT SCH (09:14)
[2016-08-28] MEDS: HEPARIN NA (PORCINE) 5,000 UNITS/ML 1ML VIAL SQ SCH ×2 (09:15→22:45)
[2016-08-28] MEDS: BACITRACIN 15 GM TUBE TOPICAL OINTMENT TP SCH ×2 (09:15→22:45)
[2016-08-28 10:22] LABS: PLATELET ESTIMATE ADEQUATE (NORMAL)
--- NOTE | 2016-08-28 11:47 | PN ---
Progress Note, Physician History of Present Illness: Family at bedside, reviewed CV status Tele reviewed: spontaneously converted to NSR at 2PM 08/27 Remains in NSR now - Current Medication List Current Medications: Active Medications Acetaminophen (Tylenol Oral Solution -) 325 mg PO Q4H PRN PRN Reason: FEVER OR PAIN Albuterol/Ipratropium (Duoneb -) 1 amp NEB Q6H PRN Last Admin: 08/27/16 11:27 Dose: 1 amp Atorvastatin Calcium (Lipitor -) 40 mg GT HS [facility] Last Admin: 08/27/16 22:44 Dose: 40 mg Bacitracin (Bacitracin -) 1 applic TP BID [facility] Last Admin: 08/28/16 09:15 Dose: 1 applic Heparin Sodium (Porcine) (Heparin -) 5,000 unit SQ BID [facility] Last Admin: 08/28/16 09:15 Dose: 5,000 unit Piperacillin Sod/Tazobactam Sod (Zosyn 2.25gm Ivpb (Pre-Docked)) 50 mls @ 100 mls/hr IVPB Q6H-IV [facility] PRN Reason: Protocol Last Admin: 08/28/16 09:14 Dose: 100 mls/hr Dextrose/Sodium Chloride (D5-1/2ns -) 1,000 mls @ 75 mls/hr IV ASDIR [facility] Last Admin: 08/27/16 12:45 Dose: 75 mls/hr Insulin Aspart (Novolog Vial Sliding Scale -) 1 vial SQ TIDAC [facility] PRN Reason: Protocol Last Admin: 08/28/16 06:10 Dose: Not Given Levetiracetam (Keppra Oral Solution -) 500 mg GT BID [facility] Last Admin: 08/28/16 09:14 Dose: 500 mg Levothyroxine Sodium (Synthroid -) 125 mcg GT DAILY@0700 [facility] Last Admin: 08/28/16 06:10 Dose: 125 mcg Metoclopramide HCl (Reglan Oral Solution -) 5 mg PEG TID [facility] Last Admin: 08/28/16 05:25 Dose: 5 mg Metoprolol Tartrate (Lopressor -) 25 mg PO BID [facility] Last Admin: 08/28/16 09:13 Dose: 25 mg Potassium Chloride (Potassium Chloride Oral Liquid) 20 meq GT DAILY [facility] Last Admin: 08/27/16 09:52 Dose: 20 meq - Objective Vital Signs: Vital Signs Temperature 98 F 07/23/17 07:52 Pulse Rate 66 08/28/16 07:52 Respiratory Rate 16 08/28/16 08:00 Blood Pressure 105/55 08/28/16 07:52 O2 Sat by Pulse Oximetry (%) 100 08/28/16 08:00 Constitutional: Yes: Cachectic, Mild Distress HENT: Yes: WNL, Atraumatic Neck: Yes: WNL Cardiovascular: Yes: Regular Rate and Rhythm, Murmur Respiratory: Yes: On Venti-Mask, Poor Air Entry Gastrointestinal: Yes: Normal Bowel Sounds Extremities: Yes: WNL Edema: No Labs: CBC, BMP 08/28/16 05:50 08/28/16 05:50 Assessment/Plan acute hypoxic resp failure, PNA: -abx per ID/pmd -no signs chf or acs -recet echo with normal LV fxn and no severe valvular dysfunction -likely no volume overload with intravasc depletion Afib -With RVR likely related to ongoing pneumonia -Would no AC this patient with recent ICH -Asa 81mg daily -08/28: Spontaneously converted to NSR, continue metoprolol 25mg PO BID (monitor for worsening COPD) HTN: -bp low -Hold amlodipine DM: -per pmd recent ICH: -seen by neuro/neurosurgery, no intervention was planned chronic malnutrition: -s/p PEG, gets tube feeds copd: -per pulm hld: -on statin
--- NOTE | 2016-08-28 12:31 | PN ---
Progress Note (short form) - Note Progress Note: Patient seen and examined in the Telemetry unit. Remains lethargic and tachypneic on 100% NRBM. No significant clinical improvement noted. Intake & Output 08/25/16 08/26/16 08/27/16 08/28/16 23:59 23:59 23:59 23:59 Intake Total 1570 3200 800 Balance 1570 3200 800 Weight 115 lb 115 lb Last Vital Signs Temp Pulse Resp BP Pulse Ox 98 F 66 16 105/55 100 08/28/16 07:52 08/28/16 07:52 08/28/16 08:00 08/28/16 07:52 08/28/16 08:00 Active Medications Acetaminophen (Tylenol Oral Solution -) 325 mg PO Q4H PRN PRN Reason: FEVER OR PAIN Albuterol/Ipratropium (Duoneb -) 1 amp NEB Q6H PRN Last Admin: 08/27/16 11:27 Dose: 1 amp Atorvastatin Calcium (Lipitor -) 40 mg GT HS [facility] Last Admin: 08/27/16 22:44 Dose: 40 mg Bacitracin (Bacitracin -) 1 applic TP BID [facility] Last Admin: 08/28/16 09:15 Dose: 1 applic Heparin Sodium (Porcine) (Heparin -) 5,000 unit SQ BID [facility] Last Admin: 08/28/16 09:15 Dose: 5,000 unit Piperacillin Sod/Tazobactam Sod (Zosyn 2.25gm Ivpb (Pre-Docked)) 50 mls @ 100 mls/hr IVPB Q6H-IV [facility] PRN Reason: Protocol Last Admin: 08/28/16 09:14 Dose: 100 mls/hr Dextrose/Sodium Chloride (D5-1/2ns -) 1,000 mls @ 75 mls/hr IV ASDIR [facility] Last Admin: 08/27/16 12:45 Dose: 75 mls/hr Insulin Aspart (Novolog Vial Sliding Scale -) 1 vial SQ TIDAC [facility] PRN Reason: Protocol Last Admin: 08/28/16 11:55 Dose: Not Given Levetiracetam (Keppra Oral Solution -) 500 mg GT BID [facility] Last Admin: 08/28/16 09:14 Dose: 500 mg Levothyroxine Sodium (Synthroid -) 125 mcg GT DAILY@0700 [facility] Last Admin: 08/28/16 06:10 Dose: 125 mcg Metoclopramide HCl (Reglan Oral Solution -) 5 mg PEG TID [facility] Last Admin: 08/28/16 05:25 Dose: 5 mg Metoprolol Tartrate (Lopressor -) 25 mg PO BID [facility] Last Admin: 08/28/16 09:13 Dose: 25 mg Potassium Chloride (Potassium Chloride Oral Liquid) 20 meq GT DAILY [facility] Last Admin: 08/27/16 09:52 Dose: 20 meq Constitutional: Yes: Lethargic, Tachypneic Cardiovascular: Yes: Tachycardia, Pulse Irregular Respiratory: Yes: 100% NRBM, bilateral Rales/Rhonchi Gastrointestinal: Yes: Soft, (+) PEG tube, (+) BS Edema: No Neurological: Yes: Lethargy Labs: Laboratory Results - last 24 hr 08/27/16 08/27/16 08/28/16 12:25 18:17 05:24 WBC RBC Hgb Hct MCV MCH MCHC RDW Plt Count MPV Neutrophils % Lymphocytes % Monocytes % Platelet Estimate Platelet Comment Sodium Potassium Chloride Carbon Dioxide Anion Gap BUN Creatinine Creat Clearance w eGFR POC Glucometer 199 134 144 Random Glucose Calcium Total Bilirubin AST ALT Alkaline Phosphatase Total Protein Albumin 08/28/16 08/28/16 08/28/16 05:50 05:50 11:54 WBC 13.5 H RBC 2.41 L Hgb 8.0 L Hct 24.6 L MCV 102.1 H MCH 33.0 MCHC 32.3 RDW 16.4 H Plt Count 247 MPV 9.2 Neutrophils % 92.0 H Lymphocytes % 3.0 L D Monocytes % 5.0 D Platelet Estimate Adequate Platelet Comment No clumping noted Sodium 150 H Potassium 4.1 Chloride 116 H Carbon Dioxide 29 Anion Gap 5 L BUN 64 H Creatinine 1.2 H Creat Clearance w eGFR 43.12 POC Glucometer 145 Random Glucose 126 H D Calcium 8.6 Total Bilirubin 0.3 AST 51 H ALT 56 Alkaline Phosphatase 89 D Total Protein 5.2 L Albumin 1.6 L Problem List - Problems (1) Aspiration pneumonia Code(s): J69.0 - PNEUMONITIS DUE TO INHALATION OF FOOD AND VOMIT Qualifiers: Aspiration pneumonia type: unspecified Laterality: unspecified laterality Lung location: unspecified part of lung Qualified Code(s) : J69.0 - Pneumonitis due to inhalation of food and vomit (2) Hypoxia Code(s): R09.02 - HYPOXEMIA (3) Leukocytosis Code(s): D72.829 - ELEVATED WHITE BLOOD CELL COUNT, UNSPECIFIED (4) Anemia Code(s): D64.9 - ANEMIA, UNSPECIFIED (5) Aspiration into airway Code(s): T17.908A - UNSP FB IN RESP TRACT, PART UNSP CAUSING OTH INJURY, INIT (6) COPD (chronic obstructive pulmonary disease) Code(s): J44.9 - CHRONIC OBSTRUCTIVE PULMONARY DISEASE, UNSPECIFIED (7) Diabetes Code(s): E11.9 - TYPE 2 DIABETES MELLITUS WITHOUT COMPLICATIONS Qualifiers: Diabetes mellitus type: type 2 Diabetes mellitus complication status: with unspecified complications (8) Failure to thrive Code(s): [id number] - (9) Intracerebral hemorrhage Code(s): I61.9 - NONTRAUMATIC INTRACEREBRAL HEMORRHAGE, UNSPECIFIED Qualifiers : Cerebral hemorrhage location: cerebral hemisphere, cortical portion (10) Respiratory failure with hypoxia Code(s): J96.91 - RESPIRATORY FAILURE, UNSPECIFIED WITH HYPOXIA Qualifiers: Chronicity: acute Qualified Code(s): J96.01 - Acute respiratory failure with hypoxia (11) Lactate blood increased Code(s): R79.89 - OTHER SPECIFIED ABNORMAL FINDINGS OF BLOOD CHEMISTRY IMP ACUTE HYPOXEMIC RESPIRATORY FAILURE LIKELY ASPIRATION S/P ICH ACUTE ON CHRONIC RENAL FAILURE COPD DEMENTIA S/P PEG ELEVATED LACTATE LEVEL PLAN IV ANTIBIOTICS PER ID O2 TO MAINTAIN O2 SAT > 90% TREND LACTATE MONITOR LYTES,RENAL FUNCTION DUE TO AMS WOULD NOT PLACE ON NIPPV THIS WILL GREATLY INCREASE HER ASPIRATION RISK DNR/DNI COMFORT/SUPPORTIVE CARE DR FERNANDO
--- NOTE | 2016-08-28 12:44 | PN ---
Progress Note, Physician History of Present Illness: Pt on ventimask, weak, nonverbal mild resp distress afebrile - Current Medication List Current Medications: Active Medications Acetaminophen (Tylenol Oral Solution -) 325 mg PO Q4H PRN PRN Reason: FEVER OR PAIN Albuterol/Ipratropium (Duoneb -) 1 amp NEB Q6H PRN Last Admin: 08/27/16 11:27 Dose: 1 amp Atorvastatin Calcium (Lipitor -) 40 mg GT HS [facility] Last Admin: 08/27/16 22:44 Dose: 40 mg Bacitracin (Bacitracin -) 1 applic TP BID [facility] Last Admin: 08/28/16 09:15 Dose: 1 applic Heparin Sodium (Porcine) (Heparin -) 5,000 unit SQ BID [facility] Last Admin: 08/28/16 09:15 Dose: 5,000 unit Piperacillin Sod/Tazobactam Sod (Zosyn 2.25gm Ivpb (Pre-Docked)) 50 mls @ 100 mls/hr IVPB Q6H-IV [facility] PRN Reason: Protocol Last Admin: 08/28/16 09:14 Dose: 100 mls/hr Dextrose/Sodium Chloride (D5-1/2ns -) 1,000 mls @ 75 mls/hr IV ASDIR [facility] Last Admin: 08/27/16 12:45 Dose: 75 mls/hr Insulin Aspart (Novolog Vial Sliding Scale -) 1 vial SQ TIDAC [facility] PRN Reason: Protocol Last Admin: 08/28/16 11:55 Dose: Not Given Levetiracetam (Keppra Oral Solution -) 500 mg GT BID [facility] Last Admin: 08/28/16 09:14 Dose: 500 mg Levothyroxine Sodium (Synthroid -) 125 mcg GT DAILY@0700 [facility] Last Admin: 08/28/16 06:10 Dose: 125 mcg Metoclopramide HCl (Reglan Oral Solution -) 5 mg PEG TID [facility] Last Admin: 08/28/16 05:25 Dose: 5 mg Metoprolol Tartrate (Lopressor -) 25 mg PO BID [facility] Last Admin: 08/28/16 09:13 Dose: 25 mg Potassium Chloride (Potassium Chloride Oral Liquid) 20 meq GT DAILY [facility] Last Admin: 08/27/16 09:52 Dose: 20 meq - Objective Vital Signs: Vital Signs Temperature 98 F 08/28/16 07:52 Pulse Rate 66 08/28/16 07:52 Respiratory Rate 16 08/28/16 08:00 Blood Pressure 105/55 08/28/16 07:52 O2 Sat by Pulse Oximetry (%) 100 08/28/16 08:00 Constitutional: Yes: Mild Distress Respiratory: Yes: On Venti-Mask, Other (less rhonchi) Labs: CBC, BMP 08/28/16 05:50 08/28/16 05:50 Microbiology 08/25/16 17:39 Blood - Peripheral Venous Blood Culture - Preliminary NO GROWTH OBTAINED AFTER 48 HOURS, INCUBATION TO CONTINUE FOR 3 DAYS. 08/25/16 17:12 Urine - Urine Carpenter Urine Culture - Final NO GROWTH OBTAINED Problem List - Problems (1) Aspiration pneumonia Code(s): J69.0 - PNEUMONITIS DUE TO INHALATION OF FOOD AND VOMIT Qualifiers: Aspiration pneumonia type: unspecified Laterality: unspecified laterality Lung location: unspecified part of lung Qualified Code(s) : J69.0 - Pneumonitis due to inhalation of food and vomit (2) COPD (chronic obstructive pulmonary disease) with acute bronchitis Code(s): J44.0 - CHRONIC OBSTRUCTIVE PULMON DISEASE W ACUTE LOWER RESP INFCT (3) Hypoxia Code(s): R09.02 - HYPOXEMIA (4) Lactate blood increased Code(s): R79.89 - OTHER SPECIFIED ABNORMAL FINDINGS OF BLOOD CHEMISTRY (5) Leukocytosis Code(s): D72.829 - ELEVATED WHITE BLOOD CELL COUNT, UNSPECIFIED (6) Acute renal failure (ARF) Code(s): N17.9 - ACUTE KIDNEY FAILURE, UNSPECIFIED (7) Aspiration into airway Code(s): T17.908A - UNSP FB IN RESP TRACT, PART UNSP CAUSING OTH INJURY, INIT (8) Congestive heart failure (CHF) Code(s): I50.9 - HEART FAILURE, UNSPECIFIED (9) Failure to thrive Code(s): [id number] - (10) Intracerebral hemorrhage Code(s): I61.9 - NONTRAUMATIC INTRACEREBRAL HEMORRHAGE, UNSPECIFIED Qualifiers : Cerebral hemorrhage location: cerebral hemisphere, cortical portion (11) Aspiration pneumonitis Code(s): J69.0 - PNEUMONITIS DUE TO INHALATION OF FOOD AND VOMIT Assessment/Plan Pt with less cough, O2 saturation 98% Afebrile, with less distress leukocytosis improved - continue Zosyn IV - monitor wbc, repeat lactate - continue supportive care - aspiration precautions
--- NOTE | 2016-08-28 13:02 | PN ---
Progress Note, Physician Chief Complaint: Seems to respond to directions today and is more comfortable on O2. History of Present Illness: Patient with multiple medical problems converted back to NSR today and appears less SOB. She seemed to uncomfortable when moved but is resting now. Also since the PEG feedings were stopped there has been no coughing or congestion. Maybe a trial Monday to see if those symptoms recur. She continues DNR/DNI. Hb down to 8 GM; to repeat and order guiacs. - Current Medication List Current Medications: Active Medications Acetaminophen (Tylenol Oral Solution -) 325 mg PO Q4H PRN PRN Reason: FEVER OR PAIN Albuterol/Ipratropium (Duoneb -) 1 amp NEB Q6H PRN Last Admin: 08/27/16 11:27 Dose: 1 amp Atorvastatin Calcium (Lipitor -) 40 mg GT HS [facility] Last Admin: 08/27/16 22:44 Dose: 40 mg Bacitracin (Bacitracin -) 1 applic TP BID [facility] Last Admin: 08/28/16 09:15 Dose: 1 applic Heparin Sodium (Porcine) (Heparin -) 5,000 unit SQ BID [facility] Last Admin: 08/28/16 09:15 Dose: 5,000 unit Piperacillin Sod/Tazobactam Sod (Zosyn 2.25gm Ivpb (Pre-Docked)) 50 mls @ 100 mls/hr IVPB Q6H-IV [facility] PRN Reason: Protocol Last Admin: 08/28/16 09:14 Dose: 100 mls/hr Dextrose/Sodium Chloride (D5-1/2ns -) 1,000 mls @ 75 mls/hr IV ASDIR [facility] Last Admin: 08/27/16 12:45 Dose: 75 mls/hr Insulin Aspart (Novolog Vial Sliding Scale -) 1 vial SQ TIDAC [facility] PRN Reason: Protocol Last Admin: 08/28/16 11:55 Dose: Not Given Levetiracetam (Keppra Oral Solution -) 500 mg GT BID [facility] Last Admin: 08/28/16 09:14 Dose: 500 mg Levothyroxine Sodium (Synthroid -) 125 mcg GT DAILY@0700 [facility] Last Admin: 08/28/16 06:10 Dose: 125 mcg Metoclopramide HCl (Reglan Oral Solution -) 5 mg PEG TID [facility] Last Admin: 08/28/16 05:25 Dose: 5 mg Metoprolol Tartrate (Lopressor -) 25 mg PO BID [facility] Last Admin: 08/28/16 09:13 Dose: 25 mg Potassium Chloride (Potassium Chloride Oral Liquid) 20 meq GT DAILY [facility] Last Admin: 08/27/16 09:52 Dose: 20 meq - Objective Vital Signs: Vital Signs Temperature 98 F 08/28/16 07:52 Pulse Rate 66 08/28/16 07:52 Respiratory Rate 16 08/28/16 08:00 Blood Pressure 105/55 08/28/16 07:52 O2 Sat by Pulse Oximetry (%) 100 08/28/16 08:00 Constitutional: Yes: Calm, Pallor Cardiovascular: Yes: Regular Rate and Rhythm Respiratory: Yes: Diminished, Rhonchi (few at bases) Gastrointestinal: Yes: Hyperactive Bowel Sounds Edema: No Neurological: Yes: Lethargy Labs: CBC, BMP 08/28/16 05:50 08/28/16 05:50 Problem List - Problems (1) Atrial fibrillation Assessment/Plan: Converted to NSR this AM; continues on Metoprolol. Code(s): I48.91 - UNSPECIFIED ATRIAL FIBRILLATION (2) Hypernatremia Assessment/Plan: Na still 150; will follow; now on D5W 1/2NS Code(s): E87.0 - HYPEROSMOLALITY AND HYPERNATREMIA (3) Lactate blood increased Code(s): R79.89 - OTHER SPECIFIED ABNORMAL FINDINGS OF BLOOD CHEMISTRY (4) Leukocytosis Assessment/Plan: Lower at 13,500. Code(s): D72.829 - ELEVATED WHITE BLOOD CELL COUNT, UNSPECIFIED (5) Acute renal failure (ARF) Assessment/Plan: Renal lab still elevated but stable Code(s): N17.9 - ACUTE KIDNEY FAILURE, UNSPECIFIED (6) COPD (chronic obstructive pulmonary disease) with acute bronchitis Assessment/Plan: Less coughing and congestion today when tube feedings have stopped. Code(s): J44.0 - CHRONIC OBSTRUCTIVE PULMON DISEASE W ACUTE LOWER RESP INFCT
[2016-08-28] MEDS: POTASSIUM CHLORIDE ORAL LIQUID 20 MEQ/15 ML GT SCH (15:10)
[2016-08-28] MEDS: DEXTROSE 5%-0.45% SALINE 1,000 ML IV SCH (15:10)
[2016-08-28] MEDS ORDERED: AMIODARONE HCL INJECTION 450 MG in DEXTROSE 5%-WATER - 241 ML IVPB SCH (18:45)
[2016-08-28] MEDS ORDERED: AMIODARONE HCL 150 MG/3 ML VIAL IVPB ONE (18:45)
[2016-08-28] MEDS: ATORVASTATIN CA 40 MG TABLET (FP) GT SCH (22:45)
[2016-08-29] MEDS: PIPERACILLIN/TAZOB 2.25 GM 50 ML IVPB SCH ×4 (04:15→21:43)
[2016-08-29] MEDS ORDERED: PT OWN MED DRAWER 7, Y5N ONE ×2 (05:26→21:20)
[2016-08-29] MEDS: METOCLOPRAMIDE HCL 5 MG/5 ML UNIT DOSE CUP PEG SCH ×3 (06:05→21:44)
[2016-08-29] MEDS: LEVOTHYROXINE NA 125 MCG TABLET (FP) GT SCH (06:05)
[2016-08-29] MEDS: INSULIN SLIDING SCALE (NOVOLOG) 1 VIAL SQ SCH ×3 (06:05→16:57)
[2016-08-29] MEDS: ALBUTEROL SO4 2.5/IPRATROPIUM 0.5 INH SOL 3 ML VIAL.NEB. NEB PRN (06:20)
[2016-08-29 07:07] LABS: MCH 33.4 pg (25.7-33.7); MEAN CELL VOLUME 101.3 fl (80-96); MEAN PLT VOLUME 9.2 fl (7.5-11.1); PLATELET COUNT 276 K/MM3 (134-434); RDW 16.2 % (11.6-15.6); WHITE BLOOD COUNT 14.6 K/mm3 (4.0-10.0)
[2016-08-29 07:38] LABS: ALBUMIN 1.7 g/dl (3.4-5.0); ANION GAP 7 (8-16); CALCIUM 8.2 mg/dL (8.5-10.1); CO2 26 mmol/L (21-32); GLUCOSE,RANDOM 154 mg/dL (74-106); SGPT/ALT 46 U/L (12-78)
[2016-08-29 07:41] LABS: ALK PHOS 92 U/L (45-117); BILIRUBIN,TOTAL 0.4 mg/dL (0.2-1.0); CREATININE 1.2 mg/dL (0.55-1.02); SGOT/AST 34 U/L (15-37); TOT PROT 5.7 g/dl (6.4-8.2)
--- NOTE | 2016-08-29 09:27 | EKG ---
Test Reason : Blood Pressure : / mmHG Vent. Rate : 144 BPM Atrial Rate : 141 BPM P-R Int : 000 ms QRS Dur : 070 ms QT Int : 254 ms P-R-T Axes : 000 038 -66 degrees QTc Int : 393 ms POOR DATA QUALITY, INTERPRETATION MAY BE ADVERSELY AFFECTED ATRIAL FIBRILLATION WITH RAPID VENTRICULAR RESPONSE MINIMAL VOLTAGE CRITERIA FOR LVH, MAY BE NORMAL VARIANT ABNORMAL ECG WHEN COMPARED WITH ECG OF 25-AUG-2016 16:50, SIGNIFICANT CHANGES HAVE OCCURRED Confirmed by MAR OSBORN MD ([id number]) on 08/29/2016 9:26:56 AM Referred By: Confirmed By:MAR OSBORN MD
--- NOTE | 2016-08-29 10:11 | PN ---
Progress Note, Physician Chief Complaint: PAF History of Present Illness: not communicative - Current Medication List Current Medications: Active Medications Acetaminophen (Tylenol Oral Solution -) 325 mg PO Q4H PRN PRN Reason: FEVER OR PAIN Albuterol/Ipratropium (Duoneb -) 1 amp NEB Q6H PRN Last Admin: 08/29/16 06:20 Dose: 1 amp Atorvastatin Calcium (Lipitor -) 40 mg GT HS [facility] Last Admin: 08/28/16 22:45 Dose: 40 mg Bacitracin (Bacitracin -) 1 applic TP BID [facility] Last Admin: 08/28/16 22:45 Dose: 1 applic Heparin Sodium (Porcine) (Heparin -) 5,000 unit SQ BID [facility] Last Admin: 08/28/16 22:45 Dose: 5,000 unit Piperacillin Sod/Tazobactam Sod (Zosyn 2.25gm Ivpb (Pre-Docked)) 50 mls @ 100 mls/hr IVPB Q6H-IV [facility] PRN Reason: Protocol Last Admin: 08/29/16 04:15 Dose: 100 mls/hr Amiodarone HCl 450 mg/ (Dextrose) 250 mls @ 16.66 mls/hr IVPB TITR [facility]; 0.5 MG/ MIN PRN Reason: Protocol Last Titration: 08/29/16 02:10 Dose: 0.5 mg/min Insulin Aspart (Novolog Vial Sliding Scale -) 1 vial SQ TIDAC [facility] PRN Reason: Protocol Last Admin: 08/29/16 06:05 Dose: Not Given Levetiracetam (Keppra Oral Solution -) 500 mg GT BID [facility] Last Admin: 08/28/16 22:45 Dose: 500 mg Levothyroxine Sodium (Synthroid -) 125 mcg GT DAILY@0700 [facility] Last Admin: 08/29/16 06:05 Dose: 125 mcg Metoclopramide HCl (Reglan Oral Solution -) 5 mg PEG TID [facility] Last Admin: 08/29/16 06:05 Dose: 5 mg Potassium Chloride (Potassium Chloride Oral Liquid) 20 meq GT DAILY [facility] Last Admin: 08/28/16 15:10 Dose: 20 meq - Objective Vital Signs: Vital Signs Temperature 98.2 F 08/29/16 06:00 Pulse Rate 73 08/29/16 06:00 Respiratory Rate 18 08/29/16 06:00 Blood Pressure 95/51 08/29/16 06:00 O2 Sat by Pulse Oximetry (%) 100 08/28/16 21:00 Constitutional: Yes: No Distress, Calm Cardiovascular: Yes: Regular Rate and Rhythm, S1, S2. No: JVD, Gallop, Murmur Respiratory: Yes: Regular, Diminished (R base). No: Accessory Muscle Use, Rales , Wheezes Extremities: No: Cold Edema: No Neurological: No: Alert, Oriented, Seizure Psychiatric: No: Agitated Labs: CBC, BMP 08/29/16 05:35 08/29/16 05:35 - ....Imaging EKG: Other (tele: AF to 140s-->NSR (one run AIVR)) Assessment/Plan ECG 08/25/16: sr, nl intervals, no ischemic changes Echo 08/22: nl LV/EF; RV tds; mod AI/MR, no peric eff (no RVSP) cxr: no chf, tds acute hypoxic resp failure, PNA: -recurrent problem, ? aspirating -abx per ID/pmd -no signs chf or acs -recent echo with normal LV fxn and no severe valvular dysfunction -likely no volume overload, suspect intravasc depletion paroxysmal Afib -With RVR, likely related to ongoing pneumonia -Would not AC this patient (confirmed with dr navarrete she had spontaneous cerebral bleeds and mult SAHs at [facility] 1-2 mo ago, leading to her current debilitated mental status) -will not Rx ASA given significant ICH risks (? equal to warfarin in some studies) and no efficacy for preventing AF embolic events -08/28: Spontaneously converted to NSR, continue metoprolol 25mg PO BID (monitor for worsening COPD) -08/29: again rapid AF late yesterday with HRs to 160s and BP 80s--given amio iv -08/29: converted to sinus. will stop amio and try prophlax against rapid AF with digoxin 0.125 qd (follow levels). if recurrent rapid AF and BPs remain low- end, will have to try po amio suppression HTN: -bp low -Hold amlodipine DM: -per pmd recent ICH: -seen by neuro/neurosurgery, no intervention was planned chronic malnutrition: -s/p PEG, gets tube feeds copd: -per pulm hld: -on statin
[2016-08-29] MEDS: MULTIVIT-MINERALS 236 ML ML GT SCH (10:32)
[2016-08-29] MEDS: HEPARIN NA (PORCINE) 5,000 UNITS/ML 1ML VIAL SQ SCH ×2 (10:32→21:44)
[2016-08-29] MEDS: levETIRAcetam 500 MG/5 ML ORAL SOLUTION (UNIT-DOSE CUPS) GT SCH ×2 (10:33→21:44)
[2016-08-29] MEDS: BACITRACIN 15 GM TUBE TOPICAL OINTMENT TP SCH ×2 (10:33→21:44)
--- NOTE | 2016-08-29 10:42 | PN ---
Progress Note, Physician History of Present Illness: pulmonary lethargic,non-verbal,less congested,pt remains on amiodorone drip - Current Medication List Current Medications: Active Medications Acetaminophen (Tylenol Oral Solution -) 325 mg PO Q4H PRN PRN Reason: FEVER OR PAIN Albuterol/Ipratropium (Duoneb -) 1 amp NEB Q6H PRN Last Admin: 08/29/16 06:20 Dose: 1 amp Atorvastatin Calcium (Lipitor -) 40 mg GT HS [facility] Last Admin: 08/28/16 22:45 Dose: 40 mg Bacitracin (Bacitracin -) 1 applic TP BID [facility] Last Admin: 08/29/16 10:33 Dose: 1 applic Heparin Sodium (Porcine) (Heparin -) 5,000 unit SQ BID [facility] Last Admin: 08/29/16 10:32 Dose: 5,000 unit Piperacillin Sod/Tazobactam Sod (Zosyn 2.25gm Ivpb (Pre-Docked)) 50 mls @ 100 mls/hr IVPB Q6H-IV [facility] PRN Reason: Protocol Last Admin: 08/29/16 10:32 Dose: 100 mls/hr Amiodarone HCl 450 mg/ (Dextrose) 250 mls @ 16.66 mls/hr IVPB TITR [facility]; 0.5 MG/ MIN PRN Reason: Protocol Last Titration: 08/29/16 02:10 Dose: 0.5 mg/min Insulin Aspart (Novolog Vial Sliding Scale -) 1 vial SQ TIDAC [facility] PRN Reason: Protocol Last Admin: 08/29/16 06:05 Dose: Not Given Levetiracetam (Keppra Oral Solution -) 500 mg GT BID [facility] B[facility]S [facility] Last Admin: 08/29/16 10:33 Dose: 500 mg Levothyroxine Sodium (Synthroid -) 125 mcg GT DAILY@0700 [facility] Last Admin: 08/29/16 06:05 Dose: 125 mcg Metoclopramide HCl (Reglan Oral Solution -) 5 mg PEG TID [facility]S [facility] Last Admin: 08/29/16 06:05 Dose: 5 mg Potassium Chloride (Potassium Chloride Oral Liquid) 20 meq GT DAILY [facility] 234 BEDS [facility] Last Admin: 08/28/16 15:10 Dose: 20 meq - Objective Vital Signs: Vital Signs Temperature 97.4 F L 08/29/16 08:14 Pulse Rate 68 08/29/16 08:14 Respiratory Rate 18 08/29/16 08:14 Blood Pressure 124/60 08/29/16 08:14 O2 Sat by Pulse Oximetry (%) 100 08/28/16 21:00 Constitutional: Yes: Calm, Cachectic Eyes: Yes: WNL HENT: Yes: WNL Neck: Yes: WNL Cardiovascular: Yes: Regular Rate and Rhythm, S1, S2 Respiratory: Yes: Diminished, Other (poor inspiratory effort) Gastrointestinal: Yes: Normal Bowel Sounds, Soft Extremities: Yes: WNL Edema: No Labs: CBC, BMP 08/29/16 05:35 08/29/16 05:35 Problem List - Problems (1) Aspiration pneumonia Code(s): J69.0 - PNEUMONITIS DUE TO INHALATION OF FOOD AND VOMIT Qualifiers: Aspiration pneumonia type: unspecified Laterality: unspecified laterality Lung location: unspecified part of lung Qualified Code(s) : J69.0 - Pneumonitis due to inhalation of food and vomit (2) Hypoxia Code(s): R09.02 - HYPOXEMIA (3) Leukocytosis Code(s): D72.829 - ELEVATED WHITE BLOOD CELL COUNT, UNSPECIFIED (4) Anemia Code(s): D64.9 - ANEMIA, UNSPECIFIED (5) Aspiration into airway Code(s): T17.908A - UNSP FB IN RESP TRACT, PART UNSP CAUSING OTH INJURY, INIT (6) COPD (chronic obstructive pulmonary disease) Code(s): J44.9 - CHRONIC OBSTRUCTIVE PULMONARY DISEASE, UNSPECIFIED (7) Diabetes Code(s): E11.9 - TYPE 2 DIABETES MELLITUS WITHOUT COMPLICATIONS Qualifiers: Diabetes mellitus type: type 2 Diabetes mellitus complication status: with unspecified complications (8) Failure to thrive Code(s): [id number] - (9) Intracerebral hemorrhage Code(s): I61.9 - NONTRAUMATIC INTRACEREBRAL HEMORRHAGE, UNSPECIFIED Qualifiers : Cerebral hemorrhage location: cerebral hemisphere, cortical portion (10) Respiratory failure with hypoxia Code(s): J96.91 - RESPIRATORY FAILURE, UNSPECIFIED WITH HYPOXIA Qualifiers: Chronicity: acute Qualified Code(s): J96.01 - Acute respiratory failure with hypoxia (11) Lactate blood increased Code(s): R79.89 - OTHER SPECIFIED ABNORMAL FINDINGS OF BLOOD CHEMISTRY Assessment/Plan IMP ACUTE HYPOXEMIC RESPIRATORY FAILURE CLINICALLY IMPROVING LIKELY ASPIRATION S/P ICH ACUTE ON CHRONIC RENAL FAILURE COPD DEMENTIA S/P PEG ELEVATED LACTATE LEVEL PLAN IV ANTIBIOTICS PER ID IVF O2 TO MAINTAIN O2 SAT 90% F/U CHEST X-RAY TODAY TREND LACTATE MONITOR LYTES,RENAL FUNCTION DR MCCULLOUGH Problem List - Problems (1) Aspiration pneumonia Code(s): J69.0 - PNEUMONITIS DUE TO INHALATION OF FOOD AND VOMIT Qualifiers: Aspiration pneumonia type: unspecified Laterality: unspecified laterality Lung location: unspecified part of lung Qualified Code(s) : J69.0 - Pneumonitis due to inhalation of food and vomit (2) Hypoxia Code(s): R09.02 - HYPOXEMIA (3) Leukocytosis Code(s): D72.829 - ELEVATED WHITE BLOOD CELL COUNT, UNSPECIFIED (4) Anemia Code(s): D64.9 - ANEMIA, UNSPECIFIED (5) Aspiration into airway Code(s): T17.908A - UNSP FB IN RESP TRACT, PART UNSP CAUSING OTH INJURY, INIT (6) COPD (chronic obstructive pulmonary disease) Code(s): J44.9 - CHRONIC OBSTRUCTIVE PULMONARY DISEASE, UNSPECIFIED (7) Diabetes Code(s): E11.9 - TYPE 2 DIABETES MELLITUS WITHOUT COMPLICATIONS Qualifiers: Diabetes mellitus type: type 2 Diabetes mellitus complication status: with unspecified complications (8) Failure to thrive Code(s): [id number] - (9) Intracerebral hemorrhage Code(s): I61.9 - NONTRAUMATIC INTRACEREBRAL HEMORRHAGE, UNSPECIFIED Qualifiers : Cerebral hemorrhage location: cerebral hemisphere, cortical portion (10) Respiratory failure with hypoxia Code(s): J96.91 - RESPIRATORY FAILURE, UNSPECIFIED WITH HYPOXIA Qualifiers: Chronicity: acute Qualified Code(s): J96.01 - Acute respiratory failure with hypoxia (11) Lactate blood increased Code(s): R79.89 - OTHER SPECIFIED ABNORMAL FINDINGS OF BLOOD CHEMISTRY
[2016-08-29 11:44] LABS: PLATELET ESTIMATE ADEQUATE (NORMAL)
[2016-08-29] MEDS ORDERED: SODIUM CHLORIDE 0.45% 1,000 ML IV SCH (12:15)
[2016-08-29] MEDS: POTASSIUM CHLORIDE ORAL LIQUID 20 MEQ/15 ML GT SCH (12:42)
[2016-08-29] MEDS: DIGOXIN 0.125 MG TABLET (FP) PO SCH (12:42)
--- NOTE | 2016-08-29 13:38 | PN ---
Progress Note (short form) - Note Progress Note: Renal Follow up for ULISES and Hypernatremia Pt seen and examined at the bedside pt is non-verbal no overnight events off IVF and tube feeds Vital Signs Temperature 97.4 F L 08/29/16 08:14 Pulse Rate 66 08/29/16 12:42 Respiratory Rate 18 08/29/16 08:14 Blood Pressure 124/60 08/29/16 08:14 O2 Sat by Pulse Oximetry (%) 100 08/28/16 21:00 Intake & Output 08/26/16 08/27/16 08/28/16 08/29/16 23:59 23:59 23:59 23:59 Intake Total 1570 3200 800 650 Balance 1570 3200 800 650 Weight 115 lb Gen: NAD CVS: RRR Lungs: CTA Abd: soft NT/ND Ext: no edema CBC, BMP 08/29/16 05:35 08/29/16 05:35 Laboratory Tests 08/25/16 08/26/16 08/26/16 17:12 18:00 18:00 MCV Calcium Albumin Urine Protein 2+ H U Random Total Protein 129 H Ur Random Urea Nitrogn Urine Creatinine 49.2 08/26/16 08/29/16 08/29/16 18:00 05:35 05:35 MCV 101.3 H Calcium 8.2 L Albumin 1.7 L Urine Protein U Random Total Protein Ur Random Urea Nitrogn 1168 Urine Creatinine Current Medications Acetaminophen (Tylenol Oral Solution -) 325 mg PO Q4H PRN PRN Reason: FEVER OR PAIN Albuterol/Ipratropium (Duoneb -) 1 amp NEB Q6H PRN Last Admin: 08/29/16 06:20 Dose: 1 amp Atorvastatin Calcium (Lipitor -) 40 mg GT HS [facility] Last Admin: 08/28/16 22:45 Dose: 40 mg Bacitracin (Bacitracin -) 1 applic TP BID [facility] Last Admin: 08/29/16 10:33 Dose: 1 applic Digoxin (Lanoxin -) 0.125 mg PO DAILY [facility] Last Admin: 08/29/16 12:42 Dose: 0.125 mg Heparin Sodium (Porcine) (Heparin -) 5,000 unit SQ BID [facility] Last Admin: 08/29/16 10:32 Dose: 5,000 unit Piperacillin Sod/Tazobactam Sod (Zosyn 2.25gm Ivpb (Pre-Docked)) 50 mls @ 100 mls/hr IVPB Q6H-IV [facility] PRN Reason: Protocol Last Admin: 08/29/16 10:32 Dose: 100 mls/hr Sodium Chloride (1/2 Normal Saline) 1,000 mls @ 83 mls/hr IV ASDIR [facility] Last Admin: 08/29/16 12:42 Dose: 83 mls/hr Insulin Aspart (Novolog Vial Sliding Scale -) 1 vial SQ TIDAC [facility] PRN Reason: Protocol Last Admin: 08/29/16 12:36 Dose: Not Given Levetiracetam (Keppra Oral Solution -) 500 mg GT BID [facility] Last Admin: 08/29/16 10:33 Dose: 500 mg Levothyroxine Sodium (Synthroid -) 125 mcg GT DAILY@0700 [facility] Last Admin: 08/29/16 06:05 Dose: 125 mcg Metoclopramide HCl (Reglan Oral Solution -) 5 mg PEG TID [facility] Last Admin: 08/29/16 06:05 Dose: 5 mg Potassium Chloride (Potassium Chloride Oral Liquid) 20 meq GT DAILY [facility] Last Admin: 08/29/16 12:42 Dose: 20 meq A/P 81 year old woman with PMhx of recent large ICU managed conservatively, recent PNA, Hypertension, CHF (diastolic dysfunction?, recent echo shows normal LV function) who presented with SOB at home and hypoxia. #Acute Renal failure likely secondary to volume depletion in setting of PNA with hypernatremia Urine studies consistent with pre-renal injury/hypovolemia CXR reviewed, no sign of effusions or CHF will restart IVF with 1/2 NS at 83cc per hour Trend BUN/cr and Na levels daily #PNA/Leukocytosis/Fever on Zosyn supplementary O2 #Hx of [facility] supportive care Rikki Santos DO Problem List - Problems (1) Acute renal failure (ARF) Code(s): N17.9 - ACUTE KIDNEY FAILURE, UNSPECIFIED (2) Dehydration Code(s): E86.0 - DEHYDRATION (3) Pneumonia Code(s): J18.9 - PNEUMONIA, UNSPECIFIED ORGANISM Qualifiers: Pneumonia type: due to unspecified organism Laterality: right Lung location: lower lobe of lung Qualified Code(s): J18.1 - Lobar pneumonia, unspecified organism (4) Hypoxia Code(s): R09.02 - HYPOXEMIA (5) Volume depletion Code(s): E86.9 - VOLUME DEPLETION, UNSPECIFIED (6) Hypernatremia Code(s): E87.0 - HYPEROSMOLALITY AND HYPERNATREMIA (7) Anemia Code(s): D64.9 - ANEMIA, UNSPECIFIED (8) Leukocytosis Code(s): D72.829 - ELEVATED WHITE BLOOD CELL COUNT, UNSPECIFIED
--- NOTE | 2016-08-29 18:38 | PN ---
Progress Note, Physician History of Present Illness: patient looking better since admission daughter in room still no verbal response - Current Medication List Current Medications: Active Medications Acetaminophen (Tylenol Oral Solution -) 325 mg PO Q4H PRN PRN Reason: FEVER OR PAIN Albuterol/Ipratropium (Duoneb -) 1 amp NEB Q6H PRN Last Admin: 08/29/16 06:20 Dose: 1 amp Atorvastatin Calcium (Lipitor -) 40 mg GT HS [facility] Last Admin: 08/28/16 22:45 Dose: 40 mg Bacitracin (Bacitracin -) 1 applic TP BID [facility] Last Admin: 08/29/16 10:33 Dose: 1 applic Digoxin (Lanoxin -) 0.125 mg PO DAILY [facility] Last Admin: 08/29/16 12:42 Dose: 0.125 mg Heparin Sodium (Porcine) (Heparin -) 5,000 unit SQ BID [facility] Last Admin: 08/29/16 10:32 Dose: 5,000 unit Piperacillin Sod/Tazobactam Sod (Zosyn 2.25gm Ivpb (Pre-Docked)) 50 mls @ 100 mls/hr IVPB Q6H-IV [facility] PRN Reason: Protocol Last Admin: 08/29/16 14:48 Dose: 100 mls/hr Sodium Chloride (1/2 Normal Saline) 1,000 mls @ 83 mls/hr IV ASDIR [facility] Last Admin: 08/29/16 12:42 Dose: 83 mls/hr Insulin Aspart (Novolog Vial Sliding Scale -) 1 vial SQ TIDAC [facility] PRN Reason: Protocol Last Admin: 08/29/16 16:57 Dose: Not Given Levetiracetam (Keppra Oral Solution -) 500 mg GT BID [facility] Last Admin: 08/29/16 10:33 Dose: 500 mg Levothyroxine Sodium (Synthroid -) 125 mcg GT DAILY@0700 [facility] Last Admin: 08/29/16 06:05 Dose: 125 mcg Metoclopramide HCl (Reglan Oral Solution -) 5 mg PEG TID [facility] Last Admin: 08/29/16 14:48 Dose: 5 mg Potassium Chloride (Potassium Chloride Oral Liquid) 20 meq GT DAILY [facility] Last Admin: 08/29/16 12:42 Dose: 20 meq - Objective Vital Signs: Vital Signs Temperature 97 F L 08/29/16 14:00 Pulse Rate 69 08/29/16 14:00 Respiratory Rate 20 08/29/16 14:00 Blood Pressure 151/49 08/29/16 14:00 O2 Sat by Pulse Oximetry (%) 98 08/29/16 09:00 Constitutional: Yes: Other Cardiovascular: Yes: S1, S2 Respiratory: Yes: Poor Air Entry, Rhonchi Gastrointestinal: Yes: Normal Bowel Sounds, Soft, Other (peg in place) Musculoskeletal: Yes: Other Extremities: Yes: Other Neurological: Yes: Other Psychiatric: Yes: Other Labs: CBC, BMP 08/29/16 05:35 08/29/16 05:35 Assessment/Plan Problem List - Problems (1) Aspiration pneumonia Code(s): J69.0 - PNEUMONITIS DUE TO INHALATION OF FOOD AND VOMIT Qualifiers: Aspiration pneumonia type: unspecified Laterality: unspecified laterality Lung location: unspecified part of lung Qualified Code(s) : J69.0 - Pneumonitis due to inhalation of food and vomit (2) Hypoxia Code(s): R09.02 - HYPOXEMIA (3) Leukocytosis Code(s): D72.829 - ELEVATED WHITE BLOOD CELL COUNT, UNSPECIFIED (4) Anemia Code(s): D64.9 - ANEMIA, UNSPECIFIED (5) Aspiration into airway Code(s): T17.908A - UNSP FB IN RESP TRACT, PART UNSP CAUSING OTH INJURY, INIT (6) COPD (chronic obstructive pulmonary disease) Code(s): J44.9 - CHRONIC OBSTRUCTIVE PULMONARY DISEASE, UNSPECIFIED (7) Diabetes Code(s): E11.9 - TYPE 2 DIABETES MELLITUS WITHOUT COMPLICATIONS Qualifiers: Diabetes mellitus type: type 2 Diabetes mellitus complication status: with unspecified complications (8) Failure to thrive Code(s): [id number] - (9) Intracerebral hemorrhage Code(s): I61.9 - NONTRAUMATIC INTRACEREBRAL HEMORRHAGE, UNSPECIFIED Qualifiers : Cerebral hemorrhage location: cerebral hemisphere, cortical portion (10) Respiratory failure with hypoxia Code(s): J96.91 - RESPIRATORY FAILURE, UNSPECIFIED WITH HYPOXIA Qualifiers: Chronicity: acute Qualified Code(s): J96.01 - Acute respiratory failure with hypoxia (11) Lactate blood increased Code(s): R79.89 - OTHER SPECIFIED ABNORMAL FINDINGS OF BLOOD CHEMISTRY this patient well known to me failure to thrive admitted with sepsis and hypoxia very high chances of aspiration patient xray not impressive but could not get proper imaging because of her condition and posture plan conitnue abx continue to monitor will have to figure a way of feeding will d/w primary
[2016-08-29] MEDS: ATORVASTATIN CA 40 MG TABLET (FP) GT SCH (21:44)
--- NOTE | 2016-08-29 22:42 | PN ---
Progress Note (short form) - Note Progress Note: Patient seen and examined. Events over the weekend reviewed. Minimally responsive. Congested. Afebrile. History Source: Medical Record, Transfer Record Limitations to Obtaining History: Clinical Condition - Past Medical History CQ DEVELOPER: Yes: CVA Cardiovascular: Yes: HTN, Hyperlipdemia Pulmonary: Yes: COPD Renal/: Yes: Renal Inusuff Heme/Onc: Yes: Anemia Endocrine: Yes: Diabetes Mellitus, Hypothyroidism - Smoking History Smoking history: Unknown if ever smoked Have you smoked in the past 12 months: No Aproximately how many cigarettes per day: 0 - Alcohol/Substance Use Hx Alcohol Use: No Home Medications - Allergies Allergies/Adverse Reactions: Allergies Allergy/AdvReac Type Severity Reaction Status Date / Time No Known Allergies Allergy Verified 07/28/16 18:15 - Home Medications Home Medications: Ambulatory Orders Acetaminophen [Tylenol] 320 mg GT Q6H 08/07/16 Albuterol 2.5/Ipratropium 0.5 [Duoneb -] 1 amp NEB Q6H 08/07/16 Amlodipine Besylate [Norvasc -] 2.5 mg GT DAILY 08/07/16 Insulin Aspart [Novolog Flexpen] 0 unit SQ TID 08/07/16 Levetiracetam 500 mg GT BID 08/07/16 Heparin - 5,000 unit SQ BID vial 08/17/16 Levothyroxine [Synthroid -] 125 mcg GT DAILY #60 tablet 08/17/16 Metoclopramide HCl [Reglan -] 5 mg PO TIDAC #90 tablet 08/17/16 Potassium Chloride [Potassium Chloride Oral Liquid] 20 meq GT DAILY #30 ml 08/17 Atorvastatin Ca [Lipitor] 40 mg GT HS 08/25/16 Multivitamins [Tab-A-Vit -] 1 tab GT DAILY 08/25/16 Review of Systems Unable to obtain ROS, reason: Because patient is unresp Physical Examination Vital Signs: Vital Signs Period Temp Pulse Resp BP Sys/Stephenson Pulse Ox Last 24 Hr 97 F-99.2 F 66-134 18-20 95-151/49-60 98 Constitutional: Yes: Cachectic, Moderate Distress Eyes: Yes: Conjunctiva Clear, EOM Intact, PERRL HENT: Yes: Atraumatic, Normocephalic Neck: Yes: Supple Cardiovascular: Yes: Regular Rate and Rhythm Respiratory: Yes: Diminished (B/L lung base) Gastrointestinal: Yes: Soft ...Rectal Exam: Yes: Deferred Peripheral Pulses WNL: Yes Neurological: Yes: Unresponsive Labs: CBC, BMP 08/29/16 05:35 08/29/16 05:35 Microbiology 08/25/16 17:39 Blood - Peripheral Venous Blood Culture - Preliminary NO GROWTH OBTAINED AFTER 96 HOURS, INCUBATION TO CONTINUE FOR 1 DAYS. 08/25/16 17:12 Urine - Urine Carpenter Urine Culture - Final NO GROWTH OBTAINED Imaging - Results Chest X-ray: Report Reviewed Problem List - Problems (1) Aspiration pneumonitis Assessment/Plan: Continue IV abx. Pulmonary and ID follow up appreciated. Code(s): J69.0 - PNEUMONITIS DUE TO INHALATION OF FOOD AND VOMIT (2) Acute renal failure (ARF) Assessment/Plan: IV fluids discontinued last night because patient was congested. Patient looks dry. Renal to review the case. Code(s): N17.9 - ACUTE KIDNEY FAILURE, UNSPECIFIED (3) Respiratory failure with hypoxia Assessment/Plan: Monitor O2 sats. Continue inhaled bronchodilators. Pulmonary follow up appreciated. Code(s): J96.91 - RESPIRATORY FAILURE, UNSPECIFIED WITH HYPOXIA Qualifiers: Chronicity: acute Qualified Code(s): J96.01 - Acute respiratory failure with hypoxia (4) Diabetes Assessment/Plan: ISS Code(s): E11.9 - TYPE 2 DIABETES MELLITUS WITHOUT COMPLICATIONS Qualifiers: Diabetes mellitus type: type 2 Diabetes mellitus complication status: with unspecified complications (5) Hypothyroid Assessment/Plan: Continue synthroid. Code(s): E03.9 - HYPOTHYROIDISM, UNSPECIFIED (6) Hypertension Assessment/Plan: Monitor BP. Code(s): I10 - ESSENTIAL (PRIMARY) HYPERTENSION (7) Intracerebral hemorrhage Assessment/Plan: Minimally responsive. Code(s): I61.9 - NONTRAUMATIC INTRACEREBRAL HEMORRHAGE, UNSPECIFIED Qualifiers : Cerebral hemorrhage location: cerebral hemisphere, cortical portion (8) PEG feeds on hold because of aspiration. (9) Atrial Fibrillation: With rapid ventricular rate. Cardiology following the case. Palliative care consulted to discuss goals of care with the family. Overall poor prognosis. Problem List - Problems (1) Aspiration pneumonitis Code(s): J69.0 - PNEUMONITIS DUE TO INHALATION OF FOOD AND VOMIT (2) Acute renal failure (ARF) Code(s): N17.9 - ACUTE KIDNEY FAILURE, UNSPECIFIED (3) Respiratory failure with hypoxia Code(s): J96.91 - RESPIRATORY FAILURE, UNSPECIFIED WITH HYPOXIA Qualifiers: Chronicity: acute Qualified Code(s): J96.01 - Acute respiratory failure with hypoxia (4) Diabetes Code(s): E11.9 - TYPE 2 DIABETES MELLITUS WITHOUT COMPLICATIONS Qualifiers: Diabetes mellitus type: type 2 Diabetes mellitus complication status: with unspecified complications (5) Hypothyroid Code(s): E03.9 - HYPOTHYROIDISM, UNSPECIFIED (6) Hypertension Code(s): I10 - ESSENTIAL (PRIMARY) HYPERTENSION (7) Intracerebral hemorrhage Code(s): I61.9 - NONTRAUMATIC INTRACEREBRAL HEMORRHAGE, UNSPECIFIED Qualifiers : Cerebral hemorrhage location: cerebral hemisphere, cortical portion
[2016-08-30] MEDS: PIPERACILLIN/TAZOB 2.25 GM 50 ML IVPB SCH ×4 (03:54→21:37)
[2016-08-30] MEDS: INSULIN SLIDING SCALE (NOVOLOG) 1 VIAL SQ SCH ×3 (06:16→17:21)
[2016-08-30] MEDS: LEVOTHYROXINE NA 125 MCG TABLET (FP) GT SCH (06:28)
[2016-08-30] MEDS: METOCLOPRAMIDE HCL 5 MG/5 ML UNIT DOSE CUP PEG SCH ×3 (06:28→21:44)
[2016-08-30 07:59] LABS: ALBUMIN 1.8 g/dl (3.4-5.0); ALK PHOS 95 U/L (45-117); ANION GAP 10 (8-16); BILIRUBIN,TOTAL 0.5 mg/dL (0.2-1.0); CALCIUM 8.5 mg/dL (8.5-10.1); CO2 25 mmol/L (21-32); CREATININE 1.3 mg/dL (0.55-1.02); GLUCOSE,RANDOM 127 mg/dL (74-106); MAGNESIUM 2.8 mg/dL (1.8-2.4); PHOSPHOROUS 3.9 mg/dL (2.5-4.9); SGOT/AST 38 U/L (15-37); SGPT/ALT 43 U/L (12-78); TOT PROT 6.1 g/dl (6.4-8.2)
[2016-08-30 08:04] LABS: MCH 33.1 pg (25.7-33.7); MCHC 32.8 g/dl (32.0-36.0); MEAN CELL VOLUME 100.8 fl (80-96); MEAN PLT VOLUME 9.1 fl (7.5-11.1); PLATELET COUNT 301 K/MM3 (134-434); RDW 16.4 % (11.6-15.6)
--- NOTE | 2016-08-30 09:33 | PN ---
Progress Note (short form) - Note Progress Note: Patient seen and examined. IV fluids stopped last night because patient was congested. PEG feeds on hold because of aspiration. Poorly responsive. Afebrile. Palliative care consulted to discuss goals of care. History Source: Medical Record, Transfer Record Limitations to Obtaining History: Clinical Condition - Past Medical History QUALITY INTERNSHIP: Yes: CVA Cardiovascular: Yes: HTN, Hyperlipdemia Pulmonary: Yes: COPD Renal/: Yes: Renal Inusuff Heme/Onc: Yes: Anemia Endocrine: Yes: Diabetes Mellitus, Hypothyroidism - Smoking History Smoking history: Unknown if ever smoked Have you smoked in the past 12 months: No Aproximately how many cigarettes per day: 0 - Alcohol/Substance Use Hx Alcohol Use: No Home Medications - Allergies Allergies/Adverse Reactions: Allergies Allergy/AdvReac Type Severity Reaction Status Date / Time No Known Allergies Allergy Verified 07/28/16 18:15 - Home Medications Home Medications: Ambulatory Orders Acetaminophen [Tylenol] 320 mg GT Q6H 08/07/16 Albuterol 2.5/Ipratropium 0.5 [Duoneb -] 1 amp NEB Q6H 08/07/16 Amlodipine Besylate [Norvasc -] 2.5 mg GT DAILY 08/07/16 Insulin Aspart [Novolog Flexpen] 0 unit SQ TID 08/07/16 Levetiracetam 500 mg GT BID 08/07/16 Heparin - 5,000 unit SQ BID vial 08/17/16 Levothyroxine [Synthroid -] 125 mcg GT DAILY #60 tablet 08/17/16 Metoclopramide HCl [Reglan -] 5 mg PO TIDAC #90 tablet 08/17/16 Potassium Chloride [Potassium Chloride Oral Liquid] 20 meq GT DAILY #30 ml 08/17 Atorvastatin Ca [Lipitor] 40 mg GT HS 08/25/16 Multivitamins [Tab-A-Vit -] 1 tab GT DAILY 08/25/16 Review of Systems Unable to obtain ROS, reason: Because patient is unresp Physical Examination Vital Signs: Vital Signs Period Temp Pulse Resp BP Sys/Stephenson Pulse Ox Last 24 Hr 97 F-98 F 66-78 18-20 131-152/49-66 97 Constitutional: Yes: Cachectic, Moderate Distress Eyes: Yes: Conjunctiva Clear, EOM Intact, PERRL HENT: Yes: Atraumatic, Normocephalic Neck: Yes: Supple Cardiovascular: Yes: Regular Rate and Rhythm Respiratory: Yes: Diminished (B/L lung base) Gastrointestinal: Yes: Soft ...Rectal Exam: Yes: Deferred Peripheral Pulses WNL: Yes Neurological: Yes: Unresponsive Labs: CBC, BMP 08/30/16 05:35 08/30/16 05:35 Microbiology 08/25/16 17:39 Blood - Peripheral Venous Blood Culture - Preliminary NO GROWTH OBTAINED AFTER 96 HOURS, INCUBATION TO CONTINUE FOR 1 DAYS. 08/25/16 17:12 Urine - Urine Carpenter Urine Culture - Final NO GROWTH OBTAINED Imaging - Results Chest X-ray: Report Reviewed Problem List - Problems (1) Aspiration pneumonitis Assessment/Plan: Continue IV abx. Pulmonary and ID follow up appreciated. Code(s): J69.0 - PNEUMONITIS DUE TO INHALATION OF FOOD AND VOMIT (2) Acute renal failure (ARF) Assessment/Plan: IV fluids discontinued last night because patient was congested. Patient looks dry. Restart IV fluids at 50 ml/hr Renal to review the case. Code(s): N17.9 - ACUTE KIDNEY FAILURE, UNSPECIFIED (3) Respiratory failure with hypoxia Assessment/Plan: Monitor O2 sats. Continue inhaled bronchodilators. Pulmonary follow up appreciated. Code(s): J96.91 - RESPIRATORY FAILURE, UNSPECIFIED WITH HYPOXIA Qualifiers: Chronicity: acute Qualified Code(s): J96.01 - Acute respiratory failure with hypoxia (4) Diabetes Assessment/Plan: ISS Code(s): E11.9 - TYPE 2 DIABETES MELLITUS WITHOUT COMPLICATIONS Qualifiers: Diabetes mellitus type: type 2 Diabetes mellitus complication status: with unspecified complications (5) Hypothyroid Assessment/Plan: Continue synthroid. Code(s): E03.9 - HYPOTHYROIDISM, UNSPECIFIED (6) Hypertension Assessment/Plan: Monitor BP. Code(s): I10 - ESSENTIAL (PRIMARY) HYPERTENSION (7) Intracerebral hemorrhage Assessment/Plan: Minimally responsive. Code(s): I61.9 - NONTRAUMATIC INTRACEREBRAL HEMORRHAGE, UNSPECIFIED Qualifiers : Cerebral hemorrhage location: cerebral hemisphere, cortical portion (8) PEG feeds on hold because of aspiration. (9) Atrial Fibrillation: With rapid ventricular rate. Cardiology following the case. Palliative care consulted to discuss goals of care with the family. Justyna is meeting with the family around 10.30 am. Overall poor prognosis. Problem List - Problems (1) Aspiration pneumonitis Code(s): J69.0 - PNEUMONITIS DUE TO INHALATION OF FOOD AND VOMIT (2) Acute renal failure (ARF) Code(s): N17.9 - ACUTE KIDNEY FAILURE, UNSPECIFIED (3) Respiratory failure with hypoxia Code(s): J96.91 - RESPIRATORY FAILURE, UNSPECIFIED WITH HYPOXIA Qualifiers: Chronicity: acute Qualified Code(s): J96.01 - Acute respiratory failure with hypoxia (4) Diabetes Code(s): E11.9 - TYPE 2 DIABETES MELLITUS WITHOUT COMPLICATIONS Qualifiers: Diabetes mellitus type: type 2 Diabetes mellitus complication status: with unspecified complications (5) Hypothyroid Code(s): E03.9 - HYPOTHYROIDISM, UNSPECIFIED (6) Hypertension Code(s): I10 - ESSENTIAL (PRIMARY) HYPERTENSION (7) Intracerebral hemorrhage Code(s): I61.9 - NONTRAUMATIC INTRACEREBRAL HEMORRHAGE, UNSPECIFIED Qualifiers : Cerebral hemorrhage location: cerebral hemisphere, cortical portion
[2016-08-30 09:55] LABS: DIGOXIN LEVEL 0.3067 ng/ml (0.8-2.0)
[2016-08-30] MEDS: HEPARIN NA (PORCINE) 5,000 UNITS/ML 1ML VIAL SQ SCH ×2 (10:42→21:39)
[2016-08-30] MEDS: BACITRACIN 15 GM TUBE TOPICAL OINTMENT TP SCH ×2 (10:42→21:39)
[2016-08-30] MEDS: MULTIVIT-MINERALS 236 ML ML GT SCH (10:42)
[2016-08-30] MEDS: POTASSIUM CHLORIDE ORAL LIQUID 20 MEQ/15 ML GT SCH (10:42)
[2016-08-30] MEDS: DIGOXIN 0.125 MG TABLET (FP) PO SCH (10:42)
[2016-08-30] MEDS: levETIRAcetam 500 MG/5 ML ORAL SOLUTION (UNIT-DOSE CUPS) GT SCH ×2 (10:43→21:39)
--- NOTE | 2016-08-30 10:55 | PN ---
Progress Note, Physician History of Present Illness: PULMONARY POORLY RESPONSIVE,-RESP DISTRESS - Current Medication List Current Medications: Active Medications Acetaminophen (Tylenol Oral Solution -) 325 mg PO Q4H PRN PRN Reason: FEVER OR PAIN Albuterol/Ipratropium (Duoneb -) 1 amp NEB Q6H PRN Last Admin: 08/29/16 06:20 Dose: 1 amp Atorvastatin Calcium (Lipitor -) 40 mg GT HS [facility] Last Admin: 08/29/16 21:44 Dose: 40 mg Bacitracin (Bacitracin -) 1 applic TP BID [facility] Last Admin: 08/30/16 10:42 Dose: 1 applic Digoxin (Lanoxin -) 0.125 mg PO DAILY [facility] Last Admin: 08/30/16 10:42 Dose: 0.125 mg Heparin Sodium (Porcine) (Heparin -) 5,000 unit SQ BID [facility] Last Admin: 08/30/16 10:42 Dose: 5,000 unit Piperacillin Sod/Tazobactam Sod (Zosyn 2.25gm Ivpb (Pre-Docked)) 50 mls @ 100 mls/hr IVPB Q6H-IV [facility] PRN Reason: Protocol Last Admin: 08/30/16 10:41 Dose: 100 mls/hr Sodium Chloride (1/2 Normal Saline) 1,000 mls @ 83 mls/hr IV ASDIR [facility] Last Admin: 08/29/16 12:42 Dose: 83 mls/hr Insulin Aspart (Novolog Vial Sliding Scale -) 1 vial SQ TIDAC [facility] PRN Reason: Protocol Last Admin: 08/30/16 06:16 Dose: Not Given Levetiracetam (Keppra Oral Solution -) 500 mg GT BID [facility] Last Admin: 08/30/16 10:43 Dose: 500 mg Levothyroxine Sodium (Synthroid -) 125 mcg GT DAILY@0700 [facility] Last Admin: 08/30/16 06:28 Dose: 125 mcg Metoclopramide HCl (Reglan Oral Solution -) 5 mg PEG TID [facility] Last Admin: 08/30/16 06:28 Dose: 5 mg Potassium Chloride (Potassium Chloride Oral Liquid) 20 meq GT DAILY [facility] Last Admin: 08/30/16 10:42 Dose: 20 meq - Objective Vital Signs: Vital Signs Temperature 98 F 08/30/16 08:00 Pulse Rate 68 08/30/16 10:42 Respiratory Rate 20 08/30/16 08:00 Blood Pressure 146/58 08/30/16 08:00 O2 Sat by Pulse Oximetry (%) 97 08/29/16 21:00 Constitutional: Yes: Cachectic, Other (POORLY RESPONSIVE) Eyes: Yes: WNL HENT: Yes: WNL Neck: Yes: WNL Cardiovascular: Yes: Regular Rate and Rhythm, S1 Respiratory: Yes: Diminished Gastrointestinal: Yes: Normal Bowel Sounds, Soft Extremities: Yes: WNL Edema: No Labs: CBC, BMP 08/30/16 05:35 08/30/16 05:35 - ....Imaging Chest X-ray: Report Reviewed, Image Reviewed (RLL INFILTRATE) Problem List - Problems (1) Aspiration pneumonia Code(s): J69.0 - PNEUMONITIS DUE TO INHALATION OF FOOD AND VOMIT Qualifiers: Aspiration pneumonia type: unspecified Laterality: unspecified laterality Lung location: unspecified part of lung Qualified Code(s) : J69.0 - Pneumonitis due to inhalation of food and vomit (2) Hypoxia Code(s): R09.02 - HYPOXEMIA (3) Leukocytosis Code(s): D72.829 - ELEVATED WHITE BLOOD CELL COUNT, UNSPECIFIED (4) Anemia Code(s): D64.9 - ANEMIA, UNSPECIFIED (5) Aspiration into airway Code(s): T17.908A - UNSP FB IN RESP TRACT, PART UNSP CAUSING OTH INJURY, INIT (6) COPD (chronic obstructive pulmonary disease) Code(s): J44.9 - CHRONIC OBSTRUCTIVE PULMONARY DISEASE, UNSPECIFIED (7) Diabetes Code(s): E11.9 - TYPE 2 DIABETES MELLITUS WITHOUT COMPLICATIONS Qualifiers: Diabetes mellitus type: type 2 Diabetes mellitus complication status: with unspecified complications (8) Failure to thrive Code(s): [id number] - (9) Intracerebral hemorrhage Code(s): I61.9 - NONTRAUMATIC INTRACEREBRAL HEMORRHAGE, UNSPECIFIED Qualifiers : Cerebral hemorrhage location: cerebral hemisphere, cortical portion (10) Respiratory failure with hypoxia Code(s): J96.91 - RESPIRATORY FAILURE, UNSPECIFIED WITH HYPOXIA Qualifiers: Chronicity: acute Qualified Code(s): J96.01 - Acute respiratory failure with hypoxia (11) Lactate blood increased Code(s): R79.89 - OTHER SPECIFIED ABNORMAL FINDINGS OF BLOOD CHEMISTRY Assessment/Plan IMP ACUTE HYPOXEMIC RESPIRATORY FAILURE CLINICALLY IMPROVING LIKELY ASPIRATION S/P ICH ACUTE ON CHRONIC RENAL FAILURE COPD DEMENTIA S/P PEG ELEVATED LACTATE LEVEL NORMAL PLAN IV ANTIBIOTICS PER ID IVF O2 TO MAINTAIN O2 SAT 90% MONITOR LYTES,RENAL FUNCTION DR MCCULLOUGH Problem List - Problems (1) Aspiration pneumonia Code(s): J69.0 - PNEUMONITIS DUE TO INHALATION OF FOOD AND VOMIT Qualifiers: Aspiration pneumonia type: unspecified Laterality: unspecified laterality Lung location: unspecified part of lung Qualified Code(s) : J69.0 - Pneumonitis due to inhalation of food and vomit (2) Hypoxia Code(s): R09.02 - HYPOXEMIA (3) Leukocytosis Code(s): D72.829 - ELEVATED WHITE BLOOD CELL COUNT, UNSPECIFIED (4) Anemia Code(s): D64.9 - ANEMIA, UNSPECIFIED (5) Aspiration into airway Code(s): T17.908A - UNSP FB IN RESP TRACT, PART UNSP CAUSING OTH INJURY, INIT (6) COPD (chronic obstructive pulmonary disease) Code(s): J44.9 - CHRONIC OBSTRUCTIVE PULMONARY DISEASE, UNSPECIFIED (7) Diabetes Code(s): E11.9 - TYPE 2 DIABETES MELLITUS WITHOUT COMPLICATIONS Qualifiers: Diabetes mellitus type: type 2 Diabetes mellitus complication status: with unspecified complications (8) Failure to thrive Code(s): [id number] - (9) Intracerebral hemorrhage Code(s): I61.9 - NONTRAUMATIC INTRACEREBRAL HEMORRHAGE, UNSPECIFIED Qualifiers : Cerebral hemorrhage location: cerebral hemisphere, cortical portion (10) Respiratory failure with hypoxia Code(s): J96.91 - RESPIRATORY FAILURE, UNSPECIFIED WITH HYPOXIA Qualifiers: Chronicity: acute Qualified Code(s): J96.01 - Acute respiratory failure with hypoxia (11) Lactate blood increased Code(s): R79.89 - OTHER SPECIFIED ABNORMAL FINDINGS OF BLOOD CHEMISTRY
--- NOTE | 2016-08-30 11:37 | PN ---
Progress Note (short form) - Note Progress Note: Progress Note, Physician Chief Complaint: PAF History of Present Illness: not communicative - Current Medication List Current Medications Generic Name Dose Route Start Last Admin Trade Name Freq PRN Reason Stop Dose Admin Acetaminophen 325 mg 08/26/16 01:40 Tylenol Oral Solution - PO Q4H PRN FEVER OR PAIN Albuterol/Ipratropium 1 amp 08/26/16 01:40 08/29/16 06:20 Duoneb - NEB 1 amp Q6H PRN Administration Atorvastatin Calcium 40 mg 08/26/16 22:00 08/29/16 21:44 Lipitor - GT 40 mg HS [facility] Administration Bacitracin 1 applic 08/26/16 10:00 08/30/16 10:42 Bacitracin - TP 1 applic BID [facility] Administration Digoxin 0.125 mg 08/29/16 12:15 08/30/16 10:42 Lanoxin - PO 0.125 mg DAILY [facility] Administration Heparin Sodium (Porcine) 5,000 unit 08/26/16 10:00 08/30/16 10:42 Heparin - SQ 5,000 unit BID [facility] Administration Piperacillin Sod/Tazobactam Sod 50 mls @ 100 mls/hr 08/27/16 15:00 08/30/16 10: 41 Zosyn 2.25gm Ivpb (Pre-Docked) IVPB 100 mls/hr Q6H-IV [facility] Administration Protocol Sodium Chloride 1,000 mls @ 83 mls/hr 08/29/16 12:15 08/29/16 12:42 1/2 Normal Saline IV 83 mls/hr ASDIR [facility] Administration Insulin Aspart 1 vial 08/26/16 07:00 08/30/16 11:17 Novolog Vial Sliding Scale - SQ Not Given TIDAC [facility] Protocol Levetiracetam 500 mg 08/26/16 10:00 08/30/16 10:43 Keppra Oral Solution - GT 500 mg BID [facility] Administration Levothyroxine Sodium 125 mcg 08/26/16 07:00 08/30/16 06:28 Synthroid - GT 125 mcg DAILY@0700 [facility] Administration Metoclopramide HCl 5 mg 08/26/16 06:00 08/30/16 06:28 Reglan Oral Solution - PEG 5 mg TID [facility] Administration Potassium Chloride 20 meq 08/26/16 10:00 08/30/16 10:42 Potassium Chloride Oral Liquid GT 20 meq DAILY [facility] Administration - Objective Vital Signs: Vital Signs Period Temp Pulse Resp BP Sys/Stephenson Pulse Ox Last 24 Hr 97 F-98 F 56-78 18-20 131-152/49-66 97-100 Constitutional: Yes: Well Nourished, No Distress Eyes: No: Sclera Icterus Respiratory: Yes: CTA Bilaterally, Diminished (bases). No: Accessory Muscle Use , Rales, Wheezes Gastrointestinal: Yes: Normal Bowel Sounds. No: Distention, Hepatomegaly, Palpable Mass, Tenderness Cardiovascular: Yes: Regular Rate and Rhythm JVD: No Heart Sounds: Yes: S1, S2. No: Gallop Murmur: Yes: Systolic Murmur (2/6 early NAS lusb). No: Diastolic Murmur Extremities: No: Cold, Cyanosis Edema: No Integumentary: No: Jaundice Neurological: Yes: Lethargy. No: Seizure Psychiatric: No: Agitated CBC, BMP 08/30/16 05:35 08/30/16 05:35 tele: sr ECG 08/25/16: sr, nl intervals, no ischemic changes Echo 08/22: nl LV/EF; RV tds; mod AI/MR, no peric eff (no RVSP) cxr: no chf, tds a/p: acute hypoxic resp failure, PNA: -recurrent problem, ? aspirating -abx per ID/pmd -no signs chf or acs -recent echo with normal LV fxn and no severe valvular dysfunction -likely no volume overload, suspect intravasc depletion paroxysmal Afib -With RVR, likely related to ongoing pneumonia -Would not AC this patient (confirmed with dr navarrete she had spontaneous cerebral bleeds and mult SAHs at [facility] 1-2 mo ago, leading to her current debilitated mental status) -will not Rx ASA given significant ICH risks (? equal to warfarin in some studies) and no efficacy for preventing AF embolic events -08/28: Spontaneously converted to NSR, continue metoprolol 25mg PO BID (monitor for worsening COPD) -08/29: again rapid AF late yesterday with HRs to 160s and BP 80s--given amio iv -08/29-: converted to sinus. will stop amio and try prophlax against rapid AF with digoxin 0.125 qd (follow levels). if recurrent rapid AF and BPs remain low- end, will have to try po amio suppression HTN: -stable off meds recent ICH: -seen by neuro/neurosurgery, no intervention was planned chronic malnutrition: -s/p PEG, gets tube feeds copd: -per pulm hld: -on statin
[2016-08-30 11:38] LABS: METAMYELOCYTE 3 % (0-2); PLATELET ESTIMATE ADEQUATE (NORMAL)
--- NOTE | 2016-08-30 11:49 | PN ---
Progress Note (short form) - Note Progress Note: Renal Follow up for ULISES and Hypernatremia Pt seen and examined at the bedside non-verbal pt had a period of resp distress last night, IVFs were held, resumed this am Vital Signs Temperature 98 F 08/30/16 08:00 Pulse Rate 56 L 08/30/16 11:11 Respiratory Rate 20 08/30/16 08:00 Blood Pressure 146/58 08/30/16 08:00 O2 Sat by Pulse Oximetry (%) 100 08/30/16 11:11 Intake & Output 08/27/16 08/28/16 08/29/16 08/30/16 23:59 23:59 23:59 23:59 Intake Total 3200 800 1331 550 Balance 3200 800 1331 550 Gen: NAD CVS: RRR Lungs: CTA Abd: soft NT/ND Ext: no edema CBC, BMP 08/30/16 05:35 08/30/16 05:35 Laboratory Tests 08/30/16 05:35 Calcium 8.5 Phosphorus 3.9 Magnesium 2.8 H Albumin 1.8 L Current Medications Acetaminophen (Tylenol Oral Solution -) 325 mg PO Q4H PRN PRN Reason: FEVER OR PAIN Albuterol/Ipratropium (Duoneb -) 1 amp NEB Q6H PRN Last Admin: 08/29/16 06:20 Dose: 1 amp Atorvastatin Calcium (Lipitor -) 40 mg GT HS [facility] Last Admin: 08/29/16 21:44 Dose: 40 mg Bacitracin (Bacitracin -) 1 applic TP BID [facility] Last Admin: 08/30/16 10:42 Dose: 1 applic Digoxin (Lanoxin -) 0.125 mg PO DAILY [facility] Last Admin: 08/30/16 10:42 Dose: 0.125 mg Heparin Sodium (Porcine) (Heparin -) 5,000 unit SQ BID [facility] Last Admin: 08/30/16 10:42 Dose: 5,000 unit Piperacillin Sod/Tazobactam Sod (Zosyn 2.25gm Ivpb (Pre-Docked)) 50 mls @ 100 mls/hr IVPB Q6H-IV [facility] PRN Reason: Protocol Last Admin: 08/30/16 10:41 Dose: 100 mls/hr Sodium Chloride (1/2 Normal Saline) 1,000 mls @ 83 mls/hr IV ASDIR [facility] Last Admin: 08/29/16 12:42 Dose: 83 mls/hr Insulin Aspart (Novolog Vial Sliding Scale -) 1 vial SQ TIDAC [facility] PRN Reason: Protocol Last Admin: 08/30/16 11:17 Dose: Not Given Levetiracetam (Keppra Oral Solution -) 500 mg GT BID [facility] Last Admin: 08/30/16 10:43 Dose: 500 mg Levothyroxine Sodium (Synthroid -) 125 mcg GT DAILY@0700 [facility] Last Admin: 08/30/16 06:28 Dose: 125 mcg Metoclopramide HCl (Reglan Oral Solution -) 5 mg PEG TID [facility] Last Admin: 08/30/16 06:28 Dose: 5 mg Potassium Chloride (Potassium Chloride Oral Liquid) 20 meq GT DAILY [facility] Last Admin: 08/30/16 10:42 Dose: 20 meq A/P 81 year old woman with PMhx of recent large ICU managed conservatively, recent PNA, Hypertension, CHF (diastolic dysfunction?, recent echo shows normal LV function) who presented with SOB at home and hypoxia. #Acute Renal failure likely secondary to volume depletion in setting of PNA with hypernatremia BUN/cr remains elevated IVF not given on a consistent basis because of respiratory distress no signs of respiratory distress at this time, will resume IVF Change IVF to D5 1/3 NS at 60cc per hour Trend BUN/Cr and Na #PNA/Leukocytosis/Fever on Zosyn supplementary O2 #Hx of ICH supportive care Rikki Santos DO Problem List - Problems (1) Acute renal failure (ARF) Code(s): N17.9 - ACUTE KIDNEY FAILURE, UNSPECIFIED (2) Dehydration Code(s): E86.0 - DEHYDRATION (3) Pneumonia Code(s): J18.9 - PNEUMONIA, UNSPECIFIED ORGANISM Qualifiers: Pneumonia type: due to unspecified organism Laterality: right Lung location: lower lobe of lung Qualified Code(s): J18.1 - Lobar pneumonia, unspecified organism (4) Hypoxia Code(s): R09.02 - HYPOXEMIA (5) Volume depletion Code(s): E86.9 - VOLUME DEPLETION, UNSPECIFIED (6) Hypernatremia Code(s): E87.0 - HYPEROSMOLALITY AND HYPERNATREMIA (7) Anemia Code(s): D64.9 - ANEMIA, UNSPECIFIED (8) Leukocytosis Code(s): D72.829 - ELEVATED WHITE BLOOD CELL COUNT, UNSPECIFIED
[2016-08-30] MEDS: DEXTROSE 5%-1/3 NS - 500 ML IV SCH (14:32)
--- NOTE | 2016-08-30 16:12 | PN ---
Progress Note, Physician History of Present Illness: patient continuos to need face mask still non verbal - Current Medication List Current Medications: Active Medications Acetaminophen (Tylenol Oral Solution -) 325 mg PO Q4H PRN PRN Reason: FEVER OR PAIN Albuterol/Ipratropium (Duoneb -) 1 amp NEB Q6H PRN Last Admin: 08/29/16 06:20 Dose: 1 amp Atorvastatin Calcium (Lipitor -) 40 mg GT HS [facility] Last Admin: 08/29/16 21:44 Dose: 40 mg Bacitracin (Bacitracin -) 1 applic TP BID [facility] Last Admin: 08/30/16 10:42 Dose: 1 applic Digoxin (Lanoxin -) 0.125 mg PO DAILY [facility] Last Admin: 08/30/16 10:42 Dose: 0.125 mg Heparin Sodium (Porcine) (Heparin -) 5,000 unit SQ BID [facility] Last Admin: 08/30/16 10:42 Dose: 5,000 unit Piperacillin Sod/Tazobactam Sod (Zosyn 2.25gm Ivpb (Pre-Docked)) 50 mls @ 100 mls/hr IVPB Q6H-IV [facility] PRN Reason: Protocol Last Admin: 08/30/16 14:30 Dose: 100 mls/hr Dextrose/Sodium Chloride (D5-1/3ns -) 500 mls @ 60 mls/hr IV ASDIR [facility] Last Admin: 08/30/16 14:32 Dose: 60 mls/hr Insulin Aspart (Novolog Vial Sliding Scale -) 1 vial SQ TIDAC [facility] PRN Reason: Protocol Last Admin: 08/30/16 11:17 Dose: Not Given Levetiracetam (Keppra Oral Solution -) 500 mg GT BID [facility] Last Admin: 08/30/16 10:43 Dose: 500 mg Levothyroxine Sodium (Synthroid -) 125 mcg GT DAILY@0700 [facility] Last Admin: 08/30/16 06:28 Dose: 125 mcg Metoclopramide HCl (Reglan Oral Solution -) 5 mg PEG TID [facility] Last Admin: 08/30/16 14:32 Dose: 5 mg Potassium Chloride (Potassium Chloride Oral Liquid) 20 meq GT DAILY [facility] Last Admin: 08/30/16 10:42 Dose: 20 meq - Objective Vital Signs: Vital Signs Temperature 98.7 F 08/30/16 14:06 Pulse Rate 66 08/30/16 14:06 Respiratory Rate 20 08/30/16 14:06 Blood Pressure 142/54 08/30/16 14:06 O2 Sat by Pulse Oximetry (%) 100 08/30/16 11:11 Constitutional: Yes: Other Cardiovascular: Yes: S1, S2 Respiratory: Yes: Poor Air Entry, Rhonchi Gastrointestinal: Yes: Normal Bowel Sounds, Soft, Other (peg in place) Musculoskeletal: Yes: Other Extremities: Yes: Other Neurological: Yes: Other Labs: CBC, BMP 08/30/16 05:35 08/30/16 05:35 Assessment/Plan Problem List - Problems (1) Aspiration pneumonia Code(s): J69.0 - PNEUMONITIS DUE TO INHALATION OF FOOD AND VOMIT Qualifiers: Aspiration pneumonia type: unspecified Laterality: unspecified laterality Lung location: unspecified part of lung Qualified Code(s) : J69.0 - Pneumonitis due to inhalation of food and vomit (2) Hypoxia Code(s): R09.02 - HYPOXEMIA (3) Leukocytosis Code(s): D72.829 - ELEVATED WHITE BLOOD CELL COUNT, UNSPECIFIED (4) Anemia Code(s): D64.9 - ANEMIA, UNSPECIFIED (5) Aspiration into airway Code(s): T17.908A - UNSP FB IN RESP TRACT, PART UNSP CAUSING OTH INJURY, INIT (6) COPD (chronic obstructive pulmonary disease) Code(s): J44.9 - CHRONIC OBSTRUCTIVE PULMONARY DISEASE, UNSPECIFIED (7) Diabetes Code(s): E11.9 - TYPE 2 DIABETES MELLITUS WITHOUT COMPLICATIONS Qualifiers: Diabetes mellitus type: type 2 Diabetes mellitus complication status: with unspecified complications (8) Failure to thrive Code(s): QCT3721 - (9) Intracerebral hemorrhage Code(s): I61.9 - NONTRAUMATIC INTRACEREBRAL HEMORRHAGE, UNSPECIFIED Qualifiers : Cerebral hemorrhage location: cerebral hemisphere, cortical portion (10) Respiratory failure with hypoxia Code(s): J96.91 - RESPIRATORY FAILURE, UNSPECIFIED WITH HYPOXIA Qualifiers: Chronicity: acute Qualified Code(s): J96.01 - Acute respiratory failure with hypoxia (11) Lactate blood increased Code(s): R79.89 - OTHER SPECIFIED ABNORMAL FINDINGS OF BLOOD CHEMISTRY this patient well known to me failure to thrive admitted with sepsis and hypoxia very high chances of aspiration patient xray not impressive but could not get proper imaging because of her condition and posture plan conitnue abx continue to monitor will have to figure a way of feeding will d/w primary resp support
[2016-08-30] MEDS ORDERED: PT OWN MED DRAWER 7, Y5N ONE (17:08)
[2016-08-30] MEDS: ATORVASTATIN CA 40 MG TABLET (FP) GT SCH (21:44)
[2016-08-31] MEDS: PIPERACILLIN/TAZOB 2.25 GM 50 ML IVPB SCH ×4 (02:08→21:18)
[2016-08-31] MEDS: METOCLOPRAMIDE HCL 5 MG/5 ML UNIT DOSE CUP PEG SCH ×3 (05:18→21:18)
[2016-08-31] MEDS: LEVOTHYROXINE NA 125 MCG TABLET (FP) GT SCH (05:59)
[2016-08-31] MEDS: INSULIN SLIDING SCALE (NOVOLOG) 1 VIAL SQ SCH ×2 (05:59→12:50)
[2016-08-31 08:24] LABS: MCH 33.8 pg (25.7-33.7); MCHC 33.6 g/dl (32.0-36.0); MEAN CELL VOLUME 100.6 fl (80-96); MEAN PLT VOLUME 8.7 fl (7.5-11.1); PLATELET COUNT 282 K/MM3 (134-434); RDW 15.8 % (11.6-15.6); WHITE BLOOD COUNT 10.7 K/mm3 (4.0-10.0)
--- NOTE | 2016-08-31 08:58 | PN ---
Progress Note (short form) - Note Progress Note: Patient seen and examined. Awake, responding sometimes to verbal commands. Sinus tachy on & off. Afebrile. Not in respiratory distress. History Source: Medical Record, Transfer Record Limitations to Obtaining History: Clinical Condition - Past Medical History VEGETABLE PREPARER: Yes: CVA Cardiovascular: Yes: HTN, Hyperlipdemia Pulmonary: Yes: COPD Renal/: Yes: Renal Inusuff Heme/Onc: Yes: Anemia Endocrine: Yes: Diabetes Mellitus, Hypothyroidism - Smoking History Smoking history: Unknown if ever smoked Have you smoked in the past 12 months: No Aproximately how many cigarettes per day: 0 - Alcohol/Substance Use Hx Alcohol Use: No Home Medications - Allergies Allergies/Adverse Reactions: Allergies Allergy/AdvReac Type Severity Reaction Status Date / Time No Known Allergies Allergy Verified 07/28/16 18:15 - Home Medications Home Medications: Ambulatory Orders Acetaminophen [Tylenol] 320 mg GT Q6H 08/07/16 Albuterol 2.5/Ipratropium 0.5 [Duoneb -] 1 amp NEB Q6H 08/07/16 Amlodipine Besylate [Norvasc -] 2.5 mg GT DAILY 08/07/16 Insulin Aspart [Novolog Flexpen] 0 unit SQ TID 08/07/16 Levetiracetam 500 mg GT BID 08/07/16 Heparin - 5,000 unit SQ BID vial 08/17/16 Levothyroxine [Synthroid -] 125 mcg GT DAILY #60 tablet 08/17/16 Metoclopramide HCl [Reglan -] 5 mg PO TIDAC #90 tablet 08/17/16 Potassium Chloride [Potassium Chloride Oral Liquid] 20 meq GT DAILY #30 ml 08/17 Atorvastatin Ca [Lipitor] 40 mg GT HS 08/25/16 Multivitamins [Tab-A-Vit -] 1 tab GT DAILY 08/25/16 Review of Systems Unable to obtain ROS, reason: Because patient is unresp Physical Examination Vital Signs: Vital Signs Period Temp Pulse Resp BP Sys/Stephenson Pulse Ox Last 24 Hr 96.4 F-98.7 F 56-118 18-20 97-151/49-64 98-100 Constitutional: Yes: Cachectic, Moderate Distress Eyes: Yes: Conjunctiva Clear, EOM Intact, PERRL HENT: Yes: Atraumatic, Normocephalic Neck: Yes: Supple Cardiovascular: Yes: Regular Rate and Rhythm Respiratory: Yes: Diminished (B/L lung base) Gastrointestinal: Yes: Soft ...Rectal Exam: Yes: Deferred Peripheral Pulses WNL: Yes Neurological: Yes: Unresponsive Labs: CBC, BMP 08/31/16 05:40 Microbiology 08/25/16 17:39 Blood - Peripheral Venous Blood Culture - Final NO GROWTH AFTER 5 DAYS INCUBATION Imaging - Results Chest X-ray: Report Reviewed Problem List - Problems (1) Aspiration pneumonitis Assessment/Plan: Continue IV abx. Pulmonary and ID follow up appreciated. Code(s): J69.0 - PNEUMONITIS DUE TO INHALATION OF FOOD AND VOMIT (2) Acute renal failure (ARF) Assessment/Plan: Continue IV fluids. Renal follow up appreciated. Code(s): N17.9 - ACUTE KIDNEY FAILURE, UNSPECIFIED (3) Respiratory failure with hypoxia Assessment/Plan: Monitor O2 sats. Continue inhaled bronchodilators. Pulmonary follow up appreciated. Code(s): J96.91 - RESPIRATORY FAILURE, UNSPECIFIED WITH HYPOXIA Qualifiers: Chronicity: acute Qualified Code(s): J96.01 - Acute respiratory failure with hypoxia (4) Diabetes Assessment/Plan: ISS Code(s): E11.9 - TYPE 2 DIABETES MELLITUS WITHOUT COMPLICATIONS Qualifiers: Diabetes mellitus type: type 2 Diabetes mellitus complication status: with unspecified complications (5) Hypothyroid Assessment/Plan: Continue synthroid. Code(s): E03.9 - HYPOTHYROIDISM, UNSPECIFIED (6) Hypertension Assessment/Plan: Monitor BP. Code(s): I10 - ESSENTIAL (PRIMARY) HYPERTENSION (7) Intracerebral hemorrhage Assessment/Plan: Minimally responsive. Code(s): I61.9 - NONTRAUMATIC INTRACEREBRAL HEMORRHAGE, UNSPECIFIED Qualifiers : Cerebral hemorrhage location: cerebral hemisphere, cortical portion (8) PEG feeds on hold because of aspiration. (9) Atrial Fibrillation: With rapid ventricular rate. Cardiology following the case. Palliative care met with family and discussed goals of care with the family. Palliative care note reviewed. Family will make a decision today. Continue current management for the time being. Overall poor prognosis. Problem List - Problems (1) Aspiration pneumonitis Code(s): J69.0 - PNEUMONITIS DUE TO INHALATION OF FOOD AND VOMIT (2) Acute renal failure (ARF) Code(s): N17.9 - ACUTE KIDNEY FAILURE, UNSPECIFIED (3) Respiratory failure with hypoxia Code(s): J96.91 - RESPIRATORY FAILURE, UNSPECIFIED WITH HYPOXIA Qualifiers: Chronicity: acute Qualified Code(s): J96.01 - Acute respiratory failure with hypoxia (4) Diabetes Code(s): E11.9 - TYPE 2 DIABETES MELLITUS WITHOUT COMPLICATIONS Qualifiers: Diabetes mellitus type: type 2 Diabetes mellitus complication status: with unspecified complications (5) Hypothyroid Code(s): E03.9 - HYPOTHYROIDISM, UNSPECIFIED (6) Hypertension Code(s): I10 - ESSENTIAL (PRIMARY) HYPERTENSION (7) Intracerebral hemorrhage Code(s): I61.9 - NONTRAUMATIC INTRACEREBRAL HEMORRHAGE, UNSPECIFIED Qualifiers : Cerebral hemorrhage location: cerebral hemisphere, cortical portion
[2016-08-31 09:12] LABS: CALCIUM 8.3 mg/dL (8.5-10.1); CO2 28 mmol/L (21-32); CREATININE 1.1 mg/dL (0.55-1.02); GLUCOSE,RANDOM 126 mg/dL (74-106); MAGNESIUM 2.3 mg/dL (1.8-2.4); PHOSPHOROUS 3.3 mg/dL (2.5-4.9)
[2016-08-31 09:43] LABS: ANION GAP 7 (8-16)
[2016-08-31] MEDS: HEPARIN NA (PORCINE) 5,000 UNITS/ML 1ML VIAL SQ SCH ×2 (11:00→21:18)
--- NOTE | 2016-08-31 11:03 | PN ---
Progress Note (short form) - Note Progress Note: PULMONARY REMAINS POORLY RESPONSIVE ON V/M O2 VSS/AFEBRILE ANICTERIC/PALE RHONCHI RIGHT BAS S1S2 BS+ PEG NO EDEMA LABS/MEDS/NOTES/IMAGING/MICRO REVIEWED IMP ACUTE HYPOXEMIC RESPIRATORY FAILURE LIKELY ASPIRATION S/P ICH ACUTE ON CHRONIC RENAL FAILURE COPD DEMENTIA S/P PEG ELEVATED LACTATE LEVEL NORMAL PLAN IV ANTIBIOTICS IVF NEEDED/ENTERAL FEEDS O2 TO MAINTAIN O2 SAT 90% MONITOR LYTES,RENAL FUNCTION Sasha POLANCO MD
[2016-08-31] MEDS: MULTIVIT-MINERALS 236 ML ML GT SCH (11:13)
[2016-08-31] MEDS: BACITRACIN 15 GM TUBE TOPICAL OINTMENT TP SCH ×2 (11:13→21:19)
[2016-08-31] MEDS: POTASSIUM CHLORIDE ORAL LIQUID 20 MEQ/15 ML GT SCH (11:14)
[2016-08-31] MEDS: levETIRAcetam 500 MG/5 ML ORAL SOLUTION (UNIT-DOSE CUPS) GT SCH ×2 (11:14→21:18)
--- NOTE | 2016-08-31 11:15 | PN ---
Progress Note (short form) - Note Progress Note: Progress Note, Physician Chief Complaint: PAF History of Present Illness: not communicative - Current Medication List Current Medications Generic Name Dose Route Start Last Admin Trade Name Freq PRN Reason Stop Dose Admin Acetaminophen 325 mg 08/26/16 01:40 Tylenol Oral Solution - PO Q4H PRN FEVER OR PAIN Atorvastatin Calcium 40 mg 08/26/16 22:00 08/30/16 21:44 Lipitor - GT 40 mg HS [facility] Administration Bacitracin 1 applic 08/26/16 10:00 08/30/16 21:39 Bacitracin - TP 1 applic BID [facility] Administration Heparin Sodium (Porcine) 5,000 unit 08/26/16 10:00 08/30/16 21:39 Heparin - SQ 5,000 unit BID [facility] Administration Piperacillin Sod/Tazobactam Sod 50 mls @ 100 mls/hr 08/27/16 15:00 08/31/16 02: 08 Zosyn 2.25gm Ivpb (Pre-Docked) IVPB 100 mls/hr Q6H-IV [facility] Administration Protocol Dextrose/Sodium Chloride 500 mls @ 60 mls/hr 08/30/16 12:00 08/30/16 14:32 D5-1/3ns - IV 60 mls/hr ASDIR [facility] Administration Insulin Aspart 1 vial 08/26/16 07:00 08/31/16 05:59 Novolog Vial Sliding Scale - SQ Not Given TIDAC [facility] Protocol Levetiracetam 500 mg 08/26/16 10:00 08/30/16 21:39 Keppra Oral Solution - GT 500 mg BID [facility] Administration Levothyroxine Sodium 125 mcg 08/26/16 07:00 08/31/16 05:59 Synthroid - GT 125 mcg DAILY@0700 [facility] Administration Metoclopramide HCl 5 mg 08/26/16 06:00 08/31/16 05:18 Reglan Oral Solution - PEG 5 mg TID [facility] Administration Potassium Chloride 20 meq 08/26/16 10:00 08/30/16 10:42 Potassium Chloride Oral Liquid GT 20 meq DAILY [facility] Administration - Objective Vital Signs: Vital Signs Period Temp Pulse Resp BP Sys/Stephenson Pulse Ox Last 24 Hr 96.4 F-98.7 F 62-118 18-20 97-151/49-64 100 Constitutional: Yes: Well Nourished, No Distress Eyes: No: Sclera Icterus Respiratory: Yes: CTA Bilaterally, Diminished (bases). No: Accessory Muscle Use , Rales, Wheezes Gastrointestinal: Yes: Normal Bowel Sounds. No: Distention, Hepatomegaly, Palpable Mass, Tenderness Cardiovascular: Yes: irreg, tachy JVD: No Heart Sounds: Yes: S1, S2. No: Gallop Murmur: Yes: Systolic Murmur (2/6 early NAS lusb). No: Diastolic Murmur Extremities: No: Cold, Cyanosis Edema: No Integumentary: No: Jaundice Neurological: Yes: Lethargy. No: Seizure Psychiatric: No: Agitated CBC, BMP 08/31/16 05:40 08/31/16 05:40 tele: afib with rvr to 150s at times, currently 120s ECG 08/25/16: sr, nl intervals, no ischemic changes Echo 08/22: nl LV/EF; RV tds; mod AI/MR, no peric eff (no RVSP) cxr: no chf, tds a/p: acute hypoxic resp failure, PNA: -recurrent problem, ? aspirating -abx per ID/pmd -no signs chf or acs -recent echo with normal LV fxn and no severe valvular dysfunction -likely no volume overload, suspect intravasc depletion paroxysmal Afib -With RVR, likely related to ongoing pneumonia -Would not AC this patient (confirmed with dr navarrete she had spontaneous cerebral bleeds and mult SAHs at [facility] 1-2 mo ago, leading to her current debilitated mental status) -will not Rx ASA given significant ICH risks (? equal to warfarin in some studies) and no efficacy for preventing AF embolic events -08/28: Spontaneously converted to NSR, continue metoprolol 25mg PO BID (monitor for worsening COPD) -08/29: again rapid AF late yesterday with HRs to 160s and BP 80s--given amio iv -08/29-: converted to sinus. will stop amio and try prophlax against rapid AF with digoxin 0.125 qd (follow levels). if recurrent rapid AF and BPs remain low- end, will have to try po amio suppression -08/31: went back into afib with rvr overnight. BP low so won't tolerate bb/ ccb. Dig not helping so will dc. Will resume amio (po) as this helped keep her in SR before. HTN: -stable/low off meds recent ICH: -seen by neuro/neurosurgery, no intervention was planned chronic malnutrition: -s/p PEG, gets tube feeds copd: -per pulm hld: -on statin
--- NOTE | 2016-08-31 11:56 | PN ---
Progress Note (short form) - Note Progress Note: Renal Follow up for ULISES and Hypernatremia Pt seen and examined at the bedside awake non-verbal no overnight events HR remains elevated but ho dyspnea or hypoxia overnight Vital Signs Temperature 98.0 F 08/31/16 06:00 Pulse Rate 118 H 08/31/16 06:00 Respiratory Rate 20 08/31/16 06:00 Blood Pressure 121/56 08/31/16 06:00 O2 Sat by Pulse Oximetry (%) 100 08/30/16 21:00 Intake & Output 08/28/16 08/29/16 08/30/16 08/31/16 23:59 23:59 23:59 23:59 Intake Total 800 1331 1330 840 Balance 800 1331 1330 840 Gen: NAD CVS: RRR Lungs: CTA Abd: soft NT/ND Ext: no edema CBC, BMP 08/31/16 05:40 08/31/16 05:40 Laboratory Tests 08/31/16 05:40 Calcium 8.3 L Phosphorus 3.3 Magnesium 2.3 Current Medications Acetaminophen (Tylenol Oral Solution -) 325 mg PO Q4H PRN PRN Reason: FEVER OR PAIN Amiodarone HCl (Cordarone -) 200 mg PO DAILY [facility] Atorvastatin Calcium (Lipitor -) 40 mg GT HS [facility] Last Admin: 08/30/16 21:44 Dose: 40 mg Bacitracin (Bacitracin -) 1 applic TP BID [facility] Last Admin: 08/31/16 11:13 Dose: 1 applic Heparin Sodium (Porcine) (Heparin -) 5,000 unit SQ BID [facility] Last Admin: 08/30/16 21:39 Dose: 5,000 unit Piperacillin Sod/Tazobactam Sod (Zosyn 2.25gm Ivpb (Pre-Docked)) 50 mls @ 100 mls/hr IVPB Q6H-IV [facility] PRN Reason: Protocol Last Admin: 08/31/16 11:13 Dose: 100 mls/hr Dextrose/Sodium Chloride (D5-1/3ns -) 500 mls @ 60 mls/hr IV ASDIR [facility] Last Admin: 08/30/16 14:32 Dose: 60 mls/hr Insulin Aspart (Novolog Vial Sliding Scale -) 1 vial SQ TIDAC [facility] PRN Reason: Protocol Last Admin: 08/31/16 05:59 Dose: Not Given Levetiracetam (Keppra Oral Solution -) 500 mg GT BID [facility] Last Admin: 08/31/16 11:14 Dose: 500 mg Levothyroxine Sodium (Synthroid -) 125 mcg GT DAILY@0700 [facility] Last Admin: 08/31/16 05:59 Dose: 125 mcg Metoclopramide HCl (Reglan Oral Solution -) 5 mg PEG TID [facility] Last Admin: 08/31/16 05:18 Dose: 5 mg Potassium Chloride (Potassium Chloride Oral Liquid) 20 meq GT DAILY [facility] Last Admin: 08/31/16 11:14 Dose: 20 meq A/P 81 year old woman with PMhx of recent large ICU managed conservatively, recent PNA, Hypertension, CHF (diastolic dysfunction?, recent echo shows normal LV function) who presented with SOB at home and hypoxia. #Acute Renal failure likely secondary to volume depletion in setting of PNA with hypernatremia BUN/Cr slowly improving Serum Na is improving continue D5 1/3 NS for now trend BMP daily monitor respiratory status closely #PNA/Leukocytosis/Fever on Zosyn supplementary O2 #Hx of ICH supportive care #Macrocytic Anemia Hgb stable no indication for transfusion at this time Rikki Santos DO Problem List - Problems (1) Acute renal failure (ARF) Code(s): N17.9 - ACUTE KIDNEY FAILURE, UNSPECIFIED (2) Dehydration Code(s): E86.0 - DEHYDRATION (3) Pneumonia Code(s): J18.9 - PNEUMONIA, UNSPECIFIED ORGANISM Qualifiers: Pneumonia type: due to unspecified organism Laterality: right Lung location: lower lobe of lung Qualified Code(s): J18.1 - Lobar pneumonia, unspecified organism (4) Hypoxia Code(s): R09.02 - HYPOXEMIA (5) Volume depletion Code(s): E86.9 - VOLUME DEPLETION, UNSPECIFIED (6) Hypernatremia Code(s): E87.0 - HYPEROSMOLALITY AND HYPERNATREMIA (7) Anemia Code(s): D64.9 - ANEMIA, UNSPECIFIED (8) Leukocytosis Code(s): D72.829 - ELEVATED WHITE BLOOD CELL COUNT, UNSPECIFIED
[2016-08-31] MEDS: AMIODARONE HCL 200 MG TABLET (FP) PO SCH (12:31)
[2016-08-31 12:42] LABS: METAMYELOCYTE 1 % (0-2); PLATELET ESTIMATE ADEQUATE (NORMAL)
[2016-08-31] MEDS: DEXTROSE 5%-1/3 NS - 500 ML IV SCH (13:00)
--- NOTE | 2016-08-31 15:23 | PN ---
Progress Note, Physician History of Present Illness: family considering next step no events overnight non verbal - Current Medication List Current Medications: Active Medications Acetaminophen (Tylenol Oral Solution -) 325 mg PO Q4H PRN PRN Reason: FEVER OR PAIN Amiodarone HCl (Cordarone -) 200 mg PO DAILY [facility] Last Admin: 08/31/16 12:31 Dose: 200 mg Atorvastatin Calcium (Lipitor -) 40 mg GT HS [facility] Last Admin: 08/30/16 21:44 Dose: 40 mg Bacitracin (Bacitracin -) 1 applic TP BID [facility] Last Admin: 08/31/16 11:13 Dose: 1 applic Heparin Sodium (Porcine) (Heparin -) 5,000 unit SQ BID [facility] Last Admin: 08/31/16 11:00 Dose: 5,000 unit Piperacillin Sod/Tazobactam Sod (Zosyn 2.25gm Ivpb (Pre-Docked)) 50 mls @ 100 mls/hr IVPB Q6H-IV [facility] PRN Reason: Protocol Last Admin: 08/31/16 11:13 Dose: 100 mls/hr Dextrose/Sodium Chloride (D5-1/3ns -) 500 mls @ 60 mls/hr IV ASDIR [facility] Last Admin: 08/30/16 14:32 Dose: 60 mls/hr Insulin Aspart (Novolog Vial Sliding Scale -) 1 vial SQ TIDAC [facility] PRN Reason: Protocol Last Admin: 08/31/16 12:50 Dose: Not Given Levetiracetam (Keppra Oral Solution -) 500 mg GT BID [facility] Last Admin: 08/31/16 11:14 Dose: 500 mg Levothyroxine Sodium (Synthroid -) 125 mcg GT DAILY@0700 [facility] Last Admin: 08/31/16 05:59 Dose: 125 mcg Metoclopramide HCl (Reglan Oral Solution -) 5 mg PEG TID [facility] Last Admin: 08/31/16 05:18 Dose: 5 mg Potassium Chloride (Potassium Chloride Oral Liquid) 20 meq GT DAILY [facility] Last Admin: 08/31/16 11:14 Dose: 20 meq - Objective Vital Signs: Vital Signs Temperature 98.2 F 08/31/16 14:11 Pulse Rate 94 H 08/31/16 14:11 Respiratory Rate 18 08/31/16 14:11 Blood Pressure 136/75 08/31/16 14:11 O2 Sat by Pulse Oximetry (%) 100 07/25/17 21:00 Constitutional: Yes: No Distress Neck: Yes: Supple Cardiovascular: Yes: Regular Rate and Rhythm, S1, S2 Gastrointestinal: Yes: Normal Bowel Sounds, Soft, Other (peg) Musculoskeletal: Yes: Other Extremities: Yes: Other Neurological: Yes: Alert, Other (non verbal) Labs: CBC, BMP 08/31/16 05:40 08/31/16 05:40 Assessment/Plan Problem List - Problems (1) Aspiration pneumonia Code(s): J69.0 - PNEUMONITIS DUE TO INHALATION OF FOOD AND VOMIT Qualifiers: Aspiration pneumonia type: unspecified Laterality: unspecified laterality Lung location: unspecified part of lung Qualified Code(s) : J69.0 - Pneumonitis due to inhalation of food and vomit (2) Hypoxia Code(s): R09.02 - HYPOXEMIA (3) Leukocytosis Code(s): D72.829 - ELEVATED WHITE BLOOD CELL COUNT, UNSPECIFIED (4) Anemia Code(s): D64.9 - ANEMIA, UNSPECIFIED (5) Aspiration into airway Code(s): T17.908A - UNSP FB IN RESP TRACT, PART UNSP CAUSING OTH INJURY, INIT (6) COPD (chronic obstructive pulmonary disease) Code(s): J44.9 - CHRONIC OBSTRUCTIVE PULMONARY DISEASE, UNSPECIFIED (7) Diabetes Code(s): E11.9 - TYPE 2 DIABETES MELLITUS WITHOUT COMPLICATIONS Qualifiers: Diabetes mellitus type: type 2 Diabetes mellitus complication status: with unspecified complications (8) Failure to thrive Code(s): [id number] - (9) Intracerebral hemorrhage Code(s): I61.9 - NONTRAUMATIC INTRACEREBRAL HEMORRHAGE, UNSPECIFIED Qualifiers : Cerebral hemorrhage location: cerebral hemisphere, cortical portion (10) Respiratory failure with hypoxia Code(s): J96.91 - RESPIRATORY FAILURE, UNSPECIFIED WITH HYPOXIA Qualifiers: Chronicity: acute Qualified Code(s): J96.01 - Acute respiratory failure with hypoxia (11) Lactate blood increased Code(s): R79.89 - OTHER SPECIFIED ABNORMAL FINDINGS OF BLOOD CHEMISTRY this patient well known to me failure to thrive admitted with sepsis and hypoxia very high chances of aspiration patient xray not impressive but could not get proper imaging because of her condition and posture plan conitnue abx continue to monitor will have to figure a way of feeding i dont know but will bolus feeding help instead of continuous the nursing team will discuss with sales support manager
[2016-08-31] MEDS ORDERED: PT OWN MED DRAWER 7, Y5N ONE (21:16)
[2016-08-31] MEDS: ATORVASTATIN CA 40 MG TABLET (FP) GT SCH (21:19)
[2016-09-01] MEDS: PIPERACILLIN/TAZOB 2.25 GM 50 ML IVPB SCH ×4 (02:26→21:36)
[2016-09-01] MEDS ORDERED: PT OWN MED DRAWER 7, Y5N ONE ×4 (06:01→21:26)
[2016-09-01] MEDS: METOCLOPRAMIDE HCL 5 MG/5 ML UNIT DOSE CUP PEG SCH ×3 (06:03→21:35)
[2016-09-01] MEDS: DEXTROSE 5%-1/3 NS - 500 ML IV SCH ×2 (06:07→13:51)
[2016-09-01] MEDS: INSULIN SLIDING SCALE (NOVOLOG) 1 VIAL SQ SCH ×3 (06:31→17:00)
[2016-09-01] MEDS: LEVOTHYROXINE NA 125 MCG TABLET (FP) GT SCH (06:49)
[2016-09-01 08:17] LABS: MCH 33.2 pg (25.7-33.7); MCHC 33.4 g/dl (32.0-36.0); MEAN CELL VOLUME 99.4 fl (80-96); MEAN PLT VOLUME 8.8 fl (7.5-11.1); PLATELET COUNT 271 K/MM3 (134-434); RDW 15.6 % (11.6-15.6); WHITE BLOOD COUNT 8.2 K/mm3 (4.0-10.0)
--- NOTE | 2016-09-01 09:03 | PN ---
Progress Note (short form) - Note Progress Note: Patient seen and examined. No change in clinical condition since yesterday. Amiodarone stopped last night because of bradycardia. Discussed in detail with yesterday about overall prognosis. Still undecided whether she would return to [facility] with comfort care or [place]. Afebrile. Saturating well. Not in respiratory distress. History Source: Medical Record, Transfer Record Limitations to Obtaining History: Clinical Condition - Past Medical History DIRECTOR OF VOCATIONAL TRAINING: Yes: CVA Cardiovascular: Yes: HTN, Hyperlipdemia Pulmonary: Yes: COPD Renal/: Yes: Renal Inusuff Heme/Onc: Yes: Anemia Endocrine: Yes: Diabetes Mellitus, Hypothyroidism - Smoking History Smoking history: Unknown if ever smoked Have you smoked in the past 12 months: No Aproximately how many cigarettes per day: 0 - Alcohol/Substance Use Hx Alcohol Use: No Home Medications - Allergies Allergies/Adverse Reactions: Allergies Allergy/AdvReac Type Severity Reaction Status Date / Time No Known Allergies Allergy Verified 07/28/16 18:15 - Home Medications Home Medications: Ambulatory Orders Acetaminophen [Tylenol] 320 mg GT Q6H 08/07/16 Albuterol 2.5/Ipratropium 0.5 [Duoneb -] 1 amp NEB Q6H 08/07/16 Amlodipine Besylate [Norvasc -] 2.5 mg GT DAILY 08/07/16 Insulin Aspart [Novolog Flexpen] 0 unit SQ TID 08/07/16 Levetiracetam 500 mg GT BID 08/07/16 Heparin - 5,000 unit SQ BID vial 08/17/16 Levothyroxine [Synthroid -] 125 mcg GT DAILY #60 tablet 08/17/16 Metoclopramide HCl [Reglan -] 5 mg PO TIDAC #90 tablet 08/17/16 Potassium Chloride [Potassium Chloride Oral Liquid] 20 meq GT DAILY #30 ml 08/17 Atorvastatin Ca [Lipitor] 40 mg GT HS 08/25/16 Multivitamins [Tab-A-Vit -] 1 tab GT DAILY 08/25/16 Review of Systems Unable to obtain ROS, reason: Because patient is unresp Physical Examination Vital Signs: Vital Signs Period Temp Pulse Resp BP Sys/Stephenson Pulse Ox Last 24 Hr 97.6 F-98.8 F 55-137 18-20 123-156/40-75 100 Constitutional: Yes: Cachectic, Moderate Distress Eyes: Yes: Conjunctiva Clear, EOM Intact, PERRL HENT: Yes: Atraumatic, Normocephalic Neck: Yes: Supple Cardiovascular: Yes: Regular Rate and Rhythm Respiratory: Yes: Diminished (B/L lung base) Gastrointestinal: Yes: Soft ...Rectal Exam: Yes: Deferred Peripheral Pulses WNL: Yes Neurological: Yes: Unresponsive Labs: CBC, BMP 09/01/16 06:00 09/01/16 06:00 Microbiology 08/25/16 17:39 Blood - Peripheral Venous Blood Culture - Final NO GROWTH AFTER 5 DAYS INCUBATION Imaging - Results Chest X-ray: Report Reviewed Problem List - Problems (1) Aspiration pneumonitis Assessment/Plan: WbCc normal now. Continue IV abx. Pulmonary and ID follow up appreciated. Code(s): J69.0 - PNEUMONITIS DUE TO INHALATION OF FOOD AND VOMIT (2) Acute renal failure (ARF) Assessment/Plan: Improving BUN/cr Continue IV fluids. Renal follow up appreciated. Code(s): N17.9 - ACUTE KIDNEY FAILURE, UNSPECIFIED 3) Hypernatremia Improving. Continue IV fluids. (4) Respiratory failure with hypoxia Assessment/Plan: Monitor O2 sats. Continue inhaled bronchodilators. Pulmonary follow up appreciated. Code(s): J96.91 - RESPIRATORY FAILURE, UNSPECIFIED WITH HYPOXIA Qualifiers: Chronicity: acute Qualified Code(s): J96.01 - Acute respiratory failure with hypoxia (5) Diabetes Assessment/Plan: ISS Code(s): E11.9 - TYPE 2 DIABETES MELLITUS WITHOUT COMPLICATIONS Qualifiers: Diabetes mellitus type: type 2 Diabetes mellitus complication status: with unspecified complications (6) Hypothyroid Assessment/Plan: Continue synthroid. Code(s): E03.9 - HYPOTHYROIDISM, UNSPECIFIED (7) Hypertension Assessment/Plan: Monitor BP. Code(s): I10 - ESSENTIAL (PRIMARY) HYPERTENSION (8) Intracerebral hemorrhage Assessment/Plan: Minimally responsive. Code(s): I61.9 - NONTRAUMATIC INTRACEREBRAL HEMORRHAGE, UNSPECIFIED Qualifiers : Cerebral hemorrhage location: cerebral hemisphere, cortical portion (9) Severe Protein-Calorie Malnutrition: PEG feeds on hold due to aspiration. On IV fluids. Awaiting family decision regarding goals of care. Family entertaining idea about bolus feeds rather than continuous feeds (9) Atrial Fibrillation: Amiodaron stopped due to bradycardia. Cardiology following the case. Palliative care met with family and discussed goals of care with the family. Still undecided. May make decision today. Discussed in detail with in my office office yesterday about overall prognosis. Continue current management for the time being. Overall poor prognosis. Problem List - Problems (1) Aspiration pneumonitis Code(s): J69.0 - PNEUMONITIS DUE TO INHALATION OF FOOD AND VOMIT (2) Acute renal failure (ARF) Code(s): N17.9 - ACUTE KIDNEY FAILURE, UNSPECIFIED (3) Respiratory failure with hypoxia Code(s): J96.91 - RESPIRATORY FAILURE, UNSPECIFIED WITH HYPOXIA Qualifiers: Chronicity: acute Qualified Code(s): J96.01 - Acute respiratory failure with hypoxia (4) Diabetes Code(s): E11.9 - TYPE 2 DIABETES MELLITUS WITHOUT COMPLICATIONS Qualifiers: Diabetes mellitus type: type 2 Diabetes mellitus complication status: with unspecified complications (5) Hypothyroid Code(s): E03.9 - HYPOTHYROIDISM, UNSPECIFIED (6) Hypertension Code(s): I10 - ESSENTIAL (PRIMARY) HYPERTENSION (7) Intracerebral hemorrhage Code(s): I61.9 - NONTRAUMATIC INTRACEREBRAL HEMORRHAGE, UNSPECIFIED Qualifiers : Cerebral hemorrhage location: cerebral hemisphere, cortical portion
[2016-09-01 09:16] LABS: ALBUMIN 1.5 g/dl (3.4-5.0); ALK PHOS 73 U/L (45-117); ANION GAP 10 (8-16); BILIRUBIN,TOTAL 0.5 mg/dL (0.2-1.0); CALCIUM 8.1 mg/dL (8.5-10.1); CO2 25 mmol/L (21-32); GLUCOSE,RANDOM 131 mg/dL (74-106); MAGNESIUM 2.2 mg/dL (1.8-2.4); PHOSPHOROUS 3.1 mg/dL (2.5-4.9); SGOT/AST 32 U/L (15-37); SGPT/ALT 32 U/L (12-78)
[2016-09-01 09:46] LABS: METAMYELOCYTE 4 % (0-2)
[2016-09-01 09:47] LABS: PLATELET ESTIMATE ADEQUATE (NORMAL)
--- NOTE | 2016-09-01 10:07 | PN ---
Progress Note, Physician History of Present Illness: pulmonary poorly responsive on vm,-resp distress - Current Medication List Current Medications: Active Medications Acetaminophen (Tylenol Oral Solution -) 325 mg PO Q4H PRN PRN Reason: FEVER OR PAIN Amiodarone HCl (Cordarone -) 200 mg PO DAILY [facility] Last Admin: 08/31/16 12:31 Dose: 200 mg Atorvastatin Calcium (Lipitor -) 40 mg GT HS [facility] Last Admin: 08/31/16 21:19 Dose: 40 mg Bacitracin (Bacitracin -) 1 applic TP BID [facility] Last Admin: 08/31/16 21:19 Dose: 1 applic Heparin Sodium (Porcine) (Heparin -) 5,000 unit SQ BID [facility] Last Admin: 08/31/16 21:18 Dose: 5,000 unit Piperacillin Sod/Tazobactam Sod (Zosyn 2.25gm Ivpb (Pre-Docked)) 50 mls @ 100 mls/hr IVPB Q6H-IV [facility] PRN Reason: Protocol Last Admin: 09/01/16 08:56 Dose: 100 mls/hr Dextrose/Sodium Chloride (D5-1/3ns -) 500 mls @ 60 mls/hr IV ASDIR [facility] Last Admin: 09/01/16 06:07 Dose: 60 mls/hr Insulin Aspart (Novolog Vial Sliding Scale -) 1 vial SQ TIDAC [facility] PRN Reason: Protocol Last Admin: 09/01/16 06:31 Dose: Not Given Levetiracetam (Keppra Oral Solution -) 500 mg GT BID [facility] Last Admin: 08/31/16 21:18 Dose: 500 mg Levothyroxine Sodium (Synthroid -) 125 mcg GT DAILY@0700 [facility] Last Admin: 09/01/16 06:49 Dose: 125 mcg Metoclopramide HCl (Reglan Oral Solution -) 5 mg PEG TID [facility] Last Admin: 09/01/16 06:03 Dose: 5 mg Potassium Chloride (Potassium Chloride Oral Liquid) 20 meq GT DAILY [facility] Last Admin: 08/31/16 11:14 Dose: 20 meq - Objective Vital Signs: Vital Signs Temperature 97.8 F 09/01/16 08:59 Pulse Rate 55 L 09/01/16 08:59 Respiratory Rate 18 09/01/16 08:59 Blood Pressure 141/53 09/01/16 08:59 O2 Sat by Pulse Oximetry (%) 100 07/26/17 21:00 Constitutional: Yes: Cachectic, Other (poorly responsive) Eyes: Yes: WNL HENT: Yes: WNL Neck: Yes: WNL Cardiovascular: Yes: Regular Rate and Rhythm, S1, S2 Respiratory: Yes: Rhonchi (poor inspiratory effort,few scattered clementine rhonchi), Other Gastrointestinal: Yes: Normal Bowel Sounds, Soft Extremities: Yes: Other (contracted) Edema: No Peripheral Pulses WNL: No Labs: CBC, BMP 09/01/16 06:00 09/01/16 06:00 Problem List - Problems (1) Aspiration pneumonia Code(s): J69.0 - PNEUMONITIS DUE TO INHALATION OF FOOD AND VOMIT Qualifiers: Aspiration pneumonia type: unspecified Laterality: unspecified laterality Lung location: unspecified part of lung Qualified Code(s) : J69.0 - Pneumonitis due to inhalation of food and vomit (2) Hypoxia Code(s): R09.02 - HYPOXEMIA (3) Leukocytosis Code(s): D72.829 - ELEVATED WHITE BLOOD CELL COUNT, UNSPECIFIED (4) Anemia Code(s): D64.9 - ANEMIA, UNSPECIFIED (5) Aspiration into airway Code(s): T17.908A - UNSP FB IN RESP TRACT, PART UNSP CAUSING OTH INJURY, INIT (6) COPD (chronic obstructive pulmonary disease) Code(s): J44.9 - CHRONIC OBSTRUCTIVE PULMONARY DISEASE, UNSPECIFIED (7) Diabetes Code(s): E11.9 - TYPE 2 DIABETES MELLITUS WITHOUT COMPLICATIONS Qualifiers: Diabetes mellitus type: type 2 Diabetes mellitus complication status: with unspecified complications (8) Failure to thrive Code(s): [id number] - (9) Intracerebral hemorrhage Code(s): I61.9 - NONTRAUMATIC INTRACEREBRAL HEMORRHAGE, UNSPECIFIED Qualifiers : Cerebral hemorrhage location: cerebral hemisphere, cortical portion (10) Respiratory failure with hypoxia Code(s): J96.91 - RESPIRATORY FAILURE, UNSPECIFIED WITH HYPOXIA Qualifiers: Chronicity: acute Qualified Code(s): J96.01 - Acute respiratory failure with hypoxia (11) Lactate blood increased Code(s): R79.89 - OTHER SPECIFIED ABNORMAL FINDINGS OF BLOOD CHEMISTRY Assessment/Plan IMP ACUTE HYPOXEMIC RESPIRATORY FAILURE CLINICALLY IMPROVING ASPIRATION S/P ICH ACUTE ON CHRONIC RENAL FAILURE COPD DEMENTIA S/P PEG ELEVATED LACTATE LEVEL NORMAL PLAN IV ANTIBIOTICS PER ID IVF O2 TO MAINTAIN O2 SAT 90% MONITOR LYTES,RENAL FUNCTION PROGNOSIS POOR DR MCCULLOUGH Problem List - Problems (1) Aspiration pneumonia Code(s): J69.0 - PNEUMONITIS DUE TO INHALATION OF FOOD AND VOMIT Qualifiers: Aspiration pneumonia type: unspecified Laterality: unspecified laterality Lung location: unspecified part of lung Qualified Code(s) : J69.0 - Pneumonitis due to inhalation of food and vomit (2) Hypoxia Code(s): R09.02 - HYPOXEMIA (3) Leukocytosis Code(s): D72.829 - ELEVATED WHITE BLOOD CELL COUNT, UNSPECIFIED (4) Anemia Code(s): D64.9 - ANEMIA, UNSPECIFIED (5) Aspiration into airway Code(s): T17.908A - UNSP FB IN RESP TRACT, PART UNSP CAUSING OTH INJURY, INIT (6) COPD (chronic obstructive pulmonary disease) Code(s): J44.9 - CHRONIC OBSTRUCTIVE PULMONARY DISEASE, UNSPECIFIED (7) Diabetes Code(s): E11.9 - TYPE 2 DIABETES MELLITUS WITHOUT COMPLICATIONS Qualifiers: Diabetes mellitus type: type 2 Diabetes mellitus complication status: with unspecified complications (8) Failure to thrive Code(s): [id number] - (9) Intracerebral hemorrhage Code(s): I61.9 - NONTRAUMATIC INTRACEREBRAL HEMORRHAGE, UNSPECIFIED Qualifiers : Cerebral hemorrhage location: cerebral hemisphere, cortical portion (10) Respiratory failure with hypoxia Code(s): J96.91 - RESPIRATORY FAILURE, UNSPECIFIED WITH HYPOXIA Qualifiers: Chronicity: acute Qualified Code(s): J96.01 - Acute respiratory failure with hypoxia (11) Lactate blood increased Code(s): R79.89 - OTHER SPECIFIED ABNORMAL FINDINGS OF BLOOD CHEMISTRY
[2016-09-01] MEDS: BACITRACIN 15 GM TUBE TOPICAL OINTMENT TP SCH ×2 (10:59→21:36)
--- NOTE | 2016-09-01 10:59 | PN ---
Progress Note (short form) - Note Progress Note: Progress Note, Physician Chief Complaint: PAF History of Present Illness: not communicative - Current Medication List Current Medications Generic Name Dose Route Start Last Admin Trade Name Freq PRN Reason Stop Dose Admin Acetaminophen 325 mg 08/26/16 01:40 Tylenol Oral Solution - PO Q4H PRN FEVER OR PAIN Amiodarone HCl 200 mg 08/31/16 11:15 08/31/16 12:31 Cordarone - PO 200 mg DAILY [facility] Administration Atorvastatin Calcium 40 mg 08/26/16 22:00 08/31/16 21:19 Lipitor - GT 40 mg HS [facility] Administration Bacitracin 1 applic 08/26/16 10:00 08/31/16 21:19 Bacitracin - TP 1 applic BID [facility] Administration Heparin Sodium (Porcine) 5,000 unit 08/26/16 10:00 08/31/16 21:18 Heparin - SQ 5,000 unit BID [facility] Administration Piperacillin Sod/Tazobactam Sod 50 mls @ 100 mls/hr 08/27/16 15:00 09/01/16 08: 56 Zosyn 2.25gm Ivpb (Pre-Docked) IVPB 100 mls/hr Q6H-IV [facility] Administration Protocol Dextrose/Sodium Chloride 500 mls @ 60 mls/hr 08/30/16 12:00 09/01/16 06:07 D5-1/3ns - IV 60 mls/hr ASDIR [facility] Administration Insulin Aspart 1 vial 08/26/16 07:00 09/01/16 06:31 Novolog Vial Sliding Scale - SQ Not Given TIDAC [facility] Protocol Levetiracetam 500 mg 08/26/16 10:00 08/31/16 21:18 Keppra Oral Solution - GT 500 mg BID [facility] Administration Levothyroxine Sodium 125 mcg 08/26/16 07:00 09/01/16 06:49 Synthroid - GT 125 mcg DAILY@0700 [facility] Administration Metoclopramide HCl 5 mg 08/26/16 06:00 09/01/16 06:03 Reglan Oral Solution - PEG 5 mg TID [facility] Administration Potassium Chloride 20 meq 08/26/16 10:00 08/31/16 11:14 Potassium Chloride Oral Liquid GT 20 meq DAILY [facility] Administration - Objective Vital Signs: Vital Signs Period Temp Pulse Resp BP Sys/Stephenson Pulse Ox Last 24 Hr 97.6 F-98.8 F 55-137 18-20 123-156/40-75 100 Constitutional: Yes: Well Nourished, No Distress Eyes: No: Sclera Icterus Respiratory: Yes: CTA Bilaterally, Diminished (bases). No: Accessory Muscle Use , Rales, Wheezes Gastrointestinal: Yes: Normal Bowel Sounds. No: Distention, Hepatomegaly, Palpable Mass, Tenderness Cardiovascular: Yes: irreg, tachy JVD: No Heart Sounds: Yes: S1, S2. No: Gallop Murmur: Yes: Systolic Murmur (2/6 early NAS lusb). No: Diastolic Murmur Extremities: No: Cold, Cyanosis Edema: No Integumentary: No: Jaundice Neurological: Yes: Lethargy. No: Seizure Psychiatric: No: Agitated CBC, BMP 09/01/16 06:00 09/01/16 06:00 tele: sr ECG 08/25/16: sr, nl intervals, no ischemic changes Echo 08/22: nl LV/EF; RV tds; mod AI/MR, no peric eff (no RVSP) cxr: no chf, tds a/p: acute hypoxic resp failure, PNA: -recurrent problem, ? aspirating -abx per ID/pmd -no signs chf or acs -recent echo with normal LV fxn and no severe valvular dysfunction -likely no volume overload, suspect intravasc depletion paroxysmal Afib -With RVR, likely related to ongoing pneumonia -Would not AC this patient (confirmed with dr navarrete she had spontaneous cerebral bleeds and mult SAHs at [facility] 1-2 mo ago, leading to her current debilitated mental status) -will not Rx ASA given significant ICH risks (? equal to warfarin in some studies) and no efficacy for preventing AF embolic events -08/28: Spontaneously converted to NSR, continue metoprolol 25mg PO BID (monitor for worsening COPD) -08/29: again rapid AF late yesterday with HRs to 160s and BP 80s--given amio iv -08/29-: converted to sinus. will stop amio and try prophlax against rapid AF with digoxin 0.125 qd (follow levels). if recurrent rapid AF and BPs remain low- end, will have to try po amio suppression -08/31: went back into afib with rvr overnight. BP low so won't tolerate bb/ ccb. Dig not helping so will dc. Will resume amio (po) as this helped keep her in SR before. -09/01: in sr now, cont amio po HTN: -stable/low off meds recent ICH: -seen by neuro/neurosurgery, no intervention was planned chronic malnutrition: -s/p PEG, gets tube feeds copd: -per pulm hld: -on statin
[2016-09-01] MEDS: HEPARIN NA (PORCINE) 5,000 UNITS/ML 1ML VIAL SQ SCH ×2 (11:00→21:36)
[2016-09-01] MEDS: AMIODARONE HCL 200 MG TABLET (FP) PO SCH (11:00)
[2016-09-01] MEDS: levETIRAcetam 500 MG/5 ML ORAL SOLUTION (UNIT-DOSE CUPS) GT SCH ×2 (11:00→21:35)
[2016-09-01] MEDS: MULTIVIT-MINERALS 236 ML ML GT SCH (11:00)
[2016-09-01] MEDS: POTASSIUM CHLORIDE ORAL LIQUID 20 MEQ/15 ML GT SCH (11:00)
--- NOTE | 2016-09-01 16:24 | PN ---
Progress Note, Physician History of Present Illness: patient breathing better otherwise status quo - Current Medication List Current Medications: Active Medications Acetaminophen (Tylenol Oral Solution -) 325 mg PO Q4H PRN PRN Reason: FEVER OR PAIN Amiodarone HCl (Cordarone -) 200 mg PO DAILY [facility] Last Admin: 09/01/16 11:00 Dose: 200 mg Atorvastatin Calcium (Lipitor -) 40 mg GT HS [facility] Last Admin: 08/31/16 21:19 Dose: 40 mg Bacitracin (Bacitracin -) 1 applic TP BID [facility] Last Admin: 09/01/16 10:59 Dose: 1 applic Heparin Sodium (Porcine) (Heparin -) 5,000 unit SQ BID [facility] Last Admin: 09/01/16 11:00 Dose: 5,000 unit Piperacillin Sod/Tazobactam Sod (Zosyn 2.25gm Ivpb (Pre-Docked)) 50 mls @ 100 mls/hr IVPB Q6H-IV [facility] PRN Reason: Protocol Last Admin: 09/01/16 14:54 Dose: 100 mls/hr Dextrose/Sodium Chloride (D5-1/3ns -) 500 mls @ 60 mls/hr IV ASDIR [facility] Last Admin: 09/01/16 13:51 Dose: 60 mls/hr Insulin Aspart (Novolog Vial Sliding Scale -) 1 vial SQ TIDAC [facility] PRN Reason: Protocol Last Admin: 09/01/16 11:17 Dose: Not Given Levetiracetam (Keppra Oral Solution -) 500 mg GT BID [facility] Last Admin: 09/01/16 11:00 Dose: 500 mg Levothyroxine Sodium (Synthroid -) 125 mcg GT DAILY@0700 [facility] Last Admin: 09/01/16 06:49 Dose: 125 mcg Metoclopramide HCl (Reglan Oral Solution -) 5 mg PEG TID [facility] Last Admin: 09/01/16 13:47 Dose: 5 mg Potassium Chloride (Potassium Chloride Oral Liquid) 20 meq GT DAILY [facility] Last Admin: 09/01/16 11:00 Dose: 20 meq - Objective Vital Signs: Vital Signs Temperature 98 F 09/01/16 14:00 Pulse Rate 54 L 09/01/16 14:00 Respiratory Rate 18 09/01/16 14:00 Blood Pressure 137/58 09/01/16 14:00 O2 Sat by Pulse Oximetry (%) 100 09/01/16 09:00 Constitutional: Yes: Calm, Other Cardiovascular: Yes: S1, S2 Respiratory: Yes: Regular, Poor Air Entry, Rhonchi Gastrointestinal: Yes: Normal Bowel Sounds, Soft, Other (peg in place) Musculoskeletal: Yes: Other Extremities: Yes: Other Neurological: Yes: Other Psychiatric: Yes: Other Labs: CBC, BMP 09/01/16 06:00 09/01/16 06:00 Assessment/Plan Problem List - Problems (1) Aspiration pneumonia Code(s): J69.0 - PNEUMONITIS DUE TO INHALATION OF FOOD AND VOMIT Qualifiers: Aspiration pneumonia type: unspecified Laterality: unspecified laterality Lung location: unspecified part of lung Qualified Code(s) : J69.0 - Pneumonitis due to inhalation of food and vomit (2) Hypoxia Code(s): R09.02 - HYPOXEMIA (3) Leukocytosis Code(s): D72.829 - ELEVATED WHITE BLOOD CELL COUNT, UNSPECIFIED (4) Anemia Code(s): D64.9 - ANEMIA, UNSPECIFIED (5) Aspiration into airway Code(s): T17.908A - UNSP FB IN RESP TRACT, PART UNSP CAUSING OTH INJURY, INIT (6) COPD (chronic obstructive pulmonary disease) Code(s): J44.9 - CHRONIC OBSTRUCTIVE PULMONARY DISEASE, UNSPECIFIED (7) Diabetes Code(s): E11.9 - TYPE 2 DIABETES MELLITUS WITHOUT COMPLICATIONS Qualifiers: Diabetes mellitus type: type 2 Diabetes mellitus complication status: with unspecified complications (8) Failure to thrive Code(s): [id number] - (9) Intracerebral hemorrhage Code(s): I61.9 - NONTRAUMATIC INTRACEREBRAL HEMORRHAGE, UNSPECIFIED Qualifiers : Cerebral hemorrhage location: cerebral hemisphere, cortical portion (10) Respiratory failure with hypoxia Code(s): J96.91 - RESPIRATORY FAILURE, UNSPECIFIED WITH HYPOXIA Qualifiers: Chronicity: acute Qualified Code(s): J96.01 - Acute respiratory failure with hypoxia (11) Lactate blood increased Code(s): R79.89 - OTHER SPECIFIED ABNORMAL FINDINGS OF BLOOD CHEMISTRY this patient well known to me failure to thrive admitted with sepsis and hypoxia very high chances of aspiration patient xray not impressive but could not get proper imaging because of her condition and posture plan conitnue abx continue to monitor hydration rest as per primary
--- NOTE | 2016-09-01 17:25 | PN ---
Progress Note (short form) - Note Progress Note: Renal Follow up for ULISES and Hypernatremia Pt seen and examined at the bedside no overnight events non-verbal Vital Signs Temperature 98 F 09/01/16 14:00 Pulse Rate 54 L 09/01/16 14:00 Respiratory Rate 18 09/01/16 14:00 Blood Pressure 137/58 09/01/16 14:00 O2 Sat by Pulse Oximetry (%) 100 09/01/16 09:00 Intake & Output 08/29/16 08/30/16 08/31/16 09/01/16 23:59 23:59 23:59 23:59 Intake Total 1331 1330 940 800 Output Total 1 Balance 1331 1330 939 800 Gen: NAD CVS: RRR Lungs: CTA Abd: soft NT/ND Ext: no edema CBC, BMP 09/01/16 06:00 09/01/16 06:00 Laboratory Tests 09/01/16 06:00 Calcium 8.1 L Phosphorus 3.1 Magnesium 2.2 Albumin 1.5 L Current Medications Acetaminophen (Tylenol Oral Solution -) 325 mg PO Q4H PRN PRN Reason: FEVER OR PAIN Amiodarone HCl (Cordarone -) 200 mg PO DAILY [facility] Last Admin: 09/01/16 11:00 Dose: 200 mg Atorvastatin Calcium (Lipitor -) 40 mg GT HS [facility] Last Admin: 08/31/16 21:19 Dose: 40 mg Bacitracin (Bacitracin -) 1 applic TP BID [facility] Last Admin: 09/01/16 10:59 Dose: 1 applic Heparin Sodium (Porcine) (Heparin -) 5,000 unit SQ BID [facility] Last Admin: 09/01/16 11:00 Dose: 5,000 unit Piperacillin Sod/Tazobactam Sod (Zosyn 2.25gm Ivpb (Pre-Docked)) 50 mls @ 100 mls/hr IVPB Q6H-IV [facility] PRN Reason: Protocol Last Admin: 09/01/16 14:54 Dose: 100 mls/hr Dextrose/Sodium Chloride (D5-1/3ns -) 500 mls @ 60 mls/hr IV ASDIR [facility] Last Admin: 09/01/16 13:51 Dose: 60 mls/hr Insulin Aspart (Novolog Vial Sliding Scale -) 1 vial SQ TIDAC [facility] PRN Reason: Protocol Last Admin: 09/01/16 11:17 Dose: Not Given Levetiracetam (Keppra Oral Solution -) 500 mg GT BID [facility] Last Admin: 09/01/16 11:00 Dose: 500 mg Levothyroxine Sodium (Synthroid -) 125 mcg GT DAILY@0700 [facility] Last Admin: 09/01/16 06:49 Dose: 125 mcg Metoclopramide HCl (Reglan Oral Solution -) 5 mg PEG TID [facility] Last Admin: 09/01/16 13:47 Dose: 5 mg Potassium Chloride (Potassium Chloride Oral Liquid) 20 meq GT DAILY [facility] Last Admin: 09/01/16 11:00 Dose: 20 meq A/P 81 year old woman with PMhx of recent large ICU managed conservatively, recent PNA, Hypertension, CHF (diastolic dysfunction?, recent echo shows normal LV function) who presented with SOB at home and hypoxia. #Acute Renal failure likely secondary to volume depletion in setting of PNA with hypernatremia serum Na and Cr improving would contniue fluids for at least 1 more day Trend BMP #PNA/Leukocytosis/Fever on Zosyn supplementary O2 #Hx of ICH supportive care #Macrocytic Anemia Hgb stable no indication for transfusion at this time Rikki Santos DO Problem List - Problems (1) Acute renal failure (ARF) Code(s): N17.9 - ACUTE KIDNEY FAILURE, UNSPECIFIED (2) Dehydration Code(s): E86.0 - DEHYDRATION (3) Pneumonia Code(s): J18.9 - PNEUMONIA, UNSPECIFIED ORGANISM Qualifiers: Pneumonia type: due to unspecified organism Laterality: right Lung location: lower lobe of lung Qualified Code(s): J18.1 - Lobar pneumonia, unspecified organism (4) Hypoxia Code(s): R09.02 - HYPOXEMIA (5) Volume depletion Code(s): E86.9 - VOLUME DEPLETION, UNSPECIFIED (6) Hypernatremia Code(s): E87.0 - HYPEROSMOLALITY AND HYPERNATREMIA (7) Anemia Code(s): D64.9 - ANEMIA, UNSPECIFIED (8) Leukocytosis Code(s): D72.829 - ELEVATED WHITE BLOOD CELL COUNT, UNSPECIFIED
[2016-09-01] MEDS: ATORVASTATIN CA 40 MG TABLET (FP) GT SCH (21:35)
[2016-09-02] MEDS: PIPERACILLIN/TAZOB 2.25 GM 50 ML IVPB SCH ×4 (02:44→21:45)
[2016-09-02] MEDS ORDERED: PT OWN MED DRAWER 7, Y5N ONE ×2 (06:10→11:54)
[2016-09-02] MEDS: METOCLOPRAMIDE HCL 5 MG/5 ML UNIT DOSE CUP PEG SCH ×2 (06:22→17:48)
[2016-09-02] MEDS: INSULIN SLIDING SCALE (NOVOLOG) 1 VIAL SQ SCH ×3 (06:22→17:47)
[2016-09-02] MEDS: LEVOTHYROXINE NA 125 MCG TABLET (FP) GT SCH (06:23)
[2016-09-02 07:32] LABS: MCH 33.3 pg (25.7-33.7); MCHC 33.8 g/dl (32.0-36.0); MEAN CELL VOLUME 98.6 fl (80-96); MEAN PLT VOLUME 8.6 fl (7.5-11.1); PLATELET COUNT 277 K/MM3 (134-434); RDW 15.6 % (11.6-15.6); WHITE BLOOD COUNT 8.7 K/mm3 (4.0-10.0)
[2016-09-02 08:29] LABS: ALBUMIN 1.4 g/dl (3.4-5.0); ANION GAP 8 (8-16); CALCIUM 7.7 mg/dL (8.5-10.1); CO2 26 mmol/L (21-32); GLUCOSE,RANDOM 94 mg/dL (74-106)
[2016-09-02 08:34] LABS: ALK PHOS 69 U/L (45-117); BILIRUBIN,TOTAL 0.5 mg/dL (0.2-1.0); CREATININE 0.9 mg/dL (0.55-1.02); PHOSPHOROUS 2.7 mg/dL (2.5-4.9); SGOT/AST 31 U/L (15-37); SGPT/ALT 28 U/L (12-78); TOT PROT 4.9 g/dl (6.4-8.2)
--- NOTE | 2016-09-02 09:11 | PN ---
Progress Note (short form) - Note Progress Note: Patient seen and examined. Poorly responsive. No acute event overnight. Discussed with yesterday. Family still undecided about sending her back to [facility] vs [place]. Entertaining idea about bolus feeds vs continuous. Told family bolus feeds are high risk for aspiration. will decide today. Wbc normal. Renal function normal. Switching to clinimix as of today till we have final decision from the family. If they still want bolus feeds then through J tube. History Source: Medical Record, Transfer Record Limitations to Obtaining History: Clinical Condition - Past Medical History SQL DEVELOPER: Yes: CVA Cardiovascular: Yes: HTN, Hyperlipdemia Pulmonary: Yes: COPD Renal/: Yes: Renal Inusuff Heme/Onc: Yes: Anemia Endocrine: Yes: Diabetes Mellitus, Hypothyroidism - Smoking History Smoking history: Unknown if ever smoked Have you smoked in the past 12 months: No Aproximately how many cigarettes per day: 0 - Alcohol/Substance Use Hx Alcohol Use: No Home Medications - Allergies Allergies/Adverse Reactions: Allergies Allergy/AdvReac Type Severity Reaction Status Date / Time No Known Allergies Allergy Verified 07/28/16 18:15 - Home Medications Home Medications: Ambulatory Orders Acetaminophen [Tylenol] 320 mg GT Q6H 08/07/16 Albuterol 2.5/Ipratropium 0.5 [Duoneb -] 1 amp NEB Q6H 08/07/16 Amlodipine Besylate [Norvasc -] 2.5 mg GT DAILY 08/07/16 Insulin Aspart [Novolog Flexpen] 0 unit SQ TID 08/07/16 Levetiracetam 500 mg GT BID 08/07/16 Heparin - 5,000 unit SQ BID vial 08/17/16 Levothyroxine [Synthroid -] 125 mcg GT DAILY #60 tablet 08/17/16 Metoclopramide HCl [Reglan -] 5 mg PO TIDAC #90 tablet 08/17/16 Potassium Chloride [Potassium Chloride Oral Liquid] 20 meq GT DAILY #30 ml 08/17 Atorvastatin Ca [Lipitor] 40 mg GT HS 08/25/16 Multivitamins [Tab-A-Vit -] 1 tab GT DAILY 08/25/16 Review of Systems Unable to obtain ROS, reason: Because patient is unresp Physical Examination Vital Signs: Vital Signs Period Temp Pulse Resp BP Sys/Stephenson Pulse Ox Last 24 Hr 97.8 F-98.3 F 52-62 18-18 112-145/33-65 98-98 Constitutional: Yes: Cachectic, Moderate Distress Eyes: Yes: Conjunctiva Clear, EOM Intact, PERRL HENT: Yes: Atraumatic, Normocephalic Neck: Yes: Supple Cardiovascular: Yes: Regular Rate and Rhythm Respiratory: Yes: Diminished (B/L lung base) Gastrointestinal: Yes: Soft ...Rectal Exam: Yes: Deferred Peripheral Pulses WNL: Yes Neurological: Yes: Unresponsive Labs: CBC, BMP 09/02/16 05:35 09/02/16 05:35 Microbiology 08/25/16 17:39 Blood - Peripheral Venous Blood Culture - Final NO GROWTH AFTER 5 DAYS INCUBATION Imaging - Results Chest X-ray: Report Reviewed Problem List - Problems (1) Aspiration pneumonitis Assessment/Plan: WbCc normal now. wbc normal. Abx switch to PO per ID. Pulmonary and ID follow up appreciated. Code(s): J69.0 - PNEUMONITIS DUE TO INHALATION OF FOOD AND VOMIT (2) Acute renal failure (ARF) Assessment/Plan: Improving BUN/cr BUN/Cr normal. DC IV fluids. Initiating clinimix. Renal follow up appreciated. Code(s): N17.9 - ACUTE KIDNEY FAILURE, UNSPECIFIED 3) Hypernatremia Resolved. (4) Respiratory failure with hypoxia Assessment/Plan: Monitor O2 sats. Continue inhaled bronchodilators. Pulmonary follow up appreciated. Code(s): J96.91 - RESPIRATORY FAILURE, UNSPECIFIED WITH HYPOXIA Qualifiers: Chronicity: acute Qualified Code(s): J96.01 - Acute respiratory failure with hypoxia (5) Diabetes Assessment/Plan: ISS Code(s): E11.9 - TYPE 2 DIABETES MELLITUS WITHOUT COMPLICATIONS Qualifiers: Diabetes mellitus type: type 2 Diabetes mellitus complication status: with unspecified complications (6) Hypothyroid Assessment/Plan: Continue synthroid. Code(s): E03.9 - HYPOTHYROIDISM, UNSPECIFIED (7) Hypertension Assessment/Plan: Monitor BP. Code(s): I10 - ESSENTIAL (PRIMARY) HYPERTENSION (8) Intracerebral hemorrhage Assessment/Plan: Minimally responsive. Code(s): I61.9 - NONTRAUMATIC INTRACEREBRAL HEMORRHAGE, UNSPECIFIED Qualifiers : Cerebral hemorrhage location: cerebral hemisphere, cortical portion (9) Severe Protein-Calorie Malnutrition: PEG feeds on hold due to aspiration. Initiate clinimix. Awaiting family decision regarding goals of care. Family entertaining idea about bolus feeds rather than continuous feeds (9) Atrial Fibrillation: Amiodaron stopped due to bradycardia. Cardiology following the case. Palliative care met with family and discussed goals of care with the family. Still undecided. May make decision today. Discussed in detail with in my office office yesterday about overall prognosis. Continue current management for the time being. Overall poor prognosis. Problem List - Problems (1) Aspiration pneumonitis Code(s): J69.0 - PNEUMONITIS DUE TO INHALATION OF FOOD AND VOMIT (2) Acute renal failure (ARF) Code(s): N17.9 - ACUTE KIDNEY FAILURE, UNSPECIFIED (3) Respiratory failure with hypoxia Code(s): J96.91 - RESPIRATORY FAILURE, UNSPECIFIED WITH HYPOXIA Qualifiers: Chronicity: acute Qualified Code(s): J96.01 - Acute respiratory failure with hypoxia (4) Diabetes Code(s): E11.9 - TYPE 2 DIABETES MELLITUS WITHOUT COMPLICATIONS Qualifiers: Diabetes mellitus type: type 2 Diabetes mellitus complication status: with unspecified complications (5) Hypothyroid Code(s): E03.9 - HYPOTHYROIDISM, UNSPECIFIED (6) Hypertension Code(s): I10 - ESSENTIAL (PRIMARY) HYPERTENSION (7) Intracerebral hemorrhage Code(s): I61.9 - NONTRAUMATIC INTRACEREBRAL HEMORRHAGE, UNSPECIFIED Qualifiers : Cerebral hemorrhage location: cerebral hemisphere, cortical portion
--- NOTE | 2016-09-02 09:41 | PN ---
Progress Note (short form) - Note Progress Note: Progress Note, Physician Chief Complaint: PAF History of Present Illness: not communicative - Current Medication List Current Medications Generic Name Dose Route Start Last Admin Trade Name Frechandrakant PRN Reason Stop Dose Admin Acetaminophen 325 mg 08/26/16 01:40 Tylenol Oral Solution - PO Q4H PRN FEVER OR PAIN Amiodarone HCl 200 mg 08/31/16 11:15 09/01/16 11:00 Cordarone - PO 200 mg DAILY [facility]ONI Administration Atorvastatin Calcium 40 mg 08/26/16 22:00 09/01/16 21:35 Lipitor - GT 40 mg HS [facility]I Administration Bacitracin 1 applic 08/26/16 10:00 09/01/16 21:36 Bacitracin - TP 1 applic BID [facility] Administration Heparin Sodium (Porcine) 5,000 unit 08/26/16 10:00 09/01/16 21:36 Heparin - SQ 5,000 unit BID [facility] Administration Piperacillin Sod/Tazobactam Sod 50 mls @ 100 mls/hr 08/27/16 15:00 09/02/16 08: 12 Zosyn 2.25gm Ivpb (Pre-Docked) IVPB 100 mls/hr Q6H-IV [facility] Administration Protocol Amino Acids 1,000 mls @ 42 mls/hr 09/02/16 09:15 Clinimix - IV Q12H [facility] Insulin Aspart 1 vial 08/26/16 07:00 09/02/16 06:22 Novolog Vial Sliding Scale - SQ Not Given TIDAC [facility]I Protocol Levetiracetam 500 mg 08/26/16 10:00 09/01/16 21:35 Keppra Oral Solution - GT 500 mg BID [facility] Administration Levothyroxine Sodium 125 mcg 08/26/16 07:00 09/02/16 06:23 Synthroid - GT 125 mcg DAILY@0700 [facility] Administration Metoclopramide HCl 5 mg 08/26/16 06:00 09/02/16 06:22 Reglan Oral Solution - PEG 5 mg TID [facility] Administration Potassium Chloride 20 meq 08/26/16 10:00 09/01/16 11:00 Potassium Chloride Oral Liquid GT 20 meq DAILY [facility] Administration - Objective Vital Signs: Vital Signs Period Temp Pulse Resp BP Sys/Stephenson Pulse Ox Last 24 Hr 97.8 F-98.3 F 52-62 18-18 112-145/33-65 98-98 Constitutional: Yes: Well Nourished, No Distress Eyes: No: Sclera Icterus Respiratory: Yes: CTA Bilaterally, Diminished (bases). No: Accessory Muscle Use , Rales, Wheezes Gastrointestinal: Yes: Normal Bowel Sounds. No: Distention, Hepatomegaly, Palpable Mass, Tenderness Cardiovascular: Yes: irreg, tachy JVD: No Heart Sounds: Yes: S1, S2. No: Gallop Murmur: Yes: Systolic Murmur (2/6 early NAS lusb). No: Diastolic Murmur Extremities: No: Cold, Cyanosis Edema: No Integumentary: No: Jaundice Neurological: Yes: Lethargy. No: Seizure Psychiatric: No: Agitated CBC, BMP 09/02/16 05:35 09/02/16 05:35 tele: sr ECG 08/25/16: sr, nl intervals, no ischemic changes Echo 08/22: nl LV/EF; RV tds; mod AI/MR, no peric eff (no RVSP) cxr: no chf, tds a/p: acute hypoxic resp failure, PNA: -recurrent problem, ? aspirating -abx per ID/pmd -no signs chf or acs -recent echo with normal LV fxn and no severe valvular dysfunction -likely no volume overload, suspect intravasc depletion paroxysmal Afib -With RVR, likely related to ongoing pneumonia -Would not AC this patient (confirmed with dr navarrete she had spontaneous cerebral bleeds and mult SAHs at [facility] 1-2 mo ago, leading to her current debilitated mental status) -will not Rx ASA given significant ICH risks (? equal to warfarin in some studies) and no efficacy for preventing AF embolic events -08/28: Spontaneously converted to NSR, continue metoprolol 25mg PO BID (monitor for worsening COPD) -08/29: again rapid AF late yesterday with HRs to 160s and BP 80s--given amio iv -08/29-: converted to sinus. will stop amio and try prophlax against rapid AF with digoxin 0.125 qd (follow levels). if recurrent rapid AF and BPs remain low- end, will have to try po amio suppression -08/31: went back into afib with rvr overnight. BP low so won't tolerate bb/ ccb. Dig not helping so will dc. Will resume amio (po) as this helped keep her in SR before. -09/01-28: in sr now, cont amio po HTN: -stable/low off meds recent ICH: -seen by neuro/neurosurgery, no intervention was planned chronic malnutrition: -s/p PEG, gets tube feeds copd: -per pulm hld: -on statin can dc tele
[2016-09-02 09:43] LABS: METAMYELOCYTE 2 % (0-2); PLATELET ESTIMATE ADEQUATE (NORMAL)
[2016-09-02] MEDS ORDERED: POTASSIUM CHLORIDE TABS 20 MEQ TABLET.ER (FP) PO ONE (10:12)
--- NOTE | 2016-09-02 11:16 | PN ---
Progress Note (short form) - Note Progress Note: Renal Follow up for ULISES and Hypernatremia Pt seen and examined at the bedside no overnight events G-tube feeds on hold on IVF, started on Clinimix Vital Signs Temperature 97.8 F 09/02/16 05:27 Pulse Rate 52 L 09/02/16 05:27 Respiratory Rate 18 09/02/16 05:27 Blood Pressure 112/33 09/02/16 05:27 O2 Sat by Pulse Oximetry (%) 98 09/01/16 20:44 Intake & Output 08/30/16 08/31/16 09/01/16 09/02/16 23:59 23:59 23:59 23:59 Intake Total 1330 940 900 800 Output Total 1 Balance 1330 939 900 800 Gen: NAD CVS: RRR Lungs: CTA Abd: soft NT/ND Ext: no edema CBC, BMP 09/02/16 05:35 09/02/16 05:35 Laboratory Tests 09/02/16 05:35 Calcium 7.7 L Phosphorus 2.7 Magnesium 2.0 Albumin 1.4 L Current Medications Acetaminophen (Tylenol Oral Solution -) 325 mg PO Q4H PRN PRN Reason: FEVER OR PAIN Amiodarone HCl (Cordarone -) 200 mg PO DAILY [facility] Last Admin: 09/01/16 11:00 Dose: 200 mg Atorvastatin Calcium (Lipitor -) 40 mg GT HS [facility] Last Admin: 09/01/16 21:35 Dose: 40 mg Bacitracin (Bacitracin -) 1 applic TP BID [facility] Last Admin: 09/01/16 21:36 Dose: 1 applic Piperacillin Sod/Tazobactam Sod (Zosyn 2.25gm Ivpb (Pre-Docked)) 50 mls @ 100 mls/hr IVPB Q6H-IV [facility] PRN Reason: Protocol Last Admin: 09/02/16 08:12 Dose: 100 mls/hr Amino Acids (Clinimix -) 1,000 mls @ 42 mls/hr IV Q12H [facility] Insulin Aspart (Novolog Vial Sliding Scale -) 1 vial SQ TIDAC [facility] PRN Reason: Protocol Last Admin: 09/02/16 06:22 Dose: Not Given Levetiracetam (Keppra Oral Solution -) 500 mg GT BID [facility] Last Admin: 09/01/16 21:35 Dose: 500 mg Levothyroxine Sodium (Synthroid -) 125 mcg GT DAILY@0700 [facility] Last Admin: 09/02/16 06:23 Dose: 125 mcg Metoclopramide HCl (Reglan Oral Solution -) 5 mg PEG TID [facility] Last Admin: 09/02/16 06:22 Dose: 5 mg Potassium Chloride (Potassium Chloride Oral Liquid) 20 meq GT DAILY [facility] Last Admin: 09/01/16 11:00 Dose: 20 meq A/P 81 year old woman with PMhx of recent large ICU managed conservatively, recent PNA, Hypertension, CHF (diastolic dysfunction?, recent echo shows normal LV function) who presented with SOB at home and hypoxia. #Acute Renal failure likely secondary to volume depletion in setting of PNA with hypernatremia Renal function and Na now improved to acceptable limits continue Clinimix as per primary #PNA/Leukocytosis/Fever on Zosyn supplementary O2 #Hx of ICH supportive care #Macrocytic Anemia Hgb stable no indication for transfusion at this time awaiting hospice placement with supportive care Rikki Santos DO Problem List - Problems (1) Acute renal failure (ARF) Code(s): N17.9 - ACUTE KIDNEY FAILURE, UNSPECIFIED (2) Dehydration Code(s): E86.0 - DEHYDRATION (3) Pneumonia Code(s): J18.9 - PNEUMONIA, UNSPECIFIED ORGANISM Qualifiers: Pneumonia type: due to unspecified organism Laterality: right Lung location: lower lobe of lung Qualified Code(s): J18.1 - Lobar pneumonia, unspecified organism (4) Hypoxia Code(s): R09.02 - HYPOXEMIA (5) Volume depletion Code(s): E86.9 - VOLUME DEPLETION, UNSPECIFIED (6) Hypernatremia Code(s): E87.0 - HYPEROSMOLALITY AND HYPERNATREMIA (7) Anemia Code(s): D64.9 - ANEMIA, UNSPECIFIED (8) Leukocytosis Code(s): D72.829 - ELEVATED WHITE BLOOD CELL COUNT, UNSPECIFIED
[2016-09-02] MEDS: AMINO ACIDS 4.25%/D5W 1,000 ML IV SCH ×2 (11:57→21:44)
[2016-09-02] MEDS: BACITRACIN 15 GM TUBE TOPICAL OINTMENT TP SCH ×2 (11:57→21:45)
[2016-09-02] MEDS: HEPARIN NA (PORCINE) 5,000 UNITS/ML 1ML VIAL SQ SCH (11:58)
[2016-09-02] MEDS: levETIRAcetam 500 MG/5 ML ORAL SOLUTION (UNIT-DOSE CUPS) GT SCH ×2 (11:58→21:45)
[2016-09-02] MEDS: POTASSIUM CHLORIDE ORAL LIQUID 20 MEQ/15 ML GT SCH (11:58)
[2016-09-02] MEDS: AMIODARONE HCL 200 MG TABLET (FP) PO SCH (11:59)
[2016-09-02] MEDS: MULTIVIT-MINERALS 236 ML ML GT SCH (11:59)
[2016-09-02] MEDS ORDERED: POTASSIUM CHLORIDE ORAL LIQUID 20 MEQ/15 ML GT ONE (12:00)
--- NOTE | 2016-09-02 15:02 | PN ---
Progress Note, Physician History of Present Illness: continues to do poorly no new events family still deciding final plan - Current Medication List Current Medications: Active Medications Acetaminophen (Tylenol Oral Solution -) 325 mg PO Q4H PRN PRN Reason: FEVER OR PAIN Amiodarone HCl (Cordarone -) 200 mg PO DAILY [facility] Last Admin: 09/02/16 11:59 Dose: 200 mg Atorvastatin Calcium (Lipitor -) 40 mg GT HS [facility] Last Admin: 09/01/16 21:35 Dose: 40 mg Bacitracin (Bacitracin -) 1 applic TP BID [facility] Last Admin: 09/02/16 11:57 Dose: 1 applic Piperacillin Sod/Tazobactam Sod (Zosyn 2.25gm Ivpb (Pre-Docked)) 50 mls @ 100 mls/hr IVPB Q6H-IV [facility] PRN Reason: Protocol Last Admin: 09/02/16 08:12 Dose: 100 mls/hr Amino Acids (Clinimix -) 1,000 mls @ 42 mls/hr IV Q12H [facility] Last Admin: 09/02/16 11:57 Dose: 42 mls/hr Insulin Aspart (Novolog Vial Sliding Scale -) 1 vial SQ TIDAC [facility] PRN Reason: Protocol Last Admin: 09/02/16 12:37 Dose: Not Given Levetiracetam (Keppra Oral Solution -) 500 mg GT BID [facility] Last Admin: 09/02/16 11:58 Dose: 500 mg Levothyroxine Sodium (Synthroid -) 125 mcg GT DAILY@0700 [facility] Last Admin: 09/02/16 06:23 Dose: 125 mcg Metoclopramide HCl (Reglan Oral Solution -) 5 mg PEG TID [facility] Last Admin: 09/02/16 06:22 Dose: 5 mg Potassium Chloride (Potassium Chloride Oral Liquid) 20 meq GT DAILY [facility] Last Admin: 09/02/16 11:58 Dose: 20 meq - Objective Vital Signs: Vital Signs Temperature 97.8 F 09/02/16 09:00 Pulse Rate 55 L 09/02/16 09:00 Respiratory Rate 18 09/02/16 09:00 Blood Pressure 128/72 09/02/16 09:00 O2 Sat by Pulse Oximetry (%) 98 09/02/16 09:00 Constitutional: Yes: No Distress, Calm Cardiovascular: Yes: Regular Rate and Rhythm Respiratory: Yes: Regular, Poor Air Entry, Rhonchi Gastrointestinal: Yes: Normal Bowel Sounds, Soft Musculoskeletal: Yes: Other Extremities: Yes: Other Neurological: Yes: Other (non verbal) Labs: CBC, BMP 09/02/16 05:35 09/02/16 05:35 Assessment/Plan Problem List - Problems (1) Aspiration pneumonia Code(s): J69.0 - PNEUMONITIS DUE TO INHALATION OF FOOD AND VOMIT Qualifiers: Aspiration pneumonia type: unspecified Laterality: unspecified laterality Lung location: unspecified part of lung Qualified Code(s) : J69.0 - Pneumonitis due to inhalation of food and vomit (2) Hypoxia Code(s): R09.02 - HYPOXEMIA (3) Leukocytosis Code(s): D72.829 - ELEVATED WHITE BLOOD CELL COUNT, UNSPECIFIED (4) Anemia Code(s): D64.9 - ANEMIA, UNSPECIFIED (5) Aspiration into airway Code(s): T17.908A - UNSP FB IN RESP TRACT, PART UNSP CAUSING OTH INJURY, INIT (6) COPD (chronic obstructive pulmonary disease) Code(s): J44.9 - CHRONIC OBSTRUCTIVE PULMONARY DISEASE, UNSPECIFIED (7) Diabetes Code(s): E11.9 - TYPE 2 DIABETES MELLITUS WITHOUT COMPLICATIONS Qualifiers: Diabetes mellitus type: type 2 Diabetes mellitus complication status: with unspecified complications (8) Failure to thrive Code(s): [id number] - (9) Intracerebral hemorrhage Code(s): I61.9 - NONTRAUMATIC INTRACEREBRAL HEMORRHAGE, UNSPECIFIED Qualifiers : Cerebral hemorrhage location: cerebral hemisphere, cortical portion (10) Respiratory failure with hypoxia Code(s): J96.91 - RESPIRATORY FAILURE, UNSPECIFIED WITH HYPOXIA Qualifiers: Chronicity: acute Qualified Code(s): J96.01 - Acute respiratory failure with hypoxia (11) Lactate blood increased Code(s): R79.89 - OTHER SPECIFIED ABNORMAL FINDINGS OF BLOOD CHEMISTRY this patient well known to me failure to thrive admitted with sepsis and hypoxia very high chances of aspiration patient xray not impressive but could not get proper imaging because of her condition and posture plan conitnue abx continue to monitor hydration rest as per primary await for final decision
[2016-09-02] MEDS: ATORVASTATIN CA 40 MG TABLET (FP) GT SCH (21:45)
[2016-09-03] MEDS: PIPERACILLIN/TAZOB 2.25 GM 50 ML IVPB SCH ×3 (03:28→15:15)
[2016-09-03] MEDS: INSULIN SLIDING SCALE (NOVOLOG) 1 VIAL SQ SCH ×3 (06:35→17:12)
[2016-09-03] MEDS: LEVOTHYROXINE NA 125 MCG TABLET (FP) GT SCH (06:36)
[2016-09-03 07:30] LABS: BASOPHIL 0.3 % (0-2.0); EOSINOPHIL 2.1 % (0-4.5); MCH 32.9 pg (25.7-33.7); MCHC 33.3 g/dl (32.0-36.0); MEAN CELL VOLUME 98.7 fl (80-96); MEAN PLT VOLUME 8.7 fl (7.5-11.1); NEUTROPHILS 89.4 % (42.8-82.8); PLATELET COUNT 288 K/MM3 (134-434); RDW 15.5 % (11.6-15.6); WHITE BLOOD COUNT 11.6 K/mm3 (4.0-10.0)
[2016-09-03 08:08] LABS: ALBUMIN 1.5 g/dl (3.4-5.0); ALK PHOS 75 U/L (45-117); ANION GAP 9 (8-16); BILIRUBIN,TOTAL 0.4 mg/dL (0.2-1.0); CO2 23 mmol/L (21-32); CREATININE 0.9 mg/dL (0.55-1.02); GLUCOSE,RANDOM 130 mg/dL (74-106); MAGNESIUM 1.9 mg/dL (1.8-2.4); PHOSPHOROUS 2.2 mg/dL (2.5-4.9); SGOT/AST 29 U/L (15-37); SGPT/ALT 29 U/L (12-78); TOT PROT 5.3 g/dl (6.4-8.2)
--- NOTE | 2016-09-03 08:25 | PN ---
Progress Note, Physician Chief Complaint: PAFib History of Present Illness: asleep, not communicative or waking up - Current Medication List Current Medications: Active Medications Acetaminophen (Tylenol Oral Solution -) 325 mg PO Q4H PRN PRN Reason: FEVER OR PAIN Amiodarone HCl (Cordarone -) 200 mg PO DAILY [facility] Last Admin: 09/02/16 11:59 Dose: 200 mg Atorvastatin Calcium (Lipitor -) 40 mg GT HS [facility] Last Admin: 09/02/16 21:45 Dose: 40 mg Bacitracin (Bacitracin -) 1 applic TP BID [facility] Last Admin: 09/02/16 21:45 Dose: 1 applic Piperacillin Sod/Tazobactam Sod (Zosyn 2.25gm Ivpb (Pre-Docked)) 50 mls @ 100 mls/hr IVPB Q6H-IV [facility] PRN Reason: Protocol Last Admin: 09/03/16 03:28 Dose: 100 mls/hr Amino Acids (Clinimix -) 1,000 mls @ 42 mls/hr IV Q12H [facility] Last Admin: 09/02/16 21:44 Dose: 42 mls/hr Insulin Aspart (Novolog Vial Sliding Scale -) 1 vial SQ TIDAC [facility] PRN Reason: Protocol Last Admin: 09/03/16 06:35 Dose: Not Given Levetiracetam (Keppra Oral Solution -) 500 mg GT BID [facility] Last Admin: 09/02/16 21:45 Dose: 500 mg Levothyroxine Sodium (Synthroid -) 125 mcg GT DAILY@0700 [facility] Last Admin: 09/03/16 06:36 Dose: 125 mcg Potassium Chloride (Potassium Chloride Oral Liquid) 20 meq GT DAILY [facility] Last Admin: 09/02/16 11:58 Dose: 20 meq - Objective Vital Signs: Vital Signs Temperature 97.2 F L 09/03/16 06:00 Pulse Rate 58 L 09/03/16 06:00 Respiratory Rate 19 09/03/16 06:00 Blood Pressure 148/47 09/03/16 06:00 O2 Sat by Pulse Oximetry (%) 99 09/02/16 21:00 Constitutional: Yes: No Distress, Calm Cardiovascular: Yes: Regular Rate and Rhythm, S1, S2. No: JVD, Gallop, Murmur Respiratory: Yes: Regular, CTA Bilaterally (not deep breaths). No: Accessory Muscle Use, Rales, Wheezes Extremities: No: Cold Edema: No Neurological: No: Alert, Oriented Psychiatric: No: Agitated Labs: CBC, BMP 09/03/16 05:35 09/03/16 05:35 - ....Imaging EKG: Other (tele: NSR sinus santiago 50s > 60; down to 40s during overnight hours) Assessment/Plan ECG 08/25/16: sr, nl intervals, no ischemic changes Echo 08/22: nl LV/EF; RV tds; mod AI/MR, no peric eff (no RVSP) cxr: no chf, tds film a/p: acute hypoxic resp failure, PNA: -recurrent problem, suspected aspiration -abx per ID/pmd -no signs chf or acs -recent echo with normal LV fxn and no severe valvular dysfunction -likely no volume overload, suspect intravasc depletion paroxysmal Afib -With RVR, likely related to ongoing pneumonia -Would not AC this patient (confirmed with dr navarrete she had spontaneous cerebral bleeds and mult SAHs at [facility] 1-2 mo ago, leading to her current debilitated mental status) -will not Rx ASA given significant ICH risks (possibly equal to warfarin in some studies) and no efficacy for preventing AF embolic events -08/28: Spontaneously converted to NSR, continue metoprolol 25mg PO BID (monitor for worsening COPD) -08/29: again rapid AF late yesterday with HRs to 160s and BP 80s--given amio iv -08/29-: converted to sinus. will stop amio and try prophlax against rapid AF with digoxin 0.125 qd (follow levels). if recurrent rapid AF and BPs remain low- end, will have to try po amio suppression -08/31: went back into afib with rvr overnight. BP low so won't tolerate bb/ ccb. Dig not helping so will dc. Will resume amio (po) as this helped keep her in SR before. -09/01-: in sr now, cont amio po -09/03: sinus santiago, to 40s during high vagal tone time (sleep), 50s most of the day--not a high risk finding. decr amio to 100mg qd, cont tele HTN: -stable/low off meds recent ICH: -seen by neuro/neurosurgery, no intervention was planned chronic malnutrition: -s/p PEG, gets tube feeds copd: -per pulm hld: -on statin
[2016-09-03] MEDS: AMINO ACIDS 4.25%/D5W 1,000 ML IV SCH ×2 (08:41→21:21)
[2016-09-03] MEDS ORDERED: PT OWN MED DRAWER 7, Y5N ONE ×2 (09:33→21:20)
--- NOTE | 2016-09-03 09:52 | PN ---
Progress Note (short form) - Note Progress Note: PULMONARY REMAINS POORLY RESPONSIVE ON V/M O2 VSS/AFEBRILE ANICTERIC/PALE RHONCHI RIGHT BAS S1S2 BS+ PEG NO EDEMA LABS/MEDS/NOTES/IMAGING/MICRO REVIEWED IMP ACUTE HYPOXEMIC RESPIRATORY FAILURE LIKELY ASPIRATION S/P ICH ACUTE ON CHRONIC RENAL FAILURE COPD DEMENTIA S/P PEG ELEVATED LACTATE LEVEL NORMAL PLAN IV ANTIBIOTICS IVF NEEDED/ENTERAL FEEDS VIA J-TUBE IF FAMILY AGREES O2 TO MAINTAIN O2 SAT 90% MONITOR LYTES,RENAL FUNCTION Sasha POLANCO MD
[2016-09-03] MEDS: AMIODARONE HCL 200 MG TABLET (FP) PO SCH ×2 (09:58→10:53)
[2016-09-03] MEDS: MULTIVIT-MINERALS 236 ML ML GT SCH (09:59)
[2016-09-03] MEDS: levETIRAcetam 500 MG/5 ML ORAL SOLUTION (UNIT-DOSE CUPS) GT SCH ×2 (09:59→21:21)
[2016-09-03] MEDS: BACITRACIN 15 GM TUBE TOPICAL OINTMENT TP SCH ×2 (09:59→21:21)
[2016-09-03] MEDS: POTASSIUM CHLORIDE ORAL LIQUID 20 MEQ/15 ML GT SCH (09:59)
--- NOTE | 2016-09-03 10:57 | PN ---
Progress Note, Physician History of Present Illness: continues to do poorly family in room less coughing - Current Medication List Current Medications: Active Medications Acetaminophen (Tylenol Oral Solution -) 325 mg PO Q4H PRN PRN Reason: FEVER OR PAIN Amiodarone HCl (Cordarone -) 100 mg PO DAILY [facility] Last Admin: 09/03/16 10:53 Dose: Not Given Atorvastatin Calcium (Lipitor -) 40 mg GT HS [facility] Last Admin: 09/02/16 21:45 Dose: 40 mg Bacitracin (Bacitracin -) 1 applic TP BID [facility] Last Admin: 09/03/16 09:59 Dose: 1 applic Piperacillin Sod/Tazobactam Sod (Zosyn 2.25gm Ivpb (Pre-Docked)) 50 mls @ 100 mls/hr IVPB Q6H-IV [facility] PRN Reason: Protocol Last Admin: 09/03/16 08:41 Dose: 100 mls/hr Amino Acids (Clinimix -) 1,000 mls @ 42 mls/hr IV Q12H [facility] Last Admin: 09/03/16 08:41 Dose: 42 mls/hr Insulin Aspart (Novolog Vial Sliding Scale -) 1 vial SQ TIDAC [facility] PRN Reason: Protocol Last Admin: 09/03/16 06:35 Dose: Not Given Levetiracetam (Keppra Oral Solution -) 500 mg GT BID [facility] Last Admin: 09/03/16 09:59 Dose: 500 mg Levothyroxine Sodium (Synthroid -) 125 mcg GT DAILY@0700 [facility] Last Admin: 09/03/16 06:36 Dose: 125 mcg Potassium Chloride (Potassium Chloride Oral Liquid) 20 meq GT DAILY [facility] Last Admin: 09/03/16 09:59 Dose: 20 meq - Objective Vital Signs: Vital Signs Temperature 97.2 F L 09/03/16 06:00 Pulse Rate 58 L 09/03/16 06:00 Respiratory Rate 19 09/03/16 06:00 Blood Pressure 148/47 09/03/16 06:00 O2 Sat by Pulse Oximetry (%) 99 09/02/16 21:00 Constitutional: Yes: No Distress, Calm Cardiovascular: Yes: Regular Rate and Rhythm Respiratory: Yes: Poor Air Entry, Rhonchi Gastrointestinal: Yes: Normal Bowel Sounds, Soft, Other Extremities: Yes: Other Neurological: Yes: Alert, Other Labs: CBC, BMP 09/03/16 05:35 09/03/16 05:35 Assessment/Plan Problem List - Problems (1) Aspiration pneumonia Code(s): J69.0 - PNEUMONITIS DUE TO INHALATION OF FOOD AND VOMIT Qualifiers: Aspiration pneumonia type: unspecified Laterality: unspecified laterality Lung location: unspecified part of lung Qualified Code(s) : J69.0 - Pneumonitis due to inhalation of food and vomit (2) Hypoxia Code(s): R09.02 - HYPOXEMIA (3) Leukocytosis Code(s): D72.829 - ELEVATED WHITE BLOOD CELL COUNT, UNSPECIFIED (4) Anemia Code(s): D64.9 - ANEMIA, UNSPECIFIED (5) Aspiration into airway Code(s): T17.908A - UNSP FB IN RESP TRACT, PART UNSP CAUSING OTH INJURY, INIT (6) COPD (chronic obstructive pulmonary disease) Code(s): J44.9 - CHRONIC OBSTRUCTIVE PULMONARY DISEASE, UNSPECIFIED (7) Diabetes Code(s): E11.9 - TYPE 2 DIABETES MELLITUS WITHOUT COMPLICATIONS Qualifiers: Diabetes mellitus type: type 2 Diabetes mellitus complication status: with unspecified complications (8) Failure to thrive Code(s): [id number] - (9) Intracerebral hemorrhage Code(s): I61.9 - NONTRAUMATIC INTRACEREBRAL HEMORRHAGE, UNSPECIFIED Qualifiers : Cerebral hemorrhage location: cerebral hemisphere, cortical portion (10) Respiratory failure with hypoxia Code(s): J96.91 - RESPIRATORY FAILURE, UNSPECIFIED WITH HYPOXIA Qualifiers: Chronicity: acute Qualified Code(s): J96.01 - Acute respiratory failure with hypoxia (11) Lactate blood increased Code(s): R79.89 - OTHER SPECIFIED ABNORMAL FINDINGS OF BLOOD CHEMISTRY this patient well known to me failure to thrive admitted with sepsis and hypoxia very high chances of aspiration patient xray not impressive but could not get proper imaging because of her condition and posture plan conitnue abx continue to monitor hydration rest as per primary probable plan for j tube
--- NOTE | 2016-09-03 15:52 | PN ---
Progress Note (short form) - Note Progress Note: Non verbal O/E Vital Signs Period Temp Pulse Resp BP Sys/Stephenson Pulse Ox Last 24 Hr 97.2 F-98.8 F 55-63 18-20 127-159/47-64 98-99 Heart irregular Lungs few scattered rales and rhonchi+ Abd soft Ext no edema Current Medications Acetaminophen (Tylenol Oral Solution -) 325 mg PO Q4H PRN PRN Reason: FEVER OR PAIN Amiodarone HCl (Cordarone -) 100 mg PO DAILY [facility] Last Admin: 09/03/16 10:53 Dose: Not Given Atorvastatin Calcium (Lipitor -) 40 mg GT HS [facility] Last Admin: 09/02/16 21:45 Dose: 40 mg Bacitracin (Bacitracin -) 1 applic TP BID [facility] Last Admin: 09/03/16 09:59 Dose: 1 applic Amino Acids (Clinimix -) 1,000 mls @ 42 mls/hr IV Q12H [facility] Last Admin: 09/03/16 08:41 Dose: 42 mls/hr Insulin Aspart (Novolog Vial Sliding Scale -) 1 vial SQ TIDAC [facility] PRN Reason: Protocol Last Admin: 09/03/16 06:35 Dose: Not Given Levetiracetam (Keppra Oral Solution -) 500 mg GT BID [facility] Last Admin: 09/03/16 09:59 Dose: 500 mg Levothyroxine Sodium (Synthroid -) 125 mcg GT DAILY@0700 [facility] Last Admin: 09/03/16 06:36 Dose: 125 mcg Potassium Chloride (Potassium Chloride Oral Liquid) 20 meq GT DAILY [facility] Last Admin: 09/03/16 09:59 Dose: 20 meq Laboratory Results - last 24 hr 09/02/16 09/03/16 09/03/16 17:41 05:35 05:35 WBC 11.6 H D RBC 2.57 L Hgb 8.4 L Hct 25.3 L MCV 98.7 H MCH 32.9 MCHC 33.3 RDW 15.5 Plt Count 288 MPV 8.7 Neutrophils % 89.4 H Lymphocytes % 5.0 L D Monocytes % 3.2 L D Eosinophils % 2.1 Basophils % 0.3 Sodium 140 Potassium 3.9 Chloride 108 H Carbon Dioxide 23 Anion Gap 9 BUN 20 H Creatinine 0.9 Creat Clearance w eGFR > 60 POC Glucometer 137 Random Glucose 130 H D Calcium 8.0 L Phosphorus 2.2 L Magnesium 1.9 Total Bilirubin 0.4 AST 29 ALT 29 Alkaline Phosphatase 75 Total Protein 5.3 L Albumin 1.5 L 09/03/16 09/03/16 06:34 11:40 WBC RBC Hgb Hct MCV MCH MCHC RDW Plt Count MPV Neutrophils % Lymphocytes % Monocytes % Eosinophils % Basophils % Sodium Potassium Chloride Carbon Dioxide Anion Gap BUN Creatinine Creat Clearance w eGFR POC Glucometer 143 146 Random Glucose Calcium Phosphorus Magnesium Total Bilirubin AST ALT Alkaline Phosphatase Total Protein Albumin - Problems (1) Aspiration pneumonitis Code(s): J69.0 - Had a lenghty discussion with one of the daughters against the suggestion of having a PEG Stopping all curative measures and offering palliative measures and allowing nature to take its course if more appropriate for this patient. The daughter is to discuss the same with the rest of here family and is to make a decesion tomorrow. (2) Acute renal failure (ARF) Code(s): N17.9 - stable for now but as above (3) Respiratory failure with hypoxia Code(s): J96.91 - RESPIRATORY FAILURE, UNSPECIFIED WITH HYPOXIA Qualifiers: Chronicity: acute Qualified Code(s): J96.01 - Acute respiratory failure with hypoxia (4) Diabetes Code(s): E11.9 - TYPE 2 DIABETES MELLITUS WITHOUT COMPLICATIONS Qualifiers: cont present care (5) Hypothyroid Code(s): E03.9 - HYPOTHYROIDISM, UNSPECIFIED (6) Hypertension Code(s): I10 - ESSENTIAL (PRIMARY) HYPERTENSION (7) Intracerebral hemorrhage Code(s): I61.9 - NONTRAUMATIC INTRACEREBRAL HEMORRHAGE, UNSPECIFIED Qualifiers : Cerebral hemorrhage location: cerebral hemisphere, cortical portion
[2016-09-03] MEDS: ATORVASTATIN CA 40 MG TABLET (FP) GT SCH (21:21)
[2016-09-04] MEDS: INSULIN SLIDING SCALE (NOVOLOG) 1 VIAL SQ SCH ×3 (06:05→18:33)
[2016-09-04] MEDS: LEVOTHYROXINE NA 125 MCG TABLET (FP) GT SCH (06:06)
--- NOTE | 2016-09-04 10:54 | PN ---
Progress Note (short form) - Note Progress Note: Progress Note, Physician Chief Complaint: PAF History of Present Illness: not communicative - Current Medication List Current Medications Generic Name Dose Route Start Last Admin Trade Name Shahbaz PRN Reason Stop Dose Admin Acetaminophen 325 mg 08/26/16 01:40 Tylenol Oral Solution - PO Q4H PRN FEVER OR PAIN Amiodarone HCl 100 mg 09/03/16 10:15 09/03/16 10:53 Cordarone - PO Not Given DAILY [facility] Atorvastatin Calcium 40 mg 08/26/16 22:00 09/03/16 21:21 Lipitor - GT 40 mg HS [facility] Administration Bacitracin 1 applic 08/26/16 10:00 09/03/16 21:21 Bacitracin - TP 1 applic BID [facility] Administration Amino Acids 1,000 mls @ 42 mls/hr 09/02/16 09:15 09/03/16 21:21 Clinimix - IV 42 mls/hr Q12H [facility] Administration Insulin Aspart 1 vial 08/26/16 07:00 09/04/16 06:05 Novolog Vial Sliding Scale - SQ Not Given TIDAC [facility] Protocol Levetiracetam 500 mg 08/26/16 10:00 09/03/16 21:21 Keppra Oral Solution - GT 500 mg BID [facility] Administration Levothyroxine Sodium 125 mcg 08/26/16 07:00 09/04/16 06:06 Synthroid - GT 125 mcg DAILY@0700 [facility] Administration Potassium Chloride 20 meq 08/26/16 10:00 09/03/16 09:59 Potassium Chloride Oral Liquid GT 20 meq DAILY [facility] Administration - Objective Vital Signs: Vital Signs Period Temp Pulse Resp BP Sys/Stephenson Pulse Ox Last 24 Hr 97.9 F-98.6 F 53-58 18-20 127-152/44-57 100 Constitutional: Yes: Well Nourished, No Distress Eyes: No: Sclera Icterus Respiratory: Yes: CTA Bilaterally, Diminished (bases). No: Accessory Muscle Use , Rales, Wheezes Gastrointestinal: Yes: Normal Bowel Sounds. No: Distention, Hepatomegaly, Palpable Mass, Tenderness Cardiovascular: Yes: irreg, tachy JVD: No Heart Sounds: Yes: S1, S2. No: Gallop Murmur: Yes: Systolic Murmur (2/6 early NAS lusb). No: Diastolic Murmur Extremities: No: Cold, Cyanosis Edema: No Integumentary: No: Jaundice Neurological: Yes: Lethargy. No: Seizure Psychiatric: No: Agitated CBC, BMP 09/03/16 05:35 09/03/16 05:35 ECG 08/25/16: sr, nl intervals, no ischemic changes Echo 08/22: nl LV/EF; RV tds; mod AI/MR, no peric eff (no RVSP) cxr: no chf, tds a/p: acute hypoxic resp failure, PNA: -recurrent problem, suspected aspiration -abx per ID/pmd -no signs chf or acs -recent echo with normal LV fxn and no severe valvular dysfunction -likely no volume overload, suspect intravasc depletion paroxysmal Afib -With RVR, likely related to ongoing pneumonia -Would not AC this patient (confirmed with dr navarrete she had spontaneous cerebral bleeds and mult SAHs at [facility] 1-2 mo ago, leading to her current debilitated mental status) -will not Rx ASA given significant ICH risks (possibly equal to warfarin in some studies) and no efficacy for preventing AF embolic events -08/28: Spontaneously converted to NSR, continue metoprolol 25mg PO BID (monitor for worsening COPD) -08/29: again rapid AF late yesterday with HRs to 160s and BP 80s--given amio iv -08/29-: converted to sinus. will stop amio and try prophlax against rapid AF with digoxin 0.125 qd (follow levels). if recurrent rapid AF and BPs remain low- end, will have to try po amio suppression -08/31: went back into afib with rvr overnight. BP low so won't tolerate bb/ ccb. Dig not helping so will dc. Will resume amio (po) as this helped keep her in SR before. -09/01-28: in sr now, cont amio po -09/03: sinus santiago, to 40s during high vagal tone time (sleep), 50s most of the day--not a high risk finding. decr amio to 100mg qd, cont tele -09/04: in sr, cont amio HTN: -stable/low off meds recent ICH: -seen by neuro/neurosurgery, no intervention was planned chronic malnutrition: -s/p PEG, gets tube feeds copd: -per pulm hld: -on statin
[2016-09-04] MEDS: AMINO ACIDS 4.25%/D5W 1,000 ML IV SCH ×2 (10:56→21:19)
[2016-09-04] MEDS: POTASSIUM CHLORIDE ORAL LIQUID 20 MEQ/15 ML GT SCH (11:07)
[2016-09-04] MEDS: AMIODARONE HCL 200 MG TABLET (FP) PO SCH (11:07)
[2016-09-04] MEDS: MULTIVIT-MINERALS 236 ML ML GT SCH (11:07)
[2016-09-04] MEDS: levETIRAcetam 500 MG/5 ML ORAL SOLUTION (UNIT-DOSE CUPS) GT SCH ×2 (11:07→21:35)
[2016-09-04] MEDS: BACITRACIN 15 GM TUBE TOPICAL OINTMENT TP SCH ×2 (11:24→21:22)
--- NOTE | 2016-09-04 12:42 | PN ---
Progress Note, Physician History of Present Illness: continues to do poorly family going to make decision patient opens eyes - Current Medication List Current Medications: Active Medications Acetaminophen (Tylenol Oral Solution -) 325 mg PO Q4H PRN PRN Reason: FEVER OR PAIN Amiodarone HCl (Cordarone -) 100 mg PO DAILY [facility] Last Admin: 09/04/16 11:07 Dose: 100 mg Atorvastatin Calcium (Lipitor -) 40 mg GT HS [facility] Last Admin: 09/03/16 21:21 Dose: 40 mg Bacitracin (Bacitracin -) 1 applic TP BID [facility] Last Admin: 09/04/16 11:24 Dose: 1 applic Amino Acids (Clinimix -) 1,000 mls @ 42 mls/hr IV Q12H [facility] Last Admin: 09/04/16 10:56 Dose: 42 mls/hr Insulin Aspart (Novolog Vial Sliding Scale -) 1 vial SQ TIDAC [facility] PRN Reason: Protocol Last Admin: 09/04/16 12:00 Dose: Not Given Levetiracetam (Keppra Oral Solution -) 500 mg GT BID [facility] Last Admin: 09/04/16 11:07 Dose: 500 mg Levothyroxine Sodium (Synthroid -) 125 mcg GT DAILY@0700 [facility] Last Admin: 09/04/16 06:06 Dose: 125 mcg Potassium Chloride (Potassium Chloride Oral Liquid) 20 meq GT DAILY [facility] Last Admin: 09/04/16 11:07 Dose: 20 meq - Objective Vital Signs: Vital Signs Temperature 98.3 F 09/04/16 10:30 Pulse Rate 55 L 09/04/16 10:30 Respiratory Rate 18 09/04/16 10:30 Blood Pressure 152/52 09/04/16 10:30 O2 Sat by Pulse Oximetry (%) 100 09/03/16 21:00 Constitutional: Yes: No Distress, Calm Cardiovascular: Yes: S1, S2 Respiratory: Yes: Poor Air Entry, Other Gastrointestinal: Yes: Normal Bowel Sounds, Soft, Other (peg in place) Musculoskeletal: Yes: Other Extremities: Yes: Other Neurological: Yes: Other Psychiatric: Yes: Other Labs: CBC, BMP 09/03/16 05:35 09/03/16 05:35 Assessment/Plan Problem List - Problems (1) Aspiration pneumonia Code(s): J69.0 - PNEUMONITIS DUE TO INHALATION OF FOOD AND VOMIT Qualifiers: Aspiration pneumonia type: unspecified Laterality: unspecified laterality Lung location: unspecified part of lung Qualified Code(s) : J69.0 - Pneumonitis due to inhalation of food and vomit (2) Hypoxia Code(s): R09.02 - HYPOXEMIA (3) Leukocytosis Code(s): D72.829 - ELEVATED WHITE BLOOD CELL COUNT, UNSPECIFIED (4) Anemia Code(s): D64.9 - ANEMIA, UNSPECIFIED (5) Aspiration into airway Code(s): T17.908A - UNSP FB IN RESP TRACT, PART UNSP CAUSING OTH INJURY, INIT (6) COPD (chronic obstructive pulmonary disease) Code(s): J44.9 - CHRONIC OBSTRUCTIVE PULMONARY DISEASE, UNSPECIFIED (7) Diabetes Code(s): E11.9 - TYPE 2 DIABETES MELLITUS WITHOUT COMPLICATIONS Qualifiers: Diabetes mellitus type: type 2 Diabetes mellitus complication status: with unspecified complications (8) Failure to thrive Code(s): [id number] - (9) Intracerebral hemorrhage Code(s): I61.9 - NONTRAUMATIC INTRACEREBRAL HEMORRHAGE, UNSPECIFIED Qualifiers : Cerebral hemorrhage location: cerebral hemisphere, cortical portion (10) Respiratory failure with hypoxia Code(s): J96.91 - RESPIRATORY FAILURE, UNSPECIFIED WITH HYPOXIA Qualifiers: Chronicity: acute Qualified Code(s): J96.01 - Acute respiratory failure with hypoxia (11) Lactate blood increased Code(s): R79.89 - OTHER SPECIFIED ABNORMAL FINDINGS OF BLOOD CHEMISTRY this patient well known to me failure to thrive admitted with sepsis and hypoxia very high chances of aspiration patient xray not impressive but could not get proper imaging because of her condition and posture plan conitnue abx continue to monitor hydration rest as per primary await for family to make final plan
--- NOTE | 2016-09-04 18:13 | PN ---
Progress Note (short form) - Note Progress Note: Denies any complaints Answered my questions with annoyance O/E Vital Signs Period Temp Pulse Resp BP Sys/Stephenson Pulse Ox Last 24 Hr 97.3 F-98.6 F 51-55 18-20 135-152/44-52 96-100 Heart regular Lungs clear Abd soft Ext contracted no edema Current Medications Acetaminophen (Tylenol Oral Solution -) 325 mg PO Q4H PRN PRN Reason: FEVER OR PAIN Amiodarone HCl (Cordarone -) 100 mg PO DAILY [facility] Last Admin: 09/04/16 11:07 Dose: 100 mg Atorvastatin Calcium (Lipitor -) 40 mg GT HS [facility] Last Admin: 09/03/16 21:21 Dose: 40 mg Bacitracin (Bacitracin -) 1 applic TP BID [facility] Last Admin: 09/04/16 11:24 Dose: 1 applic Amino Acids (Clinimix -) 1,000 mls @ 42 mls/hr IV Q12H [facility] Last Admin: 09/04/16 10:56 Dose: 42 mls/hr Insulin Aspart (Novolog Vial Sliding Scale -) 1 vial SQ TIDAC [facility] PRN Reason: Protocol Last Admin: 09/04/16 12:00 Dose: Not Given Levetiracetam (Keppra Oral Solution -) 500 mg GT BID [facility] Last Admin: 09/04/16 11:07 Dose: 500 mg Levothyroxine Sodium (Synthroid -) 125 mcg GT DAILY@0700 [facility] Last Admin: 09/04/16 06:06 Dose: 125 mcg Potassium Chloride (Potassium Chloride Oral Liquid) 20 meq GT DAILY [facility] Last Admin: 09/04/16 11:07 Dose: 20 meq Laboratory Results - last 24 hr 09/04/16 09/04/16 05:51 11:59 POC Glucometer 125 108 - Problems (1) Aspiration pneumonitis Code(s): J69.0 - Could not meet with the family today to discuss yesterday's recomendations further Will await their decesion (2) Acute renal failure (ARF) Code(s): N17.9 - stable for now but as above (3) Respiratory failure with hypoxia Code(s): J96.91 - RESPIRATORY FAILURE, UNSPECIFIED WITH HYPOXIA Qualifiers: Chronicity: acute Qualified Code(s): J96.01 - Acute respiratory failure with hypoxia (4) Diabetes Code(s): E11.9 - TYPE 2 DIABETES MELLITUS WITHOUT COMPLICATIONS Qualifiers: cont present care (5) Hypothyroid Code(s): E03.9 - HYPOTHYROIDISM, UNSPECIFIED (6) Hypertension Code(s): I10 - ESSENTIAL (PRIMARY) HYPERTENSION (7) Intracerebral hemorrhage Code(s): I61.9 - NONTRAUMATIC INTRACEREBRAL HEMORRHAGE, UNSPECIFIED Qualifiers : Cerebral hemorrhage location: cerebral hemisphere, cortical portion
[2016-09-04] MEDS: ATORVASTATIN CA 40 MG TABLET (FP) GT SCH (21:35)
[2016-09-05] MEDS: LEVOTHYROXINE NA 125 MCG TABLET (FP) GT SCH (06:00)
[2016-09-05] MEDS: INSULIN SLIDING SCALE (NOVOLOG) 1 VIAL SQ SCH ×3 (06:01→17:55)
[2016-09-05] MEDS ORDERED: PT OWN MED DRAWER 7, Y5N ONE (10:35)
[2016-09-05] MEDS: AMINO ACIDS 4.25%/D5W 1,000 ML IV SCH ×2 (11:05→14:46)
[2016-09-05] MEDS: MULTIVIT-MINERALS 236 ML ML GT SCH (11:09)
[2016-09-05] MEDS: POTASSIUM CHLORIDE ORAL LIQUID 20 MEQ/15 ML GT SCH (11:09)
[2016-09-05] MEDS: levETIRAcetam 500 MG/5 ML ORAL SOLUTION (UNIT-DOSE CUPS) GT SCH (11:09)
[2016-09-05] MEDS: AMIODARONE HCL 200 MG TABLET (FP) PO SCH (11:09)
--- NOTE | 2016-09-05 12:02 | PN ---
Progress Note (short form) - Note Progress Note: PULMONARY Pt nonverbal. No fevers recorded. Last Vital Signs Temp Pulse Resp BP Pulse Ox 97.8 F 56 L 20 135/54 98 09/05/16 05:53 09/05/16 05:53 09/05/16 05:53 09/05/16 05:53 09/04/16 21:00 Gen: lethargic, nonverbal Heart: RRR Lung: decreased breath sounds at the bases Abd: soft, nontender Ext: no edema CBC, BMP 09/03/16 05:35 09/03/16 05:35 Active Medications Acetaminophen (Tylenol Oral Solution -) 325 mg PO Q4H PRN PRN Reason: FEVER OR PAIN Amiodarone HCl (Cordarone -) 100 mg PO DAILY [facility] Last Admin: 09/04/16 11:07 Dose: 100 mg Atorvastatin Calcium (Lipitor -) 40 mg GT HS [facility] Last Admin: 09/04/16 21:35 Dose: 40 mg Bacitracin (Bacitracin -) 1 applic TP BID [facility] Last Admin: 09/04/16 21:22 Dose: 1 applic Amino Acids (Clinimix -) 1,000 mls @ 42 mls/hr IV Q12H [facility] Last Admin: 09/04/16 21:19 Dose: Not Given Insulin Aspart (Novolog Vial Sliding Scale -) 1 vial SQ TIDAC [facility] PRN Reason: Protocol Last Admin: 09/05/16 06:01 Dose: Not Given Levetiracetam (Keppra Oral Solution -) 500 mg GT BID [facility] Last Admin: 09/04/16 21:35 Dose: 500 mg Levothyroxine Sodium (Synthroid -) 125 mcg GT DAILY@0700 [facility] Last Admin: 09/05/16 06:00 Dose: 125 mcg Potassium Chloride (Potassium Chloride Oral Liquid) 20 meq GT DAILY [facility] Last Admin: 09/04/16 11:07 Dose: 20 meq A/P Pneumonia Sepsis Paroxysmal Atrial Fibrillation COPD HTN h/o CVA - off antibiotics - aspiration precautions - on clinimix - DVT prophylaxis - continue discussions regarding goals of care - poor overall prognosis
--- NOTE | 2016-09-05 13:07 | PN ---
Progress Note, Physician History of Present Illness: no gross change continues to be lethargic - Current Medication List Current Medications: Active Medications Acetaminophen (Tylenol Oral Solution -) 325 mg PO Q4H PRN PRN Reason: FEVER OR PAIN Amiodarone HCl (Cordarone -) 100 mg PO DAILY [facility] Last Admin: 09/05/16 11:09 Dose: 100 mg Atorvastatin Calcium (Lipitor -) 40 mg GT HS [facility] Last Admin: 09/04/16 21:35 Dose: 40 mg Bacitracin (Bacitracin -) 1 applic TP BID [facility] Last Admin: 09/04/16 21:22 Dose: 1 applic Amino Acids (Clinimix -) 1,000 mls @ 42 mls/hr IV Q12H [facility] Last Admin: 09/05/16 11:05 Dose: Not Given Insulin Aspart (Novolog Vial Sliding Scale -) 1 vial SQ TIDAC [facility] PRN Reason: Protocol Last Admin: 09/05/16 12:37 Dose: Not Given Levetiracetam (Keppra Oral Solution -) 500 mg GT BID [facility] Last Admin: 09/05/16 11:09 Dose: 500 mg Levothyroxine Sodium (Synthroid -) 125 mcg GT DAILY@0700 [facility] Last Admin: 09/05/16 06:00 Dose: 125 mcg Potassium Chloride (Potassium Chloride Oral Liquid) 20 meq GT DAILY [facility] Last Admin: 09/05/16 11:09 Dose: 20 meq - Objective Vital Signs: Vital Signs Temperature 97.8 F 09/05/16 05:53 Pulse Rate 56 L 09/05/16 05:53 Respiratory Rate 20 09/05/16 05:53 Blood Pressure 135/54 09/05/16 05:53 O2 Sat by Pulse Oximetry (%) 98 09/04/16 21:00 Constitutional: Yes: No Distress, Calm Cardiovascular: Yes: S1, S2 Respiratory: Yes: Regular, Rhonchi, Other Gastrointestinal: Yes: Normal Bowel Sounds, Soft, Other Musculoskeletal: Yes: Other Extremities: Yes: Other Neurological: Yes: Alert, Other Labs: CBC, BMP 09/03/16 05:35 09/03/16 05:35 Assessment/Plan Problem List - Problems (1) Aspiration pneumonia Code(s): J69.0 - PNEUMONITIS DUE TO INHALATION OF FOOD AND VOMIT Qualifiers: Aspiration pneumonia type: unspecified Laterality: unspecified laterality Lung location: unspecified part of lung Qualified Code(s) : J69.0 - Pneumonitis due to inhalation of food and vomit (2) Hypoxia Code(s): R09.02 - HYPOXEMIA (3) Leukocytosis Code(s): D72.829 - ELEVATED WHITE BLOOD CELL COUNT, UNSPECIFIED (4) Anemia Code(s): D64.9 - ANEMIA, UNSPECIFIED (5) Aspiration into airway Code(s): T17.908A - UNSP FB IN RESP TRACT, PART UNSP CAUSING OTH INJURY, INIT (6) COPD (chronic obstructive pulmonary disease) Code(s): J44.9 - CHRONIC OBSTRUCTIVE PULMONARY DISEASE, UNSPECIFIED (7) Diabetes Code(s): E11.9 - TYPE 2 DIABETES MELLITUS WITHOUT COMPLICATIONS Qualifiers: Diabetes mellitus type: type 2 Diabetes mellitus complication status: with unspecified complications (8) Failure to thrive Code(s): OMI6001 - (9) Intracerebral hemorrhage Code(s): I61.9 - NONTRAUMATIC INTRACEREBRAL HEMORRHAGE, UNSPECIFIED Qualifiers : Cerebral hemorrhage location: cerebral hemisphere, cortical portion (10) Respiratory failure with hypoxia Code(s): J96.91 - RESPIRATORY FAILURE, UNSPECIFIED WITH HYPOXIA Qualifiers: Chronicity: acute Qualified Code(s): J96.01 - Acute respiratory failure with hypoxia (11) Lactate blood increased Code(s): R79.89 - OTHER SPECIFIED ABNORMAL FINDINGS OF BLOOD CHEMISTRY this patient well known to me failure to thrive admitted with sepsis and hypoxia very high chances of aspiration patient xray not impressive but could not get proper imaging because of her condition and posture plan off of abx continue to montor await for final plan rest as per primary
--- NOTE | 2016-09-05 13:30 | PN ---
Progress Note (short form) - Note Progress Note: Patient seen and examined. Events over the weekend noted. Patient poorly responsive. Contracted/ position. present by the bedside. Discussed in detail about her prognosis. Overall poor prognosis which agrees with. made his decision about [place]. History Source: Medical Record, Transfer Record Limitations to Obtaining History: Clinical Condition - Past Medical History OCCUPATIONAL MEDICINE PHYSICIAN: Yes: CVA Cardiovascular: Yes: HTN, Hyperlipdemia Pulmonary: Yes: COPD Renal/: Yes: Renal Insufficiency Heme/Onc: Yes: Anemia Endocrine: Yes: Diabetes Mellitus, Hypothyroidism - Smoking History Smoking history: Unknown if ever smoked Have you smoked in the past 12 months: No Aproximately how many cigarettes per day: 0 - Alcohol/Substance Use Hx Alcohol Use: No Home Medications - Allergies Allergies/Adverse Reactions: Allergies Allergy/AdvReac Type Severity Reaction Status Date / Time No Known Allergies Allergy Verified 07/28/16 18:15 - Home Medications Home Medications: Ambulatory Orders Acetaminophen [Tylenol] 320 mg GT Q6H 08/07/16 Albuterol 2.5/Ipratropium 0.5 [Duoneb -] 1 amp NEB Q6H 08/07/16 Amlodipine Besylate [Norvasc -] 2.5 mg GT DAILY 08/07/16 Insulin Aspart [Novolog Flexpen] 0 unit SQ TID 08/07/16 Levetiracetam 500 mg GT BID 08/07/16 Heparin - 5,000 unit SQ BID vial 08/17/16 Levothyroxine [Synthroid -] 125 mcg GT DAILY #60 tablet 08/17/16 Metoclopramide HCl [Reglan -] 5 mg PO TIDAC #90 tablet 08/17/16 Potassium Chloride [Potassium Chloride Oral Liquid] 20 meq GT DAILY #30 ml 08/17 Atorvastatin Ca [Lipitor] 40 mg GT HS 08/25/16 Multivitamins [Tab-A-Vit -] 1 tab GT DAILY 08/25/16 Review of Systems Unable to obtain ROS, reason: Because patient is unresp Physical Examination Vital Signs: Vital Signs Period Temp Pulse Resp BP Sys/Stephenson Pulse Ox Last 24 Hr 97.0 F-98.6 F 51-62 18-20 135-145/44-54 98 Constitutional: Yes: Cachectic, Moderate Distress Eyes: Yes: Conjunctiva Clear, EOM Intact, PERRL HENT: Yes: Atraumatic, Normocephalic Neck: Yes: Supple Cardiovascular: Yes: Regular Rate and Rhythm Respiratory: Yes: Diminished (B/L lung base) Gastrointestinal: Yes: Soft ...Rectal Exam: Yes: Deferred Peripheral Pulses WNL: Yes Neurological: Yes: Unresponsive Labs: CBC, BMP 09/03/16 05:35 09/03/16 05:35 Microbiology 08/25/16 17:39 Blood - Peripheral Venous Blood Culture - Final NO GROWTH AFTER 5 DAYS INCUBATION Imaging - Results Chest X-ray: Report Reviewed Problem List - Problems (1) Aspiration pneumonitis Assessment/Plan: Treated with IV abx. Pulmonary and ID follow up appreciated. Code(s): J69.0 - PNEUMONITIS DUE TO INHALATION OF FOOD AND VOMIT (2) Acute renal failure (ARF) Assessment/Plan: Continue clinimix. Renal follow up appreciated. Code(s): N17.9 - ACUTE KIDNEY FAILURE, UNSPECIFIED 3) Hypernatremia Resolved. (4) Respiratory failure with hypoxia Assessment/Plan: Monitor O2 sats. Continue inhaled bronchodilators. Pulmonary follow up appreciated. Code(s): J96.91 - RESPIRATORY FAILURE, UNSPECIFIED WITH HYPOXIA Qualifiers: Chronicity: acute Qualified Code(s): J96.01 - Acute respiratory failure with hypoxia (5) Diabetes Assessment/Plan: ISS Code(s): E11.9 - TYPE 2 DIABETES MELLITUS WITHOUT COMPLICATIONS Qualifiers: Diabetes mellitus type: type 2 Diabetes mellitus complication status: with unspecified complications (6) Hypothyroid Assessment/Plan: Continue synthroid. Code(s): E03.9 - HYPOTHYROIDISM, UNSPECIFIED (7) Hypertension Assessment/Plan: Monitor BP. Code(s): I10 - ESSENTIAL (PRIMARY) HYPERTENSION (8) Intracerebral hemorrhage Assessment/Plan: Minimally responsive. Code(s): I61.9 - NONTRAUMATIC INTRACEREBRAL HEMORRHAGE, UNSPECIFIED Qualifiers : Cerebral hemorrhage location: cerebral hemisphere, cortical portion (9) Severe Protein-Calorie Malnutrition: PEG feeds on hold due to aspiration. Continue clinimix. Awaiting family decision regarding goals of care. Family entertaining idea about bolus feeds rather than continuous feeds (9) Atrial Fibrillation: Amiodaron stopped due to bradycardia. Cardiology following the case. Discussed in detail with Mr. Guerin. He has agreed upon sending her to [place]. Overall poor prognosis. Problem List - Problems (1) Aspiration pneumonitis Code(s): J69.0 - PNEUMONITIS DUE TO INHALATION OF FOOD AND VOMIT (2) Acute renal failure (ARF) Code(s): N17.9 - ACUTE KIDNEY FAILURE, UNSPECIFIED (3) Respiratory failure with hypoxia Code(s): J96.91 - RESPIRATORY FAILURE, UNSPECIFIED WITH HYPOXIA Qualifiers: Chronicity: acute Qualified Code(s): J96.01 - Acute respiratory failure with hypoxia (4) Diabetes Code(s): E11.9 - TYPE 2 DIABETES MELLITUS WITHOUT COMPLICATIONS Qualifiers: Diabetes mellitus type: type 2 Diabetes mellitus complication status: with unspecified complications (5) Hypothyroid Code(s): E03.9 - HYPOTHYROIDISM, UNSPECIFIED (6) Hypertension Code(s): I10 - ESSENTIAL (PRIMARY) HYPERTENSION (7) Intracerebral hemorrhage Code(s): I61.9 - NONTRAUMATIC INTRACEREBRAL HEMORRHAGE, UNSPECIFIED Qualifiers : Cerebral hemorrhage location: cerebral hemisphere, cortical portion
--- NOTE | 2016-09-05 15:47 | DS ---
Physical Examination Vital Signs: Vital Signs Temperature 98.3 F 09/05/16 14:45 Pulse Rate 61 09/05/16 14:45 Respiratory Rate 18 09/05/16 14:45 Blood Pressure 116/67 09/05/16 14:45 O2 Sat by Pulse Oximetry (%) 97 09/05/16 09:00 Labs: CBC, BMP 09/03/16 05:35 09/03/16 05:35 Discharge Summary Reason For Visit: URINARY TRACT INFECTION, ASPIRATION PNEUMONIA Current Active Problems Aspiration pneumonia (Acute) Aspiration pneumonitis (Acute) Atrial fibrillation (Acute) COPD (chronic obstructive pulmonary disease) with acute bronchitis (Acute) Hypernatremia (Acute) Hypoxia (Acute) Lactate blood increased (Acute) Leukocytosis (Acute) Volume depletion (Acute) Intracranial Bleed. Hospital Course: 81 year old female with a significant past medical history of hypertension, hyperlipidemia, recent intracranial hemorrhage, Aspiration pneumonia, respiratory failure with hypoxia, CHF and diabetes was readmitted from [facility] with aspiration pneumonia. This is her second episode of aspiration pneumonia within a shot period of time ( 7 days) after PEG placement. Patient had PEG placed for feeding purpose after she had intracranial bleed. Patient noted with progressive decline after intracranial bleed. Palliative care consulted. Overall poor prognosis discussed with family and they opted for [place]. Patient will be transferred to [place]. Condition: Poor - Instructions Referrals: Alexander Lovell MD [Primary Care Provider] - Disposition: TRANSFER ACUTE CARE/OTHER HOSP - Home Medications Comprehensive Discharge Medication List: Ambulatory Orders Acetaminophen [Tylenol] 320 mg GT Q6H 08/07/16 Albuterol 2.5/Ipratropium 0.5 [Duoneb -] 1 amp NEB Q6H 08/07/16 Amino Acids 4.25%/D5w [Clinimix 4.25%/D5w Solution] 1,000 ml IV Q12H #1 infus.bot 09/05/16 Amiodarone HCl [Cordarone -] 100 mg PO DAILY #30 tablet 09/05/16 Bacitracin - [Bacitracin Topical Ointment -] 1 applic TP BID #14 tube 09/05/16 Levetiracetam [Keppra Oral Solution -] 500 mg GT BID #60 tab 09/05/16 Levothyroxine [Synthroid -] 125 mcg GT DAILY@0700 #30 tablet 09/05/16 Multivitamins [Multivit ([facility] Formulary)] 1 tab GT DAILY #30 tab 09/05/16 Potassium Chloride [Potassium Chloride Oral Liquid] 20 meq GT DAILY #30 tab
[2016-09-05] MEDS: BACITRACIN 15 GM TUBE TOPICAL OINTMENT TP SCH (17:55)
[2016-09-05 18:16] VITALS: BP 141/51; PULSE 56; TEMP 97.6
== END 2016-09-05 19:02 | disposition hospice, inpatient (51) | DRG 871 ==
LOC: JER 16:38 → JERBED 20:20 → J4W 08-26 00:18 → J7W 09-04 18:39
PROVIDERS: ADMIT Internal Medicine; ATTEND Internal Medicine
PROC: 3E0H76Z Introduction of Nutritional Substance into Lower GI, Via Natural or Artificial Opening (ICD-10-PCS; principal; 2016-08-26)
PROC: 3E0F7GC Introduction of Other Therapeutic Substance into Respiratory Tract, Via Natural or Artificial Opening (ICD-10-PCS; 2016-08-26)
DX: A41.9 Sepsis, unspecified organism (principal); J69.0 Pneumonitis due to inhalation of food and vomit; J96.01 Acute respiratory failure with hypoxia; E43 Unspecified severe protein-calorie malnutrition; E87.2 Acidosis; E87.0 Hyperosmolality and hypernatremia; J44.0 Chronic obstructive pulmonary disease with (acute) lower respiratory infection; Z68.1 Body mass index [BMI] 19.9 or less, adult; I13.0 Hypertensive heart and chronic kidney disease with heart failure and stage 1 through stage 4 chronic kidney disease, or unspecified chronic kidney disease; I50.30 Unspecified diastolic (congestive) heart failure; N17.9 Acute kidney failure, unspecified; R64 Cachexia; N39.0 Urinary tract infection, site not specified; E03.9 Hypothyroidism, unspecified; R62.7 Adult failure to thrive; D64.9 Anemia, unspecified; F03.90 Unspecified dementia, unspecified severity, without behavioral disturbance, psychotic disturbance, mood disturbance, and anxiety; E78.00 Pure hypercholesterolemia, unspecified; E86.0 Dehydration; D72.829 Elevated white blood cell count, unspecified; E86.9 Volume depletion, unspecified; J20.9 Acute bronchitis, unspecified; I48.0 Paroxysmal atrial fibrillation; E83.51 Hypocalcemia; L89.522 Pressure ulcer of left ankle, stage 2; L89.152 Pressure ulcer of sacral region, stage 2; L89.322 Pressure ulcer of left buttock, stage 2; E11.22 Type 2 diabetes mellitus with diabetic chronic kidney disease; N18.9 Chronic kidney disease, unspecified; Z79.4 Long term (current) use of insulin; Z87.891 Personal history of nicotine dependence; Z93.1 Gastrostomy status; Z66 Do not resuscitate; Z86.73 Personal history of transient ischemic attack (TIA), and cerebral infarction without residual deficits
CPT/HCPCS: 36415; 71010-TC; 80048; 80053; 80162; 81003; 81015; 82272; 82570; 83605; 83735; 84100; 84156; 84300; 84540; 85025; 85027; 87040; 87086; 93005; 93010; 94640; 99284-25; J1644